=== PATIENT | male | born 1925 | race Caucasian/White ===

== ENCOUNTER 2016-10-08 10:32 | Inpatient (IN) | payer MEDICARE, BC ==
[~2016-10-08] VITALS: Ht 188 cm; Wt 92.6 kg
[2016-10-08] VITALS (24 sets, daily range): BP systolic 93–140; BP diastolic 56–96; PULSE 91–126; RESP 12–30; TEMP 97.8–102.9; O2SAT 81–100
[~2016-10-08 10:32] MED LIST: ALBU0.08 NEB; ALPR.25 PO; AMLO5TAB2 PO; ANALHC30T TOPICAL; ASPI1TAB69 PO; CALC648T PO; DIVA125C PO; DULC10SU3 RECTAL; FURO20TA PO; GLYC1SOL EACH EYE; LACTG PO; LEVO75TA3 PO; LEXA20TA PO; LORA-361 PO; METO25TA3 PO; MILKSUS PO; MULT-135 PO; Non-Formulary Drug RECTAL; PERC5TAB12 PO; POTA10CA PO; QUET1TAB7 PO; TRIAPOW TOPICAL; VITA20003 PO
[2016-10-08] MEDS ORDERED: VANCOMYCIN INJ 1 MG in SODIUM CHLOR 0.9% 250 ML INJ 250 ML IV STA (10:37)
[2016-10-08] MEDS ORDERED: metroNIDAZOLE 500 MG INJ 100 ML IV STA (10:37)
[2016-10-08] MEDS ORDERED: CEFEPIME INJ 2,000 MG in SODIUM CHLORIDE 0.9% INJ 100 ML IV STA (10:37)
[2016-10-08] MEDS ORDERED: AZITHROMYCIN INJ 500 MG in SODIUM CHLOR 0.9% 250 ML INJ 250 ML IV STA (10:37)
[2016-10-08] MEDS ORDERED: ETOMIDATE 40 MG/20 ML VIAL ONE (10:44)
[2016-10-08] MEDS ORDERED: SUCCINYLCHOLINE CHLORIDE 200 MG/10 ML VIAL ONE (10:44)
[2016-10-08] MEDS ORDERED: PROPOFOL 1000 MG/100 ML INJ 100 ML IV SCH (11:00)
[2016-10-08] MEDS ORDERED: SODIUM CHLOR 0.9% 1000 ML INJ 1,000 ML IV SCH ×3 (11:00)
[2016-10-08] MEDS ORDERED: PHENYLEPH/NS 1000 MCG/10 ML SYR IV ONE (11:00)
[2016-10-08] MEDS ORDERED: SODIUM CHLORIDE 0.9% FLUSH 5 ML FLUSH IVF PRN (11:00)
[2016-10-08] MEDS ORDERED: RESP: ALBUTEROL 2.5 MG/3 ML NEB (SCH) INH ONE (11:00)
[2016-10-08] MEDS ORDERED: HYDROmorphone HCL PF 1 MG/ML VIAL IV PUSH ONE (11:00)
[2016-10-08 11:16] LABS: AUTOMATED NEUTROPHIL # 20.9 TH/MM3 (1.8-7.7); BASOPHIL # 0.1 TH/MM3 (0-0.2); BASOPHIL % 0.2 % (0.0-2.0); HEMO FLAGS DIFF FINAL; LYMPH % 4.5 % (9.0-44.0); LYMPHOCYTE # 1.1 TH/MM3 (1.0-4.8); MEAN CELL VOLUME 95.2 FL (80.0-100.0); MEAN CORPUSCULAR HEMOGLOBIN 31.7 PG (27.0-34.0); MEAN CORPUSCULAR HGB CONC 33.3 % (32.0-36.0); MONO % 6.9 % (0.0-8.0); NEUT % 88.4 % (16.0-70.0); PLATELET COUNT 410 TH/MM3 (150-450); RED BLOOD COUNT 3.46 MIL/MM3 (4.50-5.90); RED CELL DISTRIBUTION WIDTH 14.4 % (11.6-17.2); WHITE BLOOD COUNT 23.7 TH/MM3 (4.0-11.0)
[2016-10-08 11:24] LABS: APTT (PATIENT) 28.9 SEC (24.3-30.1); INTERNATIONAL NORMALIZED RATIO 1.1 RATIO; PROTHROMBIN TIME - PATIENT 11.7 SEC (9.8-11.6)
[2016-10-08] MEDS ORDERED: ACETAMINOPHEN 650 MG SUPP RECTAL ONE (11:45)
[2016-10-08 11:47] LABS: ALKALINE PHOSPHATASE 88 U/L (45-117); ALT (GPT) 37 U/L (12-78); AST (GOT) 33 U/L (15-37); BLOOD UREA NITROGEN 41 MG/DL (7-18); GLOMERULAR FILTRATION RATE 43 ML/MIN (>89); POTASSIUM 4.6 MEQ/L (3.5-5.1); SODIUM (NA) 137 MEQ/L (136-145); TOTAL BILIRUBIN ADULT 0.6 MG/DL (0.2-1.0)
[2016-10-08 11:48] LABS: ANION GAP 10 MEQ/L (5-15); BICARBONATE 22.5 MEQ/L (21.0-32.0); CHLORIDE 105 MEQ/L (98-107)
[2016-10-08 11:50] LABS: BLOOD, URINE SMALL (NEG); GLUCOSE,URINE NEG (NEG); KETONE, URINE NEG (NEG); NITRITE,URINE POS (NEG)
[2016-10-08 11:54] LABS: PH, URINE GREATER/EQUAL 9.0 (5.0-8.5)
[2016-10-08 11:55] LABS: URINE COLOR YELLOW (YELLW/STRAW)
--- NOTE | 2016-10-08 11:59 | RADRPT ---
EXAM DATE/TIME: 10/08/2016 11:24 [place] COMPARISON: CHEST SINGLE AP, August 23, 2016, 8:40. INDICATIONS : Post intubation. MEDICAL HISTORY : Hypertension. Chronic obstructive pulmonary disease. SURGICAL HISTORY : None. ENCOUNTER: Initial ACUITY: 1 day PAIN SCORE: Non-responsive. LOCATION: Bilateral chest FINDINGS: A single view of the chest demonstrates endotracheal tube placement with tip 5 cm above the magnolia. N asogastric tube with tip in stomach. Minimal left retrocardiac density. Osseous structures are intac t. CONCLUSION: 1. Adequate placement of endotracheal tube. 2. Left basal atelectasis. Luc Calix MD on October 08, 2016 at 11:55 Board Certified Radiologist. This report was verified electronically.
[2016-10-08 12:03] LABS: BACTERIA, URINE MANY /hpf; MUCUS URINE FEW /lpf (OCC)
[2016-10-08 12:05] LABS: COMMENT (UR) CATH-CULTURE IND; CULTURE IF INDICATED CATH CULTURE IND
--- NOTE | 2016-10-08 12:20 | PD ---
HPI Chief Complaint: Respiratory Distress Time Seen by Provider: 10:35 Travel History International Travel<30 days: No Contact w/Intl Traveler<30days: No Traveled to known affect area: No History of Present Illness HPI This is an 89-year-old male who presents to the emergency department with increased difficulty breathing. He evidently had some episodes of vomiting earlier this morning and since then they found him struggling to breathe and gurgling. He is been less responsive than normal. Patient doesn't provide any history. I did speak to the patient's son who is his power of state attorney. He says that this is happened in the past and he sent MRSA pneumonia in the past. He said last year he had a very similar incident where he had difficulty breathing and ended up intubated in the intensive care unit for 20 days. He said after bronchoscopy his symptoms improved significantly and after recovering from that illness the patient was fairly functional, walking with a walker and able to toilet and eat independently with minimal confusion. Regarding goals of care the son would like to be aggressive because he feels his father recovered from an illness similar to this last year. PFSH Past Medical History Arthritis: Yes Asthma: No Blood Disorders: No Anxiety: Yes Depression: Yes Cancer: Yes (SKIN ) Cardiovascular Problems: Yes High Cholesterol: No Chemotherapy: No Chest Pain: No Congestive Heart Failure: No COPD: Yes Cerebrovascular Accident: No Diabetes: No Diminished Hearing: No Endocrine: No Gastrointestinal Disorders: Yes GERD: Yes Glaucoma: No Genitourinary: No Hepatitis: No Hiatal Hernia: No Hypertension: Yes Immune Disorder: No Kidney Stones: No Musculoskeletal: Yes (CHRONIC BACK PROBLEMS ) Neurologic: Yes (NEUROPATHY) Psychiatric: Yes Reproductive: No Respiratory: Yes Radiation Therapy: No Renal Failure: No Thyroid Disease: Yes Ulcer: No Tetanus Vaccination: < 5 Years ?: Not Past Surgical History Abdominal Surgery: Yes (COLONOSCOPY) AICD: No Appendectomy: Yes Arteriovenous Shunt: No Cardiac Surgery: No Cholecystectomy: Yes Ear Surgery: No Endocrine Surgery: No Eye Surgery: No Genitourinary Surgery: Yes (TURP) Gynecologic Surgery: No Insulin Pump: No Joint Replacement: No Oral Surgery: No Thoracic Surgery: No Other Surgery: Yes (BACK SURGERY) Social History Alcohol Use: No Tobacco Use: No Substance Use: No Allergies-Medications (Allergen,Severity, Reaction): Coded Allergies: Levofloxacin (Verified Allergy, Severe, 10/08/16) *MDRO Multi-Drug Resistant Organism (Verified Adverse Reaction, Unknown, 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) - 07/21/16 & 08/22/16 Reported Meds & Prescriptions Reported Meds & Active Scripts Active Quetiapine (Quetiapine Fumarate) 25 Mg Tab 25 Mg PO BID PRN [Non-Formulary Drug] 1 EA Ea 0 Ea RECTAL BID Analpram Hc Topical (Hydrocortisone/Pramoxine) 2.5-1% Cream 1 Applic TOPICAL Q8HR Reported Xanax (Alprazolam) 0.25 Mg Tab 0.25 Mg PO Q8H PRN Vitamin D (Cholecalciferol) 2,000 Unit Tab Triamcinolone Acetonide (Triamcinolone Acetonide (Topic) 1 Pow Pow 0.1 % TOPICAL HS Potassium Chloride ER (Potassium Chloride) 10 Meq Cap 10 Meq PO DAILY Percocet (Oxycodone-Acetaminophen) 5-325 mg Tab 1 Tab PO Q8HR PRN Multi Vitamin (Multiple Vitamin) 1 Tab Tab 1 Tab PO DAILY Milk of Magnesia Liq (Magnesium Hydroxide) 400 Mg/5 Ml Susp 30 Ml PO HS PRN Metoprolol Tartrate 25 Mg Tab 25 Mg PO BID Lexapro (Escitalopram Oxalate) 20 Mg Tab 20 Mg PO DAILY Levothyroxine (Levothyroxine Sodium) 75 Mcg Tab 75 Mcg PO DAILY Furosemide 20 Mg Tab 20 Mg PO DAILY Floranex (Lactobacillus Acidophilus) 1 Gm Pkt 1 Gm PO BID Dulcolax Supp (Bisacodyl) 10 Mg Supp 10 Mg RECTAL DAILY PRN Depakote Sprinkles (Divalproex Sodium) 125 mg Cap 125 Mg PO TID Claritin (Loratadine) 10 Mg Tab 10 Mg PO DAILY Calcium Carbonate (Calcium Carbonate (Antacid)) 648 Mg Tab 648 Mg PO PRN Aspirin 81 Mg Tabdr 81 Mg PO DAILY Sm Dry Eye Relief 0.2-0.2-1 % (Agmgzxgc-Taducvgenwbo-Xicwdnbj) 1 Sweta Sweta 1 Drop EACH EYE TID Amlodipine (Amlodipine Besylate) 5 Mg Tab 5 Mg PO DAILY Albuterol Neb (Albuterol Sulfate) 2.5 Mg/3 Ml Neb 2.5 Mg NEB TID NEB PRN Review of Systems ROS Limitations: Clinical Condition, Poor Historian Physical Exam Narrative GENERAL: Frail elderly male in severe respiratory distress. SKIN: Warm and dry. HEAD: Atraumatic. Normocephalic. EYES: Pupils equal and round. No injection or drainage. ENT: Moist mucous membranes NECK: Trachea midline. CARDIOVASCULAR: Regular rate and rhythm. No murmur appreciated. RESPIRATORY: Diffuse crackles, worse on the right, accessory muscle use, not protecting airway with yellow and green sputum production GASTROINTESTINAL: Abdomen soft, non-tender, nondistended. MUSCULOSKELETAL: No obvious deformities. NEUROLOGICAL: Poorly responsive.. No obvious cranial nerve deficits. Moving all extremities. Data Data Last Documented VS Vital Signs Date Time Temp Pulse Resp B/P Pulse Ox O2 Delivery O2 Flow Rate FiO2 10/08/16 12:00 99.3 108 12 112/57 100 Ventilator 100 10/08/16 10:40 15 Orders Complete Blood Count With Diff (10/08/16 10:37) Comprehensive Metabolic Panel (10/08/16 10:37) Prothrombin Time / Inr (Pt) (10/08/16 10:37) Act Partial Throm Time (Ptt) (10/08/16 10:37) Lactic Acid Sepsis Protocol (10/08/16 10:37) Urinalysis - C+S If Indicated (10/08/16 10:37) Influenzae A/B Antigen (10/08/16 10:37) Blood Culture (10/08/16 10:37) Sputum Culture And Gram Stain (10/08/16 10:37) Pneumococcal Urinary Antigen (10/08/16 10:37) Legionella Urinary Antigen (10/08/16 10:37) Chest, Single Ap (10/08/16 10:37) Blood Glucose (10/08/16 10:37) Ecg Monitoring (10/08/16 10:37) Iv Access Insert/Monitor (10/08/16 10:37) Oximetry (10/08/16 10:37) Oxygen Administration (10/08/16 10:37) Vancomycin Inj (Vancomycin Inj) (10/08/16 10:37) Metronidazole 500 Mg Inj (Flagyl 500 Mg (10/08/16 10:37) Cefepime Inj (Maxipime Inj) (10/08/16 10:37) Azithromycin Inj (Zithromax Inj) (10/08/16 10:37) Etomidate Inj (Amidate Inj) (10/08/16 10:44) Succinylcholine Inj (Quelicin Inj) (10/08/16 10:44) Sodium Chlor 0.9% 1000 Ml Inj (Ns 1000 M (10/08/16 11:00) Sodium Chlor 0.9% 1000 Ml Inj (Ns 1000 M (10/08/16 11:00) Sodium Chlor 0.9% 1000 Ml Inj (Ns 1000 M (10/08/16 11:00) Hydromorphone Pf Inj (Dilaudid Pf Inj) (10/08/16 11:00) Propofol 1000 Mg/100 Ml Inj (Diprivan 10 (10/08/16 11:00) ^ Infusion (10/08/16 10:51) RASS (10/08/16 10:51) Neurological Rass Scale TAMIKA.Q2H (10/08/16 10:51) Phenyleph/Ns 1000 Mcg/10ml Syr (Neosynep (10/08/16 11:00) Arterial Blood Gas (Abg) (10/08/16 10:52) Ng Gastric Tube Insert/Monitor (10/08/16 10:52) Urinary Catheter Insert/Apply (10/08/16 10:52) Albuterol Neb (Albuterol Neb) (10/08/16 11:00) Sodium Chloride 0.9% Flush (Ns Flush) (10/08/16 11:00) Restraints Non-Violent TAMIKA.Q3H (10/08/16 10:52) Acetaminophen Supp (Tylenol Supp) (10/08/16 11:45) Urine Culture (10/08/16 10:50) Admit Order (Ed Use Only) (10/08/16 12:07) Labs Laboratory Tests Test 10/08/16 10:50 White Blood Count 23.7 TH/MM3 Red Blood Count 3.46 MIL/MM3 Hemoglobin 11.0 GM/DL Hematocrit 33.0 % Mean Corpuscular Volume 95.2 FL Mean Corpuscular Hemoglobin 31.7 PG Mean Corpuscular Hemoglobin 33.3 % Concent Red Cell Distribution Width 14.4 % Platelet Count 410 TH/MM3 Mean Platelet Volume 8.8 FL Neutrophils (%) (Auto) 88.4 % Lymphocytes (%) (Auto) 4.5 % Monocytes (%) (Auto) 6.9 % Eosinophils (%) (Auto) 0.0 % Basophils (%) (Auto) 0.2 % Neutrophils # (Auto) 20.9 TH/MM3 Lymphocytes # (Auto) 1.1 TH/MM3 Monocytes # (Auto) 1.6 TH/MM3 Eosinophils # (Auto) 0.0 TH/MM3 Basophils # (Auto) 0.1 TH/MM3 CBC Comment DIFF FINAL Differential Comment Prothrombin Time 11.7 SEC Prothromb Time International 1.1 RATIO Ratio Activated Partial 28.9 SEC Thromboplast Time Urine Color YELLOW Urine Turbidity SLIGHTY CLOUDY Urine pH GREATER/EQUAL 9.0 Urine Specific [place] 1.014 Urine Protein 100 mg/dL Urine Glucose (UA) NEG mg/dL Urine Ketones NEG mg/dL Urine Occult Blood SMALL Urine Nitrite POS Urine Bilirubin NEG Urine Urobilinogen 0.2 MG/DL Urine Leukocyte Esterase LARGE Urine RBC 49 /hpf Urine WBC /hpf Urine Amorphous Sediment RARE Urine Bacteria MANY /hpf Urine Mucus FEW /lpf Microscopic Urinalysis Comment CATH-CULTURE IND Sodium Level 137 MEQ/L Potassium Level 4.6 MEQ/L Chloride Level 105 MEQ/L Carbon Dioxide Level 22.5 MEQ/L Anion Gap 10 MEQ/L Blood Urea Nitrogen 41 MG/DL Creatinine 1.52 MG/DL Estimat Glomerular Filtration 43 ML/MIN Rate Random Glucose 173 MG/DL Lactic Acid Level 2.5 mmol/L Calcium Level 9.1 MG/DL Total Bilirubin 0.6 MG/DL Aspartate Amino Transf 33 U/L (AST/SGOT) Alanine Aminotransferase 37 U/L (ALT/SGPT) Alkaline Phosphatase 88 U/L Total Protein 7.7 GM/DL Albumin 2.5 GM/DL [facility] Medical Decision Making Medical Screen Exam Complete: Yes Emergency Medical Condition: Yes Interpretation(s) Febrile, tachycardic, hypoxic Leukocytosis of 23 with left shift Renal insufficiency with a creatinine of 1.52 and elevated BUN Lactic acid is 2.5 Urinalysis: Urinary tract infection Differential Diagnosis Aspiration pneumonia, MRSA pneumonia, urinary tract infection, sepsis, septic shock Narrative Course This is an 89-year-old male who presents to the emergency department with increasing shortness of breath and difficulty breathing following a suspected aspiration episode. On arrival the patient was 86% on a nonrebreather. He was found to be febrile. Decision was made to intubate the patient as he was poorly protecting his airway, he had poor mentation and had increased work of breathing with difficulty oxygenating. He was preoxygenated with BiPAP. Intubation went without difficulty or desaturation. Patient was given 3 L of IV hydration, broad-spectrum antibiotics, and will be admitted to the intensive care unit. Following orogastric tube placement the patient's ET tube did become dislodged. He was reintubated by me without difficulty and was easily preoxygenated Critical Care Narrative Aggregate critical care time was 80 minutes. Time to perform other separately billable procedures was not included in the critical care time. My time did not include minutes spent treating any other patients simultaneously or on activities that did not directly contribute to the patient's treatment. The services I provided to this patient were to treat and/or prevent clinically significant deterioration that could result in: Disability, I provided critical care services requiring my management, as noted below: Chart data review, documentation time, medication orders and management, vital sign assessments/reviewing monitor data, ordering and reviewing lab tests, ordering and interpreting/reviewing x-rays and diagnostic studies, care of the patient and discussion of the patient with the admitting physicians. I had a long conversation with family members regarding clinical status and goals of care. Procedures Procedure Narrative After the risks and benefits were discussed the following procedure was performed: INTUBATION: The patient was put in optimal position for the procedure. Rapid sequence intubation was initiated by me using 20 milligrams of etomidate IV and 100 milligrams of succinylcholine IV. The patient was intubated with a 8.0 cuffed endotracheal tube. Tube placement was confirmed by visualization of the tube and balloon passing through the cords, capnometry and subsequent chest x- ray. Breath sounds were equal and well aerated bilaterally postintubation. No breath sounds over stomach. Patient tolerated procedure well. Patient self extubated and required reintubation After the risks and benefits were discussed the following procedure was performed: INTUBATION: The patient was put in optimal position for the procedure. Rapid sequence intubation was initiated by me using 20 milligrams of etomidate IV and 100 milligrams of succinylcholine IV. The patient was intubated with a [-] cuffed endotracheal tube. Tube placement was confirmed by visualization of the tube and balloon passing through the cords, capnometry and subsequent chest x- ray. Breath sounds were equal and well aerated bilaterally postintubation. No breath sounds over stomach. Patient tolerated procedure well. Diagnosis Primary Impression: Acute respiratory failure with hypoxia Additional Impression: Severe sepsis Admitting Information Admitting Physician Requests: Admit Romana Haynes MD Oct 08, 2016 12:20
[2016-10-08 12:25] LABS: BLOOD GAS BASE EXCESS -6.3 mmol/L (-2-2); BLOOD GAS CARBOXYHEMOGLOBIN 1.8 % (0-4); BLOOD GAS HCO3 19 mmol/L (22-26); BLOOD GAS METHEMOGLOBIN 2.2 % (0-2); BLOOD GAS O2 HGB SATURATION 95 % (90-100); BLOOD GAS OXYGEN CONTENT 14.1 Vol % (12.0-20.0); BLOOD GAS PCO2 42 mmHg (38-42); BLOOD GAS PO2 202 mmHG (61-120); BLOOD GAS TOTAL HGB 10.2 G/DL (12.0-16.0); CRITICAL VALUE YES; FIO2 100 %; OXYGEN DEVICE VENTILATOR; TEMP CORR TO 98.6; VENT SETTINGS A/C500/12/PEEP5
[2016-10-08 12:26] LABS: DRAW SITE RT RADIAL; NUMBER OF ARTERIAL PUNCTURES 1; STAT YES
[2016-10-08 13:04] LABS: LACTIC ACID GHOST NOT REPORTABLE
[2016-10-08] MEDS ORDERED: GABA100C4 PO (13:29)
[2016-10-08] MEDS: SODIUM CHLOR 0.9% 1000 ML INJ 1,000 ML IV ONE ×2 (14:14→14:43)
[2016-10-08] MEDS ORDERED: ONDANSETRON HCL 4 MG/2 ML VIAL IV PRN (14:15)
[2016-10-08] MEDS ORDERED: SENNOSIDES 8.6 MG TAB PO PRN (14:15)
[2016-10-08] MEDS ORDERED: Vancomycin Consult Pharmacy 1 EA OTHER SCH (14:15)
[2016-10-08] MEDS ORDERED: CHLORHEXIDINE GLUCONATE 2 % 1 PACK (2 CLOTHS) TOP PRN ×2 (14:15)
[2016-10-08] MEDS ORDERED: SODIUM CHLORIDE 0.9% FLUSH 5 ML FLUSH IV FLUSH PRN ×2 (14:15)
[2016-10-08] MEDS ORDERED: MISCELLANEOUS NURSING INFORMATION XX SCH ×2 (14:15)
--- NOTE | 2016-10-08 14:35 | HHI.HP ---
[facility] Service Critical Care Medicine Primary Care Physician Non-Staff Admission Diagnosis aspiration pneumonia, hypoxic respiratory failure Diagnosis: (1) Acute respiratory failure with hypoxia Diagnosis: Principal (2) BINH (acute kidney injury) Diagnosis: Principal (3) Encephalopathy Diagnosis: Principal (4) Leukocytosis Diagnosis: Principal (5) Urinary tract infection Diagnosis: Principal (6) Pneumonia Diagnosis: Principal (7) Altered mental status Diagnosis: Principal (8) Fever Diagnosis: Principal (9) History of COPD Diagnosis: Principal (10) Chronic low back pain Diagnosis: Principal (11) History of MRSA infection Diagnosis: Principal (12) Renal artery stenosis Diagnosis: Principal (13) Right cataract Diagnosis: Principal (14) History of CVA with residual deficit Diagnosis: Principal (15) Depression Diagnosis: Principal (16) Rectal ulcer Diagnosis: Principal (17) Hypertension Diagnosis: Principal (18) Hypothyroidism Diagnosis: Principal (19) Anemia Diagnosis: Principal (20) Severe sepsis Diagnosis: Principal (21) Neuropathy Diagnosis: Principal Travel History International Travel<30 Days: No Contact w/Intl Traveler <30 Da: No Traveled to Known Affected Are: No Sepsis Criteria SIRS Criteria (2 or more): Heart rate over 90, WBC > 79181, < 4000 or > 10% bands Sepsis Criteria (SIRS+source): Infect source susp/known Severe Sepsis (+one): Lactate >2 Criteria Outcome: Meets severe sepsis criteria History of Present Illness 89 -year-old male. Date of admission 10/08/2016. Past medical history includes right eye cataract, prior CVA with left-sided weakness, rectal ulcers, history of MRSA, history of ELMO, COPD, osteoarthritis, peripheral neuropathy, chronic low back pain, skin cancer, depression, hypertension, hypothyroidism, anemia and gastritis. Patient is a intermediate resident at the [facility] when today he was noted to have increasing shortness of breath. He evidently had some episodes of vomiting earlier this morning and since then they found him struggling to breathe and gurgling. He is been less responsive than normal. Patient doesn't provide any history. 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 He says that this is happened in the past and he sent MRSA pneumonia in the past. He said last year he had a very similar incident where he had difficulty breathing and ended up intubated in the intensive care unit for 20 days. He said after bronchoscopy his symptoms improved significantly and after recovering from that illness the patient was fairly functional, walking with a walker and able to toilet and eat independently with minimal confusion. Patient received etomidate and succinylcholine for intubation and 3 L normal saline per severe sepsis protocol. Vancomycin, cefepime, Flagyl and Zithromax were provided. Patient's been pancultured. Influenza negative. Chest x-ray revealed possible left lower lobe pneumonia. He also has a UTI. At the present time, the patient is sedated on propofol drip. Review of Systems ROS Limitations: Intubated Past Family Social History Allergies: Coded Allergies: Levofloxacin (Verified Allergy, Severe, 10/08/16) *MDRO Multi-Drug Resistant Organism (Verified Adverse Reaction, Unknown, 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) - 07/21/16 & 08/22/16 Past Medical History Peripheral neuropathy Chronic low back pain Osteoarthritis Recurrent pneumonia History CVA with left weakness Right eye cataract Rectal ulcer ELMO History of MRSA History of skin cancer Depression Hypertension Hypothyroidism Chronic kidney disease stage II to 3 History recurrent GI bleeding Gastritis Anemia Chronic benzodiazepine use Chronic narcotic use Past Surgical History Hernia repair Appendectomy Cholecystectomy TURP Laminectomy History of colonoscopy/EGD Reported Medications Xanax 0.25 mg every 8 hours as needed Vitamin D 2000 units daily Triamcinolone powder 0.1 percent at night Percocets 5/325 one tablet every 8 hours as needed Multivitamin 1 tablet daily Metoprolol 25 mg twice a day Lexapro 20 mEq daily Levoxyl 75 g daily Lasix 20 mg daily Florastor one packet twice a day Depakote 125 mg 3 times a day Claritin 10 mg daily Aspirin 81 mg daily Dry eye relief one drop each eye 3 times a day Norvasc 5 mg daily Gabapentin 100 mg twice a day Seroquel 25 mg twice a day as needed Hydrocortisone per rectum 3 times a day Active Ordered Medications Reviewed in EMR Family History Mother and father is not contributory/non-defined Social History Quit tobacco 30 years ago. No recent alcohol or IV drug use Physical Exam Vital Signs Vital Signs Date Time Temp Pulse Resp B/P Pulse Ox O2 Delivery O2 Flow Rate FiO2 10/08/16 13:00 98.2 98 12 118/56 100 Ventilator 60 10/08/16 12:50 60 10/08/16 12:45 98.6 109 12 95/64 100 Ventilator 100 10/08/16 12:15 99.0 100 12 108/63 100 Ventilator 100 10/08/16 12:00 99.3 108 12 112/57 100 Ventilator 100 10/08/16 11:45 100.8 112 12 132/72 100 Ventilator 100 10/08/16 11:33 100 10/08/16 11:31 101.1 126 12 135/59 Ventilator 100 10/08/16 10:45 92 BiPAP 10/08/16 10:45 81 Room Air 10/08/16 10:44 102.9 10/08/16 10:40 123 27 89 Non-Rebreather 15 10/08/16 10:35 125 27 129/96 89 Physical Exam GENERAL: 89-year-old male, critically ill currently in bed in no acute distress SKIN: Warm and dry. Tattoo on left shoulder HEAD: Atraumatic. Normocephalic. EYES: Pupils equal and round about 3 Hammer's bilaterally. Status post right cataract changes.. No scleral icterus. No injection or drainage. ENT: No nasal bleeding or discharge. Mucous membranes pink and moist. NECK: Trachea midline. No JVD. CARDIOVASCULAR: Regular rate and rhythm. S1, S2. No S4. RESPIRATORY: Coarse crackles appreciated throughout lung hanna. Positive end expiratory wheeze GASTROINTESTINAL: Abdomen soft, non-tender, nondistended. Active bowel sounds appreciated MUSCULOSKELETAL: Extremities without significant peripheral edema. Noted some scabbing noted over the bilateral lower extremities possibly from scratching NEUROLOGICAL: Sedate on the propofol ventilator. Withdraws to pain in all 4 extremities. Cranial nerves II through XII grossly intact. Nonfocal examination Laboratory Laboratory Tests Test 10/08/16 10/08/16 10/08/16 10:50 12:15 12:50 White Blood Count 23.7 Red Blood Count 3.46 Hemoglobin 11.0 Hematocrit 33.0 Mean Corpuscular Volume 95.2 Mean Corpuscular Hemoglobin 31.7 Mean Corpuscular Hemoglobin 33.3 Concent Red Cell Distribution Width 14.4 Platelet Count 410 Mean Platelet Volume 8.8 Neutrophils (%) (Auto) 88.4 Lymphocytes (%) (Auto) 4.5 Monocytes (%) (Auto) 6.9 Eosinophils (%) (Auto) 0.0 Basophils (%) (Auto) 0.2 Neutrophils # (Auto) 20.9 Lymphocytes # (Auto) 1.1 Monocytes # (Auto) 1.6 Eosinophils # (Auto) 0.0 Basophils # (Auto) 0.1 CBC Comment DIFF FINAL Differential Comment Prothrombin Time 11.7 Prothromb Time International 1.1 Ratio Activated Partial 28.9 Thromboplast Time Urine Color YELLOW Urine Turbidity SLIGHTY CLOUDY Urine pH GREATER/EQUAL 9.0 Urine Specific Crocker 1.014 Urine Protein 100 Urine Glucose (UA) NEG Urine Ketones NEG Urine Occult Blood SMALL Urine Nitrite POS Urine Bilirubin NEG Urine Urobilinogen 0.2 Urine Leukocyte Esterase LARGE Urine RBC 49 Urine WBC Urine Amorphous Sediment RARE Urine Bacteria MANY Urine Mucus FEW Microscopic Urinalysis Comment CATH-CULTURE IND Sodium Level 137 Potassium Level 4.6 Chloride Level 105 Carbon Dioxide Level 22.5 Anion Gap 10 Blood Urea Nitrogen 41 Creatinine 1.52 Estimat Glomerular Filtration 43 Rate Random Glucose 173 Lactic Acid Level 2.5 1.7 Calcium Level 9.1 Total Bilirubin 0.6 Aspartate Amino Transf 33 (AST/SGOT) Alanine Aminotransferase 37 (ALT/SGPT) Alkaline Phosphatase 88 Total Protein 7.7 Albumin 2.5 Blood Gas Puncture Site RT RADIAL Blood Gas Patient Temperature 98.6 Blood Gas HCO3 19 Blood Gas Base Excess -6.3 Blood Gas Oxygen Saturation 95 Arterial Blood pH 7.29 Arterial Blood Partial 42 Pressure CO2 Arterial Blood Partial 202 Pressure O2 Arterial Blood Oxygen Content 14.1 Arterial Blood 1.8 Carboxyhemoglobin Arterial Blood Methemoglobin 2.2 Blood Gas Hemoglobin 10.2 Oxygen Delivery Device VENTILATOR Blood Gas Ventilator Setting A/C500/12/PEEP5 Blood Gas Inspired Oxygen 100 Date/Time Procedure Status Source Growth 10/08/16 13:06 Gram Stain Received Sputum Expectorated Sputum Pending 10/08/16 13:06 Sputum Culture Received Sputum Expectorated Sputum Pending 10/08/16 11:35 Influenza Types A,B Antigen (NATALY) - Final Complete Nasal Washing NEGATIVE FOR FLU A AND B ANTIGEN.... 10/08/16 10:55 Aerobic Blood Culture Received Blood Peripheral Pending 10/08/16 10:55 Anaerobic Blood Culture Received Blood Peripheral Pending 10/08/16 10:50 Urine Culture Received Urine Catheterized Urine Pending 10/08/16 10:50 Legionella Antigen Received Urine Catheterized Urine Pending 10/08/16 10:50 Streptococcus pneumoniae Antigen (M Received Urine Catheterized Urine Pending Result Diagram: 10/08/16 1050 10/08/16 1050 Imaging Last Impressions Chest X-Ray 10/08/16 1037 Signed Impressions: Service Date/Time: Saturday, October 08, 2016 11:24 - CONCLUSION: 1. Adequate placement of endotracheal tube. 2. Left basal atelectasis. Luc Calix MD Assessment and Plan Assessment and Plan Neuro/Psych: History CVA with left-sided weakness Right eye cataract Peripheral neuropathy Chronic low back pain Depression Likely acute toxic metabolic encephalopathy secondary aspiration pneumonia Chronic narcotic use Chronic benzodiazepine use Patient is currently on propofol/fentanyl drips for sedation/analgesia while intubated Goal RASS -2 Daily sedation vacation Continue Lexapro 10 mg by mouth daily for depression. Continue Depakote sprinkles 500 mg by mouth twice a day. Check Depakote level. Holding gabapentin 100 mg by mouth twice a day. Resume when clinically indicated. Currently holding Seroquel 25 mg by mouth twice a day as needed for anxiety. Resume when clinically indicated. On Xanax 0.25 mg twice a day when necessary anxiety and Percocet 5/25 one tablet every 8 hours when necessary for pain management. These of been held CV: History of hypertension Severe sepsis Lactic acidosis Status post 3 L normal saline in ED. Lactate is cleared. Maintain normal saline at 84 cc an hour Holding Lasix 20 mg by mouth daily light of acute kidney injury. Clinically indicated Holding metoprolol 25 mg by mouth twice a day for hypertension with portal and blood pressures. Trend serial lactates. 2-D echocardiogram is ordered. Resp: Acute hypoxemic respiratory failure COPD History of MRSA pneumonia ACV 14/500/5/50 Ventilator bundle Duonebs every 6 hours and as needed Spontaneous breathing trials daily Chest x-ray revealed left lower lobe pneumonia/atelectasis. On albuterol neb 3 times a day when necessary at intermediate. GI: Rectal ulcers History gastritis History of inguinal hernia repair Started vital high protein goal 50 cc an hour. Protonix for GI prophylaxis Colace/as needed Senokot for bowel regimen Continue hydrocortisone per rectum twice a day. Pathology nonspecific last admission August : Stout has been placed for accurate I's and O's in a critically ill patient Endo: Hypothyroidism Allergic rhinitis Continue Levoxyl at 75 g by mouth daily. And Claritin 10 mg by mouth daily. Sliding-scale insulin with Accu-Cheks every 6 hours to maintain glycemia. Low regimen. Renal: Acute on chronic kidney disease disease stage II to 3 History of ELMO Aggressive hydration. Recheck BMP in AM. Avoid nephrotoxic drugs Heme: Leukocytosis Normocytic anemia History of skin cancer Follow CBC daily. Follow trends ID: [id number] UTI History of Escherichia coli UTI History of MRSA Day 1 vancomycin, cefepime, logical and Zithromax. Received vancomycin, cefepime, Flagyl and Zithromax in ED. Pertinent cultures 10/08 - blood cultures 2 - pending 10/08 - urine - pending 10/08 - sputum - pending Influenza negative FEN: Replace electrolyte as clinically indicated MSK: Dermatitischronic unknown type Continue triamcinolone cream apply to affected area tonight Access - Utilize peripheral IV. Central line if indicated Prophylaxis - GI - Protonix - DVT - SCD/heparin Critical Care: The total critical care time was 85 minutes. Time to perform other separately billable procedures was not included in the critical care time. Code Status Full code Discussed Condition With ED physician. RN. Care plan discussed and all questions answered. Problem Qualifiers (1) Leukocytosis: Qualified Code: D72.829 - Leukocytosis, unspecified type (2) Urinary tract infection: Qualified Code: N39.0 - Urinary tract infection without hematuria, site unspecified (3) Pneumonia: Qualified Code: J69.0 - Aspiration pneumonia of left lower lobe due to vomit (4) Altered mental status: Qualified Code: R41.82 - Altered mental status, unspecified altered mental status type (5) Fever: Qualified Code: R50.9 - Fever, unspecified fever cause (6) Chronic low back pain: Qualified Code: M54.5 - Chronic low back pain without sciatica, unspecified back pain laterality (7) Right cataract: Qualified Code: H25.9 - Senile cataract of right eye, unspecified age-related cataract type (8) Depression: Qualified Code: F33.9 - Episode of recurrent major depressive disorder, unspecified depression episode severity (9) Hypertension: Qualified Code: I10 - Essential hypertension (10) Hypothyroidism: Qualified Code: E03.9 - Hypothyroidism, unspecified type (11) Anemia: Qualified Code: D64.9 - Anemia, unspecified type Ruy Clemens MD Oct 08, 2016 14:35
[2016-10-08] MEDS: SODIUM CHLOR 0.9% 1000 ML INJ 1,000 ML IV SCH (14:57)
[2016-10-08] MEDS ORDERED: GLUCAGON 1 MG/ML VIAL OTHER PRN (15:00)
[2016-10-08] MEDS ORDERED: fentaNYL DRIP 250 ML IV SCH (15:00)
[2016-10-08] MEDS ORDERED: DEXTROSE 50% IN WATER 50 ML VIAL(D50) IV PUSH PRN (15:00)
[2016-10-08] MEDS: RESP: ALBUTEROL 2.5 MG/IPRATROPIUM 0.5 MG NEB (SCH) INH ×2 (16:00→20:21)
[2016-10-08] MEDS ORDERED: CEFEPIME INJ 2,000 MG in SODIUM CHLORIDE 0.9% INJ 100 ML IV SCH (16:00)
[2016-10-08] MEDS: methylPREDNISolone SOD SUCC 40 MG/1 ML VIAL IV PUSH SCH (16:45)
[2016-10-08] MEDS: HEPARIN SODIUM - SQ 10,000 UNITS/ML VIAL SQ SCH (16:46)
[2016-10-08] MEDS: INSULIN NovoLIN REGULAR SUPPLEMENTAL SCALE SQ SCH ×2 (17:19→23:47)
[2016-10-08] MEDS: ARTIFICIAL TEARS OPTH SOLN 15 ML BTL EACH EYE SCH (17:43)
[2016-10-08 18:55] LABS: BLOOD GAS BASE EXCESS -4.9 mmol/L (-2-2); BLOOD GAS CARBOXYHEMOGLOBIN 1.4 % (0-4); BLOOD GAS HCO3 19 mmol/L (22-26); BLOOD GAS METHEMOGLOBIN 1.3 % (0-2); BLOOD GAS O2 HGB SATURATION 94 % (90-100); BLOOD GAS OXYGEN CONTENT 13.5 Vol % (12.0-20.0); BLOOD GAS PCO2 28 mmHg (38-42); BLOOD GAS PO2 82 mmHg (61-120); BLOOD GAS TOTAL HGB 10.2 G/DL (12.0-16.0); TEMP CORR TO 98.6
[2016-10-08 18:56] LABS: CRITICAL VALUE NO; DRAW SITE LT FEMORAL; FIO2 50 %; NUMBER OF ARTERIAL PUNCTURES 1; OXYGEN DEVICE VENTILATOR; STAT NO; VENT SETTINGS AC14/500/5PEEP
[2016-10-08] MEDS: CHLORHEXIDINE 0.12% (ORAL KIT) 15 ML CUP MT SCH (20:46)
[2016-10-08] MEDS: SODIUM CHLORIDE 0.9% FLUSH 5 ML FLUSH IV FLUSH SCH (20:47)
[2016-10-08] MEDS: metroNIDAZOLE 500 MG INJ 100 ML IV SCH (20:47)
[2016-10-08] MEDS: DOCUSATE SODIUM 100 MG CAP PO SCH (20:48)
[2016-10-08] MEDS ORDERED: DIVALPROEX SODIUM SPRINKLES 125 MG CAP PO SCH (21:00)
[2016-10-08] MEDS ORDERED: SODIUM CHLORIDE 0.9% FLUSH 5 ML FLUSH IV FLUSH SCH (21:00)
[2016-10-08] MEDS: HYDROCORTISONE ACETATE 25 MG SUPP RECTAL SCH (21:18)
[2016-10-08 22:30] LABS: LACTIC ACID GHOST NOT REPORTABLE
[2016-10-08] MEDS: PROPOFOL 1000 MG/100 ML INJ 100 ML IV SCH (23:47)
[2016-10-09] VITALS (20 sets, daily range): BP systolic 94–119; BP diastolic 56–65; PULSE 65–87; RESP 18–25; TEMP 96.2–100.4; O2SAT 98–100
[2016-10-09] MEDS: CEFEPIME INJ 2,000 MG in SODIUM CHLORIDE 0.9% INJ 100 ML IV SCH ×2 (01:32→14:38)
[2016-10-09] MEDS: SODIUM CHLOR 0.9% 1000 ML INJ 1,000 ML IV SCH ×2 (01:34→14:39)
[2016-10-09] MEDS: methylPREDNISolone SOD SUCC 40 MG/1 ML VIAL IV PUSH SCH ×2 (03:05→14:38)
[2016-10-09] MEDS: HEPARIN SODIUM - SQ 10,000 UNITS/ML VIAL SQ SCH ×2 (03:06→14:38)
[2016-10-09] MEDS: RESP: ALBUTEROL 2.5 MG/IPRATROPIUM 0.5 MG NEB (SCH) INH ×4 (03:31→20:52)
[2016-10-09 03:46] LABS: AUTOMATED NEUTROPHIL # 20.7 TH/MM3 (1.8-7.7); BASOPHIL % 0.1 % (0.0-2.0); HEMATOCRIT 26.4 % (39.0-51.0); HEMO FLAGS DIFF FINAL; LYMPH % 2.7 % (9.0-44.0); LYMPHOCYTE # 0.6 TH/MM3 (1.0-4.8); MEAN CELL VOLUME 94.1 FL (80.0-100.0); MEAN CORPUSCULAR HGB CONC 32.9 % (32.0-36.0); MONO % 2.7 % (0.0-8.0); NEUT % 94.5 % (16.0-70.0); PLATELET COUNT 271 TH/MM3 (150-450); RED BLOOD COUNT 2.81 MIL/MM3 (4.50-5.90); RED CELL DISTRIBUTION WIDTH 14.4 % (11.6-17.2); WHITE BLOOD COUNT 21.9 TH/MM3 (4.0-11.0)
[2016-10-09] MEDS: CHLORHEXIDINE GLUCONATE 2 % 1 PACK (2 CLOTHS) TOP SCH (04:00)
[2016-10-09] MEDS ORDERED: CHLORHEXIDINE GLUCONATE 2 % 1 PACK (2 CLOTHS) TOP SCH (04:00)
[2016-10-09 04:02] LABS: APTT (PATIENT) 32.1 SEC (24.3-30.1); INTERNATIONAL NORMALIZED RATIO 1.1 RATIO; PROTHROMBIN TIME - PATIENT 12.7 SEC (9.8-11.6)
[2016-10-09 04:08] LABS: ALT (GPT) 24 U/L (12-78); ANION GAP 11 MEQ/L (5-15); AST (GOT) 24 U/L (15-37); BICARBONATE 20.3 MEQ/L (21.0-32.0); BLOOD UREA NITROGEN 38 MG/DL (7-18); CHLORIDE 112 MEQ/L (98-107); GLOMERULAR FILTRATION RATE 57 ML/MIN (>89); POTASSIUM 4.4 MEQ/L (3.5-5.1); SODIUM (NA) 143 MEQ/L (136-145)
[2016-10-09 04:10] LABS: ALKALINE PHOSPHATASE 64 U/L (45-117); TOTAL BILIRUBIN ADULT 0.4 MG/DL (0.2-1.0)
[2016-10-09] MEDS: metroNIDAZOLE 500 MG INJ 100 ML IV SCH ×3 (04:13→20:28)
[2016-10-09] MEDS: INSULIN NovoLIN REGULAR SUPPLEMENTAL SCALE SQ SCH ×4 (05:28→23:53)
[2016-10-09] MEDS: LEVOTHYROXINE SODIUM 75 MCG TAB PO SCH (05:28)
--- NOTE | 2016-10-09 05:31 | RADRPT ---
EXAM DATE/TIME: 10/09/2016 04:53 [place] COMPARISON: CHEST SINGLE AP, October 08, 2016, 11:24. INDICATIONS : Shortness of breath. MEDICAL HISTORY : Hypertension. Chronic obstructive pulmonary disease. SURGICAL HISTORY : None. ENCOUNTER: Subsequent ACUITY: 2 days PAIN SCORE: Non-responsive. LOCATION: Bilateral chest FINDINGS: 2 AP erect views of the chest were obtained and again demonstrate the endotracheal tube in place with the tip approximately 3 cm above the magnolia. A nasogastric tube is seen coursing through the esophag us and stomach. There is patchy opacity remaining at the left lung base. There is no definite effusio n. The heart size is at the upper limits of normal with no perihilar edema. There are atherosclerotic changes in the aorta. CONCLUSION: Mild patchy opacity the left lung base which may represent pneumonia. Juan Casas MD on October 09, 2016 at 5:29 Board Certified Radiologist. This report was verified electronically.
[2016-10-09] MEDS ORDERED: ALBUMIN HUMAN 25% 25 GM/100 ML BAGP IV SCH (08:00)
--- NOTE | 2016-10-09 08:17 | HHI.CCPN ---
Subjective Remarks/Hospital Course 89 -year-old male. Date of admission 10/08/2016. Past medical history includes right eye cataract, prior CVA with left-sided weakness, rectal ulcers, history of MRSA, history of ELMO, COPD, osteoarthritis, peripheral neuropathy, chronic low back pain, skin cancer, depression, hypertension, hypothyroidism, anemia and gastritis. Patient is a fdc resident at the [facility] when today he was noted to have increasing shortness of breath. He evidently had some episodes of vomiting earlier this morning and since then they found him struggling to breathe and gurgling. He is been less responsive than normal. Patient doesn't provide any history. The ED physician did speak to the patient's son who is his power of document review attorney. He says that this is happened in the past and he sent MRSA pneumonia in the past. He said last year he had a very similar incident where he had difficulty breathing and ended up intubated in the intensive care unit for 20 days. He said after bronchoscopy his symptoms improved significantly and after recovering from that illness the patient was fairly functional, walking with a walker and able to toilet and eat independently with minimal confusion. Patient received etomidate and succinylcholine for intubation and 3 L normal saline per severe sepsis protocol. Vancomycin, cefepime, Flagyl and Zithromax were provided. Patient's been pancultured. Influenza negative. Chest x-ray revealed possible left lower lobe pneumonia. He also has a UTI. At the present time, the patient is sedated on propofol drip. 10/09 Patient is sedated with Diprivan and intubated. Afebrile. Objective Vital Signs Date Time Temp Pulse Resp B/P Pulse Ox O2 Delivery O2 Flow Rate FiO2 10/09/16 07:33 99 40 10/09/16 06:00 72 10/09/16 04:00 98.4 22 94/56 10/08/16 18:25 Ventilator 10/08/16 10:40 15 Intake and Output 10/08/16 10/08/16 10/08/16 07:59 15:59 23:59 Intake Total 935 ml Output Total 1275 ml Balance -340 ml Result Diagram: 10/09/16 0326 10/09/16 0326 Other Results Laboratory Tests Test 10/08/16 10/08/16 10/08/16 10/08/16 10:50 12:15 12:50 15:20 White Blood Count 23.7 TH/MM3 Red Blood Count 3.46 MIL/MM3 Hemoglobin 11.0 GM/DL Hematocrit 33.0 % Mean Corpuscular Volume 95.2 FL Mean Corpuscular Hemoglobin 31.7 PG Mean Corpuscular Hemoglobin 33.3 % Concent Red Cell Distribution Width 14.4 % Platelet Count 410 TH/MM3 Mean Platelet Volume 8.8 FL Neutrophils (%) (Auto) 88.4 % Lymphocytes (%) (Auto) 4.5 % Monocytes (%) (Auto) 6.9 % Eosinophils (%) (Auto) 0.0 % Basophils (%) (Auto) 0.2 % Neutrophils # (Auto) 20.9 TH/MM3 Lymphocytes # (Auto) 1.1 TH/MM3 Monocytes # (Auto) 1.6 TH/MM3 Eosinophils # (Auto) 0.0 TH/MM3 Basophils # (Auto) 0.1 TH/MM3 CBC Comment DIFF FINAL Differential Comment Prothrombin Time 11.7 SEC Prothromb Time International 1.1 RATIO Ratio Activated Partial 28.9 SEC Thromboplast Time Urine Color YELLOW Urine Turbidity SLIGHTY CLOUDY Urine pH GREATER/EQUAL 9.0 Urine Specific [place] 1.014 Urine Protein 100 mg/dL Urine Glucose (UA) NEG mg/dL Urine Ketones NEG mg/dL Urine Occult Blood SMALL Urine Nitrite POS Urine Bilirubin NEG Urine Urobilinogen 0.2 MG/DL Urine Leukocyte Esterase LARGE Urine RBC 49 /hpf Urine WBC /hpf Urine Amorphous Sediment RARE Urine Bacteria MANY /hpf Urine Mucus FEW /lpf Microscopic Urinalysis Comment CATH-CULTURE IND Sodium Level 137 MEQ/L Potassium Level 4.6 MEQ/L Chloride Level 105 MEQ/L Carbon Dioxide Level 22.5 MEQ/L Anion Gap 10 MEQ/L Blood Urea Nitrogen 41 MG/DL Creatinine 1.52 MG/DL Estimat Glomerular Filtration 43 ML/MIN Rate Random Glucose 173 MG/DL Lactic Acid Level 2.5 mmol/L 1.7 mmol/L Calcium Level 9.1 MG/DL Total Bilirubin 0.6 MG/DL Aspartate Amino Transf 33 U/L (AST/SGOT) Alanine Aminotransferase 37 U/L (ALT/SGPT) Alkaline Phosphatase 88 U/L Total Protein 7.7 GM/DL Albumin 2.5 GM/DL Blood Gas Puncture Site RT RADIAL Blood Gas Patient Temperature 98.6 Blood Gas HCO3 19 mmol/L Blood Gas Base Excess -6.3 mmol/L Blood Gas Oxygen Saturation 95 % Arterial Blood pH 7.29 Arterial Blood Partial 42 mmHg Pressure CO2 Arterial Blood Partial 202 mmHG Pressure O2 Arterial Blood Oxygen Content 14.1 Vol % Arterial Blood 1.8 % Carboxyhemoglobin Arterial Blood Methemoglobin 2.2 % Blood Gas Hemoglobin 10.2 G/DL Oxygen Delivery Device VENTILATOR Blood Gas Ventilator Setting A/C500/12/[id number] Blood Gas Inspired Oxygen 100 % Troponin I 0.04 NG/ML Test 10/08/16 10/08/16 10/08/16 10/08/16 18:30 18:50 20:25 23:35 Nasal Screen MRSA (PCR) POSITIVE Blood Gas Puncture Site LT FEMORAL Blood Gas Patient Temperature 98.6 Blood Gas HCO3 19 mmol/L Blood Gas Base Excess -4.9 mmol/L Blood Gas Oxygen Saturation 94 % Arterial Blood pH 7.43 Arterial Blood Partial 28 mmHg Pressure CO2 Arterial Blood Partial 82 mmHg Pressure O2 Arterial Blood Oxygen Content 13.5 Vol % Arterial Blood 1.4 % Carboxyhemoglobin Arterial Blood Methemoglobin 1.3 % Blood Gas Hemoglobin 10.2 G/DL Oxygen Delivery Device VENTILATOR Blood Gas Ventilator Setting AC14/500/5PEEP Blood Gas Inspired Oxygen 50 % Lactic Acid Level 2.6 mmol/L 1.8 mmol/L Troponin I 0.08 NG/ML Valproic Acid (Depakene) Level 11 MCG/ML Test 10/09/16 03:26 White Blood Count 21.9 TH/MM3 Red Blood Count 2.81 MIL/MM3 Hemoglobin 8.7 GM/DL Hematocrit 26.4 % Mean Corpuscular Volume 94.1 FL Mean Corpuscular Hemoglobin 31.0 PG Mean Corpuscular Hemoglobin 32.9 % Concent Red Cell Distribution Width 14.4 % Platelet Count 271 TH/MM3 Mean Platelet Volume 8.5 FL Neutrophils (%) (Auto) 94.5 % Lymphocytes (%) (Auto) 2.7 % Monocytes (%) (Auto) 2.7 % Eosinophils (%) (Auto) 0.0 % Basophils (%) (Auto) 0.1 % Neutrophils # (Auto) 20.7 TH/MM3 Lymphocytes # (Auto) 0.6 TH/MM3 Monocytes # (Auto) 0.6 TH/MM3 Eosinophils # (Auto) 0.0 TH/MM3 Basophils # (Auto) 0.0 TH/MM3 CBC Comment DIFF FINAL Differential Comment Prothrombin Time 12.7 SEC Prothromb Time International 1.1 RATIO Ratio Activated Partial 32.1 SEC Thromboplast Time Sodium Level 143 MEQ/L Potassium Level 4.4 MEQ/L Chloride Level 112 MEQ/L Carbon Dioxide Level 20.3 MEQ/L Anion Gap 11 MEQ/L Blood Urea Nitrogen 38 MG/DL Creatinine 1.21 MG/DL Estimat Glomerular Filtration 57 ML/MIN Rate Random Glucose 154 MG/DL Lactic Acid Level 1.8 mmol/L Calcium Level 8.3 MG/DL Phosphorus Level 2.8 MG/DL Magnesium Level 2.0 MG/DL Total Bilirubin 0.4 MG/DL Aspartate Amino Transf 24 U/L (AST/SGOT) Alanine Aminotransferase 24 U/L (ALT/SGPT) Alkaline Phosphatase 64 U/L Total Protein 6.0 GM/DL Albumin 1.8 GM/DL Random Vancomycin Level 7.1 COMMENT Imaging Last Impressions Chest X-Ray 10/09/16 0000 Signed Impressions: Service Date/Time: Sunday, October 09, 2016 04:53 - CONCLUSION: Mild patchy opacity the left lung base which may represent pneumonia. Juan Casas MD Objective Remarks GENERAL: 89yo intubated and sedated. SKIN: Warm and dry. HEAD: Normocephalic. EYES: No scleral icterus. No injection or drainage. NECK: Supple, trachea midline. No JVD or lymphadenopathy. Orally intubated CARDIOVASCULAR: Regular rate and rhythm without murmurs, gallops, or rubs. RESPIRATORY: Breath sounds equal bilaterally. No accessory muscle use. GASTROINTESTINAL: Abdomen soft, non-tender, nondistended. MUSCULOSKELETAL: No cyanosis, or edema. Neuro: Sedated. A/P Assessment and Plan Neuro/Psych: History CVA with left-sided weakness Right eye cataract Peripheral neuropathy Chronic low back pain Depression Likely acute toxic metabolic encephalopathy secondary aspiration pneumonia Chronic narcotic use Chronic benzodiazepine use On propofol infusion/analgesia while intubated Goal RASS -2 Daily sedation vacation Continue Lexapro 10 mg by mouth daily for depression. Continue Depakote sprinkles 125mg Q8. Depakote level 11 on 10/08 Currently holding Seroquel 25 mg by mouth twice a day as needed for anxiety. Resume when clinically indicated. CV: History of hypertension Severe sepsis Lactic acidosis- resolved Status post 3 L normal saline in ED. Lactate is cleared 1.8 today Monitor HR and BP keep MAP>65mmHg 2D echo ordered. On ASA 81mg daily Resp: Acute hypoxemic respiratory failure COPD History of MRSA pneumonia Continue vent support keep sat >92%-ACV 14/550/5/40 Ventilator bundle Duonebs every 6 hours and as needed, Solumederol 40mg Q12 Spontaneous breathing trials daily GI: Rectal ulcers History gastritis History of inguinal hernia repair On vital high protein goal 50 cc an hour. Protonix for GI prophylaxis Colace/as needed Senokot for bowel regimen Continue hydrocortisone per rectum twice a day. 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 On NS@84ml/hr Endo: Hypothyroidism Continue Levoxyl at 75 g by mouth daily. Sliding-scale insulin with Accu-Cheks every 6 hours to maintain glycemia. Low regimen. Heme: Leukocytosis Normocytic anemia History of skin cancer Monitor CBC ID: HCAP UTI History of Escherichia coli UTI History of MRSA Received vancomycin, cefepime, Flagyl and Zithromax in ED. Continue abx (Cefepime, Zithromax, Flagyl) Pertinent cultures 10/08 - blood cultures 2 - pending 10/08 - urine - pending 10/08 - sputum - pending Influenza negative Strep pneumonia and Legionella urinary Ag negative FEN: Replace electrolyte as clinically indicated MSK: Dermatitischronic unknown type Continue triamcinolone cream apply to affected area tonight Access - Utilize peripheral IV. Central line if indicated Prophylaxis - GI - Protonix - DVT - SCD/heparin Critical Care: The total critical care time was 30 minutes. Time to perform other separately billable procedures was not included in the critical care time. Ger Coles MD Oct 09, 2016 08:17
[2016-10-09] MEDS: PROPOFOL 1000 MG/100 ML INJ 100 ML IV SCH ×2 (08:59→23:54)
[2016-10-09] MEDS: PANTOPRAZOLE SODIUM 40 MG VIAL IV SCH (09:00)
[2016-10-09] MEDS: DOCUSATE SODIUM 100 MG CAP PO SCH ×2 (09:00→20:26)
[2016-10-09] MEDS: SODIUM CHLORIDE 0.9% FLUSH 5 ML FLUSH IV FLUSH SCH ×2 (09:00→20:27)
[2016-10-09] MEDS: ASPIRIN 81 MG CHEW TAB TUBE SCH (09:00)
[2016-10-09] MEDS: ESCITALOPRAM OXALATE 20 MG TAB PO SCH (09:00)
[2016-10-09] MEDS: ARTIFICIAL TEARS OPTH SOLN 15 ML BTL EACH EYE SCH ×3 (09:00→17:14)
[2016-10-09] MEDS: HYDROCORTISONE ACETATE 25 MG SUPP RECTAL SCH ×2 (09:00→20:26)
[2016-10-09] MEDS: DIVALPROEX SODIUM SPRINKLES 125 MG CAP PO SCH ×3 (09:00→23:53)
[2016-10-09] MEDS: VANCOMYCIN 1,500 MG/NS 500 ML IV SCH ×2 (09:01)
[2016-10-09] MEDS: CHLORHEXIDINE 0.12% (ORAL KIT) 15 ML CUP MT SCH ×2 (09:01→20:28)
[2016-10-09 10:30] LABS: AUTOMATED NEUTROPHIL # 17.8 TH/MM3 (1.8-7.7); BASOPHIL % 0.1 % (0.0-2.0); HEMATOCRIT 29.7 % (39.0-51.0); HEMO FLAGS DIFF FINAL; LYMPH % 3.6 % (9.0-44.0); LYMPHOCYTE # 0.7 TH/MM3 (1.0-4.8); MEAN CELL VOLUME 95.7 FL (80.0-100.0); MEAN CORPUSCULAR HEMOGLOBIN 30.4 PG (27.0-34.0); MEAN CORPUSCULAR HGB CONC 31.8 % (32.0-36.0); MONO % 2.6 % (0.0-8.0); NEUT % 93.7 % (16.0-70.0); PLATELET COUNT 250 TH/MM3 (150-450); RED CELL DISTRIBUTION WIDTH 14.4 % (11.6-17.2)
[2016-10-09] MEDS: AZITHROMYCIN INJ 500 MG in SODIUM CHLOR 0.9% 250 ML INJ 250 ML IV SCH (11:33)
[2016-10-09] MEDS ORDERED: DIVALPROEX SODIUM SPRINKLES 125 MG CAP PO SCH (14:00)
--- NOTE | 2016-10-09 21:01 | EC ---
Study Study Date:10/09/2016 STUDY CONCLUSIONS SUMMARY - Left ventricle: The cavity size was normal. Wall thickness was increased in a pattern of mild LVH. Systolic function was at the lower limits of normal. The estimated ejection fraction was 50%. Wall motion was normal; there were no regional wall motion abnormalities. - Aortic valve: Mildly calcified annulus. Trileaflet; mildly thickened leaflets. - Left atrium: The atrium was mildly dilated. - Right ventricle: The cavity size was mildly dilated. Wall thickness was normal. - Tricuspid valve: Mild regurgitation. - Pulmonary arteries: PA peak pressure: 38mm Hg (S). If LV function is below 40, please consider prescribing an ACEI or ARB or document rationale for non-use. PROCEDURE DATA STUDY STATUS: Elective. Procedure: Transthoracic echocardiography. Image quality was good. Scanning was performed from the parasternal, apical, and subcostal acoustic windows. Study completion: The patient tolerated the procedure well. Transthoracic echocardiography. M-mode, complete 2D, complete spectral Doppler, and color Doppler. Patient status: Inpatient. CARDIAC ANATOMY LEFT VENTRICLE: The cavity size was normal. Wall thickness was increased in a pattern of mild LVH. Systolic function was at the lower limits of normal. The estimated ejection fraction was 50%. Wall motion was normal; there were no regional wall motion abnormalities. AORTIC VALVE: Mildly calcified annulus. Trileaflet; mildly thickened leaflets. Doppler: Transvalvular velocity was within the normal range. There was no stenosis. No regurgitation. AORTA: Aortic root: The aortic root was trivially dilated. MITRAL VALVE: Structurally normal valve. Doppler: Transvalvular velocity was within the normal range. There was no evidence for stenosis. Trace regurgitation. LEFT ATRIUM: The atrium was mildly dilated. RIGHT VENTRICLE: The cavity size was mildly dilated. Wall thickness was normal. PULMONIC VALVE: Doppler: Transvalvular velocity was within the normal range. There was no evidence for stenosis. No regurgitation. TRICUSPID VALVE: Structurally normal valve. Doppler: Transvalvular velocity was within the normal range. Mild regurgitation. PULMONARY ARTERY: The main pulmonary artery was normal-sized. Systolic pressure was within the normal range. RIGHT ATRIUM: The atrium was normal in size. PERICARDIUM: There was no pericardial effusion. SYSTEMIC VEINS: Inferior vena cava: The vessel was normal in size. BASIC MEASUREMENTS ADULT Normal Left ventricle LV internal dimension, ED, chordal level, 47.1 mm 43-52 PLAX LV internal dimension, ES, chordal level, 37.8 mm 23-38 PLAX Fractional shortening, chordal level, PLAX *20 % >29 LV posterior wall thickness, ED 10.4 mm IVS/LVPW ratio, ED *1.47 <1.3 Ventricular septum Septal thickness, ED 15.3 mm Aortic valve Leaflet separation 26 mm 15-26 Right ventricle RV internal dimension, ED, PLAX 29.6 mm 19-38 BASIC MEASUREMENTS ADULT Normal Aortic valve Leaflet separation 26 mm 15-26 Aorta Root diameter, ED *39 mm 20-37 Left atrium Anterior-posterior dimension, ES *48 mm 19-40 LA/aortic root ratio 1.23 DOPPLER MEASUREMENTS ADULT Normal Main pulmonary artery Pressure, S *38 mm Hg =30 Tricuspid valve Regurgitant peak velocity 265 cm/s Peak RV-RA gradient, S 28 mm Hg Systemic veins Estimated CVP 10 mm Hg Right ventricle RV pressure, S *38 mm Hg <30 LEGEND: Mean values are shown as u=mean value. Asterisk (*) mcnair values outside specified normal range. Prepared and signed by Sean Morgan [id number]
[2016-10-10] VITALS (19 sets, daily range): BP systolic 113–124; BP diastolic 61–77; PULSE 62–82; RESP 17–22; TEMP 97.4–99.1; O2SAT 95–100
[2016-10-10] MEDS: CEFEPIME INJ 2,000 MG in SODIUM CHLORIDE 0.9% INJ 100 ML IV SCH ×2 (01:25→14:32)
[2016-10-10] MEDS: RESP: ALBUTEROL 2.5 MG/IPRATROPIUM 0.5 MG NEB (SCH) INH ×4 (03:17→20:21)
[2016-10-10] MEDS: CHLORHEXIDINE GLUCONATE 2 % 1 PACK (2 CLOTHS) TOP SCH (04:00)
[2016-10-10] MEDS: HEPARIN SODIUM - SQ 10,000 UNITS/ML VIAL SQ SCH ×2 (04:20→18:44)
[2016-10-10] MEDS: metroNIDAZOLE 500 MG INJ 100 ML IV SCH ×3 (04:20→21:09)
[2016-10-10] MEDS: methylPREDNISolone SOD SUCC 40 MG/1 ML VIAL IV PUSH SCH ×2 (04:20→14:13)
[2016-10-10] MEDS: SODIUM CHLOR 0.9% 1000 ML INJ 1,000 ML IV SCH (04:21)
[2016-10-10 05:27] LABS: AUTOMATED NEUTROPHIL # 17.9 TH/MM3 (1.8-7.7); BASOPHIL % 0.1 % (0.0-2.0); HEMATOCRIT 26.4 % (39.0-51.0); HEMO FLAGS DIFF FINAL; LYMPH % 3.4 % (9.0-44.0); LYMPHOCYTE # 0.7 TH/MM3 (1.0-4.8); MEAN CELL VOLUME 94.2 FL (80.0-100.0); MEAN CORPUSCULAR HEMOGLOBIN 30.4 PG (27.0-34.0); MEAN CORPUSCULAR HGB CONC 32.3 % (32.0-36.0); MONO % 4.1 % (0.0-8.0); NEUT % 92.4 % (16.0-70.0); PLATELET COUNT 274 TH/MM3 (150-450); RED CELL DISTRIBUTION WIDTH 14.5 % (11.6-17.2); WHITE BLOOD COUNT 19.4 TH/MM3 (4.0-11.0)
[2016-10-10] MEDS: DIVALPROEX SODIUM SPRINKLES 125 MG CAP PO SCH ×3 (05:36→21:10)
[2016-10-10] MEDS: INSULIN NovoLIN REGULAR SUPPLEMENTAL SCALE SQ SCH ×3 (05:36→18:00)
[2016-10-10] MEDS: LEVOTHYROXINE SODIUM 75 MCG TAB PO SCH (05:36)
[2016-10-10 05:51] LABS: ALKALINE PHOSPHATASE 63 U/L (45-117); ALT (GPT) 21 U/L (12-78); ANION GAP 9 MEQ/L (5-15); AST (GOT) 21 U/L (15-37); BICARBONATE 21.7 MEQ/L (21.0-32.0); BLOOD UREA NITROGEN 41 MG/DL (7-18); CHLORIDE 114 MEQ/L (98-107); GLOMERULAR FILTRATION RATE 70 ML/MIN (>89); MAGNESIUM 2.3 MG/DL (1.5-2.5); SODIUM (NA) 145 MEQ/L (136-145); TOTAL BILIRUBIN ADULT 0.2 MG/DL (0.2-1.0)
--- NOTE | 2016-10-10 06:06 | RADRPT ---
EXAM DATE/TIME: 10/10/2016 04:59 [place] COMPARISON: CHEST SINGLE AP, October 09, 2016, 4:53. INDICATIONS : Short of breath. MEDICAL HISTORY : Hypertension. Chronic obstructive pulmonary disease. SURGICAL HISTORY : None. ENCOUNTER: Subsequent ACUITY: 3 days PAIN SCORE: Non-responsive. LOCATION: Bilateral chest FINDINGS: A single AP semierect view of the chest was obtained and again demonstrates an endotracheal tube in p lace with the tip approximately 3 cm above the magnolia. A nasogastric tube seen coursing through the e sophagus into the stomach. The right lung remains clear. There is patchy opacity remaining at the lef t lung base. There is no distinct effusion. CONCLUSION: 1. No significant change. 2. Patchy opacity remains at the left lung base. Juan Casas MD on October 10, 2016 at 6:03 Board Certified Radiologist. This report was verified electronically.
[2016-10-10] MEDS: PROPOFOL 1000 MG/100 ML INJ 100 ML IV SCH (06:24)
[2016-10-10] MEDS ORDERED: MAGNESIUM SULFATE INJ 2 GM in SODIUM CHLORIDE 0.9% INJ 96 ML IV PRN (07:30)
[2016-10-10] MEDS ORDERED: POTASSIUM CHLOR 40 MEQ PREMIX 100 ML IV PRN ×2 (07:30)
[2016-10-10] MEDS ORDERED: MAGNESIUM SULFATE INJ 4 GM in SODIUM CHLORIDE 0.9% INJ 92 ML IV PRN (07:30)
[2016-10-10] MEDS ORDERED: POTASSIUM CL 40 MEQ/30 ML LIQ UDC PO/TUBE PRN ×2 (07:30)
[2016-10-10] MEDS ORDERED: Vancomycin Consult Pharmacy 1 EA OTHER SCH (07:30)
[2016-10-10] MEDS ORDERED: POTASSIUM PHOSPHATE MONOBASIC 500 MG TAB PO/TUBE PRN (07:30)
[2016-10-10] MEDS ORDERED: POTASSIUM PHOSPHATE MONOBASIC 500 MG TAB PO PRN (07:30)
[2016-10-10] MEDS ORDERED: POTASSIUM PHOSPHATE INJ 30 MMOL in SODIUM CHLOR 0.9% 250 ML INJ 250 ML IV PRN (07:30)
[2016-10-10] MEDS ORDERED: POTASSIUM CHLOR 20 MEQ PREMIX 100 ML IV PRN ×2 (07:30)
[2016-10-10] MEDS ORDERED: MAGNESIUM OXIDE 400 MG TAB PO PRN (07:30)
--- NOTE | 2016-10-10 07:38 | HHI.CCPN ---
Subjective Remarks/Hospital Course 89 -year-old male. Date of admission 10/08/2016. Past medical history includes right eye cataract, prior CVA with left-sided weakness, rectal ulcers, history of MRSA, history of ELMO, COPD, osteoarthritis, peripheral neuropathy, chronic low back pain, skin cancer, depression, hypertension, hypothyroidism, anemia and gastritis. Patient is a halfway resident at the [facility] when today he was noted to have increasing shortness of breath. He evidently had some episodes of vomiting earlier this morning and since then they found him struggling to breathe and gurgling. He is been less responsive than normal. Patient doesn't provide any history. The ED physician did speak to the patient's son who is his power of state's attorney. He says that this is happened in the past and he sent MRSA pneumonia in the past. He said last year he had a very similar incident where he had difficulty breathing and ended up intubated in the intensive care unit for 20 days. He said after bronchoscopy his symptoms improved significantly and after recovering from that illness the patient was fairly functional, walking with a walker and able to toilet and eat independently with minimal confusion. Patient received etomidate and succinylcholine for intubation and 3 L normal saline per severe sepsis protocol. Vancomycin, cefepime, Flagyl and Zithromax were provided. Patient's been pancultured. Influenza negative. Chest x-ray revealed possible left lower lobe pneumonia. He also has a UTI. At the present time, the patient is sedated on propofol drip. 10/09 Patient is sedated with Diprivan and intubated. Afebrile. 10/10 No acute events overnight. Sedated with Diprivan and intubated. Afebrile. Tolerated CPAP trials x 2 hrs yesterday. Objective Vital Signs Date Time Temp Pulse Resp B/P Pulse Ox O2 Delivery O2 Flow Rate FiO2 10/10/16 06:00 75 10/10/16 04:34 98 35 10/10/16 04:00 98.6 18 113/61 10/08/16 18:25 Ventilator 10/08/16 10:40 15.00 Intake and Output 10/09/16 10/09/16 10/10/16 08:00 16:00 00:00 Intake Total 1027 ml 1428 ml 1275 ml Output Total 450 ml 250 ml 450 ml Balance 577 ml 1178 ml 825 ml Result Diagram: 10/10/16 0424 10/10/16 0424 Other Results Laboratory Tests Test 10/09/16 10/10/16 09:42 04:24 White Blood Count 19.0 TH/MM3 19.4 TH/MM3 Red Blood Count 3.10 MIL/MM3 2.80 MIL/MM3 Hemoglobin 9.4 GM/DL 8.5 GM/DL Hematocrit 29.7 % 26.4 % Mean Corpuscular Volume 95.7 FL 94.2 FL Mean Corpuscular Hemoglobin 30.4 PG 30.4 PG Mean Corpuscular Hemoglobin 31.8 % 32.3 % Concent Red Cell Distribution Width 14.4 % 14.5 % Platelet Count 250 TH/MM3 274 TH/MM3 Mean Platelet Volume 9.1 FL 9.3 FL Neutrophils (%) (Auto) 93.7 % 92.4 % Lymphocytes (%) (Auto) 3.6 % 3.4 % Monocytes (%) (Auto) 2.6 % 4.1 % Eosinophils (%) (Auto) 0.0 % 0.0 % Basophils (%) (Auto) 0.1 % 0.1 % Neutrophils # (Auto) 17.8 TH/MM3 17.9 TH/MM3 Lymphocytes # (Auto) 0.7 TH/MM3 0.7 TH/MM3 Monocytes # (Auto) 0.5 TH/MM3 0.8 TH/MM3 Eosinophils # (Auto) 0.0 TH/MM3 0.0 TH/MM3 Basophils # (Auto) 0.0 TH/MM3 0.0 TH/MM3 CBC Comment DIFF FINAL DIFF FINAL Differential Comment Sodium Level 145 MEQ/L Potassium Level 4.0 MEQ/L Chloride Level 114 MEQ/L Carbon Dioxide Level 21.7 MEQ/L Anion Gap 9 MEQ/L Blood Urea Nitrogen 41 MG/DL Creatinine 1.01 MG/DL Estimat Glomerular Filtration 70 ML/MIN Rate Random Glucose 145 MG/DL Calcium Level 8.3 MG/DL Phosphorus Level 2.2 MG/DL Magnesium Level 2.3 MG/DL Total Bilirubin 0.2 MG/DL Aspartate Amino Transf 21 U/L (AST/SGOT) Alanine Aminotransferase 21 U/L (ALT/SGPT) Alkaline Phosphatase 63 U/L Total Protein 5.9 GM/DL Albumin 1.8 GM/DL Imaging Last Impressions Chest X-Ray 10/10/16 0600 Signed Impressions: Service Date/Time: Monday, October 10, 2016 04:59 - CONCLUSION: 1. No significant change. 2. Patchy opacity remains at the left lung base. Juan Casas MD Objective Remarks GENERAL: 89yo intubated and sedated. SKIN: Warm and dry. HEAD: Normocephalic. EYES: No scleral icterus. No injection or drainage. NECK: Supple, trachea midline. No JVD or lymphadenopathy. Orally intubated CARDIOVASCULAR: Regular rate and rhythm without murmurs, gallops, or rubs. RESPIRATORY: Breath sounds equal bilaterally. No accessory muscle use. GASTROINTESTINAL: Abdomen soft, non-tender, nondistended. MUSCULOSKELETAL: No cyanosis, or edema. Neuro: Sedated. A/P Assessment and Plan Neuro/Psych: History CVA with left-sided weakness Right eye cataract Peripheral neuropathy Chronic low back pain Depression Likely acute toxic metabolic encephalopathy secondary aspiration pneumonia Chronic narcotic use Chronic benzodiazepine use On propofol infusion/analgesia while intubated Goal RASS -2 Daily sedation vacation Continue Lexapro 10 mg by mouth daily for depression. Continue Depakote sprinkles 125mg Q8. Depakote level 11 on 10/08 Currently holding Seroquel 25 mg by mouth twice a day as needed for anxiety. Resume when clinically indicated. CV: History of hypertension Severe sepsis Lactic acidosis- resolved Status post 3 L normal saline in ED. Lactate is cleared 1.8 today Monitor HR and BP keep MAP>65mmHg. On ASA 81mg daily Echo showed EF 50%, no RWMA Resp: Acute hypoxemic respiratory failure COPD History of MRSA pneumonia Continue vent support keep sat >92%-ACV 14/550/5/40 Ventilator bundle Duonebs every 6 hours and as needed, Solumederol 40mg Q12 Spontaneous breathing trials daily GI: Rectal ulcers History gastritis History of inguinal hernia repair On vital high protein goal rate 50 cc an hour. Protonix for GI prophylaxis Colace/as needed Senokot for bowel regimen Continue hydrocortisone per rectum twice a day. 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 Will need phos replacement today D/C IVF Endo: Hypothyroidism Continue Levoxyl at 75 g by mouth daily. SSI(low scale) with Accu-Cheks every 6 hours to maintain glycemia. Low regimen. Heme: Leukocytosis Normocytic anemia History of skin cancer Monitor CBC ID: HCAP UTI History of Escherichia coli UTI History of MRSA Received vancomycin, cefepime, Flagyl and Zithromax in ED. Continue abx (Cefepime, Zithromax, Flagyl, Vanco) Pertinent cultures 10/08 - blood cultures 2 - pending 10/08 - urine - GNR 10/08 - sputum - MRSA Influenza negative Strep pneumonia and Legionella urinary Ag negative MSK: Dermatitischronic unknown type Continue triamcinolone cream apply to affected area tonight Access - Utilize peripheral IV. Central line if indicated Prophylaxis - GI - Protonix - DVT - SCD/heparin Critical Care: The total critical care time was 30 minutes. Time to perform other separately billable procedures was not included in the critical care time. Ger Coles MD Oct 10, 2016 07:38
[2016-10-10] MEDS: DOCUSATE SODIUM 100 MG CAP PO SCH ×2 (08:10→21:09)
[2016-10-10] MEDS: ASPIRIN 81 MG CHEW TAB TUBE SCH (08:10)
[2016-10-10] MEDS: PANTOPRAZOLE SODIUM 40 MG VIAL IV SCH (08:10)
[2016-10-10] MEDS: HYDROCORTISONE ACETATE 25 MG SUPP RECTAL SCH ×2 (08:10→21:09)
[2016-10-10] MEDS: ESCITALOPRAM OXALATE 20 MG TAB PO SCH (08:10)
[2016-10-10] MEDS: ARTIFICIAL TEARS OPTH SOLN 15 ML BTL EACH EYE SCH ×3 (08:11→18:42)
[2016-10-10] MEDS: CHLORHEXIDINE 0.12% (ORAL KIT) 15 ML CUP MT SCH ×2 (08:11→20:00)
[2016-10-10] MEDS: SODIUM CHLORIDE 0.9% FLUSH 5 ML FLUSH IV FLUSH SCH ×2 (08:11→21:09)
[2016-10-10] MEDS: SODIUM PHOSPHATE INJ 30 MMOL in SODIUM CHLOR 0.9% 250 ML INJ 240 ML IV PRN (08:18)
[2016-10-10] MEDS: TRIAMCINOLONE ACET 0.1% LOTION 60 ML BTL TOPICAL SCH ×2 (09:00→14:11)
[2016-10-10] MEDS: VANCOMYCIN 1,500 MG/NS 500 ML IV SCH ×2 (09:57)
[2016-10-10 11:14] LABS: BLOOD GAS BASE EXCESS -4.7 mmol/L (-2-2); BLOOD GAS CARBOXYHEMOGLOBIN 1.5 % (0-4); BLOOD GAS HCO3 19 mmol/L (22-26); BLOOD GAS METHEMOGLOBIN 1.2 % (0-2); BLOOD GAS O2 HGB SATURATION 94 % (90-100); BLOOD GAS OXYGEN CONTENT 12.9 Vol % (12.0-20.0); BLOOD GAS PCO2 31 mmHg (38-42); BLOOD GAS PO2 83 mmHg (61-120); BLOOD GAS TOTAL HGB 9.7 G/DL (12.0-16.0); CRITICAL VALUE NO; DRAW SITE LT RADIAL; FIO2 35 %; NUMBER OF ARTERIAL PUNCTURES 1; OXYGEN DEVICE VENTILATOR; STAT NO; TEMP CORR TO 98.6; ULNAR PULSE PRESENT; VENT SETTINGS CPAP/PS5/PEEP5
[2016-10-10] MEDS: AZITHROMYCIN INJ 500 MG in SODIUM CHLOR 0.9% 250 ML INJ 250 ML IV SCH (11:15)
[2016-10-10] MEDS: ACETAMINOPHEN 325 MG TAB PO PRN (14:15)
[2016-10-11] VITALS (14 sets, daily range): BP systolic 116–136; BP diastolic 56–71; PULSE 64–91; RESP 17–28; TEMP 98.1–99.1; O2SAT 96–100
[2016-10-11] MEDS: CEFEPIME INJ 2,000 MG in SODIUM CHLORIDE 0.9% INJ 100 ML IV SCH (00:49)
[2016-10-11] MEDS: HEPARIN SODIUM - SQ 10,000 UNITS/ML VIAL SQ SCH ×2 (02:35→15:22)
[2016-10-11] MEDS: methylPREDNISolone SOD SUCC 40 MG/1 ML VIAL IV PUSH SCH ×2 (02:35→15:23)
[2016-10-11] MEDS: CHLORHEXIDINE GLUCONATE 2 % 1 PACK (2 CLOTHS) TOP SCH (02:35)
[2016-10-11] MEDS: RESP: ALBUTEROL 2.5 MG/IPRATROPIUM 0.5 MG NEB (SCH) INH ×4 (03:48→21:35)
[2016-10-11] MEDS: metroNIDAZOLE 500 MG INJ 100 ML IV SCH (04:04)
[2016-10-11] MEDS: LEVOTHYROXINE SODIUM 75 MCG TAB PO SCH (04:58)
[2016-10-11] MEDS: DIVALPROEX SODIUM SPRINKLES 125 MG CAP PO SCH ×3 (04:58→20:17)
[2016-10-11] MEDS: INSULIN NovoLIN REGULAR SUPPLEMENTAL SCALE SQ SCH ×4 (05:00→18:00)
[2016-10-11 06:17] LABS: BICARBONATE 17.2 MEQ/L (21.0-32.0); MAGNESIUM 2.4 MG/DL (1.5-2.5); POTASSIUM 4.8 MEQ/L (3.5-5.1)
[2016-10-11 06:19] LABS: AUTOMATED NEUTROPHIL # 17.4 TH/MM3 (1.8-7.7); BASOPHIL # 0.3 TH/MM3 (0-0.2); BASOPHIL % 1.5 % (0.0-2.0); EOSINOPHIL # 0.1 TH/MM3 (0-0.4); EOSINOPHIL % 0.7 % (0.0-4.0); HEMATOCRIT 26.5 % (39.0-51.0); LYMPH % 3.5 % (9.0-44.0); LYMPHOCYTE # 0.7 TH/MM3 (1.0-4.8); MEAN CELL VOLUME 92.2 FL (80.0-100.0); MEAN CORPUSCULAR HEMOGLOBIN 31.1 PG (27.0-34.0); MEAN CORPUSCULAR HGB CONC 33.7 % (32.0-36.0); MONO % 3.3 % (0.0-8.0); PLATELET COUNT 232 TH/MM3 (150-450); RED BLOOD COUNT 2.87 MIL/MM3 (4.50-5.90); RED CELL DISTRIBUTION WIDTH 14.3 % (11.6-17.2); WHITE BLOOD COUNT 19.2 TH/MM3 (4.0-11.0)
[2016-10-11 06:20] LABS: HEMO FLAGS AUTO DIFF
--- NOTE | 2016-10-11 07:40 | HHI.CCPN ---
Subjective Remarks/Hospital Course 89 -year-old male. Date of admission 10/08/2016. Past medical history includes right eye cataract, prior CVA with left-sided weakness, rectal ulcers, history of MRSA, history of ELMO, COPD, osteoarthritis, peripheral neuropathy, chronic low back pain, skin cancer, depression, hypertension, hypothyroidism, anemia and gastritis. Patient is a assisted resident at the [facility] when today he was noted to have increasing shortness of breath. He evidently had some episodes of vomiting earlier this morning and since then they found him struggling to breathe and gurgling. He is been less responsive than normal. Patient doesn't provide any history. The ED physician did speak to the patient's son who is his power of document review attorney. He says that this is happened in the past and he sent MRSA pneumonia in the past. He said last year he had a very similar incident where he had difficulty breathing and ended up intubated in the intensive care unit for 20 days. He said after bronchoscopy his symptoms improved significantly and after recovering from that illness the patient was fairly functional, walking with a walker and able to toilet and eat independently with minimal confusion. Patient received etomidate and succinylcholine for intubation and 3 L normal saline per severe sepsis protocol. Vancomycin, cefepime, Flagyl and Zithromax were provided. Patient's been pancultured. Influenza negative. Chest x-ray revealed possible left lower lobe pneumonia. He also has a UTI. At the present time, the patient is sedated on propofol drip. 10/09 Patient is sedated with Diprivan and intubated. Afebrile. 10/10 No acute events overnight. Sedated with Diprivan and intubated. Afebrile. Tolerated CPAP trials x 2 hrs yesterday. 10/11 Patient was extubated yesterday. On 2L oxygen with good sats. Afebrile. Objective Vital Signs Date Time Temp Pulse Resp B/P Pulse Ox O2 Delivery O2 Flow Rate FiO2 10/11/16 06:00 78 10/11/16 04:00 98.4 23 116/56 97 10/10/16 20:22 Nasal Cannula 2.00 10/10/16 09:43 35 Intake and Output 10/10/16 10/10/16 10/11/16 08:00 16:00 00:00 Intake Total 794 ml 980 ml 572 ml Output Total 250 ml 400 ml 450 ml Balance 544 ml 580 ml 122 ml Result Diagram: 10/11/16 0407 10/11/16406 Other Results Laboratory Tests Test 10/10/16 10/10/16 10/11/16 11:05 19:07 04:07 Blood Gas Puncture Site LT RADIAL Blood Gas Patient Temperature 98.6 Blood Gas HCO3 19 mmol/L Blood Gas Base Excess -4.7 mmol/L Blood Gas Oxygen Saturation 94 % Arterial Blood pH 7.41 Arterial Blood Partial 31 mmHg Pressure CO2 Arterial Blood Partial 83 mmHg Pressure O2 Arterial Blood Oxygen Content 12.9 Vol % Arterial Blood 1.5 % Carboxyhemoglobin Arterial Blood Methemoglobin 1.2 % Blood Gas Hemoglobin 9.7 G/DL Oxygen Delivery Device VENTILATOR Blood Gas Ventilator Setting CPAP/PS5/PEEP5 Blood Gas Inspired Oxygen 35 % Phosphorus Level 3.2 MG/DL 1.8 MG/DL White Blood Count 19.2 TH/MM3 Red Blood Count 2.87 MIL/MM3 Hemoglobin 8.9 GM/DL Hematocrit 26.5 % Mean Corpuscular Volume 92.2 FL Mean Corpuscular Hemoglobin 31.1 PG Mean Corpuscular Hemoglobin 33.7 % Concent Red Cell Distribution Width 14.3 % Platelet Count 232 TH/MM3 Mean Platelet Volume 10.2 FL Neutrophils (%) (Auto) 91.0 % Lymphocytes (%) (Auto) 3.5 % Monocytes (%) (Auto) 3.3 % Eosinophils (%) (Auto) 0.7 % Basophils (%) (Auto) 1.5 % Neutrophils # (Auto) 17.4 TH/MM3 Lymphocytes # (Auto) 0.7 TH/MM3 Monocytes # (Auto) 0.6 TH/MM3 Eosinophils # (Auto) 0.1 TH/MM3 Basophils # (Auto) 0.3 TH/MM3 CBC Comment AUTO DIFF Hematology Comments Sodium Level 145 MEQ/L Potassium Level 4.8 MEQ/L Chloride Level 118 MEQ/L Carbon Dioxide Level 17.2 MEQ/L Anion Gap 10 MEQ/L Blood Urea Nitrogen 35 MG/DL Creatinine 0.86 MG/DL Estimat Glomerular Filtration 84 ML/MIN Rate Random Glucose 103 MG/DL Calcium Level 8.0 MG/DL Magnesium Level 2.4 MG/DL Imaging Last Impressions Chest X-Ray 10/10/16 0600 Signed Impressions: Service Date/Time: Monday, October 10, 2016 04:59 - CONCLUSION: 1. No significant change. 2. Patchy opacity remains at the left lung base. Juan Casas MD Objective Remarks GENERAL: 89yo ilying in bed in no acute resp distress SKIN: Warm and dry. HEAD: Normocephalic. EYES: No scleral icterus. No injection or drainage. NECK: Supple, trachea midline. No JVD or lymphadenopathy. CARDIOVASCULAR: Regular rate and rhythm without murmurs, gallops, or rubs. RESPIRATORY: Breath sounds equal bilaterally. No accessory muscle use. GASTROINTESTINAL: Abdomen soft, non-tender, nondistended. MUSCULOSKELETAL: No cyanosis, or edema. Neuro: Awake, confused at times. A/P Assessment and Plan Neuro/Psych: History CVA with left-sided weakness Right eye cataract Peripheral neuropathy Chronic low back pain Depression Likely acute toxic metabolic encephalopathy secondary aspiration pneumonia Chronic narcotic use Chronic benzodiazepine use Awake, avoid sedatives. Continue Lexapro 10 mg by mouth daily for depression. Continue Depakote sprinkles 125mg Q8. Depakote level 11 on 10/08 CV: History of hypertension Severe sepsis Lactic acidosis- resolved Status post 3 L normal saline in ED. Lactate is cleared 1.8 today Monitor HR and BP keep MAP>65mmHg. On ASA 81mg daily Echo showed EF 50%, no RWMA Resp: Acute hypoxemic respiratory failure COPD History of MRSA pneumonia Continue with oxygen keep sat >92% Duonebs every 6 hours and as needed, Solumederol 40mg Q12 GI: Rectal ulcers History gastritis History of inguinal hernia repair On PO diet ( puree diet per speech) Protonix for GI prophylaxis Colace/as needed Senokot for bowel regimen Continue hydrocortisone per rectum twice a day. 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 Endo: Hypothyroidism Continue Levoxyl at 75 g by mouth daily. SSI(low scale) with Accu-Cheks every 6 hours to maintain glycemia. Low regimen. Heme: Leukocytosis Normocytic anemia History of skin cancer Monitor CBC ID: HCAP UTI History of Escherichia coli UTI History of MRSA Received vancomycin, cefepime, Flagyl and Zithromax in ED. Continue abx (Cefepime, Zithromax, Flagyl, Vanco) d/c Flagyl, check BC x 2 sets today, ID eval. Pertinent cultures 10/08 - blood cultures: MRSA, Staph Epi 10/08 - urine - Proteus Mirabilis 10/08 - sputum - MRSA Influenza negative Strep pneumonia and Legionella urinary Ag negative MSK: Dermatitischronic unknown type Continue triamcinolone cream apply to affected area tonight Access - Utilize peripheral IV. Prophylaxis - GI - Protonix - DVT - SCD/heparin Will sign off and transfer care to [facility] Level 3 Ger Coles MD Oct 11, 2016 07:40
[2016-10-11 08:23] LABS: SCAN/DIFF AUTO DIFF CONFIRMED
[2016-10-11 08:24] LABS: PLATELET ESTIMATE SMEAR NORMAL (NORMAL); PLATELET MORPHOLOGY NORMAL (NORMAL)
[2016-10-11] MEDS: SODIUM CHLORIDE 0.9% FLUSH 5 ML FLUSH IV FLUSH SCH ×2 (09:15→20:17)
[2016-10-11] MEDS: ASPIRIN 81 MG CHEW TAB TUBE SCH (09:15)
[2016-10-11] MEDS: ESCITALOPRAM OXALATE 20 MG TAB PO SCH (09:15)
[2016-10-11] MEDS: DOCUSATE SODIUM 100 MG CAP PO SCH ×2 (09:15→20:17)
[2016-10-11] MEDS: PANTOPRAZOLE SODIUM 40 MG VIAL IV SCH (09:15)
[2016-10-11] MEDS: HYDROCORTISONE ACETATE 25 MG SUPP RECTAL SCH ×2 (09:15→20:17)
[2016-10-11] MEDS: ARTIFICIAL TEARS OPTH SOLN 15 ML BTL EACH EYE SCH ×3 (09:16→18:00)
[2016-10-11] MEDS: TRIAMCINOLONE ACET 0.1% LOTION 60 ML BTL TOPICAL SCH (09:16)
[2016-10-11] MEDS: CHLORHEXIDINE 0.12% (ORAL KIT) 15 ML CUP MT SCH ×2 (09:18→20:00)
[2016-10-11] MEDS: VANCOMYCIN 1,500 MG/NS 500 ML IV SCH ×2 (10:06)
[2016-10-11] MEDS: AZITHROMYCIN INJ 500 MG in SODIUM CHLOR 0.9% 250 ML INJ 250 ML IV SCH (10:06)
[2016-10-11] MEDS: SODIUM PHOSPHATE INJ 30 MMOL in SODIUM CHLOR 0.9% 250 ML INJ 240 ML IV PRN (10:39)
--- NOTE | 2016-10-11 11:19 | PD.CONS ---
History of Present Illness Service Infectious disease Consult Requested By Dr Frantz Coles Reason for Consult Evaluate patient with MRSA bacteremia, and persistent leukocytosis Primary Care Physician Non-Staff Diagnoses: History of Present Illness Patient seen and examined. Records reviewed. Patient is an 89-year-old male, resides [facility], brought to the hospital for evaluation of worsening shortness of breath. He apparently had an episode of vomiting the morning of admission and since then he has been noted to be short of breath, and sounded very congested. He was gardening. Brought the day his mental status started deteriorating and he became very lethargic. He was taken to the emergency room, and he ended up getting intubated. Patient was febrile up to 102. He had leukocytosis, tachycardia, and was tachypneic, and was admitted for sepsis. His chest x-ray showed left base infiltrate. His blood cultures came back with MRSA. Sputum culture also had MRSA. He had a urinalysis which showed UTI and the culture had Proteus. Patient's temperature has improved. He has persistent leukocytosis. Patient was successfully extubated several days ago, and doing well on nasal O2. Patient currently denies any shortness of breath. He states he has some occasional mid sternal chest discomfort. Has not had any nausea or vomiting. His temperatures have improved. Of note is that he was in the hospital in August and at that time he was treated for MRSA bacteremia which was felt to be due to his pneumonia. Received 2 weeks of IV antibiotics. Infectious disease consultation has been requested to evaluate the patient. Review of Systems Constitutional: COMPLAINS OF: Fever, DENIES: Chills Eyes: DENIES: Eye pain Ears, nose, mouth, throat: DENIES: Oral lesions, Throat pain, Ear Pain, Sinus Pain, Toothache Respiratory: COMPLAINS OF: Shortness of breath, DENIES: Cough Cardiovascular: COMPLAINS OF: Chest pain, Palpitations, DENIES: Syncope Gastrointestinal: COMPLAINS OF: Abdominal pain, Nausea, Vomiting, DENIES: Diarrhea, Difficulty Swallowing Integumentary: DENIES: Rash Neurologic: DENIES: Headache Psychiatric: COMPLAINS OF: Confusion Past Family Social History Allergies: Coded Allergies: Levofloxacin (Verified Allergy, Severe, 10/08/16) *MDRO Multi-Drug Resistant Organism (Verified Adverse Reaction, Unknown, MRSA, 10/10/16) MRSA (sputum & blood) - 07/21/16 & 08/22/16; MRSA (sputum-10/08/16),MRSA screen POSITIVE - 10/08/16 Past Medical History CVA with some left-sided weakness Previous episode of sepsis and pneumonia Previous respiratory failure COPD Metabolic encephalopathy Arthritis Neuropathy Chronic back pain Skin cancer Hypertension Depression Hypothyroidism Renal insufficiency Previous GI bleed, gastritis Anemia Episode of MRSA bacteremia and pneumonia last August 2016 Past Surgical History Hernia repair Appendectomy Cholecystectomy Colonoscopy TURP Back surgery Active Ordered Medications Tylenol Albuterol Aspirin Zithromax Cefepime Depakote Colace Lexapro Heparin Insulin Synthroid Magnesium Solu-Medrol Zofran Protonix Potassium Senokot Vancomycin Social History Precise in the [facility] Remote history of smoking No alcohol abuse No illicit drug use Physical Exam Vital Signs Vital Signs Date Time Temp Pulse Resp B/P Pulse Ox O2 Delivery O2 Flow Rate FiO2 10/11/16 09:28 98 Nasal Cannula 2.00 10/11/16 06:00 78 10/11/16 04:00 98.4 70 23 116/56 97 10/11/16 04:00 70 10/11/16 02:00 64 10/11/16 00:00 98.3 74 23 119/58 98 10/11/16 00:00 74 10/10/16 22:00 79 10/10/16 20:22 99 Nasal Cannula 2.00 10/10/16 20:00 97.8 62 21 118/61 100 10/10/16 20:00 62 10/10/16 18:00 75 10/10/16 16:00 98.1 72 22 121/77 95 10/10/16 16:00 75 10/10/16 14:00 69 10/10/16 12:00 98.8 73 20 124/69 100 10/10/16 12:00 73 10/10/16 11:48 99 Nasal Cannula 2.00 10/10/16 11:45 99 Nasal Cannula 2 Physical Exam GENERAL: This is a well-nourished, well-developed male, awake and alert, looks comfortable and not in any respiratory distress. SKIN: Cool and dry. No generalized rash or ecchymosis. No embolic lesions noted. HEAD: Atraumatic. Normocephalic. No temporal or scalp tenderness. EYES: [place] conjunctivae, no petechia or hemorrhage. Pupils equal round and reactive. Extraocular movements full and intact. No scleral icterus. No injection or drainage. ENT: Nose without bleeding, or purulent drainage. He is edentulous, has moist oral mucosa. Throat without erythema, or exudate. Uvula midline. Airway patent. NECK: Trachea midline. No JVD or lymphadenopathy. Supple, nontender, no meningeal signs. CARDIOVASCULAR: Regular rate and rhythm without murmurs, gallops, or rubs. RESPIRATORY: Clear to auscultation. Breath sounds equal bilaterally. No wheezes , rales, or rhonchi. Decreased breath sounds at the bases. GASTROINTESTINAL: Abdomen soft, non-tender, nondistended. Bowel sounds are present and normoactive. No hepato-splenomegaly, or palpable masses. No guarding. MUSCULOSKELETAL: Extremities without clubbing, cyanosis, or edema. No joint tenderness, effusion, or edema noted. No calf tenderness. Negative Homans sign bilaterally. NEUROLOGICAL: Awake and alert. Cranial nerves II through XII intact. Has mild weakness in his LUE. PSYCH: Calm and cooperative LINE: PIV with no evidence of infection : [place] cath in place, urine looks clear Laboratory Laboratory Tests Test 10/10/16 10/10/16 10/11/16 11:05 19:07 04:07 Blood Gas Puncture Site LT RADIAL Blood Gas Patient Temperature 98.6 Blood Gas HCO3 19 Blood Gas Base Excess -4.7 Blood Gas Oxygen Saturation 94 Arterial Blood pH 7.41 Arterial Blood Partial 31 Pressure CO2 Arterial Blood Partial 83 Pressure O2 Arterial Blood Oxygen Content 12.9 Arterial Blood 1.5 Carboxyhemoglobin Arterial Blood Methemoglobin 1.2 Blood Gas Hemoglobin 9.7 Oxygen Delivery Device VENTILATOR Blood Gas Ventilator Setting CPAP/PS5/PEEP5 Blood Gas Inspired Oxygen 35 Phosphorus Level 3.2 1.8 White Blood Count 19.2 Red Blood Count 2.87 Hemoglobin 8.9 Hematocrit 26.5 Mean Corpuscular Volume 92.2 Mean Corpuscular Hemoglobin 31.1 Mean Corpuscular Hemoglobin 33.7 Concent Red Cell Distribution Width 14.3 Platelet Count 232 Mean Platelet Volume 10.2 Neutrophils (%) (Auto) 91.0 Lymphocytes (%) (Auto) 3.5 Monocytes (%) (Auto) 3.3 Eosinophils (%) (Auto) 0.7 Basophils (%) (Auto) 1.5 Neutrophils # (Auto) 17.4 Lymphocytes # (Auto) 0.7 Monocytes # (Auto) 0.6 Eosinophils # (Auto) 0.1 Basophils # (Auto) 0.3 CBC Comment AUTO DIFF Differential Comment AUTO DIFF CONFIRMED Platelet Estimate NORMAL Platelet Morphology Comment NORMAL Hematology Comments Sodium Level 145 Potassium Level 4.8 Chloride Level 118 Carbon Dioxide Level 17.2 Anion Gap 10 Blood Urea Nitrogen 35 Creatinine 0.86 Estimat Glomerular Filtration 84 Rate Random Glucose 103 Calcium Level 8.0 Magnesium Level 2.4 Date/Time Procedure Status Source Growth 10/11/16 09:15 Aerobic Blood Culture Received Blood Peripheral Pending 10/11/16 09:15 Anaerobic Blood Culture Received Blood Peripheral Pending 10/08/16 13:06 Gram Stain - Final Complete Sputum Expectorated Sputum 10/08/16 13:06 Sputum Culture - Final Complete S. Aureus Mrsa 10/08/16 11:35 Influenza Types A,B Antigen (NATALY) - Final Complete Nasal Washing NEGATIVE FOR FLU A AND B ANTIGEN.... 10/08/16 10:55 Aerobic Blood Culture - Preliminary Resulted Blood Peripheral NO GROWTH IN 2 DAYS 10/08/16 10:55 Anaerobic Blood Culture - Preliminary Resulted Staphylococcus Epidermidis S. Aureus Mrsa 10/08/16 10:50 Urine Culture - Final Complete Urine Catheterized Urine Proteus Mirabilis 10/08/16 10:50 Legionella Antigen - Final Complete Urine Catheterized Urine PRESUMPTIVE NEGATIVE FOR LEGIONELLA P... 10/08/16 10:50 Streptococcus pneumoniae Antigen (M - Final Complete Urine Catheterized Urine PRESUMPTIVE NEGATIVE FOR STREPTOCOCCU... Result Diagram: 10/11/16 0407 10/11/16 0407 Imaging RADIOLOGY STUDIES/FILMS REVIEWED Chest X-Ray 10/10/16 0600 Signed Impressions: Service Date/Time: Monday, October 10, 2016 04:59 - CONCLUSION: 1. No significant change. 2. Patchy opacity remains at the left lung base. Juan Casas MD Chest X-Ray 10/09/16 0000 Signed Impressions: Service Date/Time: Sunday, October 09, 2016 04:53 - CONCLUSION: Mild patchy opacity the left lung base which may represent pneumonia. Juan Casas MD Assessment and Plan Assessment and Plan IMPRESSION Sepsis, on admission, due to PNA and UTI MRSA pneumonia Proteus UTI, no costa, came form the [place] respiratory failure, tolerating extubation Leukocytosis, persistent, possibly due to steroids Staph epi in 1 BC, possibly a contaminant RECOMMENDATION IV Teflaro - patient with recurrent PNA, and NATALY to vanco now up to 2 I asked micro to do Etest on vanco and if less than 2, I will restart IV vanco and complete Rx with vancomycin Renal US Repeat UA Follow C/S Follow CBC Monitor progress I will determine course of Abx once work-up is completed I will follow along with you Thank you for this consultation Discussed Condition With D/W Barbra Smith MD Oct 11, 2016 11:19
[2016-10-11] MEDS: CEFTAROLINE INJ 600 MG in SODIUM CHLORIDE 0.9% INJ 100 ML IV SCH (13:08)
[2016-10-11 19:22] LABS: BLOOD, URINE NEG (NEG); GLUCOSE,URINE NEG (NEG); KETONE, URINE NEG (NEG); MUCUS URINE FEW /lpf (OCC); NITRITE,URINE NEG (NEG); PH, URINE 5.5 (5.0-8.5); URINE COLOR YELLOW (YELLW/STRAW)
[2016-10-11 19:23] LABS: COMMENT (UR) CATH-CULT NOT IND; CULTURE IF INDICATED CATH CULTURE NOT IND
--- NOTE | 2016-10-11 19:41 | PD.CONS ---
History of Present Illness Service family pactice/gerontology Consult Requested By Primary Care Physician nila king DO Diagnoses: (1) Acute respiratory failure (2) COPD (chronic obstructive pulmonary disease) (3) Gram-negative bacteremia (4) Severe sepsis (5) History of CVA with residual deficit (6) Altered mental status (7) BINH (acute kidney injury) History of Present Illness Patient seen and examined. Records reviewed. Patient is an 89-year-old male, [facility], brought to the hospital for evaluation of worsening shortness of breath. He apparently had an episode of vomiting the morning of admission and since then he has been noted to be short of breath, and sounded very congested. He was gardening. Brought the day his mental status started deteriorating and he became very lethargic. He was taken to the emergency room, and he ended up getting intubated. Patient was febrile up to 102. He had leukocytosis, tachycardia, and was tachypneic, and was admitted for sepsis. His chest x-ray showed left base infiltrate. His blood cultures came back with MRSA. Sputum culture also had MRSA. He had a urinalysis which showed UTI and the culture had Proteus. Patient's temperature has improved. He has persistent leukocytosis. Patient was successfully extubated several days ago, and doing well on nasal O2. Patient currently denies any shortness of breath. He states he has some occasional mid sternal chest discomfort. Has not had any nausea or vomiting. His temperatures have improved. Of note is that he was in the hospital in August and at that time he was treated for MRSA bacteremia which was felt to be due to his pneumonia. Received 2 weeks of IV antibiotics. Infectious disease consultation has been requested to evaluate the patient. Review of Systems ROS Limitations: Altered Mental Status, Poor Historian Respiratory: COMPLAINS OF: Cough, Shortness of breath Past Family Social History Allergies: Coded Allergies: Levofloxacin (Verified Allergy, Severe, 10/08/16) *MDRO Multi-Drug Resistant Organism (Verified Adverse Reaction, Unknown, MRSA, 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) - 07/21/16 & 08/22/16; MRSA (sputum & blood-10/08/16),MRSA screen POSITIVE - 10/08/16 Past Medical History cva, pneumoniae, dementia, aspiration pneumonia, copd, Past Surgical History unknown no obvious scars Reported Medications Current Medications Medications (Trade) Dose Ordered Sig/Mercedes Route PRN Reason Start Time Stop Time Status Last Admin Dose Admin IV Flush (NS Flush) 2 ml UNSCH PRN IV FLUSH FLUSH AFTER USING IV ACCESS 10/08/16 14:15 IV Flush (NS Flush) 2 ml BID IV FLUSH 10/08/16 21:00 10/11/16 09:15 Acetaminophen (Tylenol) 650 mg Q6H PRN PO PAIN 1-10 AND/OR FEVER >101F 10/08/16 14:15 10/10/16 14:15 Pantoprazole Sodium (Protonix Inj) 40 mg DAILY IV 10/09/16 09:00 10/11/16 09:15 Artificial Tears (Tears Naturale Opth Soln) 1 drop TID EACH EYE 10/08/16 18:00 10/11/16 13:09 Ondansetron HCl (Zofran Inj) 4 mg Q6H PRN IV NAUSEA OR VOMITING 10/08/16 14:15 10/11/16 15:22 Docusate Sodium (Colace) 100 mg BID PO 10/08/16 21:00 10/11/16 09:15 Sennosides (Senokot) 17.2 mg Q12H PRN PO CONSTIPATION 10/08/16 14:15 Heparin Sodium (Porcine) (Heparin Inj) 5,000 units Q12H SQ 10/08/16 16:00 10/11/16 15:22 Miscellaneous Information 1 Q361D XX 10/08/16 14:15 Chlorhexidine Gluconate (Chlorhexidine 2% Cloth) 3 pack Taper DAILY@04 TOP 10/09/16 04:00 10/05/17 03:59 10/11/16 02:35 Chlorhexidine Gluconate 3 pack 3 pack UNSCH PRN TOP HYGIENIC CARE 10/08/16 14:15 Azithromycin/ Sodium Chloride (Zithromax Inj/ NS 250 ml Inj) 250 ml @ 250 mls/hr Q24H IV 10/09/16 11:00 10/11/16 10:06 Chlorhexidine Gluconate (Peridex 0.12% Liq) 15 ml BID@08,20 MT 10/08/16 20:00 10/11/16 09:18 Escitalopram Oxalate (Lexapro) 20 mg DAILY PO 10/09/16 09:00 10/11/16 09:15 Levothyroxine Sodium (Synthroid) 75 mcg DAILY@0600 PO 10/09/16 06:00 10/11/16 04:58 Aspirin (Aspirin Chew) 81 mg DAILY TUBE 10/09/16 09:00 10/11/16 09:15 Triamcinolone Acetonide (Kenalog 0.1% Lotion) 1 applic DAILY TOPICAL 10/09/16 09:00 10/11/16 09:16 Hydrocortisone Acetate (Hemorrhoidal Hc Supp) 25 mg BID RECTAL 10/08/16 21:00 10/11/16 09:15 Dextrose (D50w (Vial) Inj) 25 ml UNSCH PRN IV PUSH HYPOGLYCEMIA-SEE COMMENTS 10/08/16 15:00 Glucagon (Glucagon Inj) 1 mg UNSCH PRN OTHER HYPOGLYCEMIA-SEE COMMENTS 10/08/16 15:00 Insulin Human Regular (NovoLIN R SUPPLEMENTAL SCALE) 1 Q6HR SQ 10/08/16 18:00 10/09/16 17:14 Methylprednisolone Sodium Succinate (SoluMEDROL INJ) 40 mg Q12H IV PUSH 10/08/16 15:00 10/11/16 15:23 Divalproex Sodium 125 mg 125 mg Q8HR PO 10/09/16 09:00 10/11/16 13:09 Potassium Chloride 100 ml @ 50 mls/hr Q2H PRN IV For Potassium 2.8 - 3.2 mEq/L 10/10/16 07:30 Potassium Chloride (KCl 20 Meq Premix Inj) 100 ml @ 50 mls/hr Q2H PRN IV For Potassium 2.8 - 3.2 mEq/L 10/10/16 07:30 Potassium Chloride 40 meq 40 meq UNSCH PRN PO/TUBE For Potassium 3.3 - 3.5 mEq/L 10/10/16 07:30 Potassium Chloride 100 ml @ 25 mls/hr UNSCH PRN IV For Potassium 3.3 - 3.5 mEq/L 10/10/16 07:30 Potassium Chloride 100 ml @ 50 mls/hr Q2H PRN IV For Potassium 3.3 - 3.5 mEq/L 10/10/16 07:30 Magnesium Sulfate/ Sodium Chloride (Magnesium Sulfate Inj/NS Inj) 100 ml @ 50 mls/hr UNSCH PRN IV For Magnesium 0.9 - 1.1 mg/dL 10/10/16 07:30 Magnesium Oxide 800 mg 800 mg UNSCH PRN PO For Magnesium 1.2 - 1.6 mg/dL 10/10/16 07:30 Magnesium Sulfate/ Sodium Chloride (Magnesium Sulfate Inj/NS Inj) 100 ml @ 50 mls/hr UNSCH PRN IV For Magnesium 1.2 - 1.6 mg/dL 10/10/16 07:30 Potassium Phosphate 2000 mg 2,000 mg Q4H PRN PO For Phosphorus < 2.5 mg/dL 10/10/16 07:30 Sodium Phosphate/ Sodium Chloride (Sodium Phosphate Inj/NS 250 ml Inj) 250 ml @ 42 mls/hr UNSCH PRN IV For Phosphorus < 2.5 mg/dL 10/10/16 07:30 10/11/16 10:39 Potassium Chloride (KCl 40 Meq/30 ml Liq) 40 meq UNSCH PRN PO/TUBE SEE LABEL COMMENTS 10/10/16 07:30 Potassium Phosphate 2000 mg 2,000 mg UNSCH PRN PO/TUBE SEE LABEL COMMENTS 10/10/16 07:30 Potassium Phosphate 30 mmol/ Sodium Chloride 260 ml @ 42 mls/hr UNSCH PRN IV SEE LABEL COMMENTS 10/10/16 07:30 Ceftaroline Fosamil/Sodium Chloride (Teflaro Inj/NS Inj) 100 ml @ 100 mls/hr Q12H IV 10/11/16 13:00 10/11/16 13:08 Active Ordered Medications Current Medications Medications (Trade) Dose Ordered Sig/Mercedes Route PRN Reason Start Time Stop Time Status Last Admin Dose Admin IV Flush (NS Flush) 2 ml UNSCH PRN IV FLUSH FLUSH AFTER USING IV ACCESS 10/08/16 14:15 IV Flush (NS Flush) 2 ml BID IV FLUSH 10/08/16 21:00 10/11/16 09:15 Acetaminophen (Tylenol) 650 mg Q6H PRN PO PAIN 1-10 AND/OR FEVER >101F 10/08/16 14:15 10/10/16 14:15 Pantoprazole Sodium (Protonix Inj) 40 mg DAILY IV 10/09/16 09:00 10/11/16 09:15 Artificial Tears (Tears Naturale Opth Soln) 1 drop TID EACH EYE 10/08/16 18:00 10/11/16 13:09 Ondansetron HCl (Zofran Inj) 4 mg Q6H PRN IV NAUSEA OR VOMITING 10/08/16 14:15 10/11/16 15:22 Docusate Sodium (Colace) 100 mg BID PO 10/08/16 21:00 10/11/16 09:15 Sennosides (Senokot) 17.2 mg Q12H PRN PO CONSTIPATION 10/08/16 14:15 Heparin Sodium (Porcine) (Heparin Inj) 5,000 units Q12H SQ 10/08/16 16:00 10/11/16 15:22 Miscellaneous Information 1 Q361D XX 10/08/16 14:15 Chlorhexidine Gluconate (Chlorhexidine 2% Cloth) 3 pack Taper DAILY@04 TOP 10/09/16 04:00 10/05/17 03:59 10/11/16 02:35 Chlorhexidine Gluconate 3 pack 3 pack UNSCH PRN TOP HYGIENIC CARE 10/08/16 14:15 Azithromycin/ Sodium Chloride (Zithromax Inj/ NS 250 ml Inj) 250 ml @ 250 mls/hr Q24H IV 10/09/16 11:00 10/11/16 10:06 Chlorhexidine Gluconate (Peridex 0.12% Liq) 15 ml BID@08,20 MT 10/08/16 20:00 10/11/16 09:18 Escitalopram Oxalate (Lexapro) 20 mg DAILY PO 10/09/16 09:00 10/11/16 09:15 Levothyroxine Sodium (Synthroid) 75 mcg DAILY@0600 PO 10/09/16 06:00 10/11/16 04:58 Aspirin (Aspirin Chew) 81 mg DAILY TUBE 10/09/16 09:00 10/11/16 09:15 Triamcinolone Acetonide (Kenalog 0.1% Lotion) 1 applic DAILY TOPICAL 10/09/16 09:00 10/11/16 09:16 Hydrocortisone Acetate (Hemorrhoidal Hc Supp) 25 mg BID RECTAL 10/08/16 21:00 10/11/16 09:15 Dextrose (D50w (Vial) Inj) 25 ml UNSCH PRN IV PUSH HYPOGLYCEMIA-SEE COMMENTS 10/08/16 15:00 Glucagon (Glucagon Inj) 1 mg UNSCH PRN OTHER HYPOGLYCEMIA-SEE COMMENTS 10/08/16 15:00 Insulin Human Regular (NovoLIN R SUPPLEMENTAL SCALE) 1 Q6HR SQ 10/08/16 18:00 10/09/16 17:14 Methylprednisolone Sodium Succinate (SoluMEDROL INJ) 40 mg Q12H IV PUSH 10/08/16 15:00 10/11/16 15:23 Divalproex Sodium 125 mg 125 mg Q8HR PO 10/09/16 09:00 10/11/16 13:09 Potassium Chloride 100 ml @ 50 mls/hr Q2H PRN IV For Potassium 2.8 - 3.2 mEq/L 10/10/16 07:30 Potassium Chloride (KCl 20 Meq Premix Inj) 100 ml @ 50 mls/hr Q2H PRN IV For Potassium 2.8 - 3.2 mEq/L 10/10/16 07:30 Potassium Chloride 40 meq 40 meq UNSCH PRN PO/TUBE For Potassium 3.3 - 3.5 mEq/L 10/10/16 07:30 Potassium Chloride 100 ml @ 25 mls/hr UNSCH PRN IV For Potassium 3.3 - 3.5 mEq/L 10/10/16 07:30 Potassium Chloride 100 ml @ 50 mls/hr Q2H PRN IV For Potassium 3.3 - 3.5 mEq/L 10/10/16 07:30 Magnesium Sulfate/ Sodium Chloride (Magnesium Sulfate Inj/NS Inj) 100 ml @ 50 mls/hr UNSCH PRN IV For Magnesium 0.9 - 1.1 mg/dL 10/10/16 07:30 Magnesium Oxide 800 mg 800 mg UNSCH PRN PO For Magnesium 1.2 - 1.6 mg/dL 10/10/16 07:30 Magnesium Sulfate/ Sodium Chloride (Magnesium Sulfate Inj/NS Inj) 100 ml @ 50 mls/hr UNSCH PRN IV For Magnesium 1.2 - 1.6 mg/dL 10/10/16 07:30 Potassium Phosphate 2000 mg 2,000 mg Q4H PRN PO For Phosphorus < 2.5 mg/dL 10/10/16 07:30 Sodium Phosphate/ Sodium Chloride (Sodium Phosphate Inj/NS 250 ml Inj) 250 ml @ 42 mls/hr UNSCH PRN IV For Phosphorus < 2.5 mg/dL 10/10/16 07:30 10/11/16 10:39 Potassium Chloride (KCl 40 Meq/30 ml Liq) 40 meq UNSCH PRN PO/TUBE SEE LABEL COMMENTS 10/10/16 07:30 Potassium Phosphate 2000 mg 2,000 mg UNSCH PRN PO/TUBE SEE LABEL COMMENTS 10/10/16 07:30 Potassium Phosphate 30 mmol/ Sodium Chloride 260 ml @ 42 mls/hr UNSCH PRN IV SEE LABEL COMMENTS 10/10/16 07:30 Ceftaroline Fosamil/Sodium Chloride (Teflaro Inj/NS Inj) 100 ml @ 100 mls/hr Q12H IV 10/11/16 13:00 10/11/16 13:08 Family History parents are in old age Social History resides at a SNF not drinking or smoking Physical Exam Vital Signs Vital Signs Date Time Temp Pulse Resp B/P Pulse Ox O2 Delivery O2 Flow Rate FiO2 10/11/16 18:00 80 10/11/16 16:00 72 10/11/16 16:00 98.6 72 21 130/68 98 10/11/16 14:00 75 10/11/16 12:00 70 10/11/16 12:00 98.1 70 20 117/71 97 10/11/16 10:00 81 10/11/16 09:28 98 Nasal Cannula 2.00 10/11/16 08:00 71 10/11/16 08:00 98.5 71 17 125/64 96 10/11/16 06:00 78 10/11/16 04:00 98.4 70 23 116/56 97 10/11/16 04:00 70 10/11/16 02:00 64 10/11/16 00:00 98.3 74 23 119/58 98 10/11/16 00:00 74 10/10/16 22:00 79 10/10/16 20:22 99 Nasal Cannula 2.00 10/10/16 20:00 97.8 62 21 118/61 100 10/10/16 20:00 62 Physical Exam GENERAL: This is a well-nourished, well-developed patient, in no apparent distress. SKIN: No rashes, ecchymoses or lesions. Cool and dry. HEAD: Atraumatic. Normocephalic. No temporal or scalp tenderness. EYES: Pupils equal round and reactive. Extraocular motions intact. No scleral icterus. No injection or drainage. ENT: Nose without bleeding, purulent drainage or septal hematoma. Throat without erythema, tonsillar hypertrophy or exudate. Uvula midline. Airway patent O2 in place per nasal canula. NECK: Trachea midline. No JVD or lymphadenopathy. Supple, nontender, no meningeal signs. CARDIOVASCULAR: Regular rate and rhythm without murmurs, gallops, or rubs. RESPIRATORY: diminished in left base with a few rhonchi pressent GASTROINTESTINAL: Abdomen soft, non-tender, nondistended. No hepato-splenomegaly , or palpable masses. No guarding. MUSCULOSKELETAL: Extremities without clubbing, cyanosis, or edema. No joint tenderness, effusion, or edema noted. No calf tenderness. Negative Homans sign bilaterally. NEUROLOGICAL: Awake with mld confusion Cranial nerves II through XII intact. Motor and sensory grossly within normal limits. Normal speech. Laboratory Laboratory Tests Test 10/11/16 04:07 White Blood Count 19.2 Red Blood Count 2.87 Hemoglobin 8.9 Hematocrit 26.5 Mean Corpuscular Volume 92.2 Mean Corpuscular Hemoglobin 31.1 Mean Corpuscular Hemoglobin 33.7 Concent Red Cell Distribution Width 14.3 Platelet Count 232 Mean Platelet Volume 10.2 Neutrophils (%) (Auto) 91.0 Lymphocytes (%) (Auto) 3.5 Monocytes (%) (Auto) 3.3 Eosinophils (%) (Auto) 0.7 Basophils (%) (Auto) 1.5 Neutrophils # (Auto) 17.4 Lymphocytes # (Auto) 0.7 Monocytes # (Auto) 0.6 Eosinophils # (Auto) 0.1 Basophils # (Auto) 0.3 CBC Comment AUTO DIFF Differential Comment AUTO DIFF CONFIRMED Platelet Estimate NORMAL Platelet Morphology Comment NORMAL Hematology Comments Sodium Level 145 Potassium Level 4.8 Chloride Level 118 Carbon Dioxide Level 17.2 Anion Gap 10 Blood Urea Nitrogen 35 Creatinine 0.86 Estimat Glomerular Filtration 84 Rate Random Glucose 103 Calcium Level 8.0 Phosphorus Level 1.8 Magnesium Level 2.4 Date/Time Procedure Status Source Growth 10/11/16 09:15 Aerobic Blood Culture Received Blood Peripheral Pending 10/11/16 09:15 Anaerobic Blood Culture Received Blood Peripheral Pending 10/08/16 13:06 Gram Stain - Final Complete Sputum Expectorated Sputum 10/08/16 13:06 Sputum Culture - Final Complete S. Aureus Mrsa 10/08/16 11:35 Influenza Types A,B Antigen (NATALY) - Final Complete Nasal Washing NEGATIVE FOR FLU A AND B ANTIGEN.... 10/08/16 10:55 Aerobic Blood Culture - Preliminary Resulted Blood Peripheral NO GROWTH IN 3 DAYS 10/08/16 10:55 Anaerobic Blood Culture - Preliminary Resulted Staphylococcus Epidermidis S. Aureus Mrsa 10/08/16 10:50 Urine Culture - Final Complete Urine Catheterized Urine Proteus Mirabilis 10/08/16 10:50 Legionella Antigen - Final Complete Urine Catheterized Urine PRESUMPTIVE NEGATIVE FOR LEGIONELLA P... 10/08/16 10:50 Streptococcus pneumoniae Antigen (M - Final Complete Urine Catheterized Urine PRESUMPTIVE NEGATIVE FOR STREPTOCOCCU... wbc slowly improving now [id number] Result Diagram: 10/11/16 0407 10/11/16 0407 Imaging Last Impressions Chest X-Ray 10/10/16 0600 Signed Impressions: Service Date/Time: Monday, October 10, 2016 04:59 - CONCLUSION: 1. No significant change. 2. Patchy opacity remains at the left lung base. Juan Casas MD Course generally improving wbc declining O2 now down to nasal canula Assessment and Plan Problem List: (1) Acute respiratory failure Status: Acute (2) COPD (chronic obstructive pulmonary disease) Status: Acute (3) Severe sepsis Status: Acute (4) Pneumonia Status: Acute Discharge Planning return to SNF once stable Problem Qualifiers (1) Altered mental status: Qualified Code: R41.82 - Altered mental status, unspecified altered mental status type (2) Pneumonia: Qualified Code: J69.0 - Aspiration pneumonia of left lower lobe due to vomit Lencho King DO Oct 11, 2016 19:41
[2016-10-11] MEDS ORDERED: HALOPERIDOL LACTATE 5 MG/ML AMP IV ONE (20:30)
[2016-10-11] MEDS ORDERED: diphenhydrAMINE HCL 50 MG/ML VIAL ONE (22:26)
--- NOTE | 2016-10-11 22:26 | RADRPT ---
EXAM DATE/TIME: 10/11/2016 21:11 [facility] COMPARISON: US KIDNEY/RENAL/BLADDER, December 20, 2009, 12:09. INDICATIONS : Urinary tract infection. MEDICAL HISTORY : Hypertension. Chronic obstructive pulmonary disease. Gastroesophageal reflux disease. Thyroid disease . Renal disease. Arthritis. Skin cancer. MRSA blood and sputum, 10/08/16. SURGICAL HISTORY : Appendectomy. Cholecystectomy. Colonoscopy. Back surgery. ENCOUNTER: Subsequent ACUITY: 1 day PAIN SCORE: 0/10 LOCATION: Bilateral flank MEASUREMENTS: FINDINGS: RIGHT KIDNEY: Poorly visualized. Approximately 11.1 cm in length. Renal cortex is normal in thickness and echotextu re. No hydronephrosis, stone, or mass. LEFT KIDNEY: Not well seen. BLADDER: Decompressed with a Stout, grossly unremarkable. CONCLUSION: Uncooperative patient and extremely limited study. Left kidney not evaluated. Right kidney without hy dronephrosis or other acute abnormality. Jose Grajeda MD on October 11, 2016 at 22:22 Board Certified Radiologist. This report was verified electronically.
[2016-10-11] MEDS ORDERED: diphenhydrAMINE HCL 50 MG/ML VIAL IV ONE (22:45)
[2016-10-12] VITALS (14 sets, daily range): BP systolic 127–186; BP diastolic 64–75; PULSE 54–87; RESP 18–35; TEMP 97.8–100; O2SAT 88–100
[2016-10-12] MEDS: CEFTAROLINE INJ 600 MG in SODIUM CHLORIDE 0.9% INJ 100 ML IV SCH ×2 (01:06→16:27)
[2016-10-12] MEDS: RESP: ALBUTEROL 2.5 MG/IPRATROPIUM 0.5 MG NEB (SCH) INH ×3 (03:23→16:00)
[2016-10-12] MEDS: CHLORHEXIDINE GLUCONATE 2 % 1 PACK (2 CLOTHS) TOP SCH (04:00)
[2016-10-12] MEDS: LEVOTHYROXINE SODIUM 75 MCG TAB PO SCH (06:00)
[2016-10-12] MEDS: DIVALPROEX SODIUM SPRINKLES 125 MG CAP PO SCH ×3 (06:00→21:34)
[2016-10-12] MEDS: INSULIN NovoLIN REGULAR SUPPLEMENTAL SCALE SQ SCH ×4 (06:00→18:00)
[2016-10-12] MEDS: HEPARIN SODIUM - SQ 10,000 UNITS/ML VIAL SQ SCH ×2 (06:11→16:21)
[2016-10-12] MEDS: methylPREDNISolone SOD SUCC 40 MG/1 ML VIAL IV PUSH SCH ×2 (06:11→16:21)
[2016-10-12 06:14] LABS: AUTOMATED NEUTROPHIL # 10.2 TH/MM3 (1.8-7.7); BASOPHIL % 0.1 % (0.0-2.0); HEMATOCRIT 28.4 % (39.0-51.0); HEMO FLAGS DIFF FINAL; LYMPH % 12.9 % (9.0-44.0); LYMPHOCYTE # 1.6 TH/MM3 (1.0-4.8); MEAN CELL VOLUME 93.4 FL (80.0-100.0); MEAN CORPUSCULAR HEMOGLOBIN 30.1 PG (27.0-34.0); MEAN CORPUSCULAR HGB CONC 32.3 % (32.0-36.0); PLATELET COUNT 285 TH/MM3 (150-450); RED BLOOD COUNT 3.04 MIL/MM3 (4.50-5.90); RED CELL DISTRIBUTION WIDTH 14.6 % (11.6-17.2); WHITE BLOOD COUNT 12.7 TH/MM3 (4.0-11.0)
[2016-10-12 06:59] LABS: BICARBONATE 23.4 MEQ/L (21.0-32.0); MAGNESIUM 2.3 MG/DL (1.5-2.5); POTASSIUM 4.1 MEQ/L (3.5-5.1)
[2016-10-12] MEDS: CHLORHEXIDINE 0.12% (ORAL KIT) 15 ML CUP MT SCH ×2 (08:00→20:00)
[2016-10-12] MEDS: DOCUSATE SODIUM 100 MG CAP PO SCH ×2 (09:00→21:34)
[2016-10-12] MEDS: ASPIRIN 81 MG CHEW TAB TUBE SCH (09:16)
[2016-10-12] MEDS: PANTOPRAZOLE SODIUM 40 MG VIAL IV SCH (09:16)
[2016-10-12] MEDS: AZITHROMYCIN INJ 500 MG in SODIUM CHLOR 0.9% 250 ML INJ 250 ML IV SCH (09:16)
[2016-10-12] MEDS: ESCITALOPRAM OXALATE 20 MG TAB PO SCH (09:16)
[2016-10-12] MEDS: TRIAMCINOLONE ACET 0.1% LOTION 60 ML BTL TOPICAL SCH (09:17)
[2016-10-12] MEDS: SODIUM CHLORIDE 0.9% FLUSH 5 ML FLUSH IV FLUSH SCH ×2 (09:17→21:35)
[2016-10-12] MEDS: ARTIFICIAL TEARS OPTH SOLN 15 ML BTL EACH EYE SCH ×3 (09:17→18:00)
[2016-10-12] MEDS ORDERED: PHARMACY ORDERED LAB XX ONE (09:45)
--- NOTE | 2016-10-12 11:06 | HHI.IDPN ---
Subjective Subjective Remarks Notes reviewed Temps ok Confused, not cooperative WBC better On nasal O2 US no hydro on R, L kidney not seen because patient not cooperative Antibiotics Teflaro Past Medical History CVA with some left-sided weakness Previous episode of sepsis and pneumonia Previous respiratory failure COPD Metabolic encephalopathy Arthritis Neuropathy Chronic back pain Skin cancer Hypertension Depression Hypothyroidism Renal insufficiency Previous GI bleed, gastritis Anemia Episode of MRSA bacteremia and pneumonia last August 2016 Past Surgical History Hernia repair Appendectomy Cholecystectomy Colonoscopy TURP Back surgery Allergies: Coded Allergies: Levofloxacin (Verified Allergy, Severe, 10/08/16) *MDRO Multi-Drug Resistant Organism (Verified Adverse Reaction, Unknown, MRSA, 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) - 07/21/16 & 08/22/16; MRSA (sputum & blood-10/08/16),MRSA screen POSITIVE - 10/08/16 Objective . Vital Signs Date Time Temp Pulse Resp B/P Pulse Ox O2 Delivery O2 Flow Rate FiO2 10/12/16 09:00 90 Nasal Cannula 2.00 10/12/16 08:00 80 10/12/16 06:00 86 10/12/16 04:00 64 10/12/16 04:00 99.5 64 21 138/65 100 10/12/16 02:00 54 10/12/16 00:00 82 10/12/16 00:00 100.0 82 23 127/64 98 10/11/16 22:00 91 10/11/16 21:34 100 Nasal Cannula 2.00 10/11/16 20:00 84 10/11/16 20:00 99.1 84 28 136/66 97 10/11/16 18:00 80 10/11/16 16:00 72 10/11/16 16:00 98.6 72 21 130/68 98 10/11/16 14:00 75 10/11/16 12:00 70 10/11/16 12:00 98.1 70 20 117/71 97 10/11/16 10/11/16 10/12/16 15:00 23:00 07:00 Intake Total 1048 ml 522 ml Output Total 450 ml 1150 ml 1000 ml Balance 598 ml -1150 ml -478 ml Intake Oral 480 ml 60 ml IV Total 568 ml 462 ml Output Urine Total 450 ml 1150 ml 1000 ml # Bowel Movements 0 1 1 . Laboratory Tests Test 10/11/16 10/12/16 04:07 05:47 White Blood Count 19.2 TH/MM3 12.7 TH/MM3 Red Blood Count 2.87 MIL/MM3 3.04 MIL/MM3 Hemoglobin 8.9 GM/DL 9.2 GM/DL Hematocrit 26.5 % 28.4 % Mean Corpuscular Volume 92.2 FL 93.4 FL Mean Corpuscular Hemoglobin 31.1 PG 30.1 PG Mean Corpuscular Hemoglobin 33.7 % 32.3 % Concent Red Cell Distribution Width 14.3 % 14.6 % Platelet Count 232 TH/MM3 285 TH/MM3 Mean Platelet Volume 10.2 FL 8.6 FL Neutrophils (%) (Auto) 91.0 % 80.0 % Lymphocytes (%) (Auto) 3.5 % 12.9 % Monocytes (%) (Auto) 3.3 % 7.0 % Eosinophils (%) (Auto) 0.7 % 0.0 % Basophils (%) (Auto) 1.5 % 0.1 % Neutrophils # (Auto) 17.4 TH/MM3 10.2 TH/MM3 Lymphocytes # (Auto) 0.7 TH/MM3 1.6 TH/MM3 Monocytes # (Auto) 0.6 TH/MM3 0.9 TH/MM3 Eosinophils # (Auto) 0.1 TH/MM3 0.0 TH/MM3 Basophils # (Auto) 0.3 TH/MM3 0.0 TH/MM3 CBC Comment AUTO DIFF DIFF FINAL Differential Comment AUTO DIFF CONFIRMED Platelet Estimate NORMAL Platelet Morphology Comment NORMAL Hematology Comments Laboratory Tests Test 10/10/16 10/11/16 10/12/16 19:07 04:07 05:47 Phosphorus Level 3.2 MG/DL 1.8 MG/DL 2.1 MG/DL Sodium Level 145 MEQ/L 143 MEQ/L Potassium Level 4.8 MEQ/L 4.1 MEQ/L Chloride Level 118 MEQ/L 109 MEQ/L Carbon Dioxide Level 17.2 MEQ/L 23.4 MEQ/L Anion Gap 10 MEQ/L 11 MEQ/L Blood Urea Nitrogen 35 MG/DL 27 MG/DL Creatinine 0.86 MG/DL 0.82 MG/DL Estimat Glomerular Filtration 84 ML/MIN 89 ML/MIN Rate Random Glucose 103 MG/DL 80 MG/DL Calcium Level 8.0 MG/DL 8.1 MG/DL Magnesium Level 2.4 MG/DL 2.3 MG/DL Microbiology Date/Time Procedure Status Source Growth 10/11/16 09:10 Aerobic Blood Culture Received Blood Peripheral Pending 10/11/16 09:10 Anaerobic Blood Culture Received Blood Peripheral Pending 10/11/16 09:15 Aerobic Blood Culture Received Blood Peripheral Pending 10/11/16 09:15 Anaerobic Blood Culture Received Blood Peripheral Pending Imaging Last Impressions Renal Ultrasound 10/11/16 0000 Signed Impressions: Service Date/Time: September 21:11 - CONCLUSION: Uncooperative patient and extremely limited study. Left kidney not evaluated. Right kidney without hydronephrosis or other acute abnormality. Jose Grajeda MD Chest X-Ray 10/10/16 0600 Signed Impressions: Service Date/Time: Monday, October 10, 2016 04:59 - CONCLUSION: 1. No significant change. 2. Patchy opacity remains at the left lung base. Juan Casas MD Physical Exam GENERAL: awake and alert, looks comfortable and not in any respiratory distress. SKIN: Cool and dry. No generalized rash or ecchymosis. No embolic lesions noted. HEENT: [place] conjunctivae, no petechia or hemorrhage. No scleral icterus. No injection or drainage. Has moist oral mucosa. NECK: Trachea midline. No JVD or lymphadenopathy. Supple, nontender, no meningeal signs. CARDIOVASCULAR: Regular rate and rhythm without murmurs, gallops, or rubs. RESPIRATORY: Clear to auscultation. Breath sounds equal bilaterally. No wheezes , rales, or rhonchi. Decreased breath sounds at the bases. GASTROINTESTINAL: Abdomen soft, non-tender, nondistended. Bowel sounds are present and normoactive. No hepato-splenomegaly, or palpable masses. No guarding. MUSCULOSKELETAL: Extremities without clubbing, cyanosis, or edema. No joint tenderness, effusion, or edema noted. No calf tenderness. Negative Homans sign bilaterally. NEUROLOGICAL: Awake and alert. Cranial nerves II through XII intact. Has mild weakness in his LUE. PSYCH: Calm and cooperative LINE: PIV with no evidence of infection : [place] cath in place, urine looks clear Assessment & Plan Remarks IMPRESSION Sepsis, on admission, due to PNA and UTI MRSA pneumonia Proteus UTI, no costa, came form the [place] Respiratory failure, tolerating extubation Leukocytosis, improving Staph epi in 1 BC, possibly a contaminant RECOMMENDATION IV Teflaro - patient with recurrent PNA, and NATALY to vanco now up to 2 I asked micro to do Etest on vanco and if less than 2, I will restart IV vanco and complete Rx with vancomycin Follow C/S Monitor progress Clinically improving Dr Bustamante available if needed this I will check patient again on Saturday Barbra Lopez MD Oct 12, 2016 11:06
--- NOTE | 2016-10-12 11:24 | HHI.PR ---
Subjective Remarks more alert but very confused soft restraints ordered Objective Vital Signs Date Time Temp Pulse Resp B/P Pulse Ox O2 Delivery O2 Flow Rate FiO2 10/12/16 09:00 90 Nasal Cannula 2.00 10/12/16 08:00 80 10/12/16 06:00 86 10/12/16 04:00 64 10/12/16 04:00 99.5 64 21 138/65 100 10/12/16 02:00 54 10/12/16 00:00 82 10/12/16 00:00 100.0 82 23 127/64 98 10/11/16 22:00 91 10/11/16 21:34 100 Nasal Cannula 2.00 10/11/16 20:00 84 10/11/16 20:00 99.1 84 28 136/66 97 10/11/16 18:00 80 10/11/16 16:00 72 10/11/16 16:00 98.6 72 21 130/68 98 10/11/16 14:00 75 10/11/16 12:00 70 10/11/16 12:00 98.1 70 20 117/71 97 I/O 10/11/16 10/11/16 10/11/16 10/12/16 10/12/16 10/12/16 07:00 15:00 23:00 07:00 15:00 23:00 Intake Total 452 ml 1048 ml 522 ml Output Total 525 ml 450 ml 1150 ml 1000 ml Balance -73 ml 598 ml -1150 ml -478 ml Intake Oral 480 ml 60 ml IV Total 452 ml 568 ml 462 ml Output Urine Total 525 ml 450 ml 1150 ml 1000 ml # Bowel Movements 1 0 1 1 Result Diagram: 10/12/16 0547 10/12/16 0547 Objective Remarks GENERAL: SKIN: Warm and dry. HEAD: Atraumatic. Normocephalic. EYES: Pupils equal and round. No scleral icterus. No injection or drainage. ENT: No nasal bleeding or discharge. Mucous membranes pink and moist O2 pnc. NECK: Trachea midline. No JVD. CARDIOVASCULAR: Regular rate and rhythm. RESPIRATORY: No accessory muscle use. Clear to auscultation. Breath sounds equal bilaterally. GASTROINTESTINAL: Abdomen soft, non-tender, nondistended. Hepatic and splenic margins not palpable. MUSCULOSKELETAL: Extremities without clubbing, cyanosis, or edema. No obvious deformities. NEUROLOGICAL: Awake and alert. No obvious cranial nerve deficits. Motor grossly within normal limits. Five out of 5 muscle strength in the arms and legs. Normal speech. PSYCHIATRIC: very confused and disruptive Medications and IVs Current Medications Medications (Trade) Dose Ordered Sig/Mercedes Route PRN Reason Start Time Stop Time Status Last Admin Dose Admin IV Flush (NS Flush) 2 ml UNSCH PRN IV FLUSH FLUSH AFTER USING IV ACCESS 10/08/16 14:15 IV Flush (NS Flush) 2 ml BID IV FLUSH 10/08/16 21:00 10/12/16 09:17 Acetaminophen (Tylenol) 650 mg Q6H PRN PO PAIN 1-10 AND/OR FEVER >101F 10/08/16 14:15 10/10/16 14:15 Pantoprazole Sodium (Protonix Inj) 40 mg DAILY IV 10/09/16 09:00 10/12/16 09:16 Artificial Tears (Tears Naturale Opth Soln) 1 drop TID EACH EYE 10/08/16 18:00 10/12/16 09:17 Ondansetron HCl (Zofran Inj) 4 mg Q6H PRN IV NAUSEA OR VOMITING 10/08/16 14:15 10/11/16 15:22 Docusate Sodium (Colace) 100 mg BID PO 10/08/16 21:00 10/11/16 20:17 Sennosides (Senokot) 17.2 mg Q12H PRN PO CONSTIPATION 10/08/16 14:15 Heparin Sodium (Porcine) (Heparin Inj) 5,000 units Q12H SQ 10/08/16 16:00 10/12/16 06:11 Miscellaneous Information 1 Q361D XX 10/08/16 14:15 Chlorhexidine Gluconate (Chlorhexidine 2% Cloth) 3 pack Taper DAILY@04 TOP 10/09/16 04:00 10/05/17 03:59 10/12/16 04:00 Chlorhexidine Gluconate 3 pack 3 pack UNSCH PRN TOP HYGIENIC CARE 10/08/16 14:15 Azithromycin/ Sodium Chloride (Zithromax Inj/ NS 250 ml Inj) 250 ml @ 250 mls/hr Q24H IV 10/09/16 11:00 10/12/16 09:16 Chlorhexidine Gluconate (Peridex 0.12% Liq) 15 ml BID@08,20 MT 10/08/16 20:00 10/11/16 09:18 Escitalopram Oxalate (Lexapro) 20 mg DAILY PO 10/09/16 09:00 10/12/16 09:16 Levothyroxine Sodium (Synthroid) 75 mcg DAILY@0600 PO 10/09/16 06:00 10/11/16 04:58 Aspirin (Aspirin Chew) 81 mg DAILY TUBE 10/09/16 09:00 10/12/16 09:16 Triamcinolone Acetonide (Kenalog 0.1% Lotion) 1 applic DAILY TOPICAL 10/09/16 09:00 10/12/16 09:17 Hydrocortisone Acetate (Hemorrhoidal Hc Supp) 25 mg BID RECTAL 10/08/16 21:00 10/11/16 20:17 Dextrose (D50w (Vial) Inj) 25 ml UNSCH PRN IV PUSH HYPOGLYCEMIA-SEE COMMENTS 10/08/16 15:00 Glucagon (Glucagon Inj) 1 mg UNSCH PRN OTHER HYPOGLYCEMIA-SEE COMMENTS 10/08/16 15:00 Insulin Human Regular (NovoLIN R SUPPLEMENTAL SCALE) 1 Q6HR SQ 10/08/16 18:00 10/09/16 17:14 Methylprednisolone Sodium Succinate (SoluMEDROL INJ) 40 mg Q12H IV PUSH 10/08/16 15:00 10/12/16 06:11 Divalproex Sodium 125 mg 125 mg Q8HR PO 10/09/16 09:00 10/11/16 20:17 Potassium Chloride 100 ml @ 50 mls/hr Q2H PRN IV For Potassium 2.8 - 3.2 mEq/L 10/10/16 07:30 Potassium Chloride (KCl 20 Meq Premix Inj) 100 ml @ 50 mls/hr Q2H PRN IV For Potassium 2.8 - 3.2 mEq/L 10/10/16 07:30 Potassium Chloride 40 meq 40 meq UNSCH PRN PO/TUBE For Potassium 3.3 - 3.5 mEq/L 10/10/16 07:30 Potassium Chloride 100 ml @ 25 mls/hr UNSCH PRN IV For Potassium 3.3 - 3.5 mEq/L 10/10/16 07:30 Potassium Chloride 100 ml @ 50 mls/hr Q2H PRN IV For Potassium 3.3 - 3.5 mEq/L 10/10/16 07:30 Magnesium Sulfate/ Sodium Chloride (Magnesium Sulfate Inj/NS Inj) 100 ml @ 50 mls/hr UNSCH PRN IV For Magnesium 0.9 - 1.1 mg/dL 10/10/16 07:30 Magnesium Oxide 800 mg 800 mg UNSCH PRN PO For Magnesium 1.2 - 1.6 mg/dL 10/10/16 07:30 Magnesium Sulfate/ Sodium Chloride (Magnesium Sulfate Inj/NS Inj) 100 ml @ 50 mls/hr UNSCH PRN IV For Magnesium 1.2 - 1.6 mg/dL 10/10/16 07:30 Potassium Phosphate 2000 mg 2,000 mg Q4H PRN PO For Phosphorus < 2.5 mg/dL 10/10/16 07:30 Sodium Phosphate/ Sodium Chloride (Sodium Phosphate Inj/NS 250 ml Inj) 250 ml @ 42 mls/hr UNSCH PRN IV For Phosphorus < 2.5 mg/dL 10/10/16 07:30 10/11/16 10:39 Potassium Chloride (KCl 40 Meq/30 ml Liq) 40 meq UNSCH PRN PO/TUBE SEE LABEL COMMENTS 10/10/16 07:30 Potassium Phosphate 2000 mg 2,000 mg UNSCH PRN PO/TUBE SEE LABEL COMMENTS 10/10/16 07:30 Potassium Phosphate 30 mmol/ Sodium Chloride 260 ml @ 42 mls/hr UNSCH PRN IV SEE LABEL COMMENTS 10/10/16 07:30 Ceftaroline Fosamil/Sodium Chloride (Teflaro Inj/NS Inj) 100 ml @ 100 mls/hr Q12H IV 10/11/16 13:00 10/12/16 01:06 Risperidone (risperDAL) 0.5 mg BID PO 10/12/16 21:00 Assessment and Plan Problem List: (1) Acute respiratory failure Status: Acute (2) COPD (chronic obstructive pulmonary disease) Status: Acute (3) Severe sepsis Status: Acute (4) Pneumonia Status: Acute Assessment and Plan pt very confused has exhibited this behavior in the past will order restraints ck blood ammonia level and begin risperdal 0.25 mg bid may need a larger dose will titrate to need Discussed Condition With ultrasound of kidneys difficult only able to examine one kidney due to uncoperative patient Discharge Planning return to SNF once medically stable Problem Qualifiers (1) Pneumonia: Qualified Code: J69.0 - Aspiration pneumonia of left lower lobe due to vomit Lencho Salgado DO Oct 12, 2016 11:24
[2016-10-12] MEDS: HYDROCORTISONE ACETATE 25 MG SUPP RECTAL SCH ×2 (16:21→21:34)
[2016-10-12] MEDS: RESP: ALBUTEROL 2.5 MG/IPRATROPIUM 0.5 MG NEB (PRN) INH (20:11)
[2016-10-12] MEDS: risperiDONE 0.5 MG TAB PO SCH (21:34)
[2016-10-13] VITALS (13 sets, daily range): BP systolic 138–161; BP diastolic 60–80; PULSE 53–105; RESP 17–20; TEMP 97.7–98.7; O2SAT 97–99
[2016-10-13] MEDS: CEFTAROLINE INJ 600 MG in SODIUM CHLORIDE 0.9% INJ 100 ML IV SCH ×2 (00:47→15:39)
[2016-10-13] MEDS: methylPREDNISolone SOD SUCC 40 MG/1 ML VIAL IV PUSH SCH ×2 (02:57→15:40)
[2016-10-13] MEDS: CHLORHEXIDINE GLUCONATE 2 % 1 PACK (2 CLOTHS) TOP SCH (04:00)
[2016-10-13] MEDS: DIVALPROEX SODIUM SPRINKLES 125 MG CAP PO SCH ×3 (05:29→21:49)
[2016-10-13] MEDS: LEVOTHYROXINE SODIUM 75 MCG TAB PO SCH (05:29)
[2016-10-13] MEDS: HEPARIN SODIUM - SQ 10,000 UNITS/ML VIAL SQ SCH ×2 (05:29→15:40)
[2016-10-13] MEDS: INSULIN NovoLIN REGULAR SUPPLEMENTAL SCALE SQ SCH ×4 (05:35→16:57)
[2016-10-13] MEDS: CHLORHEXIDINE 0.12% (ORAL KIT) 15 ML CUP MT SCH ×2 (08:00→20:00)
[2016-10-13] MEDS: TRIAMCINOLONE ACET 0.1% LOTION 60 ML BTL TOPICAL SCH (08:48)
[2016-10-13] MEDS: ESCITALOPRAM OXALATE 20 MG TAB PO SCH (08:48)
[2016-10-13] MEDS: ASPIRIN 81 MG CHEW TAB TUBE SCH (08:48)
[2016-10-13] MEDS: ARTIFICIAL TEARS OPTH SOLN 15 ML BTL EACH EYE SCH ×3 (08:48→16:57)
[2016-10-13] MEDS: DOCUSATE SODIUM 100 MG CAP PO SCH ×2 (08:48→21:48)
[2016-10-13] MEDS: PANTOPRAZOLE SODIUM 40 MG VIAL IV SCH (08:48)
[2016-10-13] MEDS: HYDROCORTISONE ACETATE 25 MG SUPP RECTAL SCH ×2 (08:48→22:20)
[2016-10-13] MEDS: SODIUM CHLORIDE 0.9% FLUSH 5 ML FLUSH IV FLUSH SCH ×2 (08:49→21:49)
[2016-10-13] MEDS: risperiDONE 0.5 MG TAB PO SCH (08:51)
--- NOTE | 2016-10-13 12:21 | HHI.PR ---
Subjective Remarks more alert but very confused soft restraints ordered refusing all meds Objective Vital Signs Date Time Temp Pulse Resp B/P Pulse Ox O2 Delivery O2 Flow Rate FiO2 10/13/16 10:00 105 10/13/16 08:00 97.7 53 20 138/60 97 10/13/16 08:00 53 10/13/16 06:00 69 10/13/16 04:00 98.4 63 19 150/67 97 10/13/16 04:00 63 10/13/16 02:00 78 10/13/16 00:00 98.7 78 17 146/63 97 10/13/16 00:00 78 10/12/16 22:00 80 10/12/16 20:13 97 Nasal Cannula 2.00 10/12/16 20:00 80 10/12/16 20:00 97.8 80 35 186/72 95 10/12/16 18:00 74 10/12/16 16:00 82 10/12/16 16:00 98.2 82 20 180/70 10/12/16 14:00 71 I/O 10/12/16 10/12/16 10/12/16 10/13/16 10/13/16 10/13/16 07:00 15:00 23:00 07:00 15:00 23:00 Intake Total 522 ml 520 ml 353 ml 183 ml Output Total 1000 ml 1000 ml 1000 ml 450 ml Balance -478 ml -480 ml -647 ml -267 ml Intake Oral 60 ml 240 ml 240 ml 50 ml IV Total 462 ml 280 ml 113 ml 133 ml Output Urine Total 1000 ml 1000 ml 1000 ml 450 ml # Bowel Movements 1 1 1 1 Result Diagram: 10/12/16 0547 10/12/16 0547 Imaging Last Impressions Renal Ultrasound 10/11/16 0000 Signed Impressions: Service Date/Time: September 21:11 - CONCLUSION: Uncooperative patient and extremely limited study. Left kidney not evaluated. Right kidney without hydronephrosis or other acute abnormality. Jose Grajeda MD Chest X-Ray 10/10/16 0600 Signed Impressions: Service Date/Time: Monday, October 10, 2016 04:59 - CONCLUSION: 1. No significant change. 2. Patchy opacity remains at the left lung base. Juan Casas MD Objective Remarks GENERAL: SKIN: Warm and dry. HEAD: Atraumatic. Normocephalic. EYES: Pupils equal and round. No scleral icterus. No injection or drainage. ENT: No nasal bleeding or discharge. Mucous membranes pink and moist O2 pnc. NECK: Trachea midline. No JVD. CARDIOVASCULAR: Regular rate and rhythm. RESPIRATORY: No accessory muscle use. Clear to auscultation. Breath sounds equal bilaterally. GASTROINTESTINAL: Abdomen soft, non-tender, nondistended. Hepatic and splenic margins not palpable. MUSCULOSKELETAL: Extremities without clubbing, cyanosis, or edema. No obvious deformities. NEUROLOGICAL: Awake and alert. No obvious cranial nerve deficits. Motor grossly within normal limits. Five out of 5 muscle strength in the arms and legs. Normal speech. PSYCHIATRIC: very confused and disruptive agreed to meds after I spoke with him Medications and IVs Current Medications Medications (Trade) Dose Ordered Sig/Mercedes Route PRN Reason Start Time Stop Time Status Last Admin Dose Admin IV Flush (NS Flush) 2 ml UNSCH PRN IV FLUSH FLUSH AFTER USING IV ACCESS 10/08/16 14:15 IV Flush (NS Flush) 2 ml BID IV FLUSH 10/08/16 21:00 10/13/16 08:49 Acetaminophen (Tylenol) 650 mg Q6H PRN PO PAIN 1-10 AND/OR FEVER >101F 10/08/16 14:15 10/10/16 14:15 Pantoprazole Sodium (Protonix Inj) 40 mg DAILY IV 10/09/16 09:00 10/13/16 08:48 Artificial Tears (Tears Naturale Opth Soln) 1 drop TID EACH EYE 10/08/16 18:00 10/13/16 08:48 Ondansetron HCl (Zofran Inj) 4 mg Q6H PRN IV NAUSEA OR VOMITING 10/08/16 14:15 10/11/16 15:22 Docusate Sodium (Colace) 100 mg BID PO 10/08/16 21:00 10/12/16 21:34 Sennosides (Senokot) 17.2 mg Q12H PRN PO CONSTIPATION 10/08/16 14:15 Heparin Sodium (Porcine) (Heparin Inj) 5,000 units Q12H SQ 10/08/16 16:00 10/13/16 05:29 Miscellaneous Information 1 Q361D XX 10/08/16 14:15 Chlorhexidine Gluconate (Chlorhexidine 2% Cloth) 3 pack Taper DAILY@04 TOP 10/09/16 04:00 10/05/17 03:59 10/13/16 04:00 Chlorhexidine Gluconate 3 pack 3 pack UNSCH PRN TOP HYGIENIC CARE 10/08/16 14:15 Azithromycin/ Sodium Chloride (Zithromax Inj/ NS 250 ml Inj) 250 ml @ 250 mls/hr Q24H IV 10/09/16 11:00 10/12/16 09:16 Chlorhexidine Gluconate (Peridex 0.12% Liq) 15 ml BID@08,20 MT 10/08/16 20:00 10/11/16 09:18 Escitalopram Oxalate (Lexapro) 20 mg DAILY PO 10/09/16 09:00 10/13/16 08:48 Levothyroxine Sodium (Synthroid) 75 mcg DAILY@0600 PO 10/09/16 06:00 10/13/16 05:29 Aspirin (Aspirin Chew) 81 mg DAILY TUBE 10/09/16 09:00 10/13/16 08:48 Triamcinolone Acetonide (Kenalog 0.1% Lotion) 1 applic DAILY TOPICAL 10/09/16 09:00 10/13/16 08:48 Hydrocortisone Acetate (Hemorrhoidal Hc Supp) 25 mg BID RECTAL 10/08/16 21:00 10/12/16 21:34 Dextrose (D50w (Vial) Inj) 25 ml UNSCH PRN IV PUSH HYPOGLYCEMIA-SEE COMMENTS 10/08/16 15:00 Glucagon (Glucagon Inj) 1 mg UNSCH PRN OTHER HYPOGLYCEMIA-SEE COMMENTS 10/08/16 15:00 Insulin Human Regular (NovoLIN R SUPPLEMENTAL SCALE) 1 Q6HR SQ 10/08/16 18:00 10/09/16 17:14 Methylprednisolone Sodium Succinate (SoluMEDROL INJ) 40 mg Q12H IV PUSH 10/08/16 15:00 10/13/16 02:57 Divalproex Sodium 125 mg 125 mg Q8HR PO 10/09/16 09:00 10/13/16 05:29 Potassium Chloride 100 ml @ 50 mls/hr Q2H PRN IV For Potassium 2.8 - 3.2 mEq/L 10/10/16 07:30 Potassium Chloride (KCl 20 Meq Premix Inj) 100 ml @ 50 mls/hr Q2H PRN IV For Potassium 2.8 - 3.2 mEq/L 10/10/16 07:30 Potassium Chloride 40 meq 40 meq UNSCH PRN PO/TUBE For Potassium 3.3 - 3.5 mEq/L 10/10/16 07:30 Potassium Chloride 100 ml @ 25 mls/hr UNSCH PRN IV For Potassium 3.3 - 3.5 mEq/L 10/10/16 07:30 Potassium Chloride 100 ml @ 50 mls/hr Q2H PRN IV For Potassium 3.3 - 3.5 mEq/L 10/10/16 07:30 Magnesium Sulfate/ Sodium Chloride (Magnesium Sulfate Inj/NS Inj) 100 ml @ 50 mls/hr UNSCH PRN IV For Magnesium 0.9 - 1.1 mg/dL 10/10/16 07:30 Magnesium Oxide 800 mg 800 mg UNSCH PRN PO For Magnesium 1.2 - 1.6 mg/dL 10/10/16 07:30 Magnesium Sulfate/ Sodium Chloride (Magnesium Sulfate Inj/NS Inj) 100 ml @ 50 mls/hr UNSCH PRN IV For Magnesium 1.2 - 1.6 mg/dL 10/10/16 07:30 Potassium Phosphate 2000 mg 2,000 mg Q4H PRN PO For Phosphorus < 2.5 mg/dL 10/10/16 07:30 Sodium Phosphate/ Sodium Chloride (Sodium Phosphate Inj/NS 250 ml Inj) 250 ml @ 42 mls/hr UNSCH PRN IV For Phosphorus < 2.5 mg/dL 10/10/16 07:30 10/11/16 10:39 Potassium Chloride (KCl 40 Meq/30 ml Liq) 40 meq UNSCH PRN PO/TUBE SEE LABEL COMMENTS 10/10/16 07:30 Potassium Phosphate 2000 mg 2,000 mg UNSCH PRN PO/TUBE SEE LABEL COMMENTS 10/10/16 07:30 Potassium Phosphate 30 mmol/ Sodium Chloride 260 ml @ 42 mls/hr UNSCH PRN IV SEE LABEL COMMENTS 10/10/16 07:30 Ceftaroline Fosamil/Sodium Chloride (Teflaro Inj/NS Inj) 100 ml @ 100 mls/hr Q12H IV 10/11/16 13:00 10/13/16 00:47 Risperidone (risperDAL) 0.5 mg BID@08,20 PO 10/12/16 20:00 10/13/16 08:51 Assessment and Plan Problem List: (1) Acute respiratory failure Status: Acute (2) COPD (chronic obstructive pulmonary disease) Status: Acute (3) Severe sepsis Status: Acute (4) Pneumonia Status: Acute Assessment and Plan pt very confused has exhibited this behavior in the past will order restraints blood ammonia level normal 23 and increase risperdal Discharge Planning return to snf Problem Qualifiers (1) Pneumonia: Qualified Code: J69.0 - Aspiration pneumonia of left lower lobe due to vomit Lencho Salgado DO Oct 13, 2016 12:21
[2016-10-13] MEDS: AZITHROMYCIN INJ 500 MG in SODIUM CHLOR 0.9% 250 ML INJ 250 ML IV SCH (16:57)
[2016-10-13] MEDS: risperiDONE 1 MG TAB PO SCH (21:48)
[2016-10-14] VITALS (13 sets, daily range): BP systolic 111–160; BP diastolic 57–74; PULSE 69–114; RESP 19–28; TEMP 97.6–98.7; O2SAT 93–100
[2016-10-14] MEDS: CHLORHEXIDINE GLUCONATE 2 % 1 PACK (2 CLOTHS) TOP SCH (00:50)
[2016-10-14] MEDS: methylPREDNISolone SOD SUCC 40 MG/1 ML VIAL IV PUSH SCH ×2 (01:47→14:09)
[2016-10-14] MEDS: CEFTAROLINE INJ 600 MG in SODIUM CHLORIDE 0.9% INJ 100 ML IV SCH ×2 (01:47→14:09)
[2016-10-14] MEDS: INSULIN NovoLIN REGULAR SUPPLEMENTAL SCALE SQ SCH ×5 (06:00→23:06)
[2016-10-14] MEDS: DIVALPROEX SODIUM SPRINKLES 125 MG CAP PO SCH ×3 (06:27→21:08)
[2016-10-14] MEDS: LEVOTHYROXINE SODIUM 75 MCG TAB PO SCH (06:27)
[2016-10-14] MEDS: HEPARIN SODIUM - SQ 10,000 UNITS/ML VIAL SQ SCH (06:27)
[2016-10-14] MEDS: CHLORHEXIDINE 0.12% (ORAL KIT) 15 ML CUP MT SCH ×2 (08:00→20:00)
[2016-10-14] MEDS: PANTOPRAZOLE SODIUM 40 MG VIAL IV SCH (08:49)
[2016-10-14] MEDS: ASPIRIN 81 MG CHEW TAB TUBE SCH (08:50)
[2016-10-14] MEDS: risperiDONE 1 MG TAB PO SCH ×2 (08:50→20:19)
[2016-10-14] MEDS: SODIUM CHLORIDE 0.9% FLUSH 5 ML FLUSH IV FLUSH SCH ×2 (08:50→20:20)
[2016-10-14] MEDS: ARTIFICIAL TEARS OPTH SOLN 15 ML BTL EACH EYE SCH ×3 (08:50→17:58)
[2016-10-14] MEDS: ESCITALOPRAM OXALATE 20 MG TAB PO SCH (08:51)
[2016-10-14] MEDS: HYDROCORTISONE ACETATE 25 MG SUPP RECTAL SCH ×2 (08:52→20:19)
[2016-10-14] MEDS: DOCUSATE SODIUM 100 MG CAP PO SCH ×2 (08:52→20:19)
[2016-10-14] MEDS: TRIAMCINOLONE ACET 0.1% LOTION 60 ML BTL TOPICAL SCH (08:52)
--- NOTE | 2016-10-14 10:02 | HHI.PR ---
Subjective Remarks more alert but very confused soft restraints ordered now taking meds not sedated with current risperdal dose more compliant Objective Vital Signs Date Time Temp Pulse Resp B/P Pulse Ox O2 Delivery O2 Flow Rate FiO2 10/14/16 08:34 97 Nasal Cannula 2.00 10/14/16 06:00 69 10/14/16 04:00 98.4 76 19 151/72 99 10/14/16 04:00 76 10/14/16 02:00 98 10/14/16 00:00 97.6 75 20 144/63 93 10/14/16 00:00 75 10/13/16 22:00 84 10/13/16 21:47 99 Nasal Cannula 2.00 10/13/16 20:00 74 10/13/16 20:00 97.9 74 20 141/65 97 10/13/16 18:00 105 10/13/16 16:00 104 10/13/16 16:00 98.2 94 18 161/80 10/13/16 14:00 102 10/13/16 12:00 95 10/13/16 12:00 98.0 98 20 155/79 10/13/16 10:00 105 I/O 10/13/16 10/13/16 10/13/16 10/14/16 10/14/16 10/14/16 07:00 15:00 23:00 07:00 15:00 23:00 Intake Total 183 ml 390 ml 658 ml 262 ml Output Total 450 ml 600 ml 600 ml 1000 ml Balance -267 ml -210 ml 58 ml -738 ml Intake Oral 50 ml 240 ml 240 ml 120 ml IV Total 133 ml 150 ml 418 ml 142 ml Output Urine Total 450 ml 600 ml 600 ml 1000 ml # Bowel Movements 1 0 Result Diagram: 10/12/16 0547 10/12/16 0547 Imaging Last Impressions Renal Ultrasound 10/11/16 0000 Signed Impressions: Service Date/Time: September 21:11 - CONCLUSION: Uncooperative patient and extremely limited study. Left kidney not evaluated. Right kidney without hydronephrosis or other acute abnormality. Jose Grajeda MD Chest X-Ray 10/10/16 0600 Signed Impressions: Service Date/Time: Monday, October 10, 2016 04:59 - CONCLUSION: 1. No significant change. 2. Patchy opacity remains at the left lung base. Juan Casas MD Objective Remarks GENERAL: SKIN: Warm and dry. HEAD: Atraumatic. Normocephalic. EYES: Pupils equal and round. No scleral icterus. No injection or drainage. ENT: No nasal bleeding or discharge. Mucous membranes pink and moist O2 pnc. NECK: Trachea midline. No JVD. CARDIOVASCULAR: Regular rate and rhythm. RESPIRATORY: diminished in bases few rhonchi GASTROINTESTINAL: Abdomen soft, non-tender, nondistended. Hepatic and splenic margins not palpable. MUSCULOSKELETAL: Extremities without clubbing, cyanosis, or edema. No obvious deformities. NEUROLOGICAL: Awake and alert. No obvious cranial nerve deficits. Motor grossly within normal limits. Five out of 5 muscle strength in the arms and legs. Normal speech. PSYCHIATRIC: less combative more cooperative Medications and IVs Current Medications Medications (Trade) Dose Ordered Sig/Mercedes Route PRN Reason Start Time Stop Time Status Last Admin Dose Admin IV Flush (NS Flush) 2 ml UNSCH PRN IV FLUSH FLUSH AFTER USING IV ACCESS 10/08/16 14:15 IV Flush (NS Flush) 2 ml BID IV FLUSH 10/08/16 21:00 10/14/16 08:50 Acetaminophen (Tylenol) 650 mg Q6H PRN PO PAIN 1-10 AND/OR FEVER >101F 10/08/16 14:15 10/10/16 14:15 Pantoprazole Sodium (Protonix Inj) 40 mg DAILY IV 10/09/16 09:00 10/14/16 08:49 Artificial Tears (Tears Naturale Opth Soln) 1 drop TID EACH EYE 10/08/16 18:00 10/14/16 08:50 Ondansetron HCl (Zofran Inj) 4 mg Q6H PRN IV NAUSEA OR VOMITING 10/08/16 14:15 10/11/16 15:22 Docusate Sodium (Colace) 100 mg BID PO 10/08/16 21:00 10/14/16 08:52 Sennosides (Senokot) 17.2 mg Q12H PRN PO CONSTIPATION 10/08/16 14:15 Heparin Sodium (Porcine) (Heparin Inj) 5,000 units Q12H SQ 10/08/16 16:00 10/14/16 06:27 Miscellaneous Information 1 Q361D XX 10/08/16 14:15 Chlorhexidine Gluconate (Chlorhexidine 2% Cloth) Taper DAILY@04 TOP 10/09/16 04:00 10/05/17 03:59 10/13/16 04:00 Chlorhexidine Gluconate 3 pack 3 pack UNSCH PRN TOP HYGIENIC CARE 10/08/16 14:15 Azithromycin/ Sodium Chloride (Zithromax Inj/ NS 250 ml Inj) 250 ml @ 250 mls/hr Q24H IV 10/09/16 11:00 10/13/16 16:57 Chlorhexidine Gluconate (Peridex 0.12% Liq) 15 ml BID@08,20 MT 10/08/16 20:00 10/11/16 09:18 Escitalopram Oxalate (Lexapro) 20 mg DAILY PO 10/09/16 09:00 10/14/16 08:51 Levothyroxine Sodium (Synthroid) 75 mcg DAILY@0600 PO 10/09/16 06:00 10/14/16 06:27 Aspirin (Aspirin Chew) 81 mg DAILY TUBE 10/09/16 09:00 10/14/16 08:50 Triamcinolone Acetonide (Kenalog 0.1% Lotion) 1 applic DAILY TOPICAL 10/09/16 09:00 10/14/16 08:52 Hydrocortisone Acetate (Hemorrhoidal Hc Supp) 25 mg BID RECTAL 10/08/16 21:00 10/14/16 08:52 Dextrose (D50w (Vial) Inj) 25 ml UNSCH PRN IV PUSH HYPOGLYCEMIA-SEE COMMENTS 10/08/16 15:00 Glucagon (Glucagon Inj) 1 mg UNSCH PRN OTHER HYPOGLYCEMIA-SEE COMMENTS 10/08/16 15:00 Insulin Human Regular (NovoLIN R SUPPLEMENTAL SCALE) 1 Q6HR SQ 10/08/16 18:00 10/09/16 17:14 Methylprednisolone Sodium Succinate (SoluMEDROL INJ) 40 mg Q12H IV PUSH 10/08/16 15:00 10/14/16 01:47 Divalproex Sodium 125 mg 125 mg Q8HR PO 10/09/16 09:00 10/14/16 06:27 Potassium Chloride 100 ml @ 50 mls/hr Q2H PRN IV For Potassium 2.8 - 3.2 mEq/L 10/10/16 07:30 Potassium Chloride (KCl 20 Meq Premix Inj) 100 ml @ 50 mls/hr Q2H PRN IV For Potassium 2.8 - 3.2 mEq/L 10/10/16 07:30 Potassium Chloride 40 meq 40 meq UNSCH PRN PO/TUBE For Potassium 3.3 - 3.5 mEq/L 10/10/16 07:30 Potassium Chloride 100 ml @ 25 mls/hr UNSCH PRN IV For Potassium 3.3 - 3.5 mEq/L 10/10/16 07:30 Potassium Chloride 100 ml @ 50 mls/hr Q2H PRN IV For Potassium 3.3 - 3.5 mEq/L 10/10/16 07:30 Magnesium Sulfate/ Sodium Chloride (Magnesium Sulfate Inj/NS Inj) 100 ml @ 50 mls/hr UNSCH PRN IV For Magnesium 0.9 - 1.1 mg/dL 10/10/16 07:30 Magnesium Oxide 800 mg 800 mg UNSCH PRN PO For Magnesium 1.2 - 1.6 mg/dL 10/10/16 07:30 Magnesium Sulfate/ Sodium Chloride (Magnesium Sulfate Inj/NS Inj) 100 ml @ 50 mls/hr UNSCH PRN IV For Magnesium 1.2 - 1.6 mg/dL 10/10/16 07:30 Potassium Phosphate 2000 mg 2,000 mg Q4H PRN PO For Phosphorus < 2.5 mg/dL 10/10/16 07:30 Sodium Phosphate/ Sodium Chloride (Sodium Phosphate Inj/NS 250 ml Inj) 250 ml @ 42 mls/hr UNSCH PRN IV For Phosphorus < 2.5 mg/dL 10/10/16 07:30 10/11/16 10:39 Potassium Chloride (KCl 40 Meq/30 ml Liq) 40 meq UNSCH PRN PO/TUBE SEE LABEL COMMENTS 10/10/16 07:30 Potassium Phosphate 2000 mg 2,000 mg UNSCH PRN PO/TUBE SEE LABEL COMMENTS 10/10/16 07:30 Potassium Phosphate 30 mmol/ Sodium Chloride 260 ml @ 42 mls/hr UNSCH PRN IV SEE LABEL COMMENTS 10/10/16 07:30 Ceftaroline Fosamil/Sodium Chloride (Teflaro Inj/NS Inj) 100 ml @ 100 mls/hr Q12H IV 10/11/16 13:00 10/14/16 01:47 Risperidone (risperDAL) 1 mg Q12HR PO 10/13/16 21:00 10/14/16 08:50 Assessment and Plan Problem List: (1) Acute respiratory failure Status: Acute (2) COPD (chronic obstructive pulmonary disease) Status: Acute (3) Severe sepsis Status: Acute (4) Pneumonia Status: Acute Assessment and Plan improved cooperation but not sedated with risperdal dosing will continue as ordered renew restraints as needed will asses lab and cxr in am Discharge Planning snf Problem Qualifiers (1) Pneumonia: Qualified Code: J69.0 - Aspiration pneumonia of left lower lobe due to vomit Lencho Salgado DO Oct 14, 2016 10:01
--- NOTE | 2016-10-14 11:24 | RADRPT ---
EXAM DATE/TIME: 10/14/2016 10:45 [facility] COMPARISON: CHEST SINGLE AP, October 10, 2016, 4:59. INDICATIONS : Shortness of breath. Evaluate for pneumonia. MEDICAL HISTORY : Hypertension. Chronic obstructive pulmonary disease. SURGICAL HISTORY : None. ENCOUNTER: Subsequent ACUITY: 1 week PAIN SCORE: 0/10 LOCATION: Bilateral chest FINDINGS: Right lung is clear. Borderline cardiomegaly. Left lower lobe consolidation and small left effusion. No significant change has occurred. CONCLUSION: No significant change has occurred. Richard Kingston MD on October 14, 2016 at 11:22 Board Certified Radiologist. This report was verified electronically.
[2016-10-14 11:51] LABS: ANION GAP 10 MEQ/L (5-15); CHLORIDE 108 MEQ/L (98-107); POTASSIUM 4.3 MEQ/L (3.5-5.1); SODIUM (NA) 141 MEQ/L (136-145)
[2016-10-14 11:52] LABS: AUTOMATED NEUTROPHIL # 8.7 TH/MM3 (1.8-7.7); BASOPHIL % 0.1 % (0.0-2.0); EOSINOPHIL % 0.1 % (0.0-4.0); HEMATOCRIT 34.7 % (39.0-51.0); HEMO FLAGS DIFF FINAL; LYMPH % 8.4 % (9.0-44.0); LYMPHOCYTE # 0.9 TH/MM3 (1.0-4.8); MEAN CELL VOLUME 92.2 FL (80.0-100.0); MEAN CORPUSCULAR HEMOGLOBIN 30.2 PG (27.0-34.0); MEAN CORPUSCULAR HGB CONC 32.8 % (32.0-36.0); MONO % 5.8 % (0.0-8.0); NEUT % 85.6 % (16.0-70.0); PLATELET COUNT 318 TH/MM3 (150-450); RED BLOOD COUNT 3.76 MIL/MM3 (4.50-5.90); RED CELL DISTRIBUTION WIDTH 14.4 % (11.6-17.2); WHITE BLOOD COUNT 10.2 TH/MM3 (4.0-11.0)
[2016-10-14 11:56] LABS: ALKALINE PHOSPHATASE 64 U/L (45-117); ALT (GPT) 25 U/L (12-78); AST (GOT) 23 U/L (15-37); GLOMERULAR FILTRATION RATE 86 ML/MIN (>89); TOTAL BILIRUBIN ADULT 0.5 MG/DL (0.2-1.0)
[2016-10-14 12:02] LABS: BLOOD UREA NITROGEN 21 MG/DL (7-18)
[2016-10-14] MEDS: AZITHROMYCIN INJ 500 MG in SODIUM CHLOR 0.9% 250 ML INJ 250 ML IV SCH (14:13)
[2016-10-15] VITALS (12 sets, daily range): BP systolic 108–184; BP diastolic 61–99; PULSE 68–110; RESP 16–29; TEMP 97.3–98.5; O2SAT 96–100
[2016-10-15] MEDS: CEFTAROLINE INJ 600 MG in SODIUM CHLORIDE 0.9% INJ 100 ML IV SCH ×2 (00:37→13:20)
[2016-10-15] MEDS: CHLORHEXIDINE GLUCONATE 2 % 1 PACK (2 CLOTHS) TOP SCH (02:46)
[2016-10-15] MEDS: methylPREDNISolone SOD SUCC 40 MG/1 ML VIAL IV PUSH SCH ×2 (02:46→13:21)
[2016-10-15] MEDS: HEPARIN SODIUM - SQ 10,000 UNITS/ML VIAL SQ SCH ×2 (02:46→17:15)
[2016-10-15] MEDS: DIVALPROEX SODIUM SPRINKLES 125 MG CAP PO SCH ×3 (05:49→21:28)
[2016-10-15] MEDS: LEVOTHYROXINE SODIUM 75 MCG TAB PO SCH (05:49)
[2016-10-15] MEDS: INSULIN NovoLIN REGULAR SUPPLEMENTAL SCALE SQ SCH ×3 (05:56→17:15)
[2016-10-15] MEDS: CHLORHEXIDINE 0.12% (ORAL KIT) 15 ML CUP MT SCH ×2 (07:15→20:00)
[2016-10-15] MEDS: risperiDONE 1 MG TAB PO SCH ×2 (08:52→21:28)
[2016-10-15] MEDS: DOCUSATE SODIUM 100 MG CAP PO SCH ×2 (08:52→21:28)
[2016-10-15] MEDS: ASPIRIN 81 MG CHEW TAB TUBE SCH (08:52)
[2016-10-15] MEDS: HYDROCORTISONE ACETATE 25 MG SUPP RECTAL SCH ×2 (08:52→21:28)
[2016-10-15] MEDS: ESCITALOPRAM OXALATE 20 MG TAB PO SCH (08:52)
[2016-10-15] MEDS: PANTOPRAZOLE SODIUM 40 MG VIAL IV SCH (08:53)
[2016-10-15] MEDS: AZITHROMYCIN INJ 500 MG in SODIUM CHLOR 0.9% 250 ML INJ 250 ML IV SCH (11:00)
[2016-10-15] MEDS: TRIAMCINOLONE ACET 0.1% LOTION 60 ML BTL TOPICAL SCH ×2 (13:20→13:23)
[2016-10-15] MEDS: ARTIFICIAL TEARS OPTH SOLN 15 ML BTL EACH EYE SCH ×3 (13:22→18:00)
[2016-10-15] MEDS: SODIUM CHLORIDE 0.9% FLUSH 5 ML FLUSH IV FLUSH SCH ×2 (13:23→21:28)
--- NOTE | 2016-10-15 15:49 | HHI.IDPN ---
Subjective Subjective Remarks Notes reviewed Temps ok Clinically stable CXR stable No other (+) BC WBC better On nasal O2 Antibiotics Teflaro Past Medical History CVA with some left-sided weakness Previous episode of sepsis and pneumonia Previous respiratory failure COPD Metabolic encephalopathy Arthritis Neuropathy Chronic back pain Skin cancer Hypertension Depression Hypothyroidism Renal insufficiency Previous GI bleed, gastritis Anemia Episode of MRSA bacteremia and pneumonia last August 2016 Past Surgical History Hernia repair Appendectomy Cholecystectomy Colonoscopy TURP Back surgery Allergies: Coded Allergies: Levofloxacin (Verified Allergy, Severe, 10/08/16) *MDRO Multi-Drug Resistant Organism (Verified Adverse Reaction, Unknown, MRSA, 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) - 07/21/16 & 08/22/16; MRSA (sputum & blood-10/08/16),MRSA screen POSITIVE - 10/08/16 Objective . Vital Signs Date Time Temp Pulse Resp B/P Pulse Ox O2 Delivery O2 Flow Rate FiO2 10/15/16 10:00 102 10/15/16 08:42 98 Nasal Cannula 3.00 10/15/16 08:00 98.5 77 16 176/74 100 10/15/16 08:00 102 10/15/16 06:00 75 10/15/16 04:00 68 10/15/16 04:00 98.4 68 16 124/63 100 10/15/16 02:00 103 10/15/16 00:00 110 10/15/16 00:00 98.0 110 29 184/99 96 10/14/16 22:00 96 10/14/16 20:00 70 10/14/16 20:00 97.7 70 19 111/57 100 10/14/16 18:00 114 10/14/16 16:00 98.3 93 28 160/69 100 10/14/16 16:00 93 10/14/16 10/14/16 10/15/16 15:00 23:00 07:00 Intake Total 385 ml 80 ml 253 ml Output Total 620 ml 200 ml 125 ml Balance -235 ml -120 ml 128 ml Intake Oral 240 ml 50 ml 120 ml IV Total 145 ml 30 ml 133 ml Output Urine Total 620 ml 200 ml 125 ml # Bowel Movements 1 1 . Laboratory Tests Test 10/14/16 11:00 White Blood Count 10.2 TH/MM3 Red Blood Count 3.76 MIL/MM3 Hemoglobin 11.4 GM/DL Hematocrit 34.7 % Mean Corpuscular Volume 92.2 FL Mean Corpuscular Hemoglobin 30.2 PG Mean Corpuscular Hemoglobin 32.8 % Concent Red Cell Distribution Width 14.4 % Platelet Count 318 TH/MM3 Mean Platelet Volume 9.0 FL Neutrophils (%) (Auto) 85.6 % Lymphocytes (%) (Auto) 8.4 % Monocytes (%) (Auto) 5.8 % Eosinophils (%) (Auto) 0.1 % Basophils (%) (Auto) 0.1 % Neutrophils # (Auto) 8.7 TH/MM3 Lymphocytes # (Auto) 0.9 TH/MM3 Monocytes # (Auto) 0.6 TH/MM3 Eosinophils # (Auto) 0.0 TH/MM3 Basophils # (Auto) 0.0 TH/MM3 CBC Comment DIFF FINAL Differential Comment Hematology Comments Laboratory Tests Test 10/14/16 11:00 Sodium Level 141 MEQ/L Potassium Level 4.3 MEQ/L Chloride Level 108 MEQ/L Carbon Dioxide Level 23.0 MEQ/L Anion Gap 10 MEQ/L Blood Urea Nitrogen 21 MG/DL Creatinine 0.84 MG/DL Estimat Glomerular Filtration 86 ML/MIN Rate Random Glucose 109 MG/DL Calcium Level 8.5 MG/DL Total Bilirubin 0.5 MG/DL Aspartate Amino Transf 23 U/L (AST/SGOT) Alanine Aminotransferase 25 U/L (ALT/SGPT) Alkaline Phosphatase 64 U/L Total Protein 6.2 GM/DL Albumin 2.3 GM/DL Imaging Last Impressions Renal Ultrasound 10/11/16 0000 Signed Impressions: Service Date/Time: September 21:11 - CONCLUSION: Uncooperative patient and extremely limited study. Left kidney not evaluated. Right kidney without hydronephrosis or other acute abnormality. Jose Grajeda MD Chest X-Ray 10/10/16 0600 Signed Impressions: Service Date/Time: Monday, October 10, 2016 04:59 - CONCLUSION: 1. No significant change. 2. Patchy opacity remains at the left lung base. Juan Casas MD Physical Exam GENERAL: awake and alert, looks comfortable and not in any respiratory distress. SKIN: Cool and dry. No generalized rash or ecchymosis. No embolic lesions noted. HEENT: [place] conjunctivae, no petechia or hemorrhage. No scleral icterus. No injection or drainage. Has moist oral mucosa. NECK: Trachea midline. No JVD or lymphadenopathy. Supple, nontender, no meningeal signs. CARDIOVASCULAR: Regular rate and rhythm without murmurs, gallops, or rubs. RESPIRATORY: Clear to auscultation. Breath sounds equal bilaterally. No wheezes , rales, or rhonchi. Decreased breath sounds at the bases. GASTROINTESTINAL: Abdomen soft, non-tender, nondistended. Bowel sounds are present and normoactive. No hepato-splenomegaly, or palpable masses. No guarding. MUSCULOSKELETAL: Extremities without clubbing, cyanosis, or edema. No joint tenderness, effusion, or edema noted. No calf tenderness. Negative Homans sign bilaterally. NEUROLOGICAL: Awake and alert. Cranial nerves II through XII intact. Has mild weakness in his LUE. PSYCH: Calm and cooperative LINE: PIV with no evidence of infection : Costa cath in place, urine looks clear Assessment & Plan Remarks IMPRESSION Sepsis, on admission, due to PNA and UTI MRSA pneumonia Proteus UTI, no costa, came form the NH Respiratory failure, tolerating extubation Leukocytosis, improving Staph epi in 1 BC, possibly a contaminant RECOMMENDATION Will use Zyvox and give 7 days Hold Lexapro while on Zyvox due to drug interaction Stop Teflaro Clinically improving and stable from ID standpoint Barbra Lopez MD Oct 15, 2016 15:49
--- NOTE | 2016-10-15 16:12 | HHI.PR ---
Subjective Remarks more comfortable has allowed nursing to clean him up shave and a haircut Objective Vital Signs Date Time Temp Pulse Resp B/P Pulse Ox O2 Delivery O2 Flow Rate FiO2 10/15/16 10:00 102 10/15/16 08:42 98 Nasal Cannula 3.00 10/15/16 08:00 98.5 77 16 176/74 100 10/15/16 08:00 102 10/15/16 06:00 75 10/15/16 04:00 68 10/15/16 04:00 98.4 68 16 124/63 100 10/15/16 02:00 103 10/15/16 00:00 110 10/15/16 00:00 98.0 110 29 184/99 96 10/14/16 22:00 96 10/14/16 20:00 70 10/14/16 20:00 97.7 70 19 111/57 100 10/14/16 18:00 114 I/O 10/14/16 10/14/16 10/14/16 10/15/16 10/15/16 10/15/16 06:59 14:59 22:59 06:59 14:59 22:59 Intake Total 262 ml 385 ml 80 ml 253 ml Output Total 1000 ml 620 ml 200 ml 125 ml Balance -738 ml -235 ml -120 ml 128 ml Intake Oral 120 ml 240 ml 50 ml 120 ml IV Total 142 ml 145 ml 30 ml 133 ml Output Urine Total 1000 ml 620 ml 200 ml 125 ml # Bowel Movements 1 1 Result Diagram: 10/14/16 1100 10/14/16 1100 Imaging cxr oredered Objective Remarks GENERAL: SKIN: Warm and dry. HEAD: Atraumatic. Normocephalic. EYES: Pupils equal and round. No scleral icterus. No injection or drainage. ENT: No nasal bleeding or discharge. Mucous membranes pink and moist O2 pnc. NECK: Trachea midline. No JVD. CARDIOVASCULAR: Regular rate and rhythm. RESPIRATORY: diminished in bases few rhonchi GASTROINTESTINAL: Abdomen soft, non-tender, nondistended. Hepatic and splenic margins not palpable. MUSCULOSKELETAL: Extremities without clubbing, cyanosis, or edema. No obvious deformities. NEUROLOGICAL: Awake and alert. No obvious cranial nerve deficits. Motor grossly within normal limits. Five out of 5 muscle strength in the arms and legs. Normal speech. PSYCHIATRIC: less combative more cooperative Medications and IVs Current Medications Medications (Trade) Dose Ordered Sig/Mercedes Route PRN Reason Start Time Stop Time Status Last Admin Dose Admin IV Flush (NS Flush) 2 ml UNSCH PRN IV FLUSH FLUSH AFTER USING IV ACCESS 10/08/16 14:15 IV Flush (NS Flush) 2 ml BID IV FLUSH 10/08/16 21:00 10/15/16 13:23 Acetaminophen (Tylenol) 650 mg Q6H PRN PO PAIN 1-10 AND/OR FEVER >101F 10/08/16 14:15 10/10/16 14:15 Pantoprazole Sodium (Protonix Inj) 40 mg DAILY IV 10/09/16 09:00 10/15/16 08:53 Artificial Tears (Tears Naturale Opth Soln) 1 drop TID EACH EYE 10/08/16 18:00 10/15/16 13:24 Ondansetron HCl (Zofran Inj) 4 mg Q6H PRN IV NAUSEA OR VOMITING 10/08/16 14:15 10/11/16 15:22 Docusate Sodium (Colace) 100 mg BID PO 10/08/16 21:00 10/15/16 08:52 Sennosides (Senokot) 17.2 mg Q12H PRN PO CONSTIPATION 10/08/16 14:15 Heparin Sodium (Porcine) (Heparin Inj) 5,000 units Q12H SQ 10/08/16 16:00 10/15/16 02:46 Miscellaneous Information 1 Q361D XX 10/08/16 14:15 Chlorhexidine Gluconate (Chlorhexidine 2% Cloth) Taper DAILY@04 TOP 10/09/16 04:00 10/05/17 03:59 10/13/16 04:00 Chlorhexidine Gluconate 3 pack 3 pack UNSCH PRN TOP HYGIENIC CARE 10/08/16 14:15 Azithromycin/ Sodium Chloride (Zithromax Inj/ NS 250 ml Inj) 250 ml @ 250 mls/hr Q24H IV 10/09/16 11:00 10/15/16 11:00 Chlorhexidine Gluconate (Peridex 0.12% Liq) 15 ml BID@08,20 MT 10/08/16 20:00 10/11/16 09:18 Levothyroxine Sodium (Synthroid) 75 mcg DAILY@0600 PO 10/09/16 06:00 10/15/16 05:49 Aspirin (Aspirin Chew) 81 mg DAILY TUBE 10/09/16 09:00 10/15/16 08:52 Triamcinolone Acetonide (Kenalog 0.1% Lotion) 1 applic DAILY TOPICAL 10/09/16 09:00 10/15/16 13:23 Hydrocortisone Acetate (Hemorrhoidal Hc Supp) 25 mg BID RECTAL 10/08/16 21:00 10/15/16 08:52 Dextrose (D50w (Vial) Inj) 25 ml UNSCH PRN IV PUSH HYPOGLYCEMIA-SEE COMMENTS 10/08/16 15:00 Glucagon (Glucagon Inj) 1 mg UNSCH PRN OTHER HYPOGLYCEMIA-SEE COMMENTS 10/08/16 15:00 Insulin Human Regular (NovoLIN R SUPPLEMENTAL SCALE) 1 Q6HR SQ 10/08/16 18:00 10/15/16 13:21 Methylprednisolone Sodium Succinate (SoluMEDROL INJ) 40 mg Q12H IV PUSH 10/08/16 15:00 10/15/16 13:21 Divalproex Sodium 125 mg 125 mg Q8HR PO 10/09/16 09:00 10/15/16 13:21 Potassium Chloride 100 ml @ 50 mls/hr Q2H PRN IV For Potassium 2.8 - 3.2 mEq/L 10/10/16 07:30 Potassium Chloride (KCl 20 Meq Premix Inj) 100 ml @ 50 mls/hr Q2H PRN IV For Potassium 2.8 - 3.2 mEq/L 10/10/16 07:30 Potassium Chloride 40 meq 40 meq UNSCH PRN PO/TUBE For Potassium 3.3 - 3.5 mEq/L 10/10/16 07:30 Potassium Chloride 100 ml @ 25 mls/hr UNSCH PRN IV For Potassium 3.3 - 3.5 mEq/L 10/10/16 07:30 Potassium Chloride 100 ml @ 50 mls/hr Q2H PRN IV For Potassium 3.3 - 3.5 mEq/L 10/10/16 07:30 Magnesium Sulfate/ Sodium Chloride (Magnesium Sulfate Inj/NS Inj) 100 ml @ 50 mls/hr UNSCH PRN IV For Magnesium 0.9 - 1.1 mg/dL 10/10/16 07:30 Magnesium Oxide 800 mg 800 mg UNSCH PRN PO For Magnesium 1.2 - 1.6 mg/dL 10/10/16 07:30 Magnesium Sulfate/ Sodium Chloride (Magnesium Sulfate Inj/NS Inj) 100 ml @ 50 mls/hr UNSCH PRN IV For Magnesium 1.2 - 1.6 mg/dL 10/10/16 07:30 Potassium Phosphate 2000 mg 2,000 mg Q4H PRN PO For Phosphorus < 2.5 mg/dL 10/10/16 07:30 Sodium Phosphate/ Sodium Chloride (Sodium Phosphate Inj/NS 250 ml Inj) 250 ml @ 42 mls/hr UNSCH PRN IV For Phosphorus < 2.5 mg/dL 10/10/16 07:30 10/11/16 10:39 Potassium Chloride (KCl 40 Meq/30 ml Liq) 40 meq UNSCH PRN PO/TUBE SEE LABEL COMMENTS 10/10/16 07:30 Potassium Phosphate 2000 mg 2,000 mg UNSCH PRN PO/TUBE SEE LABEL COMMENTS 10/10/16 07:30 Potassium Phosphate/Sodium Chloride (Potassium Phosphate Inj/NS 250 ml Inj) 260 ml @ 42 mls/hr UNSCH PRN IV SEE LABEL COMMENTS 10/10/16 07:30 Risperidone (risperDAL) 1 mg Q12HR PO 10/13/16 21:00 10/15/16 08:52 Linezolid (Zyvox) 600 mg Q12HR PO 10/15/16 16:00 10/22/16 15:59 Assessment and Plan Problem List: (1) Acute respiratory failure Status: Acute (2) COPD (chronic obstructive pulmonary disease) Status: Acute (3) Severe sepsis Status: Acute (4) Pneumonia Status: Acute Assessment and Plan improved cooperation but not sedated with risperdal dosing will continue as ordered renew restraints as needed will asses lab and cxr in am Discharge Planning will asses lab and cxr and transfer to [facility] will renew restraints Problem Qualifiers (1) Pneumonia: Qualified Code: J69.0 - Aspiration pneumonia of left lower lobe due to vomit Lencho Salgado DO Oct 15, 2016 16:12
[2016-10-15] MEDS: LINEZOLID 600 MG TAB PO SCH ×2 (17:17→21:28)
[2016-10-15 17:22] LABS: AUTOMATED NEUTROPHIL # 10.7 TH/MM3 (1.8-7.7); BASOPHIL % 0.1 % (0.0-2.0); EOSINOPHIL % 0.1 % (0.0-4.0); HEMATOCRIT 35.1 % (39.0-51.0); HEMO FLAGS DIFF FINAL; LYMPH % 3.7 % (9.0-44.0); LYMPHOCYTE # 0.4 TH/MM3 (1.0-4.8); MEAN CELL VOLUME 93.6 FL (80.0-100.0); MEAN CORPUSCULAR HEMOGLOBIN 30.2 PG (27.0-34.0); MEAN CORPUSCULAR HGB CONC 32.3 % (32.0-36.0); MONO % 5.2 % (0.0-8.0); NEUT % 90.9 % (16.0-70.0); PLATELET COUNT 286 TH/MM3 (150-450); RED BLOOD COUNT 3.75 MIL/MM3 (4.50-5.90); RED CELL DISTRIBUTION WIDTH 14.5 % (11.6-17.2); WHITE BLOOD COUNT 11.7 TH/MM3 (4.0-11.0)
[2016-10-15 17:39] LABS: BICARBONATE 19.7 MEQ/L (21.0-32.0); POTASSIUM 3.5 MEQ/L (3.5-5.1)
--- NOTE | 2016-10-15 20:32 | RADRPT ---
EXAM DATE/TIME: 10/15/2016 20:11 [place] COMPARISON: CHEST SINGLE AP, October 14, 2016, 10:45. INDICATIONS : Shortness of breath. Possible pneumonia. MEDICAL HISTORY : Hypertension. Chronic obstructive pulmonary disease. SURGICAL HISTORY : None. ENCOUNTER: Subsequent ACUITY: 1 week PAIN SCORE: Non-responsive. LOCATION: Bilateral chest FINDINGS: Tiny right and small left pleural effusions are seen. There is mild left base consolidation. No pneum othorax. Heart size stable, within normal limits. CONCLUSION: Left base consolidation with a small effusion. Tiny effusion on the right. Jose Grajeda MD on October 15, 2016 at 20:30 Board Certified Radiologist. This report was verified electronically.
[2016-10-16] VITALS (10 sets, daily range): BP systolic 120–151; BP diastolic 70–78; PULSE 60–96; RESP 18–20; TEMP 96.1–97.8; O2SAT 93–97
[2016-10-16] MEDS: CHLORHEXIDINE GLUCONATE 2 % 1 PACK (2 CLOTHS) TOP SCH (04:00)
[2016-10-16] MEDS: HEPARIN SODIUM - SQ 10,000 UNITS/ML VIAL SQ SCH ×2 (04:25→18:05)
[2016-10-16] MEDS: methylPREDNISolone SOD SUCC 40 MG/1 ML VIAL IV PUSH SCH (04:25)
[2016-10-16] MEDS: INSULIN NovoLIN REGULAR SUPPLEMENTAL SCALE SQ SCH ×4 (06:00→18:00)
[2016-10-16] MEDS: LEVOTHYROXINE SODIUM 75 MCG TAB PO SCH (06:09)
[2016-10-16] MEDS: DIVALPROEX SODIUM SPRINKLES 125 MG CAP PO SCH ×3 (06:12→22:47)
[2016-10-16] MEDS: CHLORHEXIDINE 0.12% (ORAL KIT) 15 ML CUP MT SCH ×2 (08:00→20:00)
[2016-10-16 08:12] LABS: HEMATOCRIT 34.3 % (39.0-51.0); MEAN CELL VOLUME 94.1 FL (80.0-100.0); MEAN CORPUSCULAR HEMOGLOBIN 30.8 PG (27.0-34.0); MEAN CORPUSCULAR HGB CONC 32.7 % (32.0-36.0); PLATELET COUNT 334 TH/MM3 (150-450); RED BLOOD COUNT 3.64 MIL/MM3 (4.50-5.90); RED CELL DISTRIBUTION WIDTH 14.9 % (11.6-17.2); REVIEW FLAG FINAL; WHITE BLOOD COUNT 8.2 TH/MM3 (4.0-11.0)
[2016-10-16 08:35] LABS: BICARBONATE 26.9 MEQ/L (21.0-32.0); POTASSIUM 3.9 MEQ/L (3.5-5.1)
[2016-10-16] MEDS: risperiDONE 1 MG TAB PO SCH ×2 (09:41→22:47)
[2016-10-16] MEDS: LINEZOLID 600 MG TAB PO SCH ×2 (09:41→22:47)
[2016-10-16] MEDS: SODIUM CHLORIDE 0.9% FLUSH 5 ML FLUSH IV FLUSH SCH ×2 (09:42→22:47)
[2016-10-16] MEDS: DOCUSATE SODIUM 100 MG CAP PO SCH ×2 (09:42→22:47)
[2016-10-16] MEDS: PANTOPRAZOLE SODIUM 40 MG VIAL IV SCH (09:42)
[2016-10-16] MEDS: ASPIRIN 81 MG CHEW TAB TUBE SCH (09:42)
[2016-10-16] MEDS: ARTIFICIAL TEARS OPTH SOLN 15 ML BTL EACH EYE SCH ×3 (09:43→18:05)
[2016-10-16] MEDS: HYDROCORTISONE ACETATE 25 MG SUPP RECTAL SCH ×2 (09:43→22:48)
[2016-10-16] MEDS: TRIAMCINOLONE ACET 0.1% LOTION 60 ML BTL TOPICAL SCH (09:43)
[2016-10-16] MEDS: AZITHROMYCIN INJ 500 MG in SODIUM CHLOR 0.9% 250 ML INJ 250 ML IV SCH (11:35)
--- NOTE | 2016-10-16 13:11 | HHI.PR ---
Subjective Remarks Patient seen at bedside. Denies and SOB and CP. Patient cooperative with visit. Objective Vital Signs Date Time Temp Pulse Resp B/P Pulse Ox O2 Delivery O2 Flow Rate FiO2 10/16/16 12:06 97.0 72 20 131/70 97 10/16/16 08:27 95 21 10/16/16 08:08 96.8 75 20 140/72 93 10/16/16 07:33 67 10/16/16 04:00 96.6 60 18 151/72 96 10/16/16 00:00 96.1 73 20 130/78 97 10/15/16 23:00 77 10/15/16 20:00 97.3 81 20 114/62 98 10/15/16 16:00 99 10/15/16 16:00 97.3 85 16 108/71 99 10/15/16 14:00 98 I/O 10/15/16 10/15/16 10/15/16 10/16/16 10/16/16 10/16/16 07:00 15:00 23:00 07:00 15:00 23:00 Intake Total 253 ml 663 ml 360 ml 0 ml Output Total 125 ml 300 ml 825 ml Balance 128 ml 363 ml 360 ml -825 ml Intake Oral 120 ml 320 ml 360 ml 0 ml IV Total 133 ml 343 ml Output Urine Total 125 ml 300 ml 825 ml Bladder Scan Volume Amount 600 ml # Voids 0 # Bowel Movements 1 1 0 0 Result Diagram: 10/16/16 0753 10/16/16 0753 Objective Remarks SKIN: Warm and dry. HEAD: Atraumatic. Normocephalic. EYES: Pupils equal and round. No scleral icterus. No injection or drainage. ENT: No nasal bleeding or discharge. Mucous membranes pink and moist O2 pnc. NECK: Trachea midline. No JVD. CARDIOVASCULAR: Regular rate and rhythm. RESPIRATORY: diminished in bases few rhonchi GASTROINTESTINAL: Abdomen soft, non-tender, nondistended. Hepatic and splenic margins not palpable. MUSCULOSKELETAL: Extremities without cyanosis, or edema. No obvious deformities. NEUROLOGICAL: Awake and alert. Normal speech. PSYCHIATRIC: less combative more cooperative Medications and IVs Current Medications Medications (Trade) Dose Ordered Sig/Mercedes Route Start Time Stop Time Status Last Admin (NS Flush) 2 ml UNSCH PRN IV FLUSH 10/08/16 14:15 (NS Flush) 2 ml BID IV FLUSH 10/08/16 21:00 10/16/16 09:42 (Tylenol) 650 mg Q6H PRN PO 10/08/16 14:15 10/10/16 14:15 (Protonix Inj) 40 mg DAILY IV 10/09/16 09:00 10/16/16 09:42 (Tears Naturale Opth Soln) 1 drop TID EACH EYE 10/08/16 18:00 10/16/16 09:43 (Zofran Inj) 4 mg Q6H PRN IV 10/08/16 14:15 10/11/16 15:22 (Colace) 100 mg BID PO 10/08/16 21:00 10/16/16 09:42 (Senokot) 17.2 mg Q12H PRN PO 10/08/16 14:15 (Heparin Inj) 5,000 units Q12H SQ 10/08/16 16:00 10/16/16 04:25 Miscellaneous Information 1 Q361D XX 10/08/16 14:15 (Chlorhexidine 2% Cloth) Taper DAILY@04 TOP 10/09/16 04:00 10/05/17 03:59 10/13/16 04:00 Chlorhexidine Gluconate 3 pack 3 pack UNSCH PRN TOP 10/08/16 14:15 (Zithromax Inj/ NS 250 ml Inj) 250 ml @ 250 mls/hr Q24H IV 10/09/16 11:00 10/16/16 11:35 (Peridex 0.12% Liq) 15 ml BID@08,20 MT 10/08/16 20:00 10/11/16 09:18 (Synthroid) 75 mcg DAILY@0600 PO 10/09/16 06:00 10/16/16 06:09 (Aspirin Chew) 81 mg DAILY TUBE 10/09/16 09:00 10/16/16 09:42 (Kenalog 0.1% Lotion) 1 applic DAILY TOPICAL 10/09/16 09:00 10/16/16 09:43 (Hemorrhoidal Hc Supp) 25 mg BID RECTAL 10/08/16 21:00 10/16/16 09:43 (D50w (Vial) Inj) 25 ml UNSCH PRN IV PUSH 10/08/16 15:00 (Glucagon Inj) 1 mg UNSCH PRN OTHER 10/08/16 15:00 (NovoLIN R SUPPLEMENTAL SCALE) 1 Q6HR SQ 10/08/16 18:00 10/15/16 17:15 (SoluMEDROL INJ) 40 mg Q12H IV PUSH 10/08/16 15:00 10/16/16 04:25 (Depakote Sprinkles) 125 mg Q8HR PO 10/09/16 09:00 10/16/16 06:12 (risperDAL) 1 mg Q12HR PO 10/13/16 21:00 10/16/16 09:41 (Zyvox) 600 mg Q12HR PO 10/15/16 16:00 10/22/16 15:59 10/16/16 09:41 Assessment and Plan Problem List: (1) Hypothyroidism Status: Acute Plan: Continue levothyroxine. TSH level ordered (2) Pneumonia Status: Acute Plan: On Zyvox with stop date on 10/22. Also on azithromycin. Stop date added. On room air. (3) Altered mental status Status: Acute Plan: Patient still needing to be restrained at times but behavior improving on Risperdal. (4) Sepsis Status: Acute Plan: On Zyvox and azithromycin. WBC stable (5) Urinary retention Status: Acute Plan: Stout cath removed yesterday. Nursing I+ O cath. Flomax added and urology consult (6) GERD with esophagitis Status: Acute Plan: No complaints. Tolerating diet well. Continue Protonix. (7) History of COPD Status: Acute Plan: On solumedrol will wean. On RA Discussed Condition With Assessment and plan discussed with Dr. Salgado. Discharge Planning Plan to discharge to SNF Problem Qualifiers (1) Hypothyroidism: Qualified Code: E03.9 - Hypothyroidism, unspecified type (2) Pneumonia: Qualified Code: J69.0 - Aspiration pneumonia of left lower lobe due to vomit (3) Altered mental status: Qualified Code: R41.82 - Altered mental status, unspecified altered mental status type Marimar Vazquez Oct 16, 2016 13:11
--- NOTE | 2016-10-16 14:03 | HHI.IDPN ---
Subjective Subjective Remarks Notes reviewed Temps ok Clinically stable CXR stable No other (+) BC WBC better On nasal O2 Antibiotics Zyvox Past Medical History CVA with some left-sided weakness Previous episode of sepsis and pneumonia Previous respiratory failure COPD Metabolic encephalopathy Arthritis Neuropathy Chronic back pain Skin cancer Hypertension Depression Hypothyroidism Renal insufficiency Previous GI bleed, gastritis Anemia Episode of MRSA bacteremia and pneumonia last August 2016 Past Surgical History Hernia repair Appendectomy Cholecystectomy Colonoscopy TURP Back surgery Allergies: Coded Allergies: Levofloxacin (Verified Allergy, Severe, 10/08/16) *MDRO Multi-Drug Resistant Organism (Verified Adverse Reaction, Unknown, MRSA, 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) - 07/21/16 & 08/22/16; MRSA (sputum & blood-10/08/16),MRSA screen POSITIVE - 10/08/16 Objective . Vital Signs Date Time Temp Pulse Resp B/P Pulse Ox O2 Delivery O2 Flow Rate FiO2 10/16/16 12:06 97.0 72 20 131/70 97 10/16/16 08:27 95 21 10/16/16 08:08 96.8 75 20 140/72 93 10/16/16 07:33 67 10/16/16 04:00 96.6 60 18 151/72 96 10/16/16 00:00 96.1 73 20 130/78 97 10/15/16 23:00 77 10/15/16 20:00 97.3 81 20 114/62 98 10/15/16 16:00 99 10/15/16 16:00 97.3 85 16 108/71 99 10/15/16 14:00 98 10/15/16 10/15/16 10/16/16 14:59 22:59 06:59 Intake Total 663 ml 360 ml 0 ml Output Total 300 ml 825 ml Balance 363 ml 360 ml -825 ml Intake Oral 320 ml 360 ml 0 ml IV Total 343 ml Output Urine Total 300 ml 825 ml Bladder Scan Volume Amount 600 ml # Voids 0 # Bowel Movements 1 0 0 . Laboratory Tests Test 10/15/16 10/16/16 16:50 07:53 White Blood Count 11.7 TH/MM3 8.2 TH/MM3 Red Blood Count 3.75 MIL/MM3 3.64 MIL/MM3 Hemoglobin 11.3 GM/DL 11.2 GM/DL Hematocrit 35.1 % 34.3 % Mean Corpuscular Volume 93.6 FL 94.1 FL Mean Corpuscular Hemoglobin 30.2 PG 30.8 PG Mean Corpuscular Hemoglobin 32.3 % 32.7 % Concent Red Cell Distribution Width 14.5 % 14.9 % Platelet Count 286 TH/MM3 334 TH/MM3 Mean Platelet Volume 9.0 FL 8.7 FL Neutrophils (%) (Auto) 90.9 % Lymphocytes (%) (Auto) 3.7 % Monocytes (%) (Auto) 5.2 % Eosinophils (%) (Auto) 0.1 % Basophils (%) (Auto) 0.1 % Neutrophils # (Auto) 10.7 TH/MM3 Lymphocytes # (Auto) 0.4 TH/MM3 Monocytes # (Auto) 0.6 TH/MM3 Eosinophils # (Auto) 0.0 TH/MM3 Basophils # (Auto) 0.0 TH/MM3 CBC Comment DIFF FINAL Differential Comment Hematology Comments Laboratory Tests Test 10/15/16 10/16/16 16:50 07:53 Sodium Level 135 MEQ/L 141 MEQ/L Potassium Level 3.5 MEQ/L 3.9 MEQ/L Chloride Level 104 MEQ/L 107 MEQ/L Carbon Dioxide Level 19.7 MEQ/L 26.9 MEQ/L Anion Gap 11 MEQ/L 7 MEQ/L Blood Urea Nitrogen 26 MG/DL 22 MG/DL Creatinine 1.12 MG/DL 0.94 MG/DL Estimat Glomerular Filtration 62 ML/MIN 76 ML/MIN Rate Random Glucose 156 MG/DL 88 MG/DL Calcium Level 7.7 MG/DL 8.0 MG/DL Imaging Last Impressions Renal Ultrasound 10/11/16 0000 Signed Impressions: Service Date/Time: September 21:11 - CONCLUSION: Uncooperative patient and extremely limited study. Left kidney not evaluated. Right kidney without hydronephrosis or other acute abnormality. Jose Grajeda MD Chest X-Ray 10/10/16 0600 Signed Impressions: Service Date/Time: Monday, October 10, 2016 04:59 - CONCLUSION: 1. No significant change. 2. Patchy opacity remains at the left lung base. Juan Casas MD Physical Exam GENERAL: awake and alert, looks comfortable and not in any respiratory distress. SKIN: Cool and dry. No generalized rash HEENT: [place] conjunctivae, no petechia or hemorrhage. No scleral icterus. Has moist oral mucosa. NECK: Trachea midline. No JVD or lymphadenopathy. Supple, nontender, no meningeal signs. CARDIOVASCULAR: Regular rate and rhythm without murmurs, gallops, or rubs. RESPIRATORY: Clear to auscultation. Breath sounds equal bilaterally. Decreased breath sounds at the bases. GASTROINTESTINAL: Abdomen soft, non-tender, nondistended. Bowel sounds are present and normoactive. No guarding. MUSCULOSKELETAL: Extremities without clubbing, cyanosis, or edema. No calf tenderness. Negative Homans sign bilaterally. NEUROLOGICAL: Awake and alert. Cranial nerves II through XII intact. Has mild weakness in his LUE. PSYCH: Calm and cooperative LINE: PIV with no evidence of infection : [place] cath in place, urine looks clear Assessment & Plan Remarks IMPRESSION Sepsis, on admission, due to PNA and UTI - better MRSA pneumonia Proteus UTI, no costa, came form the [place] Respiratory failure, tolerating extubation Leukocytosis, improving Staph epi in 1 BC, possibly a contaminant RECOMMENDATION Will use Zyvox and give 7 days Hold Lexapro while on Zyvox due to drug interaction Clinically improving and stable from ID standpoint Barbra Lopez MD Oct 16, 2016 14:03
[2016-10-16] MEDS: TAMSULOSIN HCL 0.4 MG CAP PO SCH (14:07)
[2016-10-16] MEDS: ACETAMINOPHEN 325 MG TAB PO PRN (14:08)
[2016-10-16 18:46] LABS: BACTERIA, URINE RARE /hpf; BLOOD, URINE NEG (NEG); COMMENT (UR) CULT NOT INDICATED; CULTURE IF INDICATED CULT NOT INDICATED; GLUCOSE,URINE NEG (NEG); KETONE, URINE NEG (NEG); MUCUS URINE FEW /lpf (OCC); NITRITE,URINE NEG (NEG); SQUAMOUS EPITHELIAL CELL URINE <1 /hpf (0-5); TRANSITIONAL EPI CELLS, URINE <1 /hpf; URINE COLOR YELLOW (YELLW/STRAW)
[2016-10-17] VITALS (8 sets, daily range): BP systolic 99–175; BP diastolic 61–72; PULSE 60–94; RESP 18–20; TEMP 95.9–99.6; O2SAT 92–97
[2016-10-17] MEDS: CHLORHEXIDINE GLUCONATE 2 % 1 PACK (2 CLOTHS) TOP SCH (04:00)
[2016-10-17] MEDS: HEPARIN SODIUM - SQ 10,000 UNITS/ML VIAL SQ SCH ×2 (04:06→18:57)
[2016-10-17] MEDS: LEVOTHYROXINE SODIUM 75 MCG TAB PO SCH (05:24)
[2016-10-17] MEDS: DIVALPROEX SODIUM SPRINKLES 125 MG CAP PO SCH ×3 (05:27→23:26)
[2016-10-17] MEDS: INSULIN NovoLIN REGULAR SUPPLEMENTAL SCALE SQ SCH ×4 (05:29→18:00)
[2016-10-17] MEDS: CHLORHEXIDINE 0.12% (ORAL KIT) 15 ML CUP MT SCH ×2 (08:00→20:00)
[2016-10-17] MEDS: PANTOPRAZOLE SODIUM 40 MG VIAL IV SCH (08:08)
[2016-10-17] MEDS: methylPREDNISolone SOD SUCC 40 MG/1 ML VIAL IV PUSH SCH (08:08)
[2016-10-17] MEDS: SODIUM CHLORIDE 0.9% FLUSH 5 ML FLUSH IV FLUSH SCH ×2 (08:10→21:00)
[2016-10-17] MEDS: DOCUSATE SODIUM 100 MG CAP PO SCH ×2 (08:14→23:25)
[2016-10-17] MEDS: ARTIFICIAL TEARS OPTH SOLN 15 ML BTL EACH EYE SCH ×3 (08:14→18:00)
[2016-10-17] MEDS: ASPIRIN 81 MG CHEW TAB TUBE SCH (08:14)
[2016-10-17] MEDS: risperiDONE 1 MG TAB PO SCH ×2 (08:14→23:25)
[2016-10-17] MEDS: LINEZOLID 600 MG TAB PO SCH ×2 (08:14→23:25)
[2016-10-17] MEDS: HYDROCORTISONE ACETATE 25 MG SUPP RECTAL SCH ×2 (08:14→23:26)
[2016-10-17] MEDS: TAMSULOSIN HCL 0.4 MG CAP PO SCH (08:14)
[2016-10-17 09:55] LABS: HEMATOCRIT 31.1 % (39.0-51.0); MEAN CELL VOLUME 94.4 FL (80.0-100.0); MEAN CORPUSCULAR HEMOGLOBIN 31.1 PG (27.0-34.0); MEAN CORPUSCULAR HGB CONC 32.9 % (32.0-36.0); PLATELET COUNT 311 TH/MM3 (150-450); RED CELL DISTRIBUTION WIDTH 15.1 % (11.6-17.2); REVIEW FLAG FINAL; WHITE BLOOD COUNT 7.8 TH/MM3 (4.0-11.0)
--- NOTE | 2016-10-17 10:05 | HHI.PR ---
Subjective Remarks Patient seen at bedside. Denies and SOB and CP. Patient in restraints. Not oriented. Objective Vital Signs Date Time Temp Pulse Resp B/P Pulse Ox O2 Delivery O2 Flow Rate FiO2 10/17/16 08:00 98.7 79 18 121/63 92 10/17/16 07:23 60 10/17/16 04:00 97.8 79 18 118/61 95 10/17/16 00:48 95.9 75 18 124/71 96 10/16/16 23:00 96 10/16/16 20:05 97.8 75 18 122/73 96 10/16/16 20:03 96 21 10/16/16 16:37 96.3 87 20 120/73 95 10/16/16 12:06 97.0 72 20 131/70 97 I/O 10/16/16 10/16/16 10/16/16 10/17/16 10/17/16 10/17/16 06:59 14:59 22:59 06:59 14:59 22:59 Intake Total 0 ml 240 ml Output Total 825 ml 300 ml 225 ml 525 ml Balance -825 ml -60 ml -225 ml -525 ml Intake Oral 0 ml 240 ml Output Urine Total 825 ml 300 ml 225 ml 525 ml Bladder Scan Volume Amount 600 ml # Bowel Movements 0 1 Result Diagram: 10/16/16 0753 10/16/16 0753 Objective Remarks SKIN: Warm and dry. HEAD: Atraumatic. Normocephalic. EYES: Pupils equal and round. No scleral icterus. No injection or drainage. ENT: No nasal bleeding or discharge. Mucous membranes pink and moist NECK: Trachea midline. No JVD. CARDIOVASCULAR: Regular rate and rhythm. RESPIRATORY: diminished in bases few rhonchi GASTROINTESTINAL: Abdomen soft, non-tender, nondistended. MUSCULOSKELETAL: Extremities without cyanosis, or edema. No obvious deformities. NEUROLOGICAL: Awake and alert. Normal speech. PSYCHIATRIC: combative at times. Medications and IVs Current Medications Medications (Trade) Dose Ordered Sig/Mercedes Route Start Time Stop Time Status Last Admin (NS Flush) 2 ml UNSCH PRN IV FLUSH 10/08/16 14:15 (NS Flush) 2 ml BID IV FLUSH 10/08/16 21:00 10/17/16 08:10 (Tylenol) 650 mg Q6H PRN PO 10/08/16 14:15 10/16/16 14:08 (Protonix Inj) 40 mg DAILY IV 10/09/16 09:00 10/17/16 08:08 (Tears Naturale Opth Soln) 1 drop TID EACH EYE 10/08/16 18:00 10/17/16 08:14 (Zofran Inj) 4 mg Q6H PRN IV 10/08/16 14:15 10/11/16 15:22 (Colace) 100 mg BID PO 10/08/16 21:00 10/17/16 08:14 (Senokot) 17.2 mg Q12H PRN PO 10/08/16 14:15 (Heparin Inj) 5,000 units Q12H SQ 10/08/16 16:00 10/17/16 04:06 Miscellaneous Information 1 Q361D XX 10/08/16 14:15 (Chlorhexidine 2% Cloth) Taper DAILY@04 TOP 10/09/16 04:00 10/05/17 03:59 10/13/16 04:00 Chlorhexidine Gluconate 3 pack 3 pack UNSCH PRN TOP 10/08/16 14:15 (Zithromax Inj/ NS 250 ml Inj) 250 ml @ 250 mls/hr Q24H IV 10/09/16 11:00 10/16/16 11:35 (Peridex 0.12% Liq) 15 ml BID@08,20 MT 10/08/16 20:00 10/11/16 09:18 (Synthroid) 75 mcg DAILY@0600 PO 10/09/16 06:00 10/17/16 05:24 (Aspirin Chew) 81 mg DAILY TUBE 10/09/16 09:00 10/17/16 08:14 (Kenalog 0.1% Lotion) 1 applic DAILY TOPICAL 10/09/16 09:00 10/16/16 09:43 (Hemorrhoidal Hc Supp) 25 mg BID RECTAL 10/08/16 21:00 10/17/16 08:14 (D50w (Vial) Inj) 25 ml UNSCH PRN IV PUSH 10/08/16 15:00 (Glucagon Inj) 1 mg UNSCH PRN OTHER 10/08/16 15:00 (NovoLIN R SUPPLEMENTAL SCALE) 1 Q6HR SQ 10/08/16 18:00 10/15/16 17:15 (Depakote Sprinkles) 125 mg Q8HR PO 10/09/16 09:00 10/17/16 05:27 (risperDAL) 1 mg Q12HR PO 10/13/16 21:00 10/17/16 08:14 (Zyvox) 600 mg Q12HR PO 10/15/16 16:00 10/22/16 15:59 10/17/16 08:14 (SoluMEDROL INJ) 40 mg DAILY IV PUSH 10/17/16 09:00 10/17/16 08:08 (Flomax) 0.4 mg DAILY PO 10/16/16 14:00 10/17/16 08:14 (Haldol Inj) 2 mg Q6H PRN IM 10/17/16 09:45 UNV Assessment and Plan Problem List: (1) Hypothyroidism Status: Acute Plan: Continue levothyroxine. TSH level 2.46 (2) Pneumonia Status: Acute Plan: On Zyvox with stop date on 10/22. Also on azithromycin. Stop date added. On room air. (3) Altered mental status Status: Acute Plan: Patient still needing to be restrained at times. Nursing reporting that patient is having increased agitation at times. Haldol ordered IM. On Risperdal every 12 hours. Will monitor carefully (4) Sepsis Status: Acute Plan: On Zyvox and azithromycin. WBC stable (5) Urinary retention Status: Acute Plan: Stout cath removed. Nursing I+ O cath. Flomax added and urology consult. Urine output over 1000ml (6) GERD with esophagitis Status: Acute Plan: No complaints. Tolerating diet well. Continue Protonix. (7) History of COPD Status: Acute Plan: On solumedrol will wean. On RA (8) Edema Status: Acute Plan: right upper arm edema and redness. Ultrasound ordered to r/o DVT Discussed Condition With Assessment and plan discussed with Dr. Salgado Discharge Planning Plan to discharge to SNF Problem Qualifiers (1) Hypothyroidism: Qualified Code: E03.9 - Hypothyroidism, unspecified type (2) Pneumonia: Qualified Code: J69.0 - Aspiration pneumonia of left lower lobe due to vomit (3) Altered mental status: Qualified Code: R41.82 - Altered mental status, unspecified altered mental status type Marimar Vazquez Oct 17, 2016 10:05
[2016-10-17] MEDS: HALOPERIDOL LACTATE 5 MG/ML AMP IM PRN (10:14)
[2016-10-17 10:25] LABS: BICARBONATE 26.1 MEQ/L (21.0-32.0); POTASSIUM 3.9 MEQ/L (3.5-5.1)
[2016-10-17] MEDS: AZITHROMYCIN INJ 500 MG in SODIUM CHLOR 0.9% 250 ML INJ 250 ML IV SCH (11:53)
--- NOTE | 2016-10-17 13:01 | RADRPT ---
EXAM DATE/TIME: 10/17/2016 10:44 [facility] COMPARISON: No previous studies available for comparison. INDICATIONS : Right arm edema. MEDICAL HISTORY : Hypertension. Chronic obstructive pulmonary disease. Gastroesophageal reflux di sease. Neuropathy. Renal disease. Skin cancer. SURGICAL HISTORY : Appendectomy. Cholecystectomy. Colonoscopy. Back surgery. TURP. ENCOUNTER: Initial ACUITY: 1 day PAIN SCORE: Non-responsive LOCATION: Right arm. FINDINGS: There is spontaneous flow documented in the brachial, basilic, cephalic, axillary, and subclavian vei ns. The vessels are compressible and augmentation response is documented. No filling defects are se en. The flow is phasic with respiration. Direction of flow in the jugular vein is caudal. CONCLUSION: Negative for deep venous thrombosis. Ernesto Wild MD FACR on October 17, 2016 at 12:59 Board Certified Radiologist. This report was verified electronically.
[2016-10-17] MEDS: ACETAMINOPHEN 325 MG TAB PO PRN (13:12)
[2016-10-17] MEDS ORDERED: risperiDONE 3 MG TAB PO SCH (21:00)
[2016-10-18] VITALS (9 sets, daily range): BP systolic 101–170; BP diastolic 50–86; PULSE 80–101; RESP 20–22; TEMP 95.8–97.1; O2SAT 95–100
[2016-10-18] MEDS: CHLORHEXIDINE GLUCONATE 2 % 1 PACK (2 CLOTHS) TOP SCH (02:35)
[2016-10-18] MEDS: HEPARIN SODIUM - SQ 10,000 UNITS/ML VIAL SQ SCH ×2 (04:00→18:12)
[2016-10-18] MEDS: INSULIN NovoLIN REGULAR SUPPLEMENTAL SCALE SQ SCH ×4 (06:00→18:00)
[2016-10-18] MEDS: DIVALPROEX SODIUM SPRINKLES 125 MG CAP PO SCH ×3 (06:39→22:12)
[2016-10-18] MEDS: LEVOTHYROXINE SODIUM 75 MCG TAB PO SCH (06:39)
[2016-10-18] MEDS: CHLORHEXIDINE 0.12% (ORAL KIT) 15 ML CUP MT SCH ×2 (08:00→20:00)
[2016-10-18 08:26] LABS: MEAN CELL VOLUME 96.8 FL (80.0-100.0); MEAN CORPUSCULAR HEMOGLOBIN 31.9 PG (27.0-34.0); PLATELET COUNT 206 TH/MM3 (150-450); RED BLOOD COUNT 3.41 MIL/MM3 (4.50-5.90); RED CELL DISTRIBUTION WIDTH 15.5 % (11.6-17.2); REVIEW FLAG FINAL; WHITE BLOOD COUNT 6.6 TH/MM3 (4.0-11.0)
[2016-10-18] MEDS: PANTOPRAZOLE SODIUM 40 MG VIAL IV SCH (09:00)
[2016-10-18] MEDS: methylPREDNISolone SOD SUCC 40 MG/1 ML VIAL IV PUSH SCH (09:00)
[2016-10-18] MEDS: TAMSULOSIN HCL 0.4 MG CAP PO SCH (09:10)
[2016-10-18] MEDS: LINEZOLID 600 MG TAB PO SCH ×2 (09:10→22:12)
[2016-10-18] MEDS: risperiDONE 1 MG TAB PO SCH ×2 (09:10→22:12)
[2016-10-18] MEDS: DOCUSATE SODIUM 100 MG CAP PO SCH ×2 (09:10→22:12)
[2016-10-18] MEDS: HYDROCORTISONE ACETATE 25 MG SUPP RECTAL SCH ×2 (09:10→22:12)
[2016-10-18] MEDS: ASPIRIN 81 MG CHEW TAB TUBE SCH (09:10)
[2016-10-18] MEDS: ARTIFICIAL TEARS OPTH SOLN 15 ML BTL EACH EYE SCH ×3 (09:11→18:12)
[2016-10-18] MEDS: TRIAMCINOLONE ACET 0.1% LOTION 60 ML BTL TOPICAL SCH (09:11)
[2016-10-18] MEDS: SODIUM CHLORIDE 0.9% FLUSH 5 ML FLUSH IV FLUSH SCH ×2 (09:11→21:00)
--- NOTE | 2016-10-18 11:09 | HHI.PR ---
Subjective Remarks Patient seen at bedside. Denies and SOB and CP. Patients restraints off this am. Not oriented. Objective Vital Signs Date Time Temp Pulse Resp B/P Pulse Ox O2 Delivery O2 Flow Rate FiO2 10/18/16 11:00 96 10/18/16 08:00 96.4 92 22 102/67 96 10/18/16 04:00 97.1 80 20 154/74 96 10/18/16 00:36 96.8 80 20 170/68 95 10/17/16 22:27 99.1 77 20 175/72 94 10/17/16 16:00 99.6 94 18 99/68 95 10/17/16 12:00 98.0 74 18 116/70 97 I/O 10/17/16 10/17/16 10/17/16 10/18/16 10/18/16 10/18/16 07:00 15:00 23:00 07:00 15:00 23:00 Intake Total 240 ml Output Total 525 ml 250 ml 200 ml Balance -525 ml -10 ml -200 ml Intake Oral 240 ml Output Urine Total 525 ml 250 ml 200 ml Bladder Scan Volume Amount 486 ml # Voids 0 1 # Bowel Movements 0 1 Result Diagram: 10/18/16 0711 10/17/16 0901 Imaging Last 48 hours Impressions Upper Extremity Ultrasound 10/17/16 0000 Signed Impressions: Service Date/Time: Monday, October 17, 2016 10:44 - CONCLUSION: Negative for deep venous thrombosis. Ernesto Wild MD FACR Objective Remarks SKIN: Warm and dry. HEAD: Atraumatic. Normocephalic. EYES: Pupils equal and round. No scleral icterus. No injection or drainage. ENT: No nasal bleeding or discharge. Mucous membranes pink and moist NECK: Trachea midline. No JVD. CARDIOVASCULAR: Regular rate and rhythm. RESPIRATORY: diminished in bases few rhonchi GASTROINTESTINAL: Abdomen soft, non-tender, nondistended. MUSCULOSKELETAL: Extremities without cyanosis, or edema. No obvious deformities. NEUROLOGICAL: Awake and alert. Normal speech. PSYCHIATRIC: combative at times. Medications and IVs Current Medications Medications (Trade) Dose Ordered Sig/Mercedes Route Start Time Stop Time Status Last Admin (NS Flush) 2 ml UNSCH PRN IV FLUSH 10/08/16 14:15 (NS Flush) 2 ml BID IV FLUSH 10/08/16 21:00 10/18/16 09:11 (Tylenol) 650 mg Q6H PRN PO 10/08/16 14:15 10/17/16 13:12 (Protonix Inj) 40 mg DAILY IV 10/09/16 09:00 10/17/16 08:08 (Tears Naturale Opth Soln) 1 drop TID EACH EYE 10/08/16 18:00 10/18/16 09:11 (Zofran Inj) 4 mg Q6H PRN IV 10/08/16 14:15 10/11/16 15:22 (Colace) 100 mg BID PO 10/08/16 21:00 10/18/16 09:10 (Senokot) 17.2 mg Q12H PRN PO 10/08/16 14:15 (Heparin Inj) 5,000 units Q12H SQ 10/08/16 16:00 10/18/16 04:00 Miscellaneous Information 1 Q361D XX 10/08/16 14:15 (Chlorhexidine 2% Cloth) Taper DAILY@04 TOP 10/09/16 04:00 10/05/17 03:59 10/13/16 04:00 (Chlorhexidine 2% Cloth) 3 pack UNSCH PRN TOP 10/08/16 14:15 (Peridex 0.12% Liq) 15 ml BID@08,20 MT 10/08/16 20:00 10/11/16 09:18 (Synthroid) 75 mcg DAILY@0600 PO 10/09/16 06:00 10/18/16 06:39 (Aspirin Chew) 81 mg DAILY TUBE 10/09/16 09:00 10/18/16 09:10 (Kenalog 0.1% Lotion) 1 applic DAILY TOPICAL 10/09/16 09:00 10/18/16 09:11 (Hemorrhoidal Hc Supp) 25 mg BID RECTAL 10/08/16 21:00 10/18/16 09:10 (D50w (Vial) Inj) 25 ml UNSCH PRN IV PUSH 10/08/16 15:00 (Glucagon Inj) 1 mg UNSCH PRN OTHER 10/08/16 15:00 (NovoLIN R SUPPLEMENTAL SCALE) 1 Q6HR SQ 10/08/16 18:00 10/15/16 17:15 (Depakote Sprinkles) 125 mg Q8HR PO 10/09/16 09:00 10/18/16 06:39 (Zyvox) 600 mg Q12HR PO 10/15/16 16:00 10/22/16 15:59 10/18/16 09:10 (SoluMEDROL INJ) 40 mg DAILY IV PUSH 10/17/16 09:00 10/17/16 08:08 (Flomax) 0.4 mg DAILY PO 10/16/16 14:00 10/18/16 09:10 (Haldol Inj) 2 mg Q6H PRN IM 10/17/16 09:45 10/17/16 10:14 (risperDAL) 2 mg Q12HR PO 10/17/16 21:00 10/18/16 09:10 Assessment and Plan Problem List: (1) Hypothyroidism Status: Acute Plan: Continue levothyroxine. TSH level 2.46 (2) Pneumonia Status: Acute Plan: On Zyvox with stop date on 10/22. Also on azithromycin. Stop date added. On room air. Continues to have a cough Mucinex added. (3) Altered mental status Status: Acute Plan: Patient still needing to be restrained at times. Nursing report that this am patient has been doing better. Risperdal increased yesterday. Will monitor carefully (4) Sepsis Status: Acute Plan: On Zyvox and azithromycin. WBC stable (5) Urinary retention Status: Acute Plan: Stout cath removed. Nursing I+ O cath. Flomax added and urology consulted but has not seen patient will reconsult (6) GERD with esophagitis Status: Acute Plan: No complaints. Tolerating diet well. Continue Protonix. (7) History of COPD Status: Acute Plan: On solumedrol will wean. On RA (8) Edema Status: Acute Plan: right upper arm edema and redness. Ultrasound ordered to r/o DVT which is negative Discussed Condition With Assessment and plan discussed with Dr. Salgado Discharge Planning Plan to discharge to SNF Problem Qualifiers (1) Hypothyroidism: Qualified Code: E03.9 - Hypothyroidism, unspecified type (2) Pneumonia: Qualified Code: J69.0 - Aspiration pneumonia of left lower lobe due to vomit (3) Altered mental status: Qualified Code: R41.82 - Altered mental status, unspecified altered mental status type Marimar Vazquez 5, 2017 11:09
[2016-10-18 12:35] LABS: BICARBONATE 24.6 MEQ/L (21.0-32.0)
[2016-10-18] MEDS: guaiFENesin E.R. 600 MG TAB PO SCH ×2 (13:17→22:12)
--- NOTE | 2016-10-18 17:21 | MB ---
cc: PRAKASH BENTON MD DATE OF CONSULTATION 10/17/16 REASON FOR CONSULTATION Urinary retention. HISTORY OF PRESENT ILLNESS The patient is an 89-year-old male with significant past medical history who was admitted on 10/08/2016 with increasing shortness of breath from her shelter. He also has episodes of vomiting earlier that morning as well. He was subsequently admitted and intubated and treated for aspiration pneumonia. He had a Stout catheter placed at that time for accurate Is and Os. It was subsequently removed. However, he has been having trouble urinating since removal of the Stout catheter. He has voided in very small amounts, but bladder scans have been greater than 600. He subsequently has been undergoing clean intermittent catheterization every 6-8 hours. Since then, getting volumes anywhere from 250 to over 800 mL. He is a poor historian as he is very confused and the history is from his nurse. There appears to be no evidence of any history of prostate issues or kidney stones in the past. However, it appears he did have a TURP on his prostate in the past per other records. REVIEW OF SYSTEMS Unobtainable due to the patient's confusion. PAST MEDICAL HISTORY 1. Benign prostatic hypertrophy 2. Renal artery stenosis 3. Neuropathy 4. Cataracts PAST SURGICAL HISTORY 1. Status post TURP 2. status post back surgery SOCIAL HISTORY He lives in a shelter. No evidence of any smoking, alcohol or drugs. Does drink coffee. MEDICATIONS Home medications include 1. Claritin 10 mg p.o. daily. 2. Depakote 125 mg p.o. t.i.d. 3. Gabapentin 100 mg p.o. b.i.d. 4. Xanax 0.25 mg p.o. q.8 h p.r.n. for anxiety. 5. Albuterol nebulizer. 6. Metoprolol 25 mg p.o. b.i.d. 7. Dulcolax suppository 10 mg daily. 8. Lasix 20 mg p.o. daily. 9. Aspirin 81 mg p.o. daily. 10. Levothyroxine 75 mcg p.o. daily. ALLERGIES LEVOFLOXACIN PHYSICAL EXAMINATION VITAL SIGNS: Temperature 99.6, pulse 94, respiratory rate 18, BP 99/68, satting 75% on room air. GEMERAL: He is awake, alert but very confused, appears to be agitated but no real distress. HEENT: Normocephalic, atraumatic. Eyes: No scleral icterus. Extraocular muscles intact. NECK: Supple. Trachea is midline. LUNGS: Clear to auscultation bilaterally Heart: Regular rate rhythm. ABDOMEN: Soft, nontender, nondistended. Positive bowel sounds. GENITOURINARY:: No CVA tenderness bilaterally. Penis is uncircumcised. Testes descended bilaterally, normal size and consitency. EXTREMITIES: Nontender, no clubbing, cyanosis, edema. SKIN: No ulcers or rashes. LABORATORY DATA White count 7.8, hemoglobin 10.3, hematocrit 31.1, platelet count 311. Sodium 144, potassium 3.9, chloride 110, bicarb 26.1, BUN 17, creatinine 0.94. IMAGING STUDIES Renal ultrasound October 11, 2016 - left kidney was not evaluated due to the patient's uncooperativeness, however, his right kidney did not appear to have any hydronephrosis. ASSESSMENT The patient is an 89-year-old male admitted with aspiration pneumonia who has had a previous TURP in the past with acute urinary retention. PLAN Recommend continuous intermittent catheterization every 6 hours. However, I would recommend bladder scanning prior to catheterizing the patient. If his bladder scan shows less than 300, I would give Mr. Mendosa a chance to urinate on his own as occasionally these older guys have larger capacity bladders. If, however, a bladder scan is done and he has greater than 300 in his bladder then recommend passing a straight cath to empty his bladder. I would recommend against a Stout catheter at this time due to his acute confusion and propensity to possibly pulling out the catheter and causing a traumatic urethral injury. Also recommend continuing Flomax 0.4 mg daily. He could then follow up as an outpatient. Than you for this consult. Please call with any questions. Prakash Benton MD EMF/ /2:57 PM /4:56 PM
[2016-10-18 17:43] LABS: HEMATOCRIT 32.7 % (39.0-51.0); MEAN CELL VOLUME 98.5 FL (80.0-100.0); MEAN CORPUSCULAR HEMOGLOBIN 32.1 PG (27.0-34.0); MEAN CORPUSCULAR HGB CONC 32.6 % (32.0-36.0); PLATELET COUNT 256 TH/MM3 (150-450); RED BLOOD COUNT 3.32 MIL/MM3 (4.50-5.90); REVIEW FLAG FINAL; WHITE BLOOD COUNT 7.5 TH/MM3 (4.0-11.0)
[2016-10-19] VITALS (9 sets, daily range): BP systolic 87–130; BP diastolic 48–78; PULSE 74–101; RESP 17–18; TEMP 96–97.7; O2SAT 92–100
[2016-10-19] MEDS: CHLORHEXIDINE GLUCONATE 2 % 1 PACK (2 CLOTHS) TOP SCH (02:13)
[2016-10-19] MEDS: HEPARIN SODIUM - SQ 10,000 UNITS/ML VIAL SQ SCH ×2 (04:12→15:53)
[2016-10-19] MEDS: INSULIN NovoLIN REGULAR SUPPLEMENTAL SCALE SQ SCH ×4 (06:00→18:30)
[2016-10-19] MEDS: LEVOTHYROXINE SODIUM 75 MCG TAB PO SCH (06:16)
[2016-10-19] MEDS: DIVALPROEX SODIUM SPRINKLES 125 MG CAP PO SCH ×3 (06:16→22:23)
[2016-10-19] MEDS: CHLORHEXIDINE 0.12% (ORAL KIT) 15 ML CUP MT SCH ×2 (08:00→20:00)
[2016-10-19] MEDS: methylPREDNISolone SOD SUCC 40 MG/1 ML VIAL IV PUSH SCH (09:00)
[2016-10-19] MEDS: SODIUM CHLORIDE 0.9% FLUSH 5 ML FLUSH IV FLUSH SCH ×2 (09:00→22:24)
[2016-10-19] MEDS: PANTOPRAZOLE SODIUM 40 MG VIAL IV SCH (09:00)
[2016-10-19] MEDS: TRIAMCINOLONE ACET 0.1% LOTION 60 ML BTL TOPICAL SCH (09:00)
--- NOTE | 2016-10-19 09:46 | PD.CONS ---
Provisional Diagnosis Admission Date Oct 08, 2016 at 12:09 [place] I. Delirium due to underlying medical condition, dementia, reported history of schizophrenia History of Present Illness Service Psychiatry Consult Requested By Primary Care Physician Non-Staff HPI The patient is a 89 years old man, with multiple medical conditions, including hypothyroidism, hypertension, urinary retention, GERD, hospitalized due to severe pneumonia, sepsis. Consulted to psychiatry due to aggressive and disorganized behavior and agitation. Patient isn't Depakote 125 mg 3 times a day, Risperdal 2 mg twice a day, Haldol 2 mg every 8 hours IM when necessary aggressive behavior and agitation. On psychiatric evaluation today patient was found sleeping, easily arousable, he was calm, cooperative and pleasant. Patient is stays that he is here in the hospital because "I need medication, sometimes injection", but he does not known and is unable to list his medical conditions. He denies any pain, or acute distress, and says that he feels happy "because people here are wonderful". He denies depressive symptoms, denies anxiety, denies perceptual disturbances, such as visual and auditory hallucination. Patient is pleasantly confused and demented, he knows that he is in the hospital, but he doesn't know where the hospital is located. He is lost in time, he says that he is in November 30 1994 and the die assembler is Jose Agosto. 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 Review of Systems Constitutional: DENIES: Diaphoretic episodes, Fatigue, Fever, Weight gain, Weight loss, Chills, Dizziness, Change in appetite, Night Sweats Endocrine: DENIES: Heat/cold intolerance, Polydipsia, Polyuria, Polyphagia Eyes: DENIES: Blurred vision, Diplopia, Eye inflammation, Eye pain, Vision loss , Photosensitivity, Double Vision Ears, nose, mouth, throat: DENIES: Tinnitus, Hearing loss, Vertigo, Nasal discharge, Oral lesions, Throat pain, Hoarseness, Ear Pain, Running Nose, Epistaxis, Sinus Pain, Toothache, Odynophagia Respiratory: DENIES: Apneas, Cough, Snoring, Wheezing, Hemoptysis, Sputum production, Shortness of breath Cardiovascular: DENIES: Chest pain, Palpitations, Syncope, Dyspnea on Exertion , PND, Lower Extremity Edema, Orthopnea, Claudication Gastrointestinal: DENIES: Abdominal pain, Black stools, Bloody stools, Constipation, Diarrhea, Nausea, Vomiting, Difficulty Swallowing, Anorexia Musculoskeletal: DENIES: Joint pain, Muscle aches, Stiffness, Joint Swelling, Back pain, Neck pain Integumentary: DENIES: Abnormal pigmentation, Nail changes, Pruritus, Rash Hematologic/lymphatic: DENIES: Bruising, Lymphadenopathy Immunologic/allergic: DENIES: Eczema, Urticaria Neurologic: DENIES: Abnormal gait, Headache, Localized weakness, Paresthesias, Seizures, Speech Problems, Tremor, Poor Balance Psychiatric: DENIES: Anxiety, Confusion, Mood changes, Depression, Hallucinations, Agitation, Suicidal Ideation, Homicidal Ideation, Delusions Past Family Social History Coded Allergies: Levofloxacin (Verified Allergy, Severe, 10/08/16) *MDRO Multi-Drug Resistant Organism (Verified Adverse Reaction, Unknown, MRSA, 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) - 07/21/16 & 08/22/16; MRSA (sputum & blood-10/08/16),MRSA screen POSITIVE - 10/08/16 Active Scripts Quetiapine 25 Mg Tab25 Mg PO BID PRN (ANXIETY AND/OR AGITATION) #30 TAB Prov:Melissa Crandall 09/03/16 Hydrocortisone-Pramoxine Topical (Analpram Hc Topical)2.5-1% Cream1 Applic TOPICAL Q8HR #1 TUBE Prov:Melissa Crandall 09/03/16 Reported Medications Gabapentin 100 Mg [id number] Mg PO BID #60 CAP Ref 0 10/08/16 Alprazolam (Xanax)0.25 Mg Tab0.25 Mg PO Q8H PRN (ANXIETY) Ref 0 08/21/16 Cholecalciferol (Vitamin D)2,000 Unit Tab Po Daily 08/21/16 Triamcinolone Acetonide (Topic (Triamcinolone Acetonide)1 Pow Pow0.1 % Topical Hs 08/21/16 Oxycodone-Acetaminophen (Percocet)5-325 mg Tab1 Tab PO Q8HR PRN (PAIN) Ref 0 08/21/16 Multiple Vitamin (Multi Vitamin)1 Tab Tab1 Tab PO DAILY 08/21/16 Magnesium Hydroxide Liq (Milk of Magnesia Liq)400 Mg/5 Ml Susp30 Ml PO HS PRN ( INDIGESTION OR UPSET STOMACH) #1 BOTTLE Ref 0 08/21/16 Metoprolol Tartrate 25 Mg Tab25 Mg PO BID #60 TAB Ref 0 08/21/16 Escitalopram (Lexapro)20 Mg Tab20 Mg PO DAILY #30 TAB Ref 0 08/21/16 Levothyroxine 75 Mcg Tab75 Mcg PO DAILY #30 TAB Ref 0 08/21/16 Furosemide 20 Mg Tab20 Mg PO DAILY #30 TAB Ref 0 08/21/16 Lactobacillus Acidophilus (Floranex)1 Gm Pkt1 Gm PO BID #120 PKT Ref 0 08/21/16 Bisacodyl Supp (Dulcolax Supp)10 Mg Supp10 Mg RECTAL DAILY PRN (CONSTIPATION) # 12 SUPP Ref 0 08/21/16 Divalproex Sprinkles (Depakote Sprinkles)125 mg Pxd228 Mg PO TID #60 CAP Ref 0 08/21/16 Loratadine (Claritin)10 Mg Tab10 Mg PO DAILY Ref 0 08/21/16 Calcium Carbonate (Antacid) (Calcium Carbonate)648 Mg [id number] Mg PO DAILY 08/21/16 Aspirin 81 Mg Tabdr81 Mg PO DAILY 08/21/16 Zitzrepk-Bsjwebmriubq-Pltorkdh (Sm Dry Eye Relief 0.2-0.2-1 %)1 Sweta Sol1 Drop EACH EYE TID 08/21/16 Amlodipine 5 Mg Tab5 Mg PO DAILY #30 TAB Ref 0 08/21/16 Albuterol Neb 2.5 Mg/3 Ml Neb2.5 Mg NEB TID NEB PRN (SHORTNESS OF BREATH) #60 NEBULE Ref 0 08/21/16 Current Medications Medications (Trade) Dose Ordered Sig/Mercedes Route Start Time Stop Time Status Last Admin (NS Flush) 2 ml UNSCH PRN IV FLUSH 10/08/16 14:15 (NS Flush) 2 ml BID IV FLUSH 10/08/16 21:00 10/18/16 09:11 (Tylenol) 650 mg Q6H PRN PO 10/08/16 14:15 10/17/16 13:12 (Protonix Inj) 40 mg DAILY IV 10/09/16 09:00 10/17/16 08:08 (Tears Naturale Opth Soln) 1 drop TID EACH EYE 10/08/16 18:00 10/18/16 18:12 (Zofran Inj) 4 mg Q6H PRN IV 10/08/16 14:15 10/11/16 15:22 (Colace) 100 mg BID PO 10/08/16 21:00 10/18/16 22:12 (Senokot) 17.2 mg Q12H PRN PO 10/08/16 14:15 (Heparin Inj) 5,000 units Q12H SQ 10/08/16 16:00 10/19/16 04:12 Miscellaneous Information 1 Q361D XX 10/08/16 14:15 (Chlorhexidine 2% Cloth) Taper DAILY@04 TOP 10/09/16 04:00 10/05/17 03:59 10/13/16 04:00 (Chlorhexidine 2% Cloth) 3 pack UNSCH PRN TOP 10/08/16 14:15 (Peridex 0.12% Liq) 15 ml BID@08,20 MT 10/08/16 20:00 10/11/16 09:18 (Synthroid) 75 mcg DAILY@0600 PO 10/09/16 06:00 10/19/16 06:16 (Aspirin Chew) 81 mg DAILY TUBE 10/09/16 09:00 10/18/16 09:10 (Kenalog 0.1% Lotion) 1 applic DAILY TOPICAL 10/09/16 09:00 10/18/16 09:11 (Hemorrhoidal Hc Supp) 25 mg BID RECTAL 10/08/16 21:00 10/18/16 22:12 (D50w (Vial) Inj) 25 ml UNSCH PRN IV PUSH 10/08/16 15:00 (Glucagon Inj) 1 mg UNSCH PRN OTHER 10/08/16 15:00 (NovoLIN R SUPPLEMENTAL SCALE) 1 Q6HR SQ 10/08/16 18:00 10/15/16 17:15 (Depakote Sprinkles) 125 mg Q8HR PO 10/09/16 09:00 10/19/16 06:16 (Zyvox) 600 mg Q12HR PO 10/15/16 16:00 10/22/16 15:59 10/18/16 22:12 (SoluMEDROL INJ) 40 mg DAILY IV PUSH 10/17/16 09:00 10/17/16 08:08 (Flomax) 0.4 mg DAILY PO 10/16/16 14:00 10/18/16 09:10 (Haldol Inj) 2 mg Q6H PRN IM 10/17/16 09:45 10/17/16 10:14 (risperDAL) 2 mg Q12HR PO 10/17/16 21:00 10/18/16 22:12 (Mucinex Er) 600 mg BID PO 10/18/16 12:00 10/18/16 22:12 Family History He denies Social History Patient says that he was born in [facility], and he lives in [place], but he doesn't remember other circumstances of his life Physical Exam Vital Signs Vital Signs Date Time Temp Pulse Resp B/P Pulse Ox O2 Delivery O2 Flow Rate FiO2 10/19/16 08:14 94 10/19/16 08:00 96.0 18 87/58 99 10/18/16 11:37 21 10/15/16 08:42 Nasal Cannula 3.00 I/O 10/18/16 10/18/16 10/19/16 08:00 16:00 00:00 Intake Total 360 ml Output Total 1250 ml Balance -890 ml Mental Status Examination Speech: Unremarkable Orientation: Person Memory: Impaired (describe) Thought Process: Circumstantial, Loose Association Thought Content: Bizarre thinking Hallucination Type: None Suicidal Ideation: No Previous Suicide Attempts: No Homicidal Ideation: No Insight: Poor Judgement: Poor Affect: Euthymic Mood: Euthymic Motor Activity: Normal gait Assessment & Plan Problem List: (1) Delirium due to another medical condition Assessment & Plan: The patient is a 89 years old man, with multiple medical conditions, including hypothyroidism, hypertension, urinary retention, GERD, hospitalized due to severe pneumonia, sepsis. Consulted to psychiatry due to aggressive and disorganized behavior and agitation. Patient isn't Depakote 125 mg 3 times a day, Risperdal 2 mg twice a day, Haldol 2 mg every 8 hours IM when necessary aggressive behavior and agitation. At the moment of the psychiatric evaluation patient does not present any evidence depression, anxiety, or psychosis. No agitation, or aggressive behavior, combativeness or hostility are present. Actually patient is calm and cooperative and pleasant. He does have visible memory problems and cognition deficits the seems to be consistent with history of dementia. I could not get the psychotic flavor of his disorganized thought, however he has a reported history of schizophrenia. His reason reported aggressive behavior and agitation could be secondary to delirium related with multiple underlying medical conditions. Patient has several highly recognizable risks for this condition. Haldol 2 mg IM every 8 hours when necessary aggressive behavior, Risperdal 2 mg twice a day and Depakote 125 mg 3 times seems to be a good psychotropic regimen for behavioral dysregulation and psychosis for a patient at this age with all his medical condition. However, his Depakote levels are suboptimal, and Depakote could be increased a little bit if patient continues having outbursts of aggressive behavior. We will follow-up. ICD Code: F05 Assessment & Plan Estimated LOS: Nelson Aly MD Oct 19, 2016 09:46
[2016-10-19] MEDS: HYDROCORTISONE ACETATE 25 MG SUPP RECTAL SCH ×2 (10:54→21:00)
[2016-10-19] MEDS: TAMSULOSIN HCL 0.4 MG CAP PO SCH (10:54)
[2016-10-19] MEDS: guaiFENesin E.R. 600 MG TAB PO SCH ×2 (10:54→22:23)
[2016-10-19] MEDS: DOCUSATE SODIUM 100 MG CAP PO SCH ×2 (10:54→22:23)
[2016-10-19] MEDS: LINEZOLID 600 MG TAB PO SCH ×2 (10:55→22:23)
[2016-10-19] MEDS: ASPIRIN 81 MG CHEW TAB TUBE SCH (10:55)
[2016-10-19] MEDS: risperiDONE 1 MG TAB PO SCH ×2 (10:55→22:23)
[2016-10-19] MEDS: ARTIFICIAL TEARS OPTH SOLN 15 ML BTL EACH EYE SCH ×3 (10:56→18:28)
--- NOTE | 2016-10-19 13:39 | HHI.PR ---
Subjective Remarks Patient seen at bedside. Denies and SOB and CP. Patients restraints off. Nurse reported that patient had good night. Patient in good spirits. Objective Vital Signs Date Time Temp Pulse Resp B/P Pulse Ox O2 Delivery O2 Flow Rate FiO2 10/19/16 12:00 97.3 88 17 98/62 100 10/19/16 08:14 94 10/19/16 08:00 96.0 88 18 87/58 99 10/19/16 04:00 97.1 74 18 123/78 95 10/19/16 01:41 96.5 101 18 130/73 98 10/18/16 21:06 96.6 86 20 124/73 100 10/18/16 20:00 96 10/18/16 16:00 97.1 85 20 101/50 98 I/O 10/18/16 10/18/16 10/18/16 10/19/16 10/19/16 10/19/16 07:00 15:00 23:00 07:00 15:00 23:00 Intake Total 360 ml Output Total 200 ml 1250 ml 680 ml Balance -200 ml -890 ml -680 ml Intake Oral 360 ml Output Urine Total 200 ml 1250 ml 680 ml Bladder Scan Volume Amount 486 ml 999 ml # Voids 1 1 0 0 # Bowel Movements 1 0 0 Result Diagram: 10/18/16 1725 10/18/16 1050 Objective Remarks SKIN: Warm and dry. HEAD: Atraumatic. Normocephalic. EYES: Pupils equal and round. No scleral icterus. No injection or drainage. ENT: No nasal bleeding or discharge. Mucous membranes pink and moist NECK: Trachea midline. No JVD. CARDIOVASCULAR: Regular rate and rhythm. RESPIRATORY: diminished in bases few rhonchi GASTROINTESTINAL: Abdomen soft, non-tender, nondistended. MUSCULOSKELETAL: Extremities without cyanosis, or edema. No obvious deformities. NEUROLOGICAL: Awake and alert. Normal speech. PSYCHIATRIC: combative at times. Medications and IVs Current Medications Medications (Trade) Dose Ordered Sig/Mercedes Route Start Time Stop Time Status Last Admin (NS Flush) 2 ml UNSCH PRN IV FLUSH 10/08/16 14:15 (NS Flush) 2 ml BID IV FLUSH 10/08/16 21:00 10/18/16 09:11 (Tylenol) 650 mg Q6H PRN PO 10/08/16 14:15 10/17/16 13:12 (Protonix Inj) 40 mg DAILY IV 10/09/16 09:00 10/17/16 08:08 (Tears Naturale Opth Soln) 1 drop TID EACH EYE 10/08/16 18:00 10/19/16 10:56 (Zofran Inj) 4 mg Q6H PRN IV 10/08/16 14:15 10/11/16 15:22 (Colace) 100 mg BID PO 10/08/16 21:00 10/19/16 10:54 (Senokot) 17.2 mg Q12H PRN PO 10/08/16 14:15 (Heparin Inj) 5,000 units Q12H SQ 10/08/16 16:00 10/19/16 04:12 Miscellaneous Information 1 Q361D XX 10/08/16 14:15 (Chlorhexidine 2% Cloth) Taper DAILY@04 TOP 10/09/16 04:00 10/05/17 03:59 10/13/16 04:00 (Chlorhexidine 2% Cloth) 3 pack UNSCH PRN TOP 10/08/16 14:15 (Peridex 0.12% Liq) 15 ml BID@08,20 MT 10/08/16 20:00 10/19/16 08:00 (Synthroid) 75 mcg DAILY@0600 PO 10/09/16 06:00 10/19/16 06:16 (Aspirin Chew) 81 mg DAILY TUBE 10/09/16 09:00 10/19/16 10:55 (Kenalog 0.1% Lotion) 1 applic DAILY TOPICAL 10/09/16 09:00 10/19/16 09:00 (Hemorrhoidal Hc Supp) 25 mg BID RECTAL 10/08/16 21:00 10/19/16 10:54 (D50w (Vial) Inj) 25 ml UNSCH PRN IV PUSH 10/08/16 15:00 (Glucagon Inj) 1 mg UNSCH PRN OTHER 10/08/16 15:00 (NovoLIN R SUPPLEMENTAL SCALE) 1 Q6HR SQ 10/08/16 18:00 10/15/16 17:15 (Depakote Sprinkles) 125 mg Q8HR PO 10/09/16 09:00 10/19/16 06:16 (Zyvox) 600 mg Q12HR PO 10/15/16 16:00 10/22/16 15:59 10/19/16 10:55 (SoluMEDROL INJ) 40 mg DAILY IV PUSH 10/17/16 09:00 10/17/16 08:08 (Flomax) 0.4 mg DAILY PO 10/16/16 14:00 10/19/16 10:54 (Haldol Inj) 2 mg Q6H PRN IM 10/17/16 09:45 10/17/16 10:14 (risperDAL) 2 mg Q12HR PO 10/17/16 21:00 10/19/16 10:55 (Mucinex Er) 600 mg BID PO 10/18/16 12:00 10/19/16 10:54 Assessment and Plan Problem List: (1) Hypothyroidism Status: Acute Plan: Continue levothyroxine. TSH level 2.46 (2) Pneumonia Status: Acute Plan: On Zyvox with stop date on 10/22. Also on azithromycin. Cough improved on Mucinex (3) Altered mental status Status: Acute Plan: Patient not oriented but in good spirits since Risperdal increase. Will monitor carefully (4) Sepsis Status: Acute Plan: On Zyvox and azithromycin. WBC stable (5) Urinary retention Status: Acute Plan: Stout cath removed. Nursing I+ O cath. Flomax added and urology consulted. Recommended to I + O cath secondary to patients mental status increased risk of pulling catheter out. Only to cath if urinary retention is greater than 300 ml (6) GERD with esophagitis Status: Acute Plan: No complaints. Tolerating diet well. Continue Protonix. (7) History of COPD Status: Acute Plan: On solumedrol daily. On RA (8) Edema Status: Acute Plan: right upper arm edema and redness. Ultrasound ordered to r/o DVT which is negative Discussed Condition With Assessment and plan discussed with Dr. Salgado Discharge Planning Discharge to SNF Problem Qualifiers (1) Hypothyroidism: Qualified Code: E03.9 - Hypothyroidism, unspecified type (2) Pneumonia: Qualified Code: J69.0 - Aspiration pneumonia of left lower lobe due to vomit (3) Altered mental status: Qualified Code: R41.82 - Altered mental status, unspecified altered mental status type Marimar Vazquez Oct 19, 2016 13:39
[2016-10-19] MEDS: RESP: ALBUTEROL 2.5 MG/IPRATROPIUM 0.5 MG NEB (PRN) INH ×2 (16:10→20:10)
[2016-10-19] MEDS ORDERED: HALOPERIDOL LACTATE 5 MG/ML AMP IM ONE (18:00)
[2016-10-19] MEDS ORDERED: IOHEXOL 350 MG/ML 10 ML VIAL (for RAD DIAG) IV ONE (21:06)
--- NOTE | 2016-10-19 21:16 | RADRPT ---
EXAM DATE/TIME: 10/19/2016 21:00 [facility] COMPARISON: CT PULMONARY ANGIOGRAM, November 10, 2014, 18:03. INDICATIONS : Shortness of breath. IV CONTRAST: 60 cc Omnipaque 350 (iohexol) IV RADIATION DOSE: 19.53 CTDIvol (mGy) MEDICAL HISTORY : Hypertension. Chronic obstructive pulmonary disease. SURGICAL HISTORY : None. ENCOUNTER: Initial ACUITY: 1 day PAIN SCALE: 0/10 LOCATION: chest TECHNIQUE: Volumetric scanning of the chest was performed using a pulmonary embolism protocol MIP images were re constructed. Using automated exposure control and adjustment of the mA and/or kV according to patien t size, radiation dose was kept as low as reasonably achievable to obtain optimal diagnostic quality images. FINDINGS: There are small bilateral pleural effusions, left greater than right with dependent atelectasis and c onsolidation at the lung bases. No filling defects to suggest pulmonary embolic disease. Moderate cor onary calcifications. No acute findings in the upper abdomen. CONCLUSION: 1. Negative for pulmonary embolic disease. Small bilateral pleural effusions with basilar dependent a telectasis and consolidation. Zen Longoria MD on October 19, 2016 at 21:12 Board Certified Radiologist. This report was verified electronically.
[2016-10-20] VITALS (8 sets, daily range): BP systolic 87–123; BP diastolic 54–70; PULSE 65–110; RESP 18–20; TEMP 97–98.5; O2SAT 94–100
[2016-10-20] MEDS: INSULIN NovoLIN REGULAR SUPPLEMENTAL SCALE SQ SCH ×4 (01:07→17:37)
[2016-10-20] MEDS: CHLORHEXIDINE GLUCONATE 2 % 1 PACK (2 CLOTHS) TOP SCH (04:00)
[2016-10-20] MEDS: LEVOTHYROXINE SODIUM 75 MCG TAB PO SCH (05:02)
[2016-10-20] MEDS: DIVALPROEX SODIUM SPRINKLES 125 MG CAP PO SCH ×3 (05:02→21:21)
[2016-10-20] MEDS: HEPARIN SODIUM - SQ 10,000 UNITS/ML VIAL SQ SCH ×2 (05:02→16:06)
[2016-10-20 07:53] LABS: HEMATOCRIT 29.1 % (39.0-51.0); MEAN CELL VOLUME 94.8 FL (80.0-100.0); MEAN CORPUSCULAR HEMOGLOBIN 31.9 PG (27.0-34.0); MEAN CORPUSCULAR HGB CONC 33.7 % (32.0-36.0); PLATELET COUNT 249 TH/MM3 (150-450); RED BLOOD COUNT 3.07 MIL/MM3 (4.50-5.90); RED CELL DISTRIBUTION WIDTH 15.9 % (11.6-17.2); REVIEW FLAG FINAL; WHITE BLOOD COUNT 8.4 TH/MM3 (4.0-11.0)
[2016-10-20] MEDS: CHLORHEXIDINE 0.12% (ORAL KIT) 15 ML CUP MT SCH ×2 (08:00→20:00)
[2016-10-20 08:30] LABS: BICARBONATE 24.7 MEQ/L (21.0-32.0); POTASSIUM 4.4 MEQ/L (3.5-5.1)
[2016-10-20] MEDS: PANTOPRAZOLE SODIUM 40 MG VIAL IV SCH (08:43)
[2016-10-20] MEDS: ARTIFICIAL TEARS OPTH SOLN 15 ML BTL EACH EYE SCH ×3 (08:43→17:38)
[2016-10-20] MEDS: SODIUM CHLORIDE 0.9% FLUSH 5 ML FLUSH IV FLUSH SCH ×2 (08:43→21:00)
[2016-10-20] MEDS: methylPREDNISolone SOD SUCC 40 MG/1 ML VIAL IV PUSH SCH (08:44)
[2016-10-20] MEDS: DOCUSATE SODIUM 100 MG CAP PO SCH ×2 (08:44→21:21)
[2016-10-20] MEDS: risperiDONE 1 MG TAB PO SCH ×2 (08:44→17:37)
[2016-10-20] MEDS: HYDROCORTISONE ACETATE 25 MG SUPP RECTAL SCH ×2 (08:44→21:21)
[2016-10-20] MEDS: TAMSULOSIN HCL 0.4 MG CAP PO SCH (08:44)
[2016-10-20] MEDS: ASPIRIN 81 MG CHEW TAB TUBE SCH (08:44)
[2016-10-20] MEDS: LINEZOLID 600 MG TAB PO SCH ×2 (08:44→21:21)
[2016-10-20] MEDS: guaiFENesin E.R. 600 MG TAB PO SCH ×2 (08:44→21:21)
[2016-10-20] MEDS: HALOPERIDOL LACTATE 5 MG/ML AMP IM PRN ×2 (08:45→16:05)
[2016-10-20] MEDS: TRIAMCINOLONE ACET 0.1% LOTION 60 ML BTL TOPICAL SCH (08:45)
--- NOTE | 2016-10-20 10:49 | HHI.PR ---
Subjective Remarks feeling irvin today had syncope yesterday no obvious medical cause may be psychiatric Objective Vital Signs Date Time Temp Pulse Resp B/P Pulse Ox O2 Delivery O2 Flow Rate FiO2 10/20/16 07:53 103 10/20/16 07:26 97.8 96 18 99/62 98 10/20/16 04:00 98.5 86 18 123/69 94 10/20/16 00:00 97.4 86 18 106/55 94 10/19/16 21:00 97 10/19/16 20:00 97.7 92 17 93/48 99 10/19/16 16:10 100 Nasal Cannula 4.00 10/19/16 16:00 97.2 95 18 103/68 92 10/19/16 12:00 97.3 88 17 98/62 100 I/O 10/19/16 10/19/16 10/19/16 10/20/16 10/20/16 10/20/16 07:00 15:00 23:00 07:00 15:00 23:00 Intake Total 270 ml 120 ml Output Total 680 ml 0 ml 500 ml Balance -680 ml 0 ml -230 ml 120 ml Intake Oral 270 ml 120 ml Output Urine Total 680 ml 0 ml 500 ml Bladder Scan Volume Amount 450 ml # Voids 0 # Bowel Movements 0 Result Diagram: 10/20/16 0644 10/20/16 [address] Angiography 10/19/16 0000 Signed Impressions: Service Date/Time: Wednesday, October 19, 2016 21:00 - CONCLUSION: 1. Negative for pulmonary embolic disease. Small bilateral pleural effusions with basilar dependent atelectasis and consolidation. Zen Longoria MD Upper Extremity Ultrasound 10/17/16 0000 Signed Impressions: Service Date/Time: Monday, October 17, 2016 10:44 - CONCLUSION: Negative for deep venous thrombosis. Ernesto Wild MD FACR Chest X-Ray 10/15/16 0000 Signed Impressions: Service Date/Time: Saturday, October 15, 2016 20:11 - CONCLUSION: Left base consolidation with a small effusion. Tiny effusion on the right. Jose Grajeda MD Renal Ultrasound 10/11/16 0000 Signed Impressions: Service Date/Time: September 21:11 - CONCLUSION: Uncooperative patient and extremely limited study. Left kidney not evaluated. Right kidney without hydronephrosis or other acute abnormality. Jose Grajeda MD Objective Remarks GENERAL: SKIN: Warm and dry. HEAD: Atraumatic. Normocephalic. EYES: Pupils equal and round. No scleral icterus. No injection or drainage. ENT: No nasal bleeding or discharge. Mucous membranes pink and moist O2 pnc. NECK: Trachea midline. No JVD. CARDIOVASCULAR: Regular rate and rhythm. RESPIRATORY: diminished in bases few rhonchi GASTROINTESTINAL: Abdomen soft, non-tender, nondistended. Hepatic and splenic margins not palpable. MUSCULOSKELETAL: Extremities without clubbing, cyanosis, or edema. No obvious deformities. NEUROLOGICAL: Awake and alert. No obvious cranial nerve deficits. Motor grossly within normal limits. Five out of 5 muscle strength in the arms and legs. Normal speech. PSYCHIATRIC: less combative more cooperative Medications and IVs Current Medications Medications (Trade) Dose Ordered Sig/Mercedes Route PRN Reason Start Time Stop Time Status Last Admin Dose Admin IV Flush (NS Flush) 2 ml UNSCH PRN IV FLUSH FLUSH AFTER USING IV ACCESS 10/08/16 14:15 IV Flush (NS Flush) 2 ml BID IV FLUSH 10/08/16 21:00 10/20/16 08:43 Acetaminophen (Tylenol) 650 mg Q6H PRN PO PAIN 1-10 AND/OR FEVER >101F 10/08/16 14:15 10/17/16 13:12 Pantoprazole Sodium (Protonix Inj) 40 mg DAILY IV 10/09/16 09:00 10/20/16 08:43 Artificial Tears (Tears Naturale Opth Soln) 1 drop TID EACH EYE 10/08/16 18:00 10/20/16 08:43 Ondansetron HCl (Zofran Inj) 4 mg Q6H PRN IV NAUSEA OR VOMITING 10/08/16 14:15 10/11/16 15:22 Docusate Sodium (Colace) 100 mg BID PO 10/08/16 21:00 10/20/16 08:44 Sennosides (Senokot) 17.2 mg Q12H PRN PO CONSTIPATION 10/08/16 14:15 Heparin Sodium (Porcine) (Heparin Inj) 5,000 units Q12H SQ 10/08/16 16:00 10/20/16 05:02 Miscellaneous Information 1 Q361D XX 10/08/16 14:15 Chlorhexidine Gluconate (Chlorhexidine 2% Cloth) Taper DAILY@04 TOP 10/09/16 04:00 10/05/17 03:59 10/13/16 04:00 Chlorhexidine Gluconate (Chlorhexidine 2% Cloth) 3 pack UNSCH PRN TOP HYGIENIC CARE 10/08/16 14:15 Chlorhexidine Gluconate (Peridex 0.12% Liq) 15 ml BID@08,20 MT 10/08/16 20:00 10/20/16 08:00 Levothyroxine Sodium (Synthroid) 75 mcg DAILY@0600 PO 10/09/16 06:00 10/20/16 05:02 Aspirin (Aspirin Chew) 81 mg DAILY TUBE 10/09/16 09:00 10/20/16 08:44 Triamcinolone Acetonide (Kenalog 0.1% Lotion) 1 applic DAILY TOPICAL 10/09/16 09:00 10/20/16 08:45 Hydrocortisone Acetate (Hemorrhoidal Hc Supp) 25 mg BID RECTAL 10/08/16 21:00 10/20/16 08:44 Dextrose (D50w (Vial) Inj) 25 ml UNSCH PRN IV PUSH HYPOGLYCEMIA-SEE COMMENTS 10/08/16 15:00 Glucagon (Glucagon Inj) 1 mg UNSCH PRN OTHER HYPOGLYCEMIA-SEE COMMENTS 10/08/16 15:00 Insulin Human Regular (NovoLIN R SUPPLEMENTAL SCALE) 1 Q6HR SQ 10/08/16 18:00 10/20/16 01:07 Divalproex Sodium (Depakote Sprinkles) 125 mg Q8HR PO 10/09/16 09:00 10/20/16 05:02 Linezolid (Zyvox) 600 mg Q12HR PO 10/15/16 16:00 10/22/16 15:59 10/20/16 08:44 Methylprednisolone Sodium Succinate (SoluMEDROL INJ) 40 mg DAILY IV PUSH 10/17/16 09:00 10/20/16 08:44 Tamsulosin HCl (Flomax) 0.4 mg DAILY PO 10/16/16 14:00 10/20/16 08:44 Haloperidol Lactate (Haldol Inj) 2 mg Q6H PRN IM AGITATION 10/17/16 09:45 10/20/16 08:45 Risperidone (risperDAL) 2 mg Q12HR PO 10/17/16 21:00 10/20/16 08:44 Guaifenesin (Mucinex Er) 600 mg BID PO 10/18/16 12:00 10/20/16 08:44 Assessment and Plan Problem List: (1) Acute respiratory failure Status: Acute (2) COPD (chronic obstructive pulmonary disease) Status: Acute (3) Severe sepsis Status: Acute (4) Pneumonia Status: Acute Assessment and Plan improved no further syncope will have pt eval and rx Problem Qualifiers (1) Pneumonia: Qualified Code: J69.0 - Aspiration pneumonia of left lower lobe due to vomit Lencho Salgado DO Oct 20, 2016 10:49
[2016-10-20] MEDS: SODIUM CHLOR 0.9% 1000 ML INJ 1,000 ML IV SCH ×2 (12:00→21:28)
--- NOTE | 2016-10-20 19:00 | MB ---
cc: YAMINI GONZALEZ M.D. DATE OF CONSULTATION: 10/20/2016. REASON FOR CONSULTATION: Possible syncope. REQUESTING PHYSICIAN: Dr. Lencho Salgado. HISTORY OF PRESENT ILLNESS: The patient is an 89-year-old male who has been in the hospital since September. He is confused thinking it is either November or December, though he does state it is 2016. He has been treated for possible aspiration pneumonia and COPD as well as confusion. The nurse states that he has been somewhat combative. There is a questionable history of syncope yesterday. The patient is not aware of this and the nurse reports that it was not witnessed. Review of multiple rhythm recordings shows sinus rhythm with an occasional PVC. The patient states that he does not have a history of any heart problems. The patient had an echocardiogram on 10/09 showing mild left ventricular hypertrophy, ejection fraction was estimated at 50%. Pulmonary artery pressure is 38. He had mild tricuspid insufficiency. PAST MEDICAL HISTORY: Past medical history is not able to be significantly obtained from the patient. Review of the chart states that he does have a history of COPD as well as dementia and prior CVA. SOCIAL HISTORY: He states he lives with his son, though the record states he lives in a halfway facility. He stopped smoking about six months ago. MEDICATIONS: He is on no cardiac medications. PHYSICAL EXAMINATION: VITAL SIGNS: Blood pressure has been recorded as low as 87/54, heart rate 90. GENERAL: He is restrained and somewhat combative. The tongue was moist and midline. LUNGS: Clear. CARDIAC: Exam showed a regular rhythm. No murmurs heard. ABDOMEN: Abdomen soft. EXTREMITIES: He has no peripheral edema. LABORATORY DATA: Hemoglobin of 9.8, hematocrit 29.1, white count 8400. Sodium 143, potassium 4.4, BUN 16, creatinine 0.93. TSH is 2.46. IMAGING STUDIES: A CT chest on October was negative for pulmonary emboli. He did have small bilateral pleural effusions. IMPRESSION: 1. COPD with possible aspiration pneumonia. 2. Dementia. 3. No documented syncope. DISCUSSION AND RECOMMENDATIONS I see no evidence of significant heart disease in the patient. Blood pressure is relatively low, but he is on no medications to diminish or to decrease the blood pressure. Cardiac-argueta, there is nothing to add unless cardiac rhythm disturbance can be documented. Thank you for asking us to see him. MD MIRANDA Pete/ALEJANDRO /2:02 PM /6:51 PM
[2016-10-21] VITALS (8 sets, daily range): BP systolic 97–150; BP diastolic 61–88; PULSE 75–140; RESP 18–20; TEMP 95.8–98.6; O2SAT 95–100
[2016-10-21] MEDS: INSULIN NovoLIN REGULAR SUPPLEMENTAL SCALE SQ SCH ×5 (00:30→23:34)
[2016-10-21] MEDS: CHLORHEXIDINE GLUCONATE 2 % 1 PACK (2 CLOTHS) TOP SCH (04:00)
[2016-10-21] MEDS: HEPARIN SODIUM - SQ 10,000 UNITS/ML VIAL SQ SCH ×2 (04:06→15:23)
[2016-10-21] MEDS: DIVALPROEX SODIUM SPRINKLES 125 MG CAP PO SCH ×3 (05:56→22:50)
[2016-10-21] MEDS: LEVOTHYROXINE SODIUM 75 MCG TAB PO SCH (05:56)
[2016-10-21] MEDS: SODIUM CHLOR 0.9% 1000 ML INJ 1,000 ML IV SCH ×2 (08:00→22:50)
[2016-10-21] MEDS: CHLORHEXIDINE 0.12% (ORAL KIT) 15 ML CUP MT SCH ×2 (08:00→20:00)
[2016-10-21] MEDS: PANTOPRAZOLE SODIUM 40 MG VIAL IV SCH (09:00)
[2016-10-21] MEDS: risperiDONE 1 MG TAB PO SCH ×3 (09:00→17:46)
[2016-10-21] MEDS: DOCUSATE SODIUM 100 MG CAP PO SCH ×2 (09:00→22:50)
[2016-10-21] MEDS: HYDROCORTISONE ACETATE 25 MG SUPP RECTAL SCH ×2 (09:00→22:50)
[2016-10-21] MEDS: LINEZOLID 600 MG TAB PO SCH ×2 (09:00→22:50)
[2016-10-21] MEDS: ASPIRIN 81 MG CHEW TAB TUBE SCH (09:00)
[2016-10-21] MEDS: SODIUM CHLORIDE 0.9% FLUSH 5 ML FLUSH IV FLUSH SCH ×2 (09:00→21:00)
[2016-10-21] MEDS: ARTIFICIAL TEARS OPTH SOLN 15 ML BTL EACH EYE SCH ×3 (09:00→17:47)
[2016-10-21] MEDS: TRIAMCINOLONE ACET 0.1% LOTION 60 ML BTL TOPICAL SCH (09:00)
[2016-10-21] MEDS: guaiFENesin E.R. 600 MG TAB PO SCH ×2 (09:00→22:50)
[2016-10-21] MEDS: methylPREDNISolone SOD SUCC 40 MG/1 ML VIAL IV PUSH SCH (09:00)
--- NOTE | 2016-10-21 09:38 | HHI.PR ---
Subjective Remarks had low bp yesterday nopw improved with iv ns also was combative which appears better with increased risperdal await psych consult Objective Vital Signs Date Time Temp Pulse Resp B/P Pulse Ox O2 Delivery O2 Flow Rate FiO2 10/21/16 07:41 98.6 140 18 148/73 98 10/21/16 04:00 96.0 84 20 150/88 100 10/21/16 00:00 97.6 86 20 125/75 99 10/20/16 23:00 110 10/20/16 20:00 97.5 88 20 105/69 100 10/20/16 16:35 97.0 65 18 108/70 94 10/20/16 12:07 98.2 90 18 87/54 98 I/O 10/20/16 10/20/16 10/20/16 10/21/16 10/21/16 10/21/16 07:00 15:00 23:00 07:00 15:00 23:00 Intake Total 120 ml 909 ml 1069 ml Output Total 750 ml 200 ml 750 ml Balance 120 ml -750 ml 709 ml 319 ml Intake Oral 120 ml 240 ml 0 ml IV Total 669 ml 1069 ml Output Urine Total 750 ml 200 ml 750 ml Bladder Scan Volume Amount 450 ml # Voids 1 0 0 # Bowel Movements 0 0 Result Diagram: 10/20/1664310/20/16643 Objective Remarks GENERAL: somewhat sedated bp stable SKIN: Warm and dry. HEAD: Atraumatic. Normocephalic. EYES: Pupils equal and round. No scleral icterus. No injection or drainage. ENT: No nasal bleeding or discharge. Mucous membranes pink and moist O2 pnc. NECK: Trachea midline. No JVD. CARDIOVASCULAR: Regular rate and rhythm. RESPIRATORY: diminished in bases few rhonchi GASTROINTESTINAL: Abdomen soft, non-tender, nondistended. Hepatic and splenic margins not palpable. MUSCULOSKELETAL: Extremities without clubbing, cyanosis, or edema. No obvious deformities. NEUROLOGICAL: Awake and alert. No obvious cranial nerve deficits. Motor grossly within normal limits. Five out of 5 muscle strength in the arms and legs. Normal speech. PSYCHIATRIC: less combative more cooperative Medications and IVs Current Medications Medications (Trade) Dose Ordered Sig/Mercedes Route PRN Reason Start Time Stop Time Status Last Admin Dose Admin IV Flush (NS Flush) 2 ml UNSCH PRN IV FLUSH FLUSH AFTER USING IV ACCESS 10/08/16 14:15 IV Flush (NS Flush) 2 ml BID IV FLUSH 10/08/16 21:00 10/20/16 08:43 Acetaminophen (Tylenol) 650 mg Q6H PRN PO PAIN 1-10 AND/OR FEVER >101F 10/08/16 14:15 10/17/16 13:12 Pantoprazole Sodium (Protonix Inj) 40 mg DAILY IV 10/09/16 09:00 10/20/16 08:43 Artificial Tears (Tears Naturale Opth Soln) 1 drop TID EACH EYE 10/08/16 18:00 10/20/16 17:38 Ondansetron HCl (Zofran Inj) 4 mg Q6H PRN IV NAUSEA OR VOMITING 10/08/16 14:15 10/11/16 15:22 Docusate Sodium (Colace) 100 mg BID PO 10/08/16 21:00 10/20/16 21:21 Sennosides (Senokot) 17.2 mg Q12H PRN PO CONSTIPATION 10/08/16 14:15 Heparin Sodium (Porcine) (Heparin Inj) 5,000 units Q12H SQ 10/08/16 16:00 10/21/16 04:06 Miscellaneous Information 1 Q361D XX 10/08/16 14:15 Chlorhexidine Gluconate (Chlorhexidine 2% Cloth) Taper DAILY@04 TOP 10/09/16 04:00 10/05/17 03:59 10/13/16 04:00 Chlorhexidine Gluconate (Chlorhexidine 2% Cloth) 3 pack UNSCH PRN TOP HYGIENIC CARE 10/08/16 14:15 Chlorhexidine Gluconate (Peridex 0.12% Liq) 15 ml BID@08,20 MT 10/08/16 20:00 10/20/16 08:00 Levothyroxine Sodium (Synthroid) 75 mcg DAILY@0600 PO 10/09/16 06:00 10/21/16 05:56 Aspirin (Aspirin Chew) 81 mg DAILY TUBE 10/09/16 09:00 10/20/16 08:44 Triamcinolone Acetonide (Kenalog 0.1% Lotion) 1 applic DAILY TOPICAL 10/09/16 09:00 10/20/16 08:45 Hydrocortisone Acetate (Hemorrhoidal Hc Supp) 25 mg BID RECTAL 10/08/16 21:00 10/20/16 21:21 Dextrose (D50w (Vial) Inj) 25 ml UNSCH PRN IV PUSH HYPOGLYCEMIA-SEE COMMENTS 10/08/16 15:00 Glucagon (Glucagon Inj) 1 mg UNSCH PRN OTHER HYPOGLYCEMIA-SEE COMMENTS 10/08/16 15:00 Insulin Human Regular (NovoLIN R SUPPLEMENTAL SCALE) 1 Q6HR SQ 10/08/16 18:00 10/20/16 01:07 Divalproex Sodium (Depakote Sprinkles) 125 mg Q8HR PO 10/09/16 09:00 10/21/16 05:56 Linezolid (Zyvox) 600 mg Q12HR PO 10/15/16 16:00 10/22/16 15:59 10/20/16 21:21 Methylprednisolone Sodium Succinate (SoluMEDROL INJ) 40 mg DAILY IV PUSH 10/17/16 09:00 10/20/16 08:44 Haloperidol Lactate (Haldol Inj) 2 mg Q6H PRN IM AGITATION 10/17/16 09:45 10/20/16 16:05 Guaifenesin 600 mg 600 mg BID PO 10/18/16 12:00 10/20/16 21:21 Sodium Chloride (NS 1000 ml Inj) 1,000 ml @ 100 mls/hr Q10H IV 10/20/16 12:00 10/20/16 21:28 Risperidone (risperDAL) 2 mg TID PO 10/20/16 18:00 10/20/16 17:37 Assessment and Plan Problem List: (1) Acute respiratory failure Status: Acute (2) COPD (chronic obstructive pulmonary disease) Status: Acute (3) Severe sepsis Status: Acute (4) Pneumonia Status: Acute Assessment and Plan await psych and ck lab in am Problem Qualifiers (1) Pneumonia: Qualified Code: J69.0 - Aspiration pneumonia of left lower lobe due to vomit Lencho Salgado DO Oct 21, 2016 09:38
[2016-10-21 11:36] LABS: AUTOMATED NEUTROPHIL # 4.4 TH/MM3 (1.8-7.7); BASOPHIL # 0.1 TH/MM3 (0-0.2); BASOPHIL % 1.3 % (0.0-2.0); EOSINOPHIL # 0.4 TH/MM3 (0-0.4); EOSINOPHIL % 5.4 % (0.0-4.0); HEMATOCRIT 30.4 % (39.0-51.0); HEMO FLAGS DIFF FINAL; LYMPH % 18.5 % (9.0-44.0); LYMPHOCYTE # 1.2 TH/MM3 (1.0-4.8); MEAN CELL VOLUME 97.3 FL (80.0-100.0); MEAN CORPUSCULAR HEMOGLOBIN 31.9 PG (27.0-34.0); MEAN CORPUSCULAR HGB CONC 32.8 % (32.0-36.0); MONO % 9.8 % (0.0-8.0); PLATELET COUNT 222 TH/MM3 (150-450); RED BLOOD COUNT 3.12 MIL/MM3 (4.50-5.90); RED CELL DISTRIBUTION WIDTH 16.3 % (11.6-17.2); WHITE BLOOD COUNT 6.7 TH/MM3 (4.0-11.0)
[2016-10-21 12:06] LABS: ALKALINE PHOSPHATASE 68 U/L (45-117); ALT (GPT) 19 U/L (12-78); ANION GAP 7 MEQ/L (5-15); AST (GOT) 19 U/L (15-37); BICARBONATE 27.5 MEQ/L (21.0-32.0); BLOOD UREA NITROGEN 11 MG/DL (7-18); CHLORIDE 110 MEQ/L (98-107); GLOMERULAR FILTRATION RATE 94 ML/MIN (>89); POTASSIUM 4.3 MEQ/L (3.5-5.1); SODIUM (NA) 144 MEQ/L (136-145); TOTAL BILIRUBIN ADULT 0.5 MG/DL (0.2-1.0)
--- NOTE | 2016-10-21 16:27 | HHI.PYPN ---
Subjective Remarks Should seen today with nurse, patient somewhat diffusely confused though staff states he is better than yesterday behaviors under control or directable. Patient compliant medications. For now continue psychiatric medications no change Review of Systems Except as stated in HPI: all other systems reviewed are Neg Objective Alert: Yes Alexander: Person, Place, Date (diffusely mildly confused) Mood: Calm Affect: Restricted Memory Intact: Comment (very poor) Hallucinations: Other (deny) Delusions: No Delusion Type: Other (somewhat vigilant) Suicidal: Ideation (denies) Homicidal: Ideation (denies) Insight/Judgement Poor Labs Test 10/21/16 11:20 White Blood Count 6.7 TH/MM3 Red Blood Count 3.12 MIL/MM3 Hemoglobin 10.0 GM/DL Hematocrit 30.4 % Mean Corpuscular Volume 97.3 FL Mean Corpuscular Hemoglobin 31.9 PG Mean Corpuscular Hemoglobin 32.8 % Concent Red Cell Distribution Width 16.3 % Platelet Count 222 TH/MM3 Mean Platelet Volume 8.4 FL Neutrophils (%) (Auto) 65.0 % Lymphocytes (%) (Auto) 18.5 % Monocytes (%) (Auto) 9.8 % Eosinophils (%) (Auto) 5.4 % Basophils (%) (Auto) 1.3 % Neutrophils # (Auto) 4.4 TH/MM3 Lymphocytes # (Auto) 1.2 TH/MM3 Monocytes # (Auto) 0.7 TH/MM3 Eosinophils # (Auto) 0.4 TH/MM3 Basophils # (Auto) 0.1 TH/MM3 CBC Comment DIFF FINAL Differential Comment Sodium Level 144 MEQ/L Potassium Level 4.3 MEQ/L Chloride Level 110 MEQ/L Carbon Dioxide Level 27.5 MEQ/L Anion Gap 7 MEQ/L Blood Urea Nitrogen 11 MG/DL Creatinine 0.78 MG/DL Estimat Glomerular Filtration 94 ML/MIN Rate Random Glucose 80 MG/DL Calcium Level 8.0 MG/DL Total Bilirubin 0.5 MG/DL Aspartate Amino Transf 19 U/L (AST/SGOT) Alanine Aminotransferase 19 U/L (ALT/SGPT) Alkaline Phosphatase 68 U/L Total Protein 5.5 GM/DL Albumin 2.3 GM/DL Vitals/IOs Vital Signs Date Time Temp Pulse Resp B/P Pulse Ox O2 Delivery O2 Flow Rate FiO2 10/21/16 16:02 97.6 93 18 108/76 95 10/19/16 16:10 Nasal Cannula 4.00 10/18/16 11:37 21 Intake and Output 10/20/16 10/20/16 10/21/16 08:00 16:00 00:00 Intake Total 120 ml 909 ml Output Total 750 ml 200 ml Balance 120 ml -750 ml 709 ml Assessment & Plan Problem List: (1) Delirium due to another medical condition ICD Code: F05 Assessment & Plan Estimated LOS: days patient doesn't M appears to be slowly resolving. For now continue psychiatric meds no change Justification for Cont. Inpt. At this time patient was significantly decompensated placed in the lower level of care Discharge Planning To be determined Jose Hewitt MD Oct 21, 2016 16:26
[2016-10-21] MEDS: HALOPERIDOL LACTATE 5 MG/ML AMP IM PRN (22:52)
[2016-10-22] VITALS (7 sets, daily range): BP systolic 98–130; BP diastolic 68–85; PULSE 77–103; RESP 18–20; TEMP 95.8–98.4; O2SAT 96–100
[2016-10-22] MEDS: SODIUM CHLOR 0.9% 1000 ML INJ 1,000 ML IV SCH (04:00)
[2016-10-22] MEDS: CHLORHEXIDINE GLUCONATE 2 % 1 PACK (2 CLOTHS) TOP SCH (04:00)
[2016-10-22] MEDS: LEVOTHYROXINE SODIUM 75 MCG TAB PO SCH (05:14)
[2016-10-22] MEDS: DIVALPROEX SODIUM SPRINKLES 125 MG CAP PO SCH ×3 (05:14→21:53)
[2016-10-22] MEDS: HEPARIN SODIUM - SQ 10,000 UNITS/ML VIAL SQ SCH ×2 (05:15→17:38)
[2016-10-22] MEDS: INSULIN NovoLIN REGULAR SUPPLEMENTAL SCALE SQ SCH ×3 (05:15→17:40)
[2016-10-22] MEDS: CHLORHEXIDINE 0.12% (ORAL KIT) 15 ML CUP MT SCH ×2 (08:00→20:00)
[2016-10-22] MEDS: TRIAMCINOLONE ACET 0.1% LOTION 60 ML BTL TOPICAL SCH (09:00)
[2016-10-22] MEDS: SODIUM CHLORIDE 0.9% FLUSH 5 ML FLUSH IV FLUSH SCH ×2 (09:00→21:00)
[2016-10-22] MEDS: HYDROCORTISONE ACETATE 25 MG SUPP RECTAL SCH ×2 (09:00→21:00)
[2016-10-22] MEDS: DOCUSATE SODIUM 100 MG CAP PO SCH ×2 (09:00→21:52)
[2016-10-22] MEDS: LINEZOLID 600 MG TAB PO SCH (09:04)
[2016-10-22] MEDS: ASPIRIN 81 MG CHEW TAB TUBE SCH (09:04)
[2016-10-22] MEDS: risperiDONE 1 MG TAB PO SCH ×3 (09:04→17:37)
[2016-10-22] MEDS: guaiFENesin E.R. 600 MG TAB PO SCH ×2 (09:04→21:52)
[2016-10-22] MEDS: ARTIFICIAL TEARS OPTH SOLN 15 ML BTL EACH EYE SCH ×3 (09:07→17:41)
--- NOTE | 2016-10-22 09:38 | HHI.PR ---
Subjective Remarks Patient seen at bedside. No SOB or CP reported. Patients restraints off. Nurse reported that patient had good night. Objective Vital Signs Date Time Temp Pulse Resp B/P Pulse Ox O2 Delivery O2 Flow Rate FiO2 10/22/16 08:00 98.4 91 18 130/85 100 10/22/16 04:00 95.8 77 18 121/76 100 10/22/16 00:00 97.8 91 19 98/69 99 10/21/16 23:00 95 10/21/16 20:00 97.4 93 19 97/61 100 10/21/16 16:02 97.6 93 18 108/76 95 10/21/16 12:53 75 10/21/16 11:33 95.8 80 20 137/77 100 I/O 10/21/16 10/21/16 10/21/16 10/22/16 10/22/16 10/22/16 07:00 15:00 23:00 07:00 15:00 23:00 Intake Total 1069 ml 745 ml Output Total 750 ml 425 ml 600 ml 700 ml Balance 319 ml -425 ml -600 ml 45 ml Intake Oral 0 ml 120 ml IV Total 1069 ml 625 ml Output Urine Total 750 ml 425 ml 600 ml 700 ml # Voids 0 0 # Bowel Movements 0 0 0 Result Diagram: 10/21/16 1120 10/21/16 1120 Objective Remarks SKIN: Warm and dry. HEAD: Atraumatic. Normocephalic. EYES: Pupils equal and round. No scleral icterus. No injection or drainage. ENT: No nasal bleeding or discharge. Mucous membranes pink and moist NECK: Trachea midline. No JVD. CARDIOVASCULAR: Regular rate and rhythm. RESPIRATORY: diminished in bases few rhonchi GASTROINTESTINAL: Abdomen soft, non-tender, nondistended. MUSCULOSKELETAL: Extremities without cyanosis. Left arm swollen from IV infiltrate. No obvious deformities. NEUROLOGICAL: Awake and alert. Normal speech. PSYCHIATRIC: combative at times. Medications and IVs Current Medications Medications (Trade) Dose Ordered Sig/Mercedes Route Start Time Stop Time Status Last Admin (NS Flush) 2 ml UNSCH PRN IV FLUSH 10/08/16 14:15 (NS Flush) 2 ml BID IV FLUSH 10/08/16 21:00 10/20/16 08:43 (Tylenol) 650 mg Q6H PRN PO 10/08/16 14:15 10/17/16 13:12 (Protonix Inj) 40 mg DAILY IV 10/09/16 09:00 10/21/16 09:00 (Tears Naturale Opth Soln) 1 drop TID EACH EYE 10/08/16 18:00 10/22/16 09:07 (Zofran Inj) 4 mg Q6H PRN IV 10/08/16 14:15 10/11/16 15:22 (Colace) 100 mg BID PO 10/08/16 21:00 10/22/16 09:00 (Senokot) 17.2 mg Q12H PRN PO 10/08/16 14:15 (Heparin Inj) 5,000 units Q12H SQ 10/08/16 16:00 10/22/16 05:15 Miscellaneous Information 1 Q361D XX 10/08/16 14:15 (Chlorhexidine 2% Cloth) Taper DAILY@04 TOP 10/09/16 04:00 10/05/17 03:59 10/13/16 04:00 (Chlorhexidine 2% Cloth) 3 pack UNSCH PRN TOP 10/08/16 14:15 (Peridex 0.12% Liq) 15 ml BID@08,20 MT 10/08/16 20:00 10/22/16 08:00 (Synthroid) 75 mcg DAILY@0600 PO 10/09/16 06:00 10/22/16 05:14 (Aspirin Chew) 81 mg DAILY TUBE 10/09/16 09:00 10/22/16 09:04 (Kenalog 0.1% Lotion) 1 applic DAILY TOPICAL 10/09/16 09:00 10/21/16 09:00 (Hemorrhoidal Hc Supp) 25 mg BID RECTAL 10/08/16 21:00 10/21/16 22:50 (D50w (Vial) Inj) 25 ml UNSCH PRN IV PUSH 10/08/16 15:00 (Glucagon Inj) 1 mg UNSCH PRN OTHER 10/08/16 15:00 (NovoLIN R SUPPLEMENTAL SCALE) 1 Q6HR SQ 10/08/16 18:00 10/20/16 01:07 (Depakote Sprinkles) 125 mg Q8HR PO 10/09/16 09:00 10/22/16 05:14 (Zyvox) 600 mg Q12HR PO 10/15/16 16:00 10/22/16 15:59 10/22/16 09:04 (SoluMEDROL INJ) 40 mg DAILY IV PUSH 10/17/16 09:00 10/21/16 09:00 (Haldol Inj) 2 mg Q6H PRN IM 10/17/16 09:45 10/21/16 22:52 Guaifenesin 600 mg 600 mg BID PO 10/18/16 12:00 10/22/16 09:04 (NS 1000 ml Inj) 1,000 ml @ 100 mls/hr Q10H IV 10/20/16 12:00 10/21/16 22:50 (risperDAL) 2 mg TID PO 10/20/16 18:00 10/22/16 09:04 Assessment and Plan Problem List: (1) Hypothyroidism Status: Acute Plan: Continue levothyroxine. TSH level 2.46 (2) Pneumonia Status: Acute Plan: On Zyvox with stop date on 10/22. Cough improved on Mucinex (3) Altered mental status Status: Acute Plan: Patient not oriented but in good spirits since Risperdal increase. Has Haldol IM as needed for increased agitation. Also being followed by Psych. Will monitor carefully (4) Sepsis Status: Acute Plan: Resolved. On Zyvox last dose today. WBC stable (5) Urinary retention Status: Acute Plan: Stout cath removed. Nursing I+ O cath. Flomax added and urology consulted. Recommended to I + O cath secondary to patients mental status increased risk of pulling catheter out. Only to cath if urinary retention is greater than 300 ml (6) GERD with esophagitis Status: Acute Plan: No complaints. Tolerating diet well. Continue Protonix. (7) History of COPD Status: Acute Plan: On solumedrol daily. On RA (8) Edema Status: Acute Plan: right upper arm edema and redness improved. Ultrasound ordered to r/o DVT which is negative. Left arm swollen from IV infiltrate. Discussed Condition With Assessment and plan discussed with Dr. Salgado Discharge Planning Plan to discharge to rehab. Problem Qualifiers (1) Hypothyroidism: Qualified Code: E03.9 - Hypothyroidism, unspecified type (2) Pneumonia: Qualified Code: J69.0 - Aspiration pneumonia of left lower lobe due to vomit (3) Altered mental status: Qualified Code: R41.82 - Altered mental status, unspecified altered mental status type Marimar Vazquez Oct 22, 2016 09:38
[2016-10-22] MEDS: methylPREDNISolone SOD SUCC 40 MG/1 ML VIAL IV PUSH SCH (11:54)
[2016-10-22] MEDS: PANTOPRAZOLE SODIUM 40 MG VIAL IV SCH ×2 (11:55→11:56)
[2016-10-22] MEDS: HALOPERIDOL LACTATE 5 MG/ML AMP IM PRN (21:53)
[2016-10-23] VITALS (7 sets, daily range): BP systolic 105–159; BP diastolic 67–93; PULSE 69–113; RESP 18–24; TEMP 97.1–98.7; O2SAT 95–100
[2016-10-23] MEDS: CHLORHEXIDINE GLUCONATE 2 % 1 PACK (2 CLOTHS) TOP SCH (03:59)
[2016-10-23] MEDS: HEPARIN SODIUM - SQ 10,000 UNITS/ML VIAL SQ SCH ×2 (03:59→18:56)
[2016-10-23] MEDS: LEVOTHYROXINE SODIUM 75 MCG TAB PO SCH (05:20)
[2016-10-23] MEDS: DIVALPROEX SODIUM SPRINKLES 125 MG CAP PO SCH ×3 (05:20→21:26)
[2016-10-23] MEDS: INSULIN NovoLIN REGULAR SUPPLEMENTAL SCALE SQ SCH ×4 (05:29→18:00)
[2016-10-23] MEDS: CHLORHEXIDINE 0.12% (ORAL KIT) 15 ML CUP MT SCH ×2 (09:00→20:00)
[2016-10-23] MEDS: HYDROCORTISONE ACETATE 25 MG SUPP RECTAL SCH ×2 (09:00→21:26)
[2016-10-23] MEDS: TRIAMCINOLONE ACET 0.1% LOTION 60 ML BTL TOPICAL SCH (09:00)
[2016-10-23] MEDS: SODIUM CHLORIDE 0.9% FLUSH 5 ML FLUSH IV FLUSH SCH ×2 (09:00→21:00)
[2016-10-23] MEDS: ARTIFICIAL TEARS OPTH SOLN 15 ML BTL EACH EYE SCH ×3 (09:00→18:00)
[2016-10-23 09:36] LABS: HEMATOCRIT 30.5 % (39.0-51.0); MEAN CELL VOLUME 98.7 FL (80.0-100.0); MEAN CORPUSCULAR HGB CONC 32.4 % (32.0-36.0); PLATELET COUNT 211 TH/MM3 (150-450); RED BLOOD COUNT 3.09 MIL/MM3 (4.50-5.90); RED CELL DISTRIBUTION WIDTH 16.9 % (11.6-17.2); REVIEW FLAG FINAL; WHITE BLOOD COUNT 8.1 TH/MM3 (4.0-11.0)
[2016-10-23 10:08] LABS: BICARBONATE 27.7 MEQ/L (21.0-32.0); POTASSIUM 4.1 MEQ/L (3.5-5.1)
[2016-10-23] MEDS: ASPIRIN 81 MG CHEW TAB TUBE SCH (10:24)
[2016-10-23] MEDS: DOCUSATE SODIUM 100 MG CAP PO SCH ×2 (10:25→21:26)
[2016-10-23] MEDS: guaiFENesin E.R. 600 MG TAB PO SCH ×2 (10:25→21:26)
[2016-10-23] MEDS: risperiDONE 1 MG TAB PO SCH ×3 (10:25→18:55)
[2016-10-23] MEDS: methylPREDNISolone SOD SUCC 40 MG/1 ML VIAL IV PUSH SCH (10:27)
--- NOTE | 2016-10-23 10:29 | HHI.PR ---
Subjective Remarks Patient seen at bedside. Patient with increased agitation. Restraints on. Patient is not oriented and looking for his car keys. No SOB or CP noted. Objective Vital Signs Date Time Temp Pulse Resp B/P Pulse Ox O2 Delivery O2 Flow Rate FiO2 10/23/16 08:00 98.1 101 20 118/67 100 10/23/16 04:00 98.6 102 24 159/93 99 10/23/16 00:00 98.1 109 22 105/72 99 10/22/16 20:00 98.2 103 20 113/68 100 10/22/16 18:00 95 10/22/16 16:00 97.8 90 18 126/70 96 10/22/16 12:00 98.1 90 20 124/82 100 I/O 10/22/16 10/22/16 10/22/16 10/23/16 10/23/16 10/23/16 07:00 15:00 23:00 07:00 15:00 23:00 Intake Total 745 ml 480 ml 240 ml Output Total 700 ml 300 ml 0 ml Balance 45 ml 180 ml 240 ml Intake Oral 120 ml 480 ml 240 ml IV Total 625 ml Output Urine Total 700 ml 300 ml 0 ml Bladder Scan Volume Amount 389 ml 10 ml 304 ml 304 ml 304 ml # Voids 0 # Bowel Movements 0 1 1 Result Diagram: 10/23/1682810/23/16828 Objective Remarks SKIN: Warm and dry. HEAD: Atraumatic. Normocephalic. EYES: Pupils equal and round. No scleral icterus. No injection or drainage. ENT: No nasal bleeding or discharge. Mucous membranes pink and moist NECK: Trachea midline. No JVD. CARDIOVASCULAR: Regular rate and rhythm. RESPIRATORY: diminished in bases few rhonchi GASTROINTESTINAL: Abdomen soft, non-tender, nondistended. MUSCULOSKELETAL: Extremities without cyanosis. Left arm swollen from IV infiltrate. No obvious deformities. NEUROLOGICAL: Awake and alert. Normal speech. PSYCHIATRIC: Disoriented and restrained. Medications and IVs Current Medications Medications (Trade) Dose Ordered Sig/Mercedes Route Start Time Stop Time Status Last Admin (NS Flush) 2 ml UNSCH PRN IV FLUSH 10/08/16 14:15 (NS Flush) 2 ml BID IV FLUSH 10/08/16 21:00 10/22/16 21:00 (Tylenol) 650 mg Q6H PRN PO 12/26/16 14:15 10/17/16 13:12 (Protonix Inj) 40 mg DAILY IV 10/09/16 09:00 10/22/16 11:56 (Tears Naturale Opth Soln) 1 drop TID EACH EYE 10/08/16 18:00 10/22/16 17:41 (Zofran Inj) 4 mg Q6H PRN IV 10/08/16 14:15 10/11/16 15:22 (Colace) 100 mg BID PO 10/08/16 21:00 10/22/16 21:52 (Senokot) 17.2 mg Q12H PRN PO 10/08/16 14:15 (Heparin Inj) 5,000 units Q12H SQ 10/08/16 16:00 10/23/16 03:59 Miscellaneous Information 1 Q361D XX 10/08/16 14:15 (Chlorhexidine 2% Cloth) Taper DAILY@04 TOP 10/09/16 04:00 10/05/17 03:59 10/13/16 04:00 (Chlorhexidine 2% Cloth) 3 pack UNSCH PRN TOP 10/08/16 14:15 (Peridex 0.12% Liq) 15 ml BID@08,20 MT 10/08/16 20:00 10/22/16 08:00 (Synthroid) 75 mcg DAILY@0600 PO 10/09/16 06:00 10/23/16 05:20 (Aspirin Chew) 81 mg DAILY TUBE 10/09/16 09:00 10/22/16 09:04 (Kenalog 0.1% Lotion) 1 applic DAILY TOPICAL 10/09/16 09:00 10/22/16 09:00 (Hemorrhoidal Hc Supp) 25 mg BID RECTAL 10/08/16 21:00 10/22/16 09:00 (D50w (Vial) Inj) 25 ml UNSCH PRN IV PUSH 10/08/16 15:00 (Glucagon Inj) 1 mg UNSCH PRN OTHER 10/08/16 15:00 (NovoLIN R SUPPLEMENTAL SCALE) 1 Q6HR SQ 10/08/16 18:00 10/22/16 17:40 (Depakote Sprinkles) 125 mg Q8HR PO 10/09/16 09:00 10/23/16 05:20 (SoluMEDROL INJ) 40 mg DAILY IV PUSH 10/17/16 09:00 10/22/16 11:54 (Haldol Inj) 2 mg Q6H PRN IM 10/17/16 09:45 10/22/16 21:53 (Mucinex Er) 600 mg BID PO 10/18/16 12:00 10/22/16 21:52 (risperDAL) 2 mg TID PO 10/20/16 18:00 10/22/16 17:37 Assessment and Plan Problem List: (1) Hypothyroidism Status: Acute Plan: Continue levothyroxine. TSH level 2.46 (2) Pneumonia Status: Acute Plan: Antibiotics complete. Cough improved on Mucinex. Chest Xray ordered. (3) Altered mental status Status: Acute Plan: Patient not oriented and needed to be restrained this am for increased agitation. Psych reconsulted for recommendations. Has Haldol IM as needed for increased agitation. Will monitor carefully (4) Sepsis Status: Acute Plan: Antibiotics completed. WBC stable (5) Urinary retention Status: Acute Plan: Stout cath removed. Nursing I+ O cath. Flomax added and urology consulted. Recommended to I + O cath secondary to patients mental status increased risk of pulling catheter out. Only cath if urinary retention is greater than 300 ml. Will recheck UA with increased agitation and confusion. (6) GERD with esophagitis Status: Acute Plan: No complaints. Tolerating diet well. Continue Protonix. (7) History of COPD Status: Acute Plan: On solumedrol will discontinue and start prednisone wean. On RA (8) Edema Status: Acute Plan: right upper arm edema and redness improved. Ultrasound ordered to r/o DVT which is negative. Left arm swollen from IV infiltrate. Discussed Condition With Assessment and plan discussed with Dr. Salgado Discharge Planning Plan for discharge to SNF Problem Qualifiers (1) Hypothyroidism: Qualified Code: E03.9 - Hypothyroidism, unspecified type (2) Pneumonia: Qualified Code: J69.0 - Aspiration pneumonia of left lower lobe due to vomit (3) Altered mental status: Qualified Code: R41.82 - Altered mental status, unspecified altered mental status type Marimar Vazquez Oct 23, 2016 10:29
--- NOTE | 2016-10-23 11:45 | RADRPT ---
EXAM DATE/TIME: 10/23/2016 11:06 [facility] COMPARISON: CHEST PA & LAT, October 15, 2016, 20:11. INDICATIONS : Short of breath. MEDICAL HISTORY : Hypertension. Chronic obstructive pulmonary disease. SURGICAL HISTORY : None. ENCOUNTER: Initial ACUITY: 1 week PAIN SCORE: Non-responsive. LOCATION: Bilateral chest FINDINGS: AP upright portable view of the chest demonstrates a retrocardiac opacity consistent with atelectasis and/or consolidation fluid. The remainder of the lungs are hypoinflated but grossly clear. Heart siz e appears normal. Pulmonary vasculature is normal. Osseous structures are unremarkable. CONCLUSION: Retrocardiac opacity consistent with either atelectasis, consolidation or pleural effusion.. Dania Fall MD on October 23, 2016 at 11:43 Board Certified Radiologist. This report was verified electronically.
--- NOTE | 2016-10-23 16:57 | HHI.PYPN ---
Subjective Remarks On psychiatric evaluation today patient was found calm, cooperative and pleasant , he reports good mood, he says that he is enjoying his hospitalization "people and food here are really good", patient denies depressive symptoms, he denies anxiety, he denies distress or pain, he denies suicidal or homicidal ideation, he denies visual and auditory hallucinations. Patient is partially oriented, he knows he is in a hospital in [place], disoriented in time, he things that he is in July 1997, however she is very able to sustain a conversation using compilation to fill up memory gaps. No aggressive behavior, combativeness , agitation observed at this moment. However, episodes of aggressive behavior at night reported. Review of Systems Other Patient doesn't have any somatic complaints Objective Alert: Yes [place]: Person, Place (partially) Mood: Calm Affect: Euthymic Memory Intact: Comment (very poor) Hallucinations: Other (deny) Delusions: No Delusion Type: Other (somewhat vigilant) Suicidal: Ideation (denies) Homicidal: Ideation (denies) Insight/Judgement Poor Labs Test 10/23/16 08:29 White Blood Count 8.1 TH/MM3 Red Blood Count 3.09 MIL/MM3 Hemoglobin 9.9 GM/DL Hematocrit 30.5 % Mean Corpuscular Volume 98.7 FL Mean Corpuscular Hemoglobin 32.0 PG Mean Corpuscular Hemoglobin 32.4 % Concent Red Cell Distribution Width 16.9 % Platelet Count 211 TH/MM3 Mean Platelet Volume 8.8 FL Sodium Level 143 MEQ/L Potassium Level 4.1 MEQ/L Chloride Level 109 MEQ/L Carbon Dioxide Level 27.7 MEQ/L Anion Gap 6 MEQ/L Blood Urea Nitrogen 11 MG/DL Creatinine 0.81 MG/DL Estimat Glomerular Filtration 90 ML/MIN Rate Random Glucose 88 MG/DL Calcium Level 8.1 MG/DL Vitals/IOs Vital Signs Date Time Temp Pulse Resp B/P Pulse Ox O2 Delivery O2 Flow Rate FiO2 10/23/16 12:00 97.1 88 20 125/73 95 10/19/16 16:10 Nasal Cannula 4.00 Intake and Output 10/22/16 10/22/16 10/23/16 08:00 16:00 00:00 Intake Total 745 ml 480 ml 240 ml Output Total 700 ml 300 ml 0 ml Balance 45 ml 180 ml 240 ml Assessment & Plan Problem List: (1) Delirium due to another medical condition Assessment & Plan: On psychiatric evaluation at this moment the patient does not present any mood or behavioral dysregulation, depression, anxiety, perceptual disturbances, suicidal or homicidal ideation that requires psychiatric admission, however episodes of aggressive behavior and combativeness at night are reported. We will increase his Depakote to 250 mg 3 times a day for behavior control, continue Risperdal 2 mg twice a day, will order Depakote levels, we'll continue follow-up. ICD Code: F05 Assessment & Plan Estimated LOS: days Justification for Cont. Inpt. Patient does not require inpatient psychiatric hospitalization Nelson Belle MD Oct 23, 2016 16:57
[2016-10-23] MEDS: HALOPERIDOL LACTATE 5 MG/ML AMP IM PRN (21:26)
[2016-10-24] VITALS (7 sets, daily range): BP systolic 93–179; BP diastolic 56–104; PULSE 87–125; RESP 18–20; TEMP 95.5–98; O2SAT 97–99
[2016-10-24] MEDS: HEPARIN SODIUM - SQ 10,000 UNITS/ML VIAL SQ SCH ×2 (03:57→17:40)
[2016-10-24] MEDS: CHLORHEXIDINE GLUCONATE 2 % 1 PACK (2 CLOTHS) TOP SCH (03:58)
[2016-10-24] MEDS: INSULIN NovoLIN REGULAR SUPPLEMENTAL SCALE SQ SCH ×5 (06:00→23:03)
[2016-10-24] MEDS: LEVOTHYROXINE SODIUM 75 MCG TAB PO SCH (06:00)
[2016-10-24] MEDS: DIVALPROEX SODIUM SPRINKLES 125 MG CAP PO SCH ×3 (06:00→22:47)
[2016-10-24 07:05] LABS: BICARBONATE 22.4 MEQ/L (21.0-32.0); POTASSIUM 4.7 MEQ/L (3.5-5.1)
[2016-10-24] MEDS: CHLORHEXIDINE 0.12% (ORAL KIT) 15 ML CUP MT SCH ×2 (08:00→20:00)
[2016-10-24] MEDS: ARTIFICIAL TEARS OPTH SOLN 15 ML BTL EACH EYE SCH ×3 (09:00→17:40)
[2016-10-24] MEDS: TRIAMCINOLONE ACET 0.1% LOTION 60 ML BTL TOPICAL SCH (09:00)
[2016-10-24 09:38] LABS: AUTOMATED NEUTROPHIL # 7.6 TH/MM3 (1.8-7.7); BASOPHIL # 0.1 TH/MM3 (0-0.2); BASOPHIL % 0.5 % (0.0-2.0); EOSINOPHIL # 0.2 TH/MM3 (0-0.4); EOSINOPHIL % 1.7 % (0.0-4.0); HEMO FLAGS DIFF FINAL; LYMPH % 14.5 % (9.0-44.0); LYMPHOCYTE # 1.5 TH/MM3 (1.0-4.8); MEAN CELL VOLUME 97.2 FL (80.0-100.0); MEAN CORPUSCULAR HEMOGLOBIN 31.8 PG (27.0-34.0); MEAN CORPUSCULAR HGB CONC 32.7 % (32.0-36.0); MONO % 11.5 % (0.0-8.0); NEUT % 71.8 % (16.0-70.0); PLATELET COUNT 211 TH/MM3 (150-450); RED BLOOD COUNT 3.19 MIL/MM3 (4.50-5.90); RED CELL DISTRIBUTION WIDTH 17.7 % (11.6-17.2); WHITE BLOOD COUNT 10.6 TH/MM3 (4.0-11.0)
[2016-10-24] MEDS: risperiDONE 1 MG TAB PO SCH ×3 (09:44→17:35)
[2016-10-24] MEDS: guaiFENesin E.R. 600 MG TAB PO SCH ×2 (09:44→22:46)
[2016-10-24] MEDS: ASPIRIN 81 MG CHEW TAB TUBE SCH (09:45)
[2016-10-24] MEDS: HYDROCORTISONE ACETATE 25 MG SUPP RECTAL SCH ×2 (09:45→22:46)
[2016-10-24] MEDS: predniSONE 5 MG TAB PO SCH (09:45)
[2016-10-24] MEDS: DOCUSATE SODIUM 100 MG CAP PO SCH ×2 (09:45→22:46)
[2016-10-24] MEDS: SODIUM CHLORIDE 0.9% FLUSH 5 ML FLUSH IV FLUSH SCH ×2 (09:46→22:48)
[2016-10-24] MEDS: PANTOPRAZOLE SODIUM 40 MG VIAL IV SCH (09:46)
--- NOTE | 2016-10-24 12:45 | HHI.PR ---
Subjective Remarks Patient seen at bedside. Patient with increased agitation last night reported per nursing haldol given. Restraints on. Patient is not oriented. No SOB or CP noted. Objective Vital Signs Date Time Temp Pulse Resp B/P Pulse Ox O2 Delivery O2 Flow Rate FiO2 10/24/16 11:32 98 Nasal Cannula 2.00 10/24/16 08:27 97.5 101 18 179/104 98 10/24/16 04:06 98.0 95 20 112/76 97 10/24/16 00:06 97.6 97 20 112/74 98 10/23/16 20:06 97.3 113 20 122/70 98 10/23/16 16:00 98.7 87 18 115/80 100 I/O 10/23/16 10/23/16 10/23/16 10/24/16 10/24/16 10/24/16 07:00 15:00 23:00 07:00 15:00 23:00 Intake Total 360 ml 240 ml Output Total 700 ml Balance 360 ml -460 ml Intake Oral 360 ml 240 ml Output Urine Total 700 ml Bladder Scan Volume Amount 304 ml 389 ml 538 ml 850 ml 304 ml 415 ml 850 ml 304 ml 415 ml # Voids 3 2 2 # Bowel Movements 1 1 1 Result Diagram: 10/24/16 0903 10/24/16 0620 Imaging Last 72 hours Impressions Chest X-Ray 10/23/16 0000 Signed Impressions: Service Date/Time: Sunday, October 23, 2016 11:06 - CONCLUSION: Retrocardiac opacity consistent with either atelectasis, consolidation or pleural effusion.. Dania Fall MD Objective Remarks SKIN: Warm and dry. HEAD: Atraumatic. Normocephalic. EYES: Pupils equal and round. No scleral icterus. No injection or drainage. ENT: No nasal bleeding or discharge. Mucous membranes pink and moist NECK: Trachea midline. No JVD. CARDIOVASCULAR: Regular rate and rhythm. RESPIRATORY: diminished in bases few rhonchi GASTROINTESTINAL: Abdomen soft, non-tender, nondistended. MUSCULOSKELETAL: Extremities without cyanosis. Left arm swollen from IV infiltrate. No obvious deformities. NEUROLOGICAL: Awake and alert. Normal speech. PSYCHIATRIC: Disoriented and restrained. Medications and IVs Current Medications Medications (Trade) Dose Ordered Sig/Mercedes Route Start Time Stop Time Status Last Admin (NS Flush) 2 ml UNSCH PRN IV FLUSH 10/08/16 14:15 (NS Flush) 2 ml BID IV FLUSH 10/08/16 21:00 10/24/16 09:46 (Tylenol) 650 mg Q6H PRN PO 10/08/16 14:15 10/17/16 13:12 (Protonix Inj) 40 mg DAILY IV 10/09/16 09:00 10/24/16 09:46 (Tears Naturale Opth Soln) 1 drop TID EACH EYE 10/08/16 18:00 10/24/16 09:00 (Zofran Inj) 4 mg Q6H PRN IV 10/08/16 14:15 10/11/16 15:22 (Colace) 100 mg BID PO 10/08/16 21:00 10/24/16 09:45 (Senokot) 17.2 mg Q12H PRN PO 10/08/16 14:15 (Heparin Inj) 5,000 units Q12H SQ 10/08/16 16:00 10/24/16 03:57 Miscellaneous Information 1 Q361D XX 10/08/16 14:15 (Chlorhexidine 2% Cloth) Taper DAILY@04 TOP 10/09/16 04:00 10/05/17 03:59 10/13/16 04:00 (Chlorhexidine 2% Cloth) 3 pack UNSCH PRN TOP 10/08/16 14:15 (Peridex 0.12% Liq) 15 ml BID@08,20 MT 10/08/16 20:00 10/23/16 09:00 (Synthroid) 75 mcg DAILY@0600 PO 10/09/16 06:00 10/24/16 06:00 (Aspirin Chew) 81 mg DAILY TUBE 10/09/16 09:00 10/24/16 09:45 (Kenalog 0.1% Lotion) 1 applic DAILY TOPICAL 10/09/16 09:00 10/24/16 09:00 (Hemorrhoidal Hc Supp) 25 mg BID RECTAL 10/08/16 21:00 10/24/16 09:45 (D50w (Vial) Inj) 25 ml UNSCH PRN IV PUSH 10/08/16 15:00 (Glucagon Inj) 1 mg UNSCH PRN OTHER 10/08/16 15:00 (NovoLIN R SUPPLEMENTAL SCALE) 1 Q6HR SQ 10/08/16 18:00 10/22/16 17:40 (Haldol Inj) 2 mg Q6H PRN IM 10/17/16 09:45 10/23/16 21:26 (Mucinex Er) 600 mg BID PO 10/18/16 12:00 10/24/16 09:44 (risperDAL) 2 mg TID PO 10/20/16 18:00 10/24/16 09:44 (Deltasone) 20 mg Taper DAILY PO 10/24/16 09:00 10/30/16 08:59 10/24/16 09:45 (Depakote Sprinkles) 250 mg Q8HR PO 10/23/16 22:00 10/24/16 06:00 Assessment and Plan Problem List: (1) Hypothyroidism Status: Chronic Plan: Continue levothyroxine. TSH level 2.46 (2) Pneumonia Status: Acute Plan: Antibiotics complete. Cough improved on Mucinex. Chest Xray ordered atelectasis and opacities noted. Pulmonary consulted. Patient remains on room air. No tachypnea noted. (3) Altered mental status Status: Acute Plan: Patient not oriented and restrained this am for increased agitation. Haldol given last night. Psych reconsulted for recommendations. Depakote increased. Has Haldol IM as needed for increased agitation. Will monitor carefully (4) Sepsis Status: Acute Plan: Antibiotics completed. WBC stable (5) Urinary retention Status: Acute Plan: Stout cath removed. Nursing I+ O cath. Flomax added and urology consulted. Recommended to I + O cath secondary to patients mental status increased risk of pulling catheter out. Only cath if urinary retention is greater than 300 ml. Will recheck UA with increased agitation and confusion. (6) GERD with esophagitis Status: Chronic Plan: No complaints. Tolerating diet well. Continue Protonix. (7) History of COPD Status: Chronic Plan: On solumedrol will discontinue and start prednisone wean. On RA (8) Edema Status: Acute Plan: right upper arm edema and redness improved. Ultrasound ordered to r/o DVT which is negative. Left arm swollen from IV infiltrate. Discussed Condition With Assessment and plan discussed with Dr. Salgado Discharge Planning Plan to discharge to SNF Problem Qualifiers (1) Hypothyroidism: Qualified Code: E03.9 - Hypothyroidism, unspecified type (2) Pneumonia: Qualified Code: J69.0 - Aspiration pneumonia of left lower lobe due to vomit (3) Altered mental status: Qualified Code: R41.82 - Altered mental status, unspecified altered mental status type Mraimar Vazquez Oct 24, 2016 12:44
--- NOTE | 2016-10-24 20:08 | MB ---
cc: MARIE SALGADO D.O., ARJUN D. MD DATE OF CONSULTATION: 10/24/[address] Salgado REASON FOR CONSULTATION Lung infiltrate and atelectasis. HISTORY OF PRESENT ILLNESS Mr. Mendosa is a pleasant 89-year-old male who lives in a nursing facility. He has a history of CVA, MRSA infection in the past and COPD. The patient was brought to the hospital from the [facility] with an episode of vomiting, shortness of breath and gurgling. The patient was admitted to the Intensive Care Unit. He was intubated and seen by the quality systems technician and ID specialist. He has been extubated. Currently he is weaned down to nasal cannula. He was treated with Vancomycin and then Zyvox. His lab evaluation revealed WBC count 10.6, hemoglobin 10.1, hematocrit 31, MCV 97, platelet count 211. Sodium 142, potassium 4.7, chloride 111, CO2 22, BUN 14, creatinine 0.80. His INR is 1.1. His chest x-ray shows retrocardiac opacity consistent with atelectasis or infiltrate. His sputum grew MRSA. PAST MEDICAL HISTORY Significant for a history of - 1. CVA. 2. Hypertension. 3. Rectal ulcer. 4. MRSA infection. 5. Osteoarthritis. 6. Peripheral neuropathy. 7. Depression. 8. Chronic kidney disease. 9. Cholecystectomy. 10. Appendectomy. 11. Laminectomy. MEDICATIONS He is currently taking - 1. Prednisone 20 mg a day. 2. Depakote 250 mg q.8 hours. 3. Risperdal 2 mg three times a day. 4. Mucinex 6 mg twice a day. 5. Haldol 2 mg q.6 hours p.r.n. 6. Protonix 40 mg a day. 7. Kenalog locally. 8. Levothyroxine 75 mcg a day. 9. Hydrocortisone cream for hemorrhoids. 10. Insulin on sliding scale. 11. Heparin 5000 q.12 hours. 12. Albuterol/Atrovent nebulizer treatment. ALLERGIES LEVAQUIN. 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 Has a history of smoking cigarettes and cigars. FAMILY HISTORY He has three children. REVIEW OF SYSTEMS The patient states that he was able to ambulate before but he is bedridden now. He is a somewhat poor historian and somewhat confused. No headache or dizziness. Denies any malignancy. PHYSICAL EXAMINATION GENERAL: Well-built, well-nourished male not in acute distress. VITAL SIGNS: Blood pressure 101/79, heart rate 87, respirations 18, temperature 96.7. HEENT: Pupils are equal and reactive. Oral mucosa, nasal mucosa normal. NECK: Supple. JVP not raised. CHEST: Slightly decreased breath sound at the bases. A few rhonchi. CARDIOVASCULAR: S1, S2 normal. ABDOMEN: Benign. EXTREMITIES: No edema. IMPRESSION 1. COPD. 2. Basal density likely atelectasis. He did have pneumonia with MRSA infection, he was just recently treated with antibiotic. 3. History of CVA. 4. Hypertension. 5. Hypothyroidism. 6. Neuropathy. PLAN He is off antibiotic and clinically he is stable. We will wean off his oxygen. Give him aerosol treatment with albuterol and Atrovent. Encourage him to use incentive spirometry. No need for anymore antibiotic at this time. We will monitor him clinically and repeat a chest x-ray in a few days. Further treatment will depend on the course in the hospital. Thank you Dr. Salgado for this consult. MD ESTEFANY Guevara/DEBBY /7:03 PM /7:31 PM SUSANNA
[2016-10-25] VITALS (7 sets, daily range): BP systolic 106–126; BP diastolic 62–105; PULSE 92–109; RESP 16–20; TEMP 95.4–98.4; O2SAT 95–100
[2016-10-25] MEDS: CHLORHEXIDINE GLUCONATE 2 % 1 PACK (2 CLOTHS) TOP SCH (04:00)
[2016-10-25] MEDS: HEPARIN SODIUM - SQ 10,000 UNITS/ML VIAL SQ SCH ×2 (04:55→17:44)
[2016-10-25] MEDS: LEVOTHYROXINE SODIUM 75 MCG TAB PO SCH (04:55)
[2016-10-25] MEDS: DIVALPROEX SODIUM SPRINKLES 125 MG CAP PO SCH ×3 (04:56→20:29)
[2016-10-25] MEDS: INSULIN NovoLIN REGULAR SUPPLEMENTAL SCALE SQ SCH ×3 (04:56→18:00)
[2016-10-25 06:53] LABS: BASOPHIL # 0.1 TH/MM3 (0-0.2); BASOPHIL % 0.6 % (0.0-2.0); EOSINOPHIL # 0.2 TH/MM3 (0-0.4); EOSINOPHIL % 1.6 % (0.0-4.0); HEMATOCRIT 29.5 % (39.0-51.0); HEMO FLAGS DIFF FINAL; LYMPH % 14.2 % (9.0-44.0); LYMPHOCYTE # 1.4 TH/MM3 (1.0-4.8); MEAN CELL VOLUME 97.4 FL (80.0-100.0); MEAN CORPUSCULAR HEMOGLOBIN 31.7 PG (27.0-34.0); MEAN CORPUSCULAR HGB CONC 32.6 % (32.0-36.0); MONO % 11.2 % (0.0-8.0); NEUT % 72.4 % (16.0-70.0); PLATELET COUNT 174 TH/MM3 (150-450); RED BLOOD COUNT 3.02 MIL/MM3 (4.50-5.90); RED CELL DISTRIBUTION WIDTH 17.3 % (11.6-17.2); WHITE BLOOD COUNT 9.6 TH/MM3 (4.0-11.0)
[2016-10-25 07:34] LABS: BICARBONATE 25.7 MEQ/L (21.0-32.0); POTASSIUM 3.9 MEQ/L (3.5-5.1)
[2016-10-25] MEDS: CHLORHEXIDINE 0.12% (ORAL KIT) 15 ML CUP MT SCH ×2 (08:00→20:00)
[2016-10-25] MEDS: PANTOPRAZOLE SODIUM 40 MG VIAL IV SCH (08:32)
[2016-10-25] MEDS: risperiDONE 1 MG TAB PO SCH ×3 (08:33→17:43)
[2016-10-25] MEDS: ARTIFICIAL TEARS OPTH SOLN 15 ML BTL EACH EYE SCH ×3 (08:33→17:45)
[2016-10-25] MEDS: guaiFENesin E.R. 600 MG TAB PO SCH ×2 (08:33→20:30)
[2016-10-25] MEDS: DOCUSATE SODIUM 100 MG CAP PO SCH ×2 (08:33→20:31)
[2016-10-25] MEDS: predniSONE 5 MG TAB PO SCH (08:33)
[2016-10-25] MEDS: ASPIRIN 81 MG CHEW TAB TUBE SCH (08:33)
[2016-10-25] MEDS: TRIAMCINOLONE ACET 0.1% LOTION 60 ML BTL TOPICAL SCH (08:41)
[2016-10-25] MEDS: SODIUM CHLORIDE 0.9% FLUSH 5 ML FLUSH IV FLUSH SCH ×2 (08:43→20:31)
--- NOTE | 2016-10-25 08:54 | HHI.PR ---
Subjective Remarks Patient seen at bedside. Patient in good spirits this morning restraints off. Patient is not oriented. No SOB or CP noted. Objective Vital Signs Date Time Temp Pulse Resp B/P Pulse Ox O2 Delivery O2 Flow Rate FiO2 10/25/16 08:00 95.4 102 20 109/105 100 10/25/16 04:00 97.0 109 20 112/66 97 10/25/16 00:00 96.9 101 20 122/70 96 10/24/16 20:00 103 10/24/16 20:00 97.1 125 18 93/63 99 10/24/16 16:25 96.7 87 18 101/79 98 10/24/16 12:00 95.5 95 18 100/56 98 10/24/16 11:32 98 Nasal Cannula 2.00 I/O 10/24/16 10/24/16 10/24/16 10/25/16 10/25/16 10/25/16 07:00 15:00 23:00 07:00 15:00 23:00 Intake Total 240 ml 240 ml 60 ml Output Total 500 ml 950 ml Balance -260 ml -710 ml 60 ml Intake Oral 240 ml 240 ml 60 ml Output Urine Total 500 ml 950 ml Bladder Scan Volume Amount 850 ml 425 ml 700 ml 999 ml 850 ml 556 ml # Voids 2 1 0 # Bowel Movements 1 0 1 0 Result Diagram: 10/25/1662110/25/16621 Objective Remarks SKIN: Warm and dry. HEAD: Atraumatic. Normocephalic. EYES: Pupils equal and round. No scleral icterus. No injection or drainage. ENT: No nasal bleeding or discharge. Mucous membranes pink and moist NECK: Trachea midline. No JVD. CARDIOVASCULAR: Regular rate and rhythm. RESPIRATORY: diminished in bases few rhonchi GASTROINTESTINAL: Abdomen soft, non-tender, nondistended. MUSCULOSKELETAL: Extremities without cyanosis. Left arm swollen from IV infiltrate. No obvious deformities. NEUROLOGICAL: Awake and alert. Normal speech. PSYCHIATRIC: Disoriented and restraints off. Medications and IVs Current Medications Medications (Trade) Dose Ordered Sig/Mercedes Route Start Time Stop Time Status Last Admin (NS Flush) 2 ml UNSCH PRN IV FLUSH 10/08/16 14:15 (NS Flush) 2 ml BID IV FLUSH 10/08/16 21:00 10/25/16 08:43 (Tylenol) 650 mg Q6H PRN PO 10/08/16 14:15 10/17/16 13:12 (Protonix Inj) 40 mg DAILY IV 10/09/16 09:00 10/25/16 08:32 (Tears Naturale Opth Soln) 1 drop TID EACH EYE 10/08/16 18:00 10/25/16 08:33 (Zofran Inj) 4 mg Q6H PRN IV 10/08/16 14:15 10/11/16 15:22 (Colace) 100 mg BID PO 10/08/16 21:00 10/25/16 08:33 (Senokot) 17.2 mg Q12H PRN PO 10/08/16 14:15 (Heparin Inj) 5,000 units Q12H SQ 10/08/16 16:00 10/25/16 04:55 Miscellaneous Information 1 Q361D XX 10/08/16 14:15 (Chlorhexidine 2% Cloth) Taper DAILY@04 TOP 10/09/16 04:00 10/05/17 03:59 10/13/16 04:00 (Chlorhexidine 2% Cloth) 3 pack UNSCH PRN TOP 10/08/16 14:15 (Peridex 0.12% Liq) 15 ml BID@08,20 MT 10/08/16 20:00 10/23/16 09:00 (Synthroid) 75 mcg DAILY@0600 PO 10/09/16 06:00 10/25/16 04:55 (Aspirin Chew) 81 mg DAILY TUBE 10/09/16 09:00 10/25/16 08:33 (Kenalog 0.1% Lotion) 1 applic DAILY TOPICAL 10/09/16 09:00 10/25/16 08:41 (Hemorrhoidal Hc Supp) 25 mg BID RECTAL 10/08/16 21:00 10/24/16 22:46 (D50w (Vial) Inj) 25 ml UNSCH PRN IV PUSH 10/08/16 15:00 (Glucagon Inj) 1 mg UNSCH PRN OTHER 10/08/16 15:00 (NovoLIN R SUPPLEMENTAL SCALE) 1 Q6HR SQ 10/08/16 18:00 10/22/16 17:40 (Haldol Inj) 2 mg Q6H PRN IM 10/17/16 09:45 10/23/16 21:26 (Mucinex Er) 600 mg BID PO 10/18/16 12:00 10/25/16 08:33 (risperDAL) 2 mg TID PO 10/20/16 18:00 10/25/16 08:33 (Deltasone) 20 mg Taper DAILY PO 10/24/16 09:00 10/30/16 08:59 10/25/16 08:33 (Depakote Sprinkles) 250 mg Q8HR PO 10/23/16 22:00 10/25/16 04:56 Assessment and Plan Problem List: (1) Hypothyroidism Status: Chronic Plan: Continue levothyroxine. TSH level 2.46 (2) Pneumonia Status: Acute Plan: Antibiotics complete. Cough improved on Mucinex. Chest Xray ordered atelectasis and opacities noted. Pulmonary consulted recommended weaning O2, albuterol and Atrovent, and repeat chest xray in a few days. Patient remains on room air. No tachypnea noted. (3) Altered mental status Status: Acute Plan: Patient not oriented, restraints off, in pleasant cooperative mood this am. Haldol given last night. Psych reconsulted for recommendations. Depakote increased. Has Haldol IM as needed for increased agitation. Will monitor carefully (4) Sepsis Status: Acute Plan: Antibiotics completed. WBC stable (5) Urinary retention Status: Acute Plan: Stout cath removed. Nursing I+ O cath. Urology consulted. Recommended to I + O cath secondary to patients mental status increased risk of pulling catheter out. Only cath if urinary retention is greater than 300 ml. UA ordered. Flomax resumed. (6) GERD with esophagitis Status: Chronic Plan: No complaints. Tolerating diet well. Continue Protonix changed to PO. (7) History of COPD Status: Chronic Plan: On solumedrol will discontinue and start prednisone wean. On RA (8) Edema Status: Acute Plan: Improving. Discussed Condition With Assessment and plan discussed with Dr. Salgado Discharge Planning Plan to discharge to SNF Problem Qualifiers (1) Hypothyroidism: Qualified Code: E03.9 - Hypothyroidism, unspecified type (2) Pneumonia: Qualified Code: J69.0 - Aspiration pneumonia of left lower lobe due to vomit (3) Altered mental status: Qualified Code: R41.82 - Altered mental status, unspecified altered mental status type Marimar Vazquez [facility] Oct 25, 2016 08:54
[2016-10-25] MEDS: HYDROCORTISONE ACETATE 25 MG SUPP RECTAL SCH ×2 (10:12→20:31)
[2016-10-25] MEDS: TAMSULOSIN HCL 0.4 MG CAP PO SCH (12:07)
--- NOTE | 2016-10-25 18:27 | HHI.PR ---
Subjective Remarks 89 YOWM with h/o CVA,COPD,recent pn Intermittentally confused Drnies SOB Good appetite No fever Objective Vital Signs Vital Signs Date Time Temp Pulse Resp B/P Pulse Ox O2 Delivery O2 Flow Rate FiO2 10/25/16 15:30 98.4 97 20 126/72 98 10/25/16 11:35 96.4 98 20 118/65 99 10/25/16 08:00 95.4 102 20 109/105 100 10/25/16 04:00 97.0 109 20 112/66 97 10/25/16 00:00 96.9 101 20 122/70 96 10/24/16 20:00 103 10/24/16 20:00 97.1 125 18 93/63 99 I/O 10/24/16 10/24/16 10/24/16 10/25/16 10/25/16 10/25/16 07:00 15:00 23:00 07:00 15:00 23:00 Intake Total 240 ml 240 ml 60 ml 480 ml Output Total 500 ml 950 ml Balance -260 ml -710 ml 60 ml 480 ml Intake Oral 240 ml 240 ml 60 ml 480 ml Output Urine Total 500 ml 950 ml Bladder Scan Volume Amount 850 ml 425 ml 700 ml 999 ml 354 ml 850 ml 556 ml 200 ml # Voids 2 1 0 3 2 # Bowel Movements 1 0 1 0 1 Result Diagram: 10/25/1662110/25/16621 Objective Remarks GENERAL: WBWN ,WM, NAD SKIN: Warm and dry. HEAD: Normocephalic. EYES: No scleral icterus. No injection or drainage. NECK: Supple, trachea midline. No JVD or lymphadenopathy. CARDIOVASCULAR: Regular rate and rhythm without murmurs, gallops, or rubs. RESPIRATORY: Breath sounds equal bilaterally. No accessory muscle use. GASTROINTESTINAL: Abdomen soft, non-tender, nondistended. MUSCULOSKELETAL: No cyanosis, or edema. BACK: Nontender without obvious deformity. No CVA tenderness. A/P Assessment and Plan Basal infilt/ atelactesis, s/p completing abx course COPD HTN neuropathy. PLAN: Aerosol nebs Supplement 02 Encourage to use Incentive spirometry PO Prednisone Mucinex bid. Randy Mcintosh MD Oct 25, 2016 18:27
[2016-10-25] MEDS: HALOPERIDOL LACTATE 5 MG/ML AMP IM PRN (20:30)
[2016-10-26] VITALS: BP 125/63; PULSE 80; RESP 16; TEMP 97.9; O2SAT 97
[2016-10-26] MEDS: CHLORHEXIDINE GLUCONATE 2 % 1 PACK (2 CLOTHS) TOP SCH (04:00)
[2016-10-26 04:56] VITALS: BP 128/70; PULSE 86; RESP 16; TEMP 97.7; O2SAT 96
[2016-10-26] MEDS: HEPARIN SODIUM - SQ 10,000 UNITS/ML VIAL SQ SCH (05:15)
[2016-10-26] MEDS: DIVALPROEX SODIUM SPRINKLES 125 MG CAP PO SCH ×2 (05:16→13:32)
[2016-10-26] MEDS: LEVOTHYROXINE SODIUM 75 MCG TAB PO SCH (05:16)
[2016-10-26] MEDS: INSULIN NovoLIN REGULAR SUPPLEMENTAL SCALE SQ SCH ×3 (05:22→12:00)
--- NOTE | 2016-10-26 06:57 | HHI.PR ---
Subjective Remarks Patient seen at bedside. Patient in good spirits this morning restraints off. Patient is not oriented. No SOB or CP noted. Objective Vital Signs Date Time Temp Pulse Resp B/P Pulse Ox O2 Delivery O2 Flow Rate FiO2 10/26/16 04:56 97.7 86 16 128/70 96 10/26/16 00:00 97.9 80 16 125/63 97 10/25/16 20:00 97.3 105 16 106/62 95 10/25/16 18:47 92 10/25/16 15:30 98.4 97 20 126/72 98 10/25/16 11:35 96.4 98 20 118/65 99 10/25/16 08:00 95.4 102 20 109/105 100 I/O 10/25/16 10/25/16 10/25/16 10/26/16 10/26/16 10/26/16 07:00 15:00 23:00 07:00 15:00 23:00 Intake Total 60 ml 480 ml 150 ml 150 ml Output Total 0 ml Balance 60 ml 480 ml 150 ml 150 ml Intake Oral 60 ml 480 ml 150 ml 150 ml Output Urine Total 0 ml Bladder Scan Volume Amount 999 ml 354 ml 200 ml # Voids 0 3 2 2 # Bowel Movements 0 1 0 1 Result Diagram: 10/25/1662110/25/16621 Objective Remarks SKIN: Warm and dry. HEAD: Atraumatic. Normocephalic. EYES: Pupils equal and round. No scleral icterus. No injection or drainage. ENT: No nasal bleeding or discharge. Mucous membranes pink and moist NECK: Trachea midline. No JVD. CARDIOVASCULAR: Regular rate and rhythm. RESPIRATORY: diminished in bases few rhonchi GASTROINTESTINAL: Abdomen soft, non-tender, nondistended. MUSCULOSKELETAL: Extremities without cyanosis. Left arm swollen from IV infiltrate. No obvious deformities. NEUROLOGICAL: Awake and alert. Normal speech. PSYCHIATRIC: Disoriented and restraints off. Assessment and Plan Problem List: (1) Hypothyroidism Status: Chronic Plan: Continue levothyroxine. TSH level 2.46 (2) Pneumonia Status: Acute Plan: Antibiotics complete. Cough improved on Mucinex. Chest Xray ordered atelectasis and opacities noted. Pulmonary consulted recommended weaning O2, albuterol and Atrovent, and repeat chest xray in a few days. Patient remains on room air. No tachypnea noted. (3) Altered mental status Status: Acute Plan: Patient not oriented, restraints off, in pleasant cooperative mood this am. Haldol given last night. Psych reconsulted for recommendations. Depakote increased. Has Haldol IM as needed for increased agitation. Will monitor carefully (4) Sepsis Status: Acute Plan: Antibiotics completed. WBC stable (5) Urinary retention Status: Acute Plan: Stout cath removed. Nursing I+ O cath. Urology consulted. Recommended to I + O cath secondary to patients mental status increased risk of pulling catheter out. Only cath if urinary retention is greater than 300 ml. UA ordered. Flomax resumed. (6) GERD with esophagitis Status: Chronic Plan: No complaints. Tolerating diet well. Continue Protonix changed to PO. (7) History of COPD Status: Chronic Plan: On solumedrol will discontinue and start prednisone wean. On RA (8) Edema Status: Acute Plan: Improving. Problem Qualifiers (1) Hypothyroidism: Qualified Code: E03.9 - Hypothyroidism, unspecified type (2) Pneumonia: Qualified Code: J69.0 - Aspiration pneumonia of left lower lobe due to vomit (3) Altered mental status: Qualified Code: R41.82 - Altered mental status, unspecified altered mental status type Marimar Vazquez Oct 26, 2016 06:57
[2016-10-26 07:33] LABS: BICARBONATE 29.4 MEQ/L (21.0-32.0)
[2016-10-26 08:00] VITALS: BP 158/76; PULSE 80; RESP 16; TEMP 97.6; O2SAT 96
[2016-10-26 08:18] VITALS: BP 158/76; PULSE 86; RESP 16; TEMP 97.6; O2SAT 96
[2016-10-26] MEDS: risperiDONE 1 MG TAB PO SCH ×2 (09:00→13:16)
[2016-10-26] MEDS: HYDROCORTISONE ACETATE 25 MG SUPP RECTAL SCH (09:00)
[2016-10-26] MEDS: CHLORHEXIDINE 0.12% (ORAL KIT) 15 ML CUP MT SCH (09:00)
[2016-10-26 09:17] LABS: HEMATOCRIT 28.4 % (39.0-51.0); MEAN CELL VOLUME 96.9 FL (80.0-100.0); MEAN CORPUSCULAR HEMOGLOBIN 33.3 PG (27.0-34.0); MEAN CORPUSCULAR HGB CONC 34.4 % (32.0-36.0); PLATELET COUNT 159 TH/MM3 (150-450); RED BLOOD COUNT 2.93 MIL/MM3 (4.50-5.90); RED CELL DISTRIBUTION WIDTH 18.1 % (11.6-17.2); REVIEW FLAG FINAL; WHITE BLOOD COUNT 10.1 TH/MM3 (4.0-11.0)
[2016-10-26] MEDS: ARTIFICIAL TEARS OPTH SOLN 15 ML BTL EACH EYE SCH ×2 (10:09→13:15)
[2016-10-26] MEDS: DOCUSATE SODIUM 100 MG CAP PO SCH (10:10)
[2016-10-26] MEDS: ASPIRIN 81 MG CHEW TAB TUBE SCH (10:10)
[2016-10-26] MEDS: TAMSULOSIN HCL 0.4 MG CAP PO SCH (10:10)
[2016-10-26] MEDS: SODIUM CHLORIDE 0.9% FLUSH 5 ML FLUSH IV FLUSH SCH (10:11)
[2016-10-26] MEDS: predniSONE 5 MG TAB PO SCH (10:11)
[2016-10-26] MEDS: guaiFENesin E.R. 600 MG TAB PO SCH (10:12)
[2016-10-26] MEDS: PANTOPRAZOLE SODIUM 40 MG VIAL IV SCH (10:13)
[2016-10-26] MEDS: TRIAMCINOLONE ACET 0.1% LOTION 60 ML BTL TOPICAL SCH (10:15)
[2016-10-26] MEDS ORDERED: TAMS5CAP PO (11:32)
[2016-10-26] MEDS ORDERED: RISP1 PO (11:32)
[2016-10-26] MEDS ORDERED: DIVA125C PO (11:32)
[2016-10-26] MEDS ORDERED: MUCI600T PO (11:32)
[2016-10-26] MEDS ORDERED: PRED5TAB PO (11:32)
--- NOTE | 2016-10-26 11:39 | HHI.DS ---
Discharge Summary Admission Date Oct 08, 2016 at 12:09 Discharge Date: Oct 26, 2016 Admitting Diagnosis aspiration pneumonia, hypoxic respiratory failure (1) Acute respiratory failure with hypoxia Diagnosis: Principal (2) BINH (acute kidney injury) Diagnosis: Principal (3) Encephalopathy Diagnosis: Principal (4) Leukocytosis Diagnosis: Principal (5) Urinary tract infection Diagnosis: Principal (6) Pneumonia Diagnosis: Principal (7) Altered mental status Diagnosis: Principal (8) Fever Diagnosis: Principal (9) History of COPD Diagnosis: Principal (10) Chronic low back pain Diagnosis: Principal (11) History of MRSA infection Diagnosis: Principal (12) Renal artery stenosis Diagnosis: Principal (13) Right cataract Diagnosis: Principal (14) History of CVA with residual deficit Diagnosis: Principal (15) Depression Diagnosis: Principal (16) Rectal ulcer Diagnosis: Principal (17) Hypertension Diagnosis: Principal (18) Hypothyroidism Diagnosis: Principal (19) Anemia Diagnosis: Principal (20) Severe sepsis Diagnosis: Principal (21) Neuropathy Diagnosis: Principal CBC/BMP: 10/26/16 0845 10/26/16 0625 Significant Findings Laboratory Tests Test 10/24/16 10/24/16 10/25/16 10/26/16 06:20 09:03 06:22 06:25 Chloride Level 111 MEQ/L 108 MEQ/L (98-107) (98-107) Random Glucose 72 MG/DL 116 MG/DL 72 MG/DL (74-106) (74-106) (74-106) Calcium Level 8.2 MG/DL 8.4 MG/DL (8.5-10.1) (8.5-10.1) Red Blood Count 3.19 MIL/MM3 3.02 MIL/MM3 (4.50-5.90) (4.50-5.90) Hemoglobin 10.1 GM/DL 9.6 GM/DL (13.0-17.0) (13.0-17.0) Hematocrit 31.0 % 29.5 % (39.0-51.0) (39.0-51.0) Red Cell Distribution Width 17.7 % 17.3 % (11.6-17.2) (11.6-17.2) Neutrophils (%) (Auto) 71.8 % 72.4 % (16.0-70.0) (16.0-70.0) Monocytes (%) (Auto) 11.5 % 11.2 % (0.0-8.0) (0.0-8.0) Monocytes # (Auto) 1.2 TH/MM3 1.1 TH/MM3 (0-0.9) (0-0.9) Estimat Glomerular Filtration 73 ML/MIN (>89) 76 ML/MIN (>89) Rate Test 10/26/16 08:45 Red Blood Count 2.93 MIL/MM3 (4.50-5.90) Hemoglobin 9.8 GM/DL (13.0-17.0) Hematocrit 28.4 % (39.0-51.0) Red Cell Distribution Width 18.1 % (11.6-17.2) PE at Discharge SKIN: Warm and dry. HEAD: Atraumatic. Normocephalic. EYES: Pupils equal and round. No scleral icterus. No injection or drainage. ENT: No nasal bleeding or discharge. Mucous membranes pink and moist NECK: Trachea midline. No JVD. CARDIOVASCULAR: Regular rate and rhythm. RESPIRATORY: diminished in bases few rhonchi GASTROINTESTINAL: Abdomen soft, non-tender, nondistended. MUSCULOSKELETAL: Extremities without cyanosis. Left arm swollen from IV infiltrate. No obvious deformities. NEUROLOGICAL: Awake and alert. Normal speech. PSYCHIATRIC: Disoriented and restraints off. Hospital Course 89 -year-old male. Date of admission 10/08/2016. Past medical history includes right eye cataract, prior CVA with left-sided weakness, rectal ulcers, history of MRSA, history of ELMO, COPD, osteoarthritis, peripheral neuropathy, chronic low back pain, skin cancer, depression, hypertension, hypothyroidism, anemia and gastritis. Patient is a retirement resident at the [facility]. He evidently had some episodes of vomiting earlier this morning and since then they found him struggling to breathe and gurgling. He is been less responsive than normal. Patient was intubated this admission for respiratory failure and was also treated for a UTI. His hospital course was also further complicated by behavior issues. Psychiatry was also following. He has been more cooperative over the last couple of days and antibiotic treatment is done. Plan for patient to be discharged to [facility] facility. Pt Condition on Discharge: Fair Discharge Disposition: Discharge to SNF Discharge Instructions DIET: Follow Instructions for: As Tolerated, No Restrictions Speech Therapy-Diet Recommenda: Honey Thickened Liquids, Pureed Activities you can perform: See Additionl Instruction Additional Activity Instructio: With assisstance New Medications: Divalproex Sprinkles (Depakote Sprinkles) 125 mg Cap 250 MG PO Q8HR Anxiety and/or Insomnia #90 CAP Guaifenesin ER 12 HR (Mucinex ER 12 HR) 600 Mg Vanessa 600 MG PO BID Chest Congestion/Cough #60 TAB Prednisone (Prednisone) 5 Mg Tab 10 MG PO DAILY Chest Congestion/Cough #7 TAB Risperidone (Risperdal) 1 Mg Tab 2 MG PO TID Anxiety #60 TAB Tamsulosin (Flomax) 0.4 Mg Cap 0.4 MG PO DAILY Urinary Symptom Managemen #30 CAP Continued Medications: Albuterol Neb (Albuterol Neb) 2.5 Mg/3 Ml Neb 2.5 MG NEB TID NEB PRN SHORTNESS OF BREATH #60 Ref 0 NEBULE Alprazolam (Xanax) 0.25 Mg Tab 0.25 MG PO Q8H PRN ANXIETY Ref 0 TAB Amlodipine (Amlodipine) 5 Mg Tab 5 MG PO DAILY Blood Pressure Management #30 Ref 0 TAB Aspirin (Aspirin) 81 Mg Tabdr 81 MG PO DAILY TAB Bisacodyl Supp (Dulcolax Supp) 10 Mg Supp 10 MG RECTAL DAILY PRN CONSTIPATION #12 Ref 0 SUPP Calcium Carbonate (Antacid) (Calcium Carbonate) 648 Mg Tab 648 MG PO DAILY TAB Cholecalciferol (Vitamin D) 2,000 Unit Tab PO DAILY Mgfkmgge-Bjvippbodprg-Rvgxinsp (Sm Dry Eye Relief 0.2-0.2-1 %) 1 Sweta Sweta 1 DROP EACH EYE TID Levothyroxine (Levothyroxine) 75 Mcg Tab 75 MCG PO DAILY Thyroid #30 Ref 0 TAB Magnesium Hydroxide Liq (Milk of Magnesia Liq) 400 Mg/5 Ml Susp 30 ML PO HS PRN INDIGESTION OR UPSET STOMACH #1 Ref 0 BOTTLE Metoprolol Tartrate (Metoprolol Tartrate) 25 Mg Tab 25 MG PO BID #60 Ref 0 TAB Multiple Vitamin (Multi Vitamin) 1 Tab Tab 1 TAB PO DAILY TAB Triamcinolone Acetonide (Topic (Triamcinolone Acetonide) 1 Pow Pow 0.1 % TOPICAL HS Discontinued Medications: Divalproex Sprinkles (Depakote Sprinkles) 125 mg Cap 125 MG PO TID Control Seizures #60 Ref 0 CAP Escitalopram (Lexapro) 20 Mg Tab 20 MG PO DAILY major depressive disorder #30 Ref 0 TAB Furosemide (Furosemide) 20 Mg Tab 20 MG PO DAILY #30 Ref 0 TAB Gabapentin (Gabapentin) 100 Mg Cap 100 MG PO BID #60 Ref 0 CAP Hydrocortisone-Pramoxine Topical (Analpram Hc Topical) 2.5-1% Cream 1 APPLIC TOPICAL Q8HR Pain Management #1 TUBE Lactobacillus Acidophilus (Floranex) 1 Gm Pkt 1 GM PO BID Nutritional Supplement #120 Ref 0 PKT Loratadine (Claritin) 10 Mg Tab 10 MG PO DAILY Allergy Management Ref 0 TAB Oxycodone-Acetaminophen (Percocet) 5-325 mg Tab 1 TAB PO Q8HR PRN PAIN Ref 0 TAB Quetiapine (Quetiapine) 25 Mg Tab 25 MG PO BID PRN ANXIETY AND/OR AGITATION #30 TAB Additional Information Patient is discharge to [facility] facility. He will be followed by Dr. Salgado. Medication reconciliation done. Marimar Vazquez Oct 26, 2016 11:38
[2016-10-26 12:00] VITALS: BP 105/76; PULSE 76; RESP 16; TEMP 97.5; O2SAT 96
[2016-10-26 16:00] VITALS: BP 151/82; PULSE 62; RESP 16; TEMP 97.2; O2SAT 96
--- NOTE | 2016-10-26 17:08 | HHI.PR ---
Subjective Remarks 89 YOWM with h/o CVA,COPD,recent pn Intermittentally confused Drnies SOB Good appetite No fever No new complaint Objective Vital Signs Vital Signs Date Time Temp Pulse Resp B/P Pulse Ox O2 Delivery O2 Flow Rate FiO2 10/26/16 12:00 97.5 76 16 105/76 96 10/26/16 12:00 97.5 76 16 105/76 96 10/26/16 08:18 97.6 86 16 158/76 96 10/26/16 08:00 97.6 80 16 158/76 96 10/26/16 04:56 97.7 86 16 128/70 96 10/26/16 00:00 97.9 80 16 125/63 97 10/25/16 20:00 97.3 105 16 106/62 95 10/25/16 18:47 92 I/O 10/25/16 10/25/16 10/25/16 10/26/16 10/26/16 10/26/16 07:00 15:00 23:00 07:00 15:00 23:00 Intake Total 60 ml 480 ml 150 ml 150 ml Output Total 0 ml Balance 60 ml 480 ml 150 ml 150 ml Intake Oral 60 ml 480 ml 150 ml 150 ml Output Urine Total 0 ml Bladder Scan Volume Amount 999 ml 354 ml 200 ml # Voids 0 3 2 2 # Bowel Movements 0 1 0 1 Result Diagram: 10/26/16 0845 10/26/16 0625 Objective Remarks GENERAL: WBWN ,WM, NAD SKIN: Warm and dry. HEAD: Normocephalic. EYES: No scleral icterus. No injection or drainage. NECK: Supple, trachea midline. No JVD or lymphadenopathy. CARDIOVASCULAR: Regular rate and rhythm without murmurs, gallops, or rubs. RESPIRATORY: Breath sounds equal bilaterally. No accessory muscle use. GASTROINTESTINAL: Abdomen soft, non-tender, nondistended. MUSCULOSKELETAL: No cyanosis, or edema. BACK: Nontender without obvious deformity. No CVA tenderness. A/P Assessment and Plan Basal infilt/ atelactesis, s/p completing abx course COPD HTN neuropathy. PLAN: Aerosol nebs Supplement 02 Encourage to use Incentive spirometry PO Prednisone Mucinex bid. DC plans underway for Randy Alegria MD Oct 26, 2016 17:08
== END 2016-10-26 17:58 | DRG 871 ==
LOC: NEPA 10:32 → NEDA 12:09 → HIMW 18:10 → N05A 10-15 18:42 → N05B 10-17 15:44
PROVIDERS: ADMIT Family Medicine; ATTEND Family Medicine
PROC: 5A1945Z Respiratory Ventilation, 24-96 Consecutive Hours (ICD-10-PCS; principal; 2016-10-08)
PROC: 0BH17EZ Insertion of Endotracheal Airway into Trachea, Via Natural or Artificial Opening (ICD-10-PCS; 2016-10-08)
DX: A41.9 Sepsis, unspecified organism (principal); J96.01 Acute respiratory failure with hypoxia; J69.0 Pneumonitis due to inhalation of food and vomit; N17.9 Acute kidney failure, unspecified; G92 Toxic encephalopathy; J15.212 Pneumonia due to Methicillin resistant Staphylococcus aureus; E87.2 Acidosis; K62.6 Ulcer of anus and rectum; J44.0 Chronic obstructive pulmonary disease with (acute) lower respiratory infection; F05 Delirium due to known physiological condition; N39.0 Urinary tract infection, site not specified; I69.354 Hemiplegia and hemiparesis following cerebral infarction affecting left non-dominant side; J98.11 Atelectasis; R65.20 Severe sepsis without septic shock; G62.9 Polyneuropathy, unspecified; G89.29 Other chronic pain; M54.5 Low back pain; F41.9 Anxiety disorder, unspecified; E03.9 Hypothyroidism, unspecified; J30.9 Allergic rhinitis, unspecified; N18.2 Chronic kidney disease, stage 2 (mild); I12.9 Hypertensive chronic kidney disease with stage 1 through stage 4 chronic kidney disease, or unspecified chronic kidney disease; D64.9 Anemia, unspecified; F03.90 Unspecified dementia, unspecified severity, without behavioral disturbance, psychotic disturbance, mood disturbance, and anxiety; L30.9 Dermatitis, unspecified; H25.9 Unspecified age-related cataract; I70.1 Atherosclerosis of renal artery; M19.90 Unspecified osteoarthritis, unspecified site; F20.9 Schizophrenia, unspecified; I07.1 Rheumatic tricuspid insufficiency; Y95 Nosocomial condition; K29.70 Gastritis, unspecified, without bleeding; K21.0 Gastro-esophageal reflux disease with esophagitis; B96.4 Proteus (mirabilis) (morganii) as the cause of diseases classified elsewhere; R33.9 Retention of urine, unspecified; Z79.891 Long term (current) use of opiate analgesic; Z87.440 Personal history of urinary (tract) infections; Z85.828 Personal history of other malignant neoplasm of skin; Z86.14 Personal history of Methicillin resistant Staphylococcus aureus infection; Z87.01 Personal history of pneumonia (recurrent); Z87.891 Personal history of nicotine dependence
CPT/HCPCS: 31500; 36600; 51702; 71010; 71020; 71275; 76775; 76937; 80048; 80053; 80164; 80202; 81001; 82140; 82805; 82948; 83605; 83735; 84100; 84443; 84484; 85025; 85027; 85379; 85610; 85730; 86403; 87040; 87070; 87077; 87086; 87147; 87186; 87205; 87449; 87641; 87804; 93306; 93971; 94002; 94003; 94150; 94640; 94664; 96360; 96365; 96375; 99292; C9113; J0330; J0456; J0692; J0712; J1200; J1630; J1644; J2405; J2920; J3370; J7030; J7040; J7050; J7512; J7613; Q9967

== ENCOUNTER 2016-11-06 05:46 | Inpatient (IN) | payer MEDICARE, BC ==
[~2016-11-06] VITALS: Ht 190.5 cm; Wt 114.9 kg
[2016-11-06] VITALS (19 sets, daily range): BP systolic 86–169; BP diastolic 51–103; PULSE 67–135; RESP 16–36; TEMP 97.1–102.9; O2SAT 93–100
[~2016-11-06 05:46] MED LIST changes: -ANALHC30T TOPICAL; -FURO20TA PO; -LACTG PO; -LEXA20TA PO; -LORA-361 PO; +MUCI600T PO; -Non-Formulary Drug RECTAL; -PERC5TAB12 PO; -POTA10CA PO; +PRED5TAB PO; -QUET1TAB7 PO; +RISP1 PO; +TAMS5CAP PO
[2016-11-06] MEDS ORDERED: CEFEPIME INJ 2,000 MG in SODIUM CHLORIDE 0.9% INJ 100 ML IV STA (06:06)
[2016-11-06] MEDS ORDERED: AZITHROMYCIN INJ 500 MG in SODIUM CHLOR 0.9% 250 ML INJ 250 ML IV STA (06:06)
[2016-11-06] MEDS ORDERED: methylPREDNISolone SOD SUCC 125 MG/2 ML VIAL IVP ONE (06:15)
[2016-11-06] MEDS ORDERED: ACETAMINOPHEN 325 MG TAB PO ONE (06:15)
[2016-11-06] MEDS ORDERED: SODIUM CHLORIDE 0.9% FLUSH 5 ML FLUSH IVF PRN (06:15)
[2016-11-06] MEDS: RESP: ALBUTEROL 2.5 MG/IPRATROPIUM 0.5 MG NEB (SCH) INH ×4 (06:26→20:30)
--- NOTE | 2016-11-06 06:27 | PD ---
HPI Chief Complaint: Respiratory Symptoms Time Seen by Provider: 05:49 Travel History International Travel<30 days: No Contact w/Intl Traveler<30days: No Traveled to known affect area: No History of Present Illness HPI The patient is an 89 year old male who presents to the [facility] emergency department with a history of shortness of breath that began sometime this evening. The patient is a resident at a local halfway. Ambulance services report that they were called out for this shortness of breath. Upon their arrival the patient was noted to be tachypneic. The patient was noted to be febrile. The patient on arrival to this facility has a temperature of 102.9. The patient was noted to have wheezing prior to arrival was given a nebulizer treatment. The patient himself is unable to provide any significant history due to his prior history of dementia. The patient is awake and alert on arrival. He is able to state his name. He reports that he is short of breath. The patient has a productive sounding cough noted on examination. The risks of rest of the patient's history is obtained from reviewing the patient's electronic medical record and halfway record. [facility] Past Medical History Narrative Medical The patient's past medical history is significant for a recent admission for sepsis at the end of September 2016 with a diagnosis of a left base infiltrate, blood cultures that grew out MRSA and a sputum culture that also grew out MRSA. The patient additionally has a history of dementia, cerebrovascular accident, and COPD. Arthritis: Yes Asthma: No Blood Disorders: No Anxiety: Yes Depression: Yes Cancer: Yes (SKIN ) Cardiovascular Problems: Yes High Cholesterol: No Chemotherapy: No Chest Pain: No Congestive Heart Failure: No COPD: Yes Cerebrovascular Accident: No Diabetes: No Diminished Hearing: No Endocrine: No Gastrointestinal Disorders: Yes GERD: Yes Glaucoma: No Genitourinary: No Hepatitis: No Hiatal Hernia: No Hypertension: Yes Immune Disorder: No Kidney Stones: No Musculoskeletal: Yes (CHRONIC BACK PROBLEMS ) Neurologic: Yes (NEUROPATHY) Psychiatric: Yes Reproductive: No Respiratory: Yes Radiation Therapy: No Renal Failure: No Thyroid Disease: Yes Ulcer: No Past Surgical History Narrative Surgical The patient's past surgical history is not able to be obtained from the patient. Abdominal Surgery: Yes (COLONOSCOPY) AICD: No Appendectomy: Yes Arteriovenous Shunt: No Cardiac Surgery: No Cholecystectomy: Yes Ear Surgery: No Endocrine Surgery: No Eye Surgery: No Genitourinary Surgery: Yes (TURP) Gynecologic Surgery: No Insulin Pump: No Joint Replacement: No Oral Surgery: No Thoracic Surgery: No Other Surgery: Yes (BACK SURGERY) Social History Alcohol Use: No Tobacco Use: No Substance Use: No Allergies-Medications (Allergen,Severity, Reaction): Coded Allergies: Levofloxacin (Verified Allergy, Severe, 11/06/16) *MDRO Multi-Drug Resistant Organism (Verified Adverse Reaction, Unknown, MRSA, 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/16) MRSA (sputum & blood) - 07/21/16 & 08/22/16; MRSA (sputum & blood-10/08/16),MRSA screen POSITIVE - 10/08/16 Reported Meds & Prescriptions Reported Meds & Active Scripts Active Flomax (Tamsulosin HCl) 0.4 Mg Cap 0.4 Mg PO DAILY Risperdal (Risperidone) 1 Mg Tab 2 Mg PO TID Prednisone 5 Mg Tab 10 Mg PO DAILY Mucinex ER 12 HR (Guaifenesin) 600 Mg Vanessa 600 Mg PO BID Depakote Sprinkles (Divalproex Sodium) 125 mg Cap 250 Mg PO Q8HR Reported Xanax (Alprazolam) 0.25 Mg Tab 0.25 Mg PO Q8H PRN Vitamin D (Cholecalciferol) 2,000 Unit Tab PO DAILY Triamcinolone Acetonide (Triamcinolone Acetonide (Topic) 1 Pow Pow 0.1 % TOPICAL HS Multi Vitamin (Multiple Vitamin) 1 Tab Tab 1 Tab PO DAILY Milk of Magnesia Liq (Magnesium Hydroxide) 400 Mg/5 Ml Susp 30 Ml PO HS PRN Metoprolol Tartrate 25 Mg Tab 25 Mg PO BID Levothyroxine (Levothyroxine Sodium) 75 Mcg Tab 75 Mcg PO DAILY Dulcolax Supp (Bisacodyl) 10 Mg Supp 10 Mg RECTAL DAILY PRN Calcium Carbonate (Calcium Carbonate (Antacid)) 648 Mg Tab 648 Mg PO DAILY Aspirin 81 Mg Tabdr 81 Mg PO DAILY Sm Dry Eye Relief 0.2-0.2-1 % (Gzrutztd-Jlvchoqjwmfz-Estrllej) 1 Sweta Sweta 1 Drop EACH EYE TID Amlodipine (Amlodipine Besylate) 5 Mg Tab 5 Mg PO DAILY Albuterol Neb (Albuterol Sulfate) 2.5 Mg/3 Ml Neb 2.5 Mg NEB TID NEB PRN Review of Systems Except as stated in HPI: all other systems reviewed are Neg General / Constitutional: Positive: Fever Eyes: No: Visual changes HENT: Positive: Congestion, No: Headaches Cardiovascular: Positive: Dyspnea on exertion, No: Chest Pain or Discomfort Respiratory: Positive: Cough, Shortness of Breath Gastrointestinal: No: Abdominal Pain Genitourinary: No: Dysuria Musculoskeletal: No: Pain Skin: No Rash Neurologic: No: Weakness Psychiatric: No: Depression Endocrine: No: Polydipsia Hematologic/Lymphatic: No: Easy Bruising Physical Exam Narrative General: The patient is a well-developed well-nourished male, slightly short of breath appearing on arrival to this facility with a productive sounding cough. Head and Neck exam: Head is normocephalic atraumatic. Eyes: Pupils are equal round and reactive to light. Nose: Midline septum with pink mucous membranes Mouth: Dentition unremarkable. Moist mucus membranes. Posterior oropharynx is not erythematous. No tonsillar hypertrophy. Uvula midline. Airway patent. Neck: No palpable lymphadenopathy. No nuchal rigidity. No thyromegaly. Cardiovascular: Tachycardia in the 130s without murmurs, gallops, or rubs. No pulse deficit to the extremities on simultaneous auscultation and palpation. Lungs: The patient has expiratory wheezes audible bilaterally. The patient has crackles audible on the left lung base. The patient has some accessory muscle use noted. Abdomen: Soft, without tenderness to palpation in all 4 quadrants of the abdomen. No guarding, rebound, or rigidity. Normal bowel sounds are audible. The patient has a chronic indwelling Stout catheter noted on examination. His urine is cloudy. Extremities: No clubbing, cyanosis, or edema. No calf tenderness on palpation. Back: No spinous process tenderness to palpation. No costovertebral angle tenderness to palpation. Neurologic Exam: Grossly nonfocal. Skin Exam: No rash noted. Intact skin that is warm and dry. Data Data Last Documented VS Vital Signs Date Time Temp Pulse Resp B/P Pulse Ox O2 Delivery O2 Flow Rate FiO2 11/06/16 06:33 133 24 103/51 98 Non-Rebreather 15 11/06/16 06:00 102.9 Orders Arterial Blood Gas (Abg) (11/06/16 06:06) Iv Access Insert/Monitor (11/06/16 06:06) Ecg Monitoring (11/06/16 06:06) Oximetry (11/06/16 06:06) Oxygen Administration (11/06/16 06:06) Chest, Single Ap (11/06/16 06:06) Sodium Chloride 0.9% Flush (Ns Flush) (11/06/16 06:15) Methylprednisolone So Succ Inj (Solumedr (11/06/16 06:15) Albuterol-Ipratropium Neb (Duoneb Neb) (11/06/16 06:15) Electrocardiogram (11/06/16 06:06) Complete Blood Count With Diff (11/06/16 06:06) Comprehensive Metabolic Panel (11/06/16 06:06) Prothrombin Time / Inr (Pt) (11/06/16 06:06) Act Partial Throm Time (Ptt) (11/06/16 06:06) Lactic Acid Sepsis Protocol (11/06/16 06:06) Magnesium (Mg) (11/06/16 06:06) Lipase (11/06/16 06:06) Ckmb (Isoenzyme) Profile (11/06/16 06:06) Troponin I (11/06/16 06:06) Urinalysis - C+S If Indicated (11/06/16 06:06) Influenzae A/B Antigen (11/06/16 06:06) Blood Culture (11/06/16 06:06) Sputum Culture And Gram Stain (11/06/16 06:06) Blood Glucose (11/06/16 06:06) Cefepime Inj (Maxipime Inj) (11/06/16 06:06) Azithromycin Inj (Zithromax Inj) (11/06/16 06:06) Acetaminophen (Tylenol) (11/06/16 06:15) Vancomycin Inj (Vancomycin Inj) (11/06/16 06:45) Sodium Chlor 0.9% 1000 Ml Inj (Ns 1000 M (11/06/16 07:04) Sodium Chlor 0.9% 1000 Ml Inj (Ns 1000 M (11/06/16 07:04) Sodium Chlor 0.9% 1000 Ml Inj (Ns 1000 M (11/06/16 07:04) Sodium Chlor 0.9% 1000 Ml Inj (Ns 1000 M (11/06/16 07:04) Resp Bipap / Cpap Non Invas Vt (11/06/16 ) Urine Culture (11/06/16 06:15) Labs Laboratory Tests Test 11/06/16 11/06/16 06:15 06:46 White Blood Count 9.9 TH/MM3 Red Blood Count 3.36 MIL/MM3 Hemoglobin 10.8 GM/DL Hematocrit 33.4 % Mean Corpuscular Volume 99.3 FL Mean Corpuscular Hemoglobin 32.2 PG Mean Corpuscular Hemoglobin 32.4 % Concent Red Cell Distribution Width 18.0 % Platelet Count 295 TH/MM3 Mean Platelet Volume 8.3 FL Neutrophils (%) (Auto) 86.5 % Lymphocytes (%) (Auto) 7.4 % Monocytes (%) (Auto) 4.4 % Eosinophils (%) (Auto) 1.2 % Basophils (%) (Auto) 0.5 % Neutrophils # (Auto) 8.6 TH/MM3 Lymphocytes # (Auto) 0.7 TH/MM3 Monocytes # (Auto) 0.4 TH/MM3 Eosinophils # (Auto) 0.1 TH/MM3 Basophils # (Auto) 0.1 TH/MM3 CBC Comment DIFF FINAL Differential Comment Prothrombin Time 10.9 SEC Prothromb Time International 1.0 RATIO Ratio Activated Partial 25.4 SEC Thromboplast Time Urine Color YELLOW Urine Turbidity HAZY Urine pH 6.0 Urine Specific [place] 1.019 Urine Protein TRACE mg/dL Urine Glucose (UA) NEG mg/dL Urine Ketones NEG mg/dL Urine Occult Blood SMALL Urine Nitrite POS Urine Bilirubin NEG Urine Urobilinogen LESS THAN 2.0 MG/DL Urine Leukocyte Esterase LARGE Urine RBC 11 /hpf Urine WBC 51 /hpf Urine Squamous Epithelial <1 /hpf Cells Urine Bacteria OCC /hpf Urine Mucus FEW /lpf Microscopic Urinalysis Comment CATH-CULTURE IND Sodium Level 141 MEQ/L Potassium Level 4.7 MEQ/L Chloride Level 105 MEQ/L Carbon Dioxide Level 24.4 MEQ/L Anion Gap 12 MEQ/L Blood Urea Nitrogen 26 MG/DL Creatinine 1.37 MG/DL Estimat Glomerular Filtration 49 ML/MIN Rate Random Glucose 152 MG/DL Lactic Acid Level 4.9 mmol/L Calcium Level 7.9 MG/DL Magnesium Level 1.9 MG/DL Total Bilirubin 0.3 MG/DL Aspartate Amino Transf 9 U/L (AST/SGOT) Alanine Aminotransferase 14 U/L (ALT/SGPT) Alkaline Phosphatase 71 U/L Total Creatine Kinase 31 U/L Troponin I 0.02 NG/ML Total Protein 6.2 GM/DL Albumin 2.4 GM/DL Lipase 179 U/L Blood Gas Puncture Site LT RADIAL Blood Gas Patient Temperature 98.6 Blood Gas HCO3 21 mmol/L Blood Gas Base Excess -2.8 mmol/L Blood Gas Oxygen Saturation 74 % Arterial Blood pH 7.41 Arterial Blood Partial 34 mmHg Pressure CO2 Arterial Blood Partial 45 mmHG Pressure O2 Arterial Blood Oxygen Content 12.1 Vol % Arterial Blood 1.9 % Carboxyhemoglobin Arterial Blood Methemoglobin 2.2 % Blood Gas Hemoglobin 11.7 G/DL Oxygen Delivery Device Non-Rebreathing Mask Blood Gas Liter Flow 15 L/M MDM Medical Decision Making Medical Screen Exam Complete: Yes Emergency Medical Condition: Yes Medical Record Reviewed: Yes Interpretation(s) Last Impressions Chest X-Ray 11/06/16 0606 Signed Impressions: Service Date/Time: Sunday, November 06, 2016 06:18 - CONCLUSION: The previously noted left lower lung infiltrate has improved. The rest of lungs are clear. No new infiltrates are demonstrated. Thompson Fabian MD Differential Diagnosis Sepsis due to pneumonia, versus sepsis due to urinary tract infection, versus influenza, versus COPD exacerbation with bronchitis Narrative Course During the course of the patients emergency department visit, the patients history, examination, and differential diagnosis were reviewed with the patient. The patient had IV access obtained and blood work sent for analysis. The patient was placed on a school services officer with oximetry and blood pressure monitoring. An EKG was done. The patient has a sinus tachycardia with left axis deviation, heart rate of 136. A chest x-ray was ordered. An ABG was ordered. The patient was provided DuoNeb 3, Solu-Medrol 125 mg IV, cefepime and Zithromax were started IV. Given the patient's history of MRSA the patient was also given vancomycin 1 g IV. The patient was started on normal saline 1 L IV fluid bolus. The patient was given Tylenol 650 by mouth 1. The patient's chest x-ray shows improvement of the left lower lobe infiltrate that was previously seen. No other acute abnormality The patient's case is checked out to the oncoming emergency physician. The patient will be admitted to the hospital for continued evaluation and treatment. Sepsis Criteria SIRS Criteria (2 or more): Temp > 100.9 or < 96.8, Heart rate over 90, RR > 20 or PaCO2 < 32 Sepsis Criteria (SIRS+source): Infect source susp/known Diagnosis Primary Impression: Sepsis Qualified Code: A41.9 - Sepsis, due to unspecified organism Admitting Information Admitting Physician Requests: it Violet Buckley MD Nov 06, 2016 06:27
--- NOTE | 2016-11-06 06:37 | RADRPT ---
EXAM DATE/TIME: 11/06/2016 06:18 [facility] COMPARISON: CHEST SINGLE AP, October 23, 2016, 11:06. INDICATIONS : Shortness of breath. MEDICAL HISTORY : Hypertension. Chronic obstructive pulmonary disease. SURGICAL HISTORY : None. ENCOUNTER: Initial ACUITY: 1 day PAIN SCORE: Non-responsive. LOCATION: Bilateral chest FINDINGS: A single view of the chest demonstrates a mild infiltrate in the left lung base. The right lung remai ns clear. There are no pleural effusions. The previously noted consolidation in the left lung base little s improved. The cardiomediastinal contours are unremarkable. Osseous structures are intact. CONCLUSION: The previously noted left lower lung infiltrate has improved. The rest of lungs are clear. No new inf iltrates are demonstrated. Thompson Fabian MD on November 06, 2016 at 6:34 Board Certified Radiologist. This report was verified electronically.
[2016-11-06] MEDS ORDERED: VANCOMYCIN INJ 1,000 MG in SODIUM CHLOR 0.9% 250 ML INJ 250 ML IV ONE (06:45)
[2016-11-06 06:49] LABS: AUTOMATED NEUTROPHIL # 8.6 TH/MM3 (1.8-7.7); BASOPHIL # 0.1 TH/MM3 (0-0.2); BASOPHIL % 0.5 % (0.0-2.0); EOSINOPHIL # 0.1 TH/MM3 (0-0.4); EOSINOPHIL % 1.2 % (0.0-4.0); HEMATOCRIT 33.4 % (39.0-51.0); HEMO FLAGS DIFF FINAL; LYMPH % 7.4 % (9.0-44.0); LYMPHOCYTE # 0.7 TH/MM3 (1.0-4.8); MEAN CELL VOLUME 99.3 FL (80.0-100.0); MEAN CORPUSCULAR HEMOGLOBIN 32.2 PG (27.0-34.0); MEAN CORPUSCULAR HGB CONC 32.4 % (32.0-36.0); MONO % 4.4 % (0.0-8.0); NEUT % 86.5 % (16.0-70.0); PLATELET COUNT 295 TH/MM3 (150-450); RED BLOOD COUNT 3.36 MIL/MM3 (4.50-5.90); WHITE BLOOD COUNT 9.9 TH/MM3 (4.0-11.0)
[2016-11-06 06:55] LABS: BLOOD GAS BASE EXCESS -2.8 mmol/L (-2-2); BLOOD GAS CARBOXYHEMOGLOBIN 1.9 % (0-4); BLOOD GAS HCO3 21 mmol/L (22-26); BLOOD GAS METHEMOGLOBIN 2.2 % (0-2); BLOOD GAS O2 HGB SATURATION 74 % (90-100); BLOOD GAS OXYGEN CONTENT 12.1 Vol % (12.0-20.0); BLOOD GAS PCO2 34 mmHg (38-42); BLOOD GAS PO2 45 mmHG (61-120); BLOOD GAS TOTAL HGB 11.7 G/DL (12.0-16.0); TEMP CORR TO 98.6
[2016-11-06 06:56] LABS: APTT (PATIENT) 25.4 SEC (24.3-30.1); PROTHROMBIN TIME - PATIENT 10.9 SEC (9.8-11.6)
[2016-11-06 06:58] LABS: CRITICAL VALUE YES; DRAW SITE LT RADIAL; LITER FLOW 15 L/M; NUMBER OF ARTERIAL PUNCTURES 2; STAT YES; ULNAR PULSE PRESENT
[2016-11-06 07:02] LABS: ANION GAP 12 MEQ/L (5-15); AST (GOT) 9 U/L (15-37); BICARBONATE 24.4 MEQ/L (21.0-32.0); BLOOD UREA NITROGEN 26 MG/DL (7-18); CHLORIDE 105 MEQ/L (98-107); GLOMERULAR FILTRATION RATE 49 ML/MIN (>89); MAGNESIUM 1.9 MG/DL (1.5-2.5); POTASSIUM 4.7 MEQ/L (3.5-5.1); SODIUM (NA) 141 MEQ/L (136-145)
[2016-11-06] MEDS ORDERED: SODIUM CHLOR 0.9% 1000 ML INJ 600 ML IV ONE (07:04)
[2016-11-06] MEDS ORDERED: SODIUM CHLOR 0.9% 1000 ML INJ 1,000 ML IV ONE ×3 (07:04)
[2016-11-06 07:06] LABS: ALKALINE PHOSPHATASE 71 U/L (45-117); ALT (GPT) 14 U/L (12-78); TOTAL BILIRUBIN ADULT 0.3 MG/DL (0.2-1.0)
[2016-11-06 07:07] LABS: BACTERIA, URINE OCC /hpf; BLOOD, URINE SMALL (NEG); GLUCOSE,URINE NEG (NEG); KETONE, URINE NEG (NEG); MUCUS URINE FEW /lpf (OCC); SQUAMOUS EPITHELIAL CELL URINE <1 /hpf (0-5); URINE COLOR YELLOW (YELLW/STRAW)
[2016-11-06 07:08] LABS: COMMENT (UR) CATH-CULTURE IND; CULTURE IF INDICATED CATH CULTURE IND; NITRITE,URINE POS (NEG)
[2016-11-06 07:13] LABS: CREATINE KINASE 31 U/L (39-308)
[2016-11-06] MEDS ORDERED: SUCCINYLCHOLINE CHLORIDE 200 MG/10 ML VIAL ONE (07:31)
[2016-11-06] MEDS ORDERED: ETOMIDATE 20 MG/10 ML VIAL ONE (07:31)
[2016-11-06] MEDS ORDERED: PROPOFOL 1000 MG/100 ML INJ 100 ML ONE (07:31)
[2016-11-06] MEDS ORDERED: PROPOFOL 1000 MG/100 ML INJ 100 ML IV SCH (07:45)
[2016-11-06] MEDS ORDERED: ETOMIDATE 20 MG/10 ML VIAL IV PUSH ONE (07:45)
[2016-11-06] MEDS ORDERED: SUCCINYLCHOLINE CHLORIDE 200 MG/10 ML VIAL IV PUSH ONE (07:45)
--- NOTE | 2016-11-06 07:52 | PD ---
Physical Exam Narrative Received sign out from previous team. Please see Dr. Buckley's note for full history and physical. This is a 89yo M with PMH of COPD, CVA, dementia that was sent here from intermediate for fever, and respiratory distress last night. Pt has a chronic costa catheter and noted to have cloudy urine as well. Pt was tachycardic, tachypneic and initially had wheezing bilaterally. Pt given duonebs, methylprednisolone 125mg and empirically treated with vancomycin, cefepime and azithromycin. NS IVF x4 also ordered. Work up was started by previous team and when I arrived, pt was placed on BIPAP because ABG showed O2 sat of 74% on non rebreather mask and pO2 of 45. Pt is AAOx2 and not tolerating BIPAP mask so he was emergently intubated for hypoxic respiratory failure by Dr. Buckley using RSI. Pt's blood pressure and tachycardia is improving with IVF NS and has 3 peripheral IV lines. Labs reviewed, no leukocytosis but neutrophil is 86.5%. H/H 10.8/33.4 which is at baseline. Lactic acid is elevated at 4.9. Creatinine is elevated at 1.37 from 0.94 previously. Troponin is negative at 0.02. UA is positive for nitrite and large leukocyte. CXR showed previously noted left lower lung infiltrate has improved. No new infiltrate. Discussed with director credit risk Dr. Garcia who recommended CT pulmonary angiogram to r/ o PE and CTa/p. CT angio showed no PE and CTa/p unremarkable. Pt's blood pressure is improved to 120s/80s. HR is also improving to 110s. Accepted to ICU and awaiting bed. Data Data Last Documented VS Vital Signs Date Time Temp Pulse Resp B/P Pulse Ox O2 Delivery O2 Flow Rate FiO2 11/06/16 08:07 101.7 109 16 102/56 100 Ventilator 60 11/06/16 07:40 15 Orders Arterial Blood Gas (Abg) (11/06/16 06:06) Iv Access Insert/Monitor (11/06/16 06:06) Ecg Monitoring (11/06/16 06:06) Oximetry (11/06/16 06:06) Oxygen Administration (11/06/16 06:06) Chest, Single Ap (11/06/16 06:06) Sodium Chloride 0.9% Flush (Ns Flush) (11/06/16 06:15) Methylprednisolone So Succ Inj (Solumedr (11/06/16 06:15) Albuterol-Ipratropium Neb (Duoneb Neb) (11/06/16 06:15) Electrocardiogram (11/06/16 06:06) Complete Blood Count With Diff (11/06/16 06:06) Comprehensive Metabolic Panel (11/06/16 06:06) Prothrombin Time / Inr (Pt) (11/06/16 06:06) Act Partial Throm Time (Ptt) (11/06/16 06:06) Lactic Acid Sepsis Protocol (11/06/16 06:06) Magnesium (Mg) (11/06/16 06:06) Lipase (11/06/16 06:06) Ckmb (Isoenzyme) Profile (11/06/16 06:06) Troponin I (11/06/16 06:06) Urinalysis - C+S If Indicated (11/06/16 06:06) Influenzae A/B Antigen (11/06/16 06:06) Blood Culture (11/06/16 06:06) Sputum Culture And Gram Stain (11/06/16 06:06) Blood Glucose (11/06/16 06:06) Cefepime Inj (Maxipime Inj) (11/06/16 06:06) Azithromycin Inj (Zithromax Inj) (11/06/16 06:06) Acetaminophen (Tylenol) (11/06/16 06:15) Vancomycin Inj (Vancomycin Inj) (11/06/16 06:45) Sodium Chlor 0.9% 1000 Ml Inj (Ns 1000 M (11/06/16 07:04) Sodium Chlor 0.9% 1000 Ml Inj (Ns 1000 M (11/06/16 07:04) Sodium Chlor 0.9% 1000 Ml Inj (Ns 1000 M (11/06/16 07:04) Sodium Chlor 0.9% 1000 Ml Inj (Ns 1000 M (11/06/16 07:04) Resp Bipap / Cpap Non Invas Vt (11/06/16 ) Urine Culture (11/06/16 06:15) Propofol 1000 Mg/100 Ml Inj (Diprivan 10 (11/06/16 07:31) Etomidate Inj (Amidate Inj) (11/06/16 07:31) Succinylcholine Inj (Quelicin Inj) (11/06/16 07:31) Etomidate Inj (Amidate Inj) (11/06/16 07:45) Succinylcholine Inj (Quelicin Inj) (11/06/16 07:45) Propofol 1000 Mg/100 Ml Inj (Diprivan 10 (11/06/16 07:45) ^ Infusion (11/06/16 07:31) RASS (11/06/16 07:31) Neurological Rass Scale TAMIKA.Q2H (11/06/16 07:31) Chest, Single Ap (11/06/16 ) Restraints Non-Violent TAMIKA.Q3H (11/06/16 07:41) Ibuprofen (Motrin) (11/06/16 08:00) Consult Loading And Unloading Supervisor (11/06/16 ) Ct Pulmonary Angiogram (11/06/16 ) Admit Order (Ed Use Only) (11/06/16 08:02) Admit To Inpatient (11/06/16 ) Supply Technician / Telemetry TAMIKA.Q8H (11/06/16 08:04) Insert Ng Tube (11/06/16 ) Diet Npo Except Meds (11/06/16 Breakfast) Sodium Chlor 0.9% 1000 Ml Inj (Ns 1000 M (11/06/16 08:04) Sodium Chloride 0.9% Flush (Ns Flush) (11/06/16 08:15) Sodium Chloride 0.9% Flush (Ns Flush) (11/06/16 09:00) Pantoprazole Inj (Protonix Inj) (11/06/16 09:00) Albuterol-Ipratropium Neb (Duoneb Neb) (11/06/16 10:00) Comprehensive Metabolic Panel (11/07/16 06:00) Complete Blood Count With Diff (11/07/16 06:00) Sputum Culture And Gram Stain (11/06/16 08:04) Chest, Single Ap (11/07/16 ) Resp Ventilation- Volume (11/06/16 ) Consult Pt Eval & Treat (11/06/16 08:04) Ot Request For Service (11/06/16 08:04) Enoxaparin Inj (Lovenox Inj) (11/06/16 10:00) Scd Bilateral/Knee High TAMIKA.BID (11/06/16 08:04) Sachin Bilateral/Knee High TAMIKA.QSHIFT (11/06/16 08:04) Piperacil-Tazo 4.5 Gm Premix (Zosyn 4.5 (11/06/16 10:00) ^ Initiate Protocol (11/06/16 08:04) ^ Instruction (11/06/16 08:04) [facility] Nursing Information (11/06/16 08:15) Chlorhexidine 2% Cloth (Chlorhexidine 2% (11/07/16 04:00) Chlorhexidine 2% Cloth (Chlorhexidine 2% (11/06/16 08:15) [facility]sa Pcr Surveillance (11/06/16 08:04) Propofol 1000 Mg/100 Ml Inj (Diprivan 10 (11/06/16 08:15) Inpatient Certification (11/06/16 ) ^ Medication Admin Instruction (11/06/16 08:09) ^ Notify Dr: Other (11/06/16 08:09) Phosphorus (Po4) (11/06/16 08:09) Potassium Chlor 40 Meq Premix (Kcl 40 Me (11/06/16 08:15) Potassium Chlor 20 Meq Premix (Kcl 20 Me (11/06/16 08:15) Potassium Cl 40 Meq/30 Ml Liq (Kcl 40 Me (11/06/16 08:15) Potassium Chlor 40 Meq Premix (Kcl 40 Me (11/06/16 08:15) Potassium Chlor 20 Meq Premix (Kcl 20 Me (11/06/16 08:15) Magnesium Sulfate Inj (Magnesium Sulfate (11/06/16 08:15) Magnesium Oxide (Mag-Ox) (11/06/16 08:15) Magnesium Sulfate Inj (Magnesium Sulfate (11/06/16 08:15) Potassium Phosphate (K-Phos) (11/06/16 08:15) Sodium Phosphate Inj (Sodium Phosphate I (11/06/16 08:15) Potassium Cl 40 Meq/30 Ml Liq (Kcl 40 Me (11/06/16 08:15) Potassium Phosphate (K-Phos) (11/06/16 08:15) Potassium Phosphate Inj (Potassium Phosp (11/06/16 08:15) Albuterol-Ipratropium Neb (Duoneb Neb) (11/06/16 08:15) Labs Laboratory Tests Test 11/06/16 11/06/16 06:15 06:46 White Blood Count 9.9 TH/MM3 Red Blood Count 3.36 MIL/MM3 Hemoglobin 10.8 GM/DL Hematocrit 33.4 % Mean Corpuscular Volume 99.3 FL Mean Corpuscular Hemoglobin 32.2 PG Mean Corpuscular Hemoglobin 32.4 % Concent Red Cell Distribution Width 18.0 % Platelet Count 295 TH/MM3 Mean Platelet Volume 8.3 FL Neutrophils (%) (Auto) 86.5 % Lymphocytes (%) (Auto) 7.4 % Monocytes (%) (Auto) 4.4 % Eosinophils (%) (Auto) 1.2 % Basophils (%) (Auto) 0.5 % Neutrophils # (Auto) 8.6 TH/MM3 Lymphocytes # (Auto) 0.7 TH/MM3 Monocytes # (Auto) 0.4 TH/MM3 Eosinophils # (Auto) 0.1 TH/MM3 Basophils # (Auto) 0.1 TH/MM3 CBC Comment DIFF FINAL Differential Comment Prothrombin Time 10.9 SEC Prothromb Time International 1.0 RATIO Ratio Activated Partial 25.4 SEC Thromboplast Time Urine Color YELLOW Urine Turbidity HAZY Urine pH 6.0 Urine Specific [place] 1.019 Urine Protein TRACE mg/dL Urine Glucose (UA) NEG mg/dL Urine Ketones NEG mg/dL Urine Occult Blood SMALL Urine Nitrite POS Urine Bilirubin NEG Urine Urobilinogen LESS THAN 2.0 MG/DL Urine Leukocyte Esterase LARGE Urine RBC 11 /hpf Urine WBC 51 /hpf Urine Squamous Epithelial <1 /hpf Cells Urine Bacteria OCC /hpf Urine Mucus FEW /lpf Microscopic Urinalysis Comment CATH-CULTURE IND Sodium Level 141 MEQ/L Potassium Level 4.7 MEQ/L Chloride Level 105 MEQ/L Carbon Dioxide Level 24.4 MEQ/L Anion Gap 12 MEQ/L Blood Urea Nitrogen 26 MG/DL Creatinine 1.37 MG/DL Estimat Glomerular Filtration 49 ML/MIN Rate Random Glucose 152 MG/DL Lactic Acid Level 4.9 mmol/L Calcium Level 7.9 MG/DL Magnesium Level 1.9 MG/DL Total Bilirubin 0.3 MG/DL Aspartate Amino Transf 9 U/L (AST/SGOT) Alanine Aminotransferase 14 U/L (ALT/SGPT) Alkaline Phosphatase 71 U/L Total Creatine Kinase 31 U/L Troponin I 0.02 NG/ML Total Protein 6.2 GM/DL Albumin 2.4 GM/DL Lipase 179 U/L Blood Gas Puncture Site LT RADIAL Blood Gas Patient Temperature 98.6 Blood Gas HCO3 21 mmol/L Blood Gas Base Excess -2.8 mmol/L Blood Gas Oxygen Saturation 74 % Arterial Blood pH 7.41 Arterial Blood Partial 34 mmHg Pressure CO2 Arterial Blood Partial 45 mmHG Pressure O2 Arterial Blood Oxygen Content 12.1 Vol % Arterial Blood 1.9 % Carboxyhemoglobin Arterial Blood Methemoglobin 2.2 % Blood Gas Hemoglobin 11.7 G/DL Oxygen Delivery Device Non-Rebreathing Mask Blood Gas Liter Flow 15 L/M MDM Supervised Visit with MITALI: No Critical Care Narrative Aggregate critical care time was 35 minutes. Time to perform other separately billable procedures was not included in the critical care time. My time did not include minutes spent treating any other patients simultaneously or on activities that did not directly contribute to the patient's treatment. The services I provided to this patient were to treat and/or prevent clinically significant deterioration that could result in: cardiovascular collapse or . I provided critical care services requiring my management, as noted below: Chart data review, documentation time, medication orders and management, vital sign assessments/reviewing monitor data, ordering and reviewing lab tests, ordering and interpreting/reviewing x-rays and diagnostic studies, care of the patient and discussion of the patient with the admitting physicians. Diagnosis Primary Impression: Acute respiratory failure with hypoxia Admitting Information Admitting Physician Requests: Argenis Shell DO Nov 06, 2016 07:52
[2016-11-06] MEDS ORDERED: IBUPROFEN 600 MG TAB OG ONE (08:00)
[2016-11-06] MEDS ORDERED: SODIUM CHLORIDE 0.9% FLUSH 5 ML FLUSH IV FLUSH PRN (08:15)
[2016-11-06] MEDS ORDERED: MAGNESIUM SULFATE INJ 2 GM in SODIUM CHLORIDE 0.9% INJ 96 ML IV PRN (08:15)
[2016-11-06] MEDS ORDERED: POTASSIUM CHLOR 20 MEQ PREMIX 100 ML IV PRN ×2 (08:15)
[2016-11-06] MEDS ORDERED: MAGNESIUM SULFATE INJ 4 GM in SODIUM CHLORIDE 0.9% INJ 92 ML IV PRN (08:15)
[2016-11-06] MEDS ORDERED: POTASSIUM CL 40 MEQ/30 ML LIQ UDC PO/TUBE PRN ×2 (08:15)
[2016-11-06] MEDS ORDERED: CHLORHEXIDINE GLUCONATE 2 % 1 PACK (2 CLOTHS) TOP PRN (08:15)
[2016-11-06] MEDS ORDERED: MISCELLANEOUS NURSING INFORMATION XX SCH (08:15)
[2016-11-06] MEDS ORDERED: SODIUM PHOSPHATE INJ 30 MMOL in SODIUM CHLOR 0.9% 250 ML INJ 240 ML IV PRN (08:15)
[2016-11-06] MEDS ORDERED: POTASSIUM CHLOR 40 MEQ PREMIX 100 ML IV PRN ×2 (08:15)
[2016-11-06] MEDS ORDERED: MAGNESIUM OXIDE 400 MG TAB PO PRN (08:15)
[2016-11-06] MEDS ORDERED: POTASSIUM PHOSPHATE INJ 30 MMOL in SODIUM CHLOR 0.9% 250 ML INJ 250 ML IV PRN (08:15)
[2016-11-06] MEDS ORDERED: POTASSIUM PHOSPHATE MONOBASIC 500 MG TAB PO/TUBE PRN (08:15)
[2016-11-06] MEDS ORDERED: RESP: ALBUTEROL 2.5 MG/IPRATROPIUM 0.5 MG NEB (PRN) INH (08:15)
[2016-11-06] MEDS ORDERED: POTASSIUM PHOSPHATE MONOBASIC 500 MG TAB PO PRN (08:15)
--- NOTE | 2016-11-06 08:25 | RADRPT ---
EXAM DATE/TIME: 11/06/2016 08:05 [facility] COMPARISON: CHEST SINGLE AP, November 06, 2016, 6:18. INDICATIONS : Post intubation. MEDICAL HISTORY : Hypertension. Chronic obstructive pulmonary disease. SURGICAL HISTORY : None. ENCOUNTER: Subsequent ACUITY: 1 day PAIN SCORE: Non-responsive. LOCATION: Bilateral chest FINDINGS: Portable AP view of the chest demonstrates a normal-sized cardiac silhouette. Endotracheal tube measu res approximately 5.8 cm from the magnolia. NG tube courses beyond the GE junction. Lungs are underinfl ated there is airspace consolidation in the left lower lobe. No effusion or pneumothorax is visualize d. CONCLUSION: 1. Endotracheal tube tip measures approximately 5.8 cm from the magnolia. 2. Persistent left lower lobe airspace consolidation. Jose Jiménez MD on November 06, 2016 at 8:21 Board Certified Radiologist. This report was verified electronically.
[2016-11-06 08:27] LABS: LACTIC ACID GHOST NOT REPORTABLE
[2016-11-06] MEDS: SODIUM CHLORIDE 0.9% FLUSH 5 ML FLUSH IV FLUSH SCH ×2 (09:00→20:51)
[2016-11-06] MEDS: PANTOPRAZOLE SODIUM 40 MG VIAL IV SCH (09:52)
[2016-11-06] MEDS: SODIUM CHLOR 0.9% 1000 ML INJ 1,000 ML IV SCH ×2 (09:53→20:52)
[2016-11-06] MEDS ORDERED: Vancomycin Consult Pharmacy 1 EA OTHER SCH (10:30)
--- NOTE | 2016-11-06 10:43 | HHI.HP ---
[facility] Service Critical Care Medicine Primary Care Physician Lencho Salgado, DO Admission Diagnosis Urosepsis, hypoxic respiratory failure Diagnosis: (1) Acute respiratory failure with hypoxia Diagnosis: Principal (2) Severe sepsis Diagnosis: Principal (3) UTI (urinary tract infection) Diagnosis: Principal (4) HCAP (healthcare-associated pneumonia) Diagnosis: Principal (5) Lactic acidosis Diagnosis: Principal (6) COPD (chronic obstructive pulmonary disease) Diagnosis: Principal (7) Fever Diagnosis: Principal (8) Hypothyroidism Diagnosis: Secondary (9) Hypertension Diagnosis: Secondary (10) History of CVA with residual deficit Diagnosis: Secondary (11) History of MRSA infection Diagnosis: Secondary Chief Complaint: Severe sepsis Acute respiratory failure Travel History International Travel<30 Days: No Contact w/Intl Traveler <30 Da: No Traveled to Known Affected Are: No Sepsis Criteria SIRS Criteria (2 or more): Temp > 100.9 or < 96.8, Heart rate over 90, RR > 20 or PaCO2 < 32 Sepsis Criteria (SIRS+source): Infect source susp/known Severe Sepsis (+one): Hypotension, Lactate >2 Septic Shock Criteria: Lactic acid >=4 Criteria Outcome: Meets severe sepsis criteria History of Present Illness The patient is an 89 year old male who is a local [place] resident with past medical history significant for recent MRSA sepsis from pneumonia in Sep 2016, dementia , COPD, CVA, hypertension who presented to the emergency department with increasing shortness of breath overnight. Upon EMS arrival patient was tachypneic and febrile. The patient on arrival to [place] had a temperature of 102.9 and diffuse wheezing. Apparently he was alert and awake on arrival and had productive cough. The patient had IV access obtained and blood work sent for analysis. He was initially normotensive with sinus tachycardia heart rate of 136. A chest x-ray showed persistent left lower lobe infiltrate, ABG showed severe hypoxia. The patient was given DuoNeb 3, Solu-Medrol 125 mg IV, cefepime and Zithromax were started IV and also vancomycin 1 g IV. She was temporarily placed on BiPAP without improvement, and so was emergently intubated and placed on mechanical ventilation. Patient received a total of 4 L normal saline IV fluid. Critical care medicine was consulted for ICU admission. Pertinent labs include a lactate of 4.9 BUN was 26 with a creatinine of 1.4. UA showed evidence of UTI. His source of severe sepsis appears to be pneumonia and UTI. No further history is obtainable from the patient. I evaluated the patient in the ED. He is intubated sedated on 100% oxygen with oxygen saturation now 100%. Repeat ABG is pending. Due to profound hypoxia I' ll get a CT angiogram of the chest and also CT abdomen pelvis. He'll be placed on IV Zosyn, azithromycin and IV vancomycin Review of Systems ROS Limitations: Intubated, Altered Mental Status Past Family Social History Allergies: Coded Allergies: Levofloxacin (Verified Allergy, Severe, 11/06/16) *MDRO Multi-Drug Resistant Organism (Verified Adverse Reaction, Unknown, MRSA, 11/06/16) MRSA (sputum & blood) - 07/21/16 & 08/22/16; MRSA (sputum & blood-10/08/16),MRSA screen POSITIVE - 10/08/16 Past Medical History Recent admission for sepsis at the end of September 2016 HCAP, MRSA pneumonia and bacteremia Dementia COPD Peripheral neuropathy Recurrent pneumonia History CVA with left weakness History of MRSA History of skin cancer Depression Hypertension Hypothyroidism Chronic kidney disease stage II to 3 History recurrent GI bleeding Gastritis Anemia Chronic benzodiazepine use Chronic narcotic use Past Surgical History Hernia repair Appendectomy Cholecystectomy TURP Laminectomy Reported Medications Flomax (Tamsulosin HCl) 0.4 Mg Cap 0.4 Mg PO DAILY Risperdal (Risperidone) 1 Mg Tab 2 Mg PO TID Prednisone 5 Mg Tab 10 Mg PO DAILY Mucinex ER 12 HR (Guaifenesin) 600 Mg Vanessa 600 Mg PO BID Depakote Sprinkles (Divalproex Sodium) 125 mg Cap 250 Mg PO Q8HR Xanax (Alprazolam) 0.25 Mg Tab 0.25 Mg PO Q8H PRN Vitamin D (Cholecalciferol) 2,000 Unit Tab PO DAILY Triamcinolone Acetonide (Triamcinolone Acetonide (Topic) 1 Pow Pow 0.1 % TOPICAL HS Multi Vitamin (Multiple Vitamin) 1 Tab Tab 1 Tab PO DAILY Milk of Magnesia Liq (Magnesium Hydroxide) 400 Mg/5 Ml Susp 30 Ml PO HS PRN Metoprolol Tartrate 25 Mg Tab 25 Mg PO BID Levothyroxine (Levothyroxine Sodium) 75 Mcg Tab 75 Mcg PO DAILY Dulcolax Supp (Bisacodyl) 10 Mg Supp 10 Mg RECTAL DAILY PRN Calcium Carbonate (Calcium Carbonate (Antacid)) 648 Mg Tab 648 Mg PO DAILY Aspirin 81 Mg Tabdr 81 Mg PO DAILY Sm Dry Eye Relief 0.2-0.2-1 % (Ivwoobth-Oezmoeynowdx-Dwoxlfbs) 1 Sweta Sweta 1 Drop EACH EYE TID Amlodipine (Amlodipine Besylate) 5 Mg Tab 5 Mg PO DAILY Albuterol Neb (Albuterol Sulfate) 2.5 Mg/3 Ml Neb 2.5 Mg NEB TID NEB PRN Active Ordered Medications Reviewed Family History Non-contributed to this admission Social History Quit smoking approximately 30 years ago. longterm resident Physical Exam Vital Signs Vital Signs Date Time Temp Pulse Resp B/P Pulse Ox O2 Delivery O2 Flow Rate FiO2 11/06/16 09:00 100.4 108 16 100/59 100 Ventilator 11/06/16 08:07 101.7 109 16 102/56 100 Ventilator 60 11/06/16 08:00 101.8 114 16 114/53 100 Ventilator 60 11/06/16 08:00 100 100 11/06/16 07:40 102.4 119 16 137/63 100 15 11/06/16 07:39 60 11/06/16 07:00 102.9 124 36 86/51 100 BiPAP 100 11/06/16 06:33 133 24 103/51 98 Non-Rebreather 15 11/06/16 06:30 95 Non-Rebreather 15.00 11/06/16 06:13 20 99 Non-Rebreather 15 11/06/16 06:13 99 Non-Rebreather 15 11/06/16 06:04 134 24 94 Venturi Mask 15 11/06/16 06:00 102.9 135 24 169/103 93 Physical Exam General: The patient is a well-developed well-nourished male, who is intubated critically ill, unresponsive Head and Neck exam: Head is normocephalic atraumatic. Eyes: Pupils are equal round and reactive to light. ENT: Mucous membranes are dry. Orotracheally intubated Neck: No palpable lymphadenopathy. No nuchal rigidity. Cardiovascular: Tachycardic without murmurs, gallops, or rubs. . Lungs: The patient has expiratory wheezes audible bilaterally and bibasilar crackles. Air entry is diminished bilaterally Abdomen: Soft, without tenderness to palpation. No guarding, rebound, or rigidity. Well healed RLQ scar. Chronic indwelling Stout catheter, urine is cloudy. Extremities: No clubbing, cyanosis, or edema. No calf tenderness on palpation. Right heel has stage II decubitus ulcer Neurologic Exam: Patient is intubated sedated, with residual neuromuscular blockade limits neuro exam Laboratory Laboratory Tests Test 11/06/16 11/06/16 11/06/16 06:15 06:46 09:30 White Blood Count 9.9 Red Blood Count 3.36 Hemoglobin 10.8 Hematocrit 33.4 Mean Corpuscular Volume 99.3 Mean Corpuscular Hemoglobin 32.2 Mean Corpuscular Hemoglobin 32.4 Concent Red Cell Distribution Width 18.0 Platelet Count 295 Mean Platelet Volume 8.3 Neutrophils (%) (Auto) 86.5 Lymphocytes (%) (Auto) 7.4 Monocytes (%) (Auto) 4.4 Eosinophils (%) (Auto) 1.2 Basophils (%) (Auto) 0.5 Neutrophils # (Auto) 8.6 Lymphocytes # (Auto) 0.7 Monocytes # (Auto) 0.4 Eosinophils # (Auto) 0.1 Basophils # (Auto) 0.1 CBC Comment DIFF FINAL Differential Comment Prothrombin Time 10.9 Prothromb Time International 1.0 Ratio Activated Partial 25.4 Thromboplast Time Urine Color YELLOW Urine Turbidity HAZY Urine pH 6.0 Urine Specific [place] 1.019 Urine Protein TRACE Urine Glucose (UA) NEG Urine Ketones NEG Urine Occult Blood SMALL Urine Nitrite POS Urine Bilirubin NEG Urine Urobilinogen LESS THAN 2.0 Urine Leukocyte Esterase LARGE Urine RBC 11 Urine WBC 51 Urine Squamous Epithelial <1 Cells Urine Bacteria OCC Urine Mucus FEW Microscopic Urinalysis Comment CATH-CULTURE IND Sodium Level 141 Potassium Level 4.7 Chloride Level 105 Carbon Dioxide Level 24.4 Anion Gap 12 Blood Urea Nitrogen 26 Creatinine 1.37 Estimat Glomerular Filtration 49 Rate Random Glucose 152 Lactic Acid Level 4.9 4.6 Calcium Level 7.9 Magnesium Level 1.9 Total Bilirubin 0.3 Aspartate Amino Transf 9 (AST/SGOT) Alanine Aminotransferase 14 (ALT/SGPT) Alkaline Phosphatase 71 Total Creatine Kinase 31 Troponin I 0.02 Total Protein 6.2 Albumin 2.4 Lipase 179 Blood Gas Puncture Site LT RADIAL Blood Gas Patient Temperature 98.6 Blood Gas HCO3 21 Blood Gas Base Excess -2.8 Blood Gas Oxygen Saturation 74 Arterial Blood pH 7.41 Arterial Blood Partial 34 Pressure CO2 Arterial Blood Partial 45 Pressure O2 Arterial Blood Oxygen Content 12.1 Arterial Blood 1.9 Carboxyhemoglobin Arterial Blood Methemoglobin 2.2 Blood Gas Hemoglobin 11.7 Oxygen Delivery Device Non-Rebreathing Mask Blood Gas Liter Flow 15 Phosphorus Level 1.3 Date/Time Procedure Status Source Growth 11/06/16 06:30 Influenza Types A,B Antigen (NATALY) - Final Complete Nasal Aspirate NEGATIVE FOR FLU A AND B ANTIGEN.... 11/06/16 06:15 Urine Culture Received Urine Catheterized Urine Pending 11/06/16 06:10 Aerobic Blood Culture Received Blood Peripheral Pending 11/06/16 06:10 Anaerobic Blood Culture Received Blood Peripheral Pending Result Diagram: 11/06/1661411/06/16614 Imaging Chest x-ray shows left lower lobe infiltrate Septic Shock Reassessment Heart: Other (tachycardic) Lungs: Course, Diminished Skin: Warm, Dry Peripheral Pulses: Weak Right Radial Weak Left Radial Assessment and Plan Assessment and Plan Assessment and Plan Neuro/Psych: Acute metabolic encephalopathy History CVA with left-sided weakness Peripheral neuropathy Chronic low back pain -On propofol/fentanyl gtt while intubated. Goal RASS -2 -Daily sedation vacation starting in 24 hours -Continue Depakote and Risperdal CV: Hypotension Lactic acidosis History of hypertension -Status post 4 L normal saline in ED. Trend lactate per sepsis protocol -Monitor HR and BP keep MAP>65mmHg -On ASA 81mg daily -Levophed as needed to keep map above 65 -Normal saline 100 mL per hour Resp: Acute hypoxemic respiratory failure COPD exacerbation Left lower lobe pneumonia History of MRSA pneumonia -Continue vent support keep sat >90%-ACV 14/550/12/titrate FiO2 -Ventilator bundle -Duonebs every 6 hours and as needed -Hydrocortisone 100mg IV q8hr -CT pulmonary angiogram to rule out PE -Broad spectrum antibiotics with Zosyn and azithromycin and vancomycin GI: History of Rectal ulcers History gastritis -Nothing by mouth, Protonix for GI prophylaxis -Colace/as needed Senokot for bowel regimen : Chronic kidney disease disease History of ELMO -Monitor renal function, I/o's, electrolytes replacement as needed. -On NS@100ml/hr Endo: Hypothyroidism -Continue Levoxyl at 75 g by mouth daily. -Sliding-scale insulin with Accu-Cheks every 6 hours to maintain glycemia if needed -Electrolyte replacement per protocol Heme: Normocytic anemia History of skin cancer -Monitor CBC ID: Severe sepsis HCAP UTI History of MRSA -Received vancomycin, cefepime, and Zithromax in ED. Continue Zosyn, azithromycin and vancomycin -Follow up on sputum blood and urine culture, check influenza MSK: -Right heel stage II decubitus ulcer. Wound care consult Access - Utilize peripheral IV. Central line if indicated Prophylaxis - GI - Protonix - DVT - SCD/Lovenox Critical Care: The total critical care time was 90 minutes. Time to perform other separately billable procedures was not included in the critical care time. Code Status Full Discussed Condition With Dr. Hernandez Problem Qualifiers (1) COPD (chronic obstructive pulmonary disease): Qualified Code: J44.1 - Chronic obstructive pulmonary disease with acute exacerbation (2) Fever: Qualified Code: R50.9 - Fever, unspecified fever cause Glenn Garcia MD Nov 06, 2016 10:43 (2) Fever: Qualified Code: R50.9 - Fever, unspecified fever cause Glenn Garcia MD Nov 06, 2016 10:43
[2016-11-06] MEDS: ENOXAPARIN SODIUM 40 MG/0.4 ML SYRINGE SQ SCH (10:47)
[2016-11-06] MEDS: PIPERACIL-TAZO 4.5 GM PREMIX 100 ML IV SCH ×3 (10:47→20:51)
[2016-11-06] MEDS ORDERED: IOHEXOL 350 MG/ML 10 ML VIAL (for RAD DIAG) IV ONE (11:23)
--- NOTE | 2016-11-06 11:52 | RADRPT ---
EXAM DATE/TIME: 11/06/2016 11:15 [facility] COMPARISON: CT PULMONARY ANGIOGRAM, October 19, 2016, 21:00. CHEST SINGLE AP, November 06, 2016, 8:05. INDICATIONS : Respiratory distress. IV CONTRAST: 75 cc Omnipaque 350 (iohexol) IV ; Cumulative dose for multiple exams. RADIATION DOSE: 18.05 CTDIvol (mGy) MEDICAL HISTORY : Hypertension. Chronic obstructive pulmonary disease. SURGICAL HISTORY : Cholecystectomy. Appendectomy. ENCOUNTER: Initial ACUITY: 1 day PAIN SCALE: Non-responsive LOCATION: chest TECHNIQUE: Volumetric scanning of the chest was performed using a pulmonary embolism protocol MIP images were re constructed. Using automated exposure control and adjustment of the mA and/or kV according to patien t size, radiation dose was kept as low as reasonably achievable to obtain optimal diagnostic quality images. FINDINGS: PULMONARY ARTERIES: No filling defects are seen in the pulmonary arteries in central pulmonary arteries without optimal v isualization of the distal vascular structures. LUNGS: Persistent bilateral basilar subpleural atelectasis minimal consolidation. Minimal pleural thickening . PLEURAE: There is no pleural thickening or pleural effusion. MEDIASTINUM: There is good visualization of the great vessels of the middle mediastinum. No evidence of mediastin al or hilar adenopathy/mass. ET tube above the magnolia and nasogastric tube to the midline at the stom ach MUSCULOSKELETAL: Within normal limits for patient age. MISCELLANEOUS: The visualized upper abdominal organs demonstrate no acute abnormality. CONCLUSION: Minimally suboptimal examination with poor visualization of distal arterial structures. Centrally the re is no evidence of pulmonary embolism. Stable bilateral posterior basilar minimal pleural effusions and dependent basilar atelectasis. Abdirashid Cotton MD on November 06, 2016 at 11:39 Board Certified Radiologist. This report was verified electronically.
--- NOTE | 2016-11-06 12:04 | RADRPT ---
EXAM DATE/TIME: 11/06/2016 11:15 [facility] COMPARISON: CT ABDOMEN & PELVIS W/O CONTRAST, December 12, 2009, 21:26. CT PULMONARY ANGIOGRAM, November 06, 2016, 1 1:15. INDICATIONS : Urosepsis. IV CONTRAST: 75 cc Omnipaque 350 (iohexol) IV ; Cumulative dose for multiple exams. ORAL CONTRAST: No oral contrast ingested. RADIATION DOSE: 20 CTDIvol (mGy) MEDICAL HISTORY : Chronic obstructive pulmonary disease. Hypertension. SURGICAL HISTORY : Cholecystectomy. Appendectomy. ENCOUNTER: Initial ACUITY: 1 day PAIN SCALE: Non-responsive LOCATION: abdomen TECHNIQUE: Volumetric scanning of the abdomen and pelvis was performed. Using automated exposure control and ad justment of the mA and/or kV according to patient size, radiation dose was kept as low as reasonably achievable to obtain optimal diagnostic quality images. FINDINGS: The bony structures reveal osteopenia or osteoporosis rotoscoliosis to the left and multilevel degene rative disc disease and facet arthritic change. Nasogastric tube passes to the midline of the chest t erminating the fundus of the stomach. Posterior bibasilar areas of atelectasis and consolidation is n oted in the CT scan of the chest the same day are appreciated. Punctate subcentimeter left kidney sto ne is appreciated midpole posteriorly and multiple right renal cysts are noted. There is no evidence of hydroureter or obstructive uropathy. The latter reveals a Stout catheter in place in the pelvis. U ncomplicated diverticuli are appreciated of the colon dominating in the sigmoid region. Spleen liver and gallbladder appear normal as is the pancreas and adrenal glands. There is no free air or free flu id. CONCLUSION: Stout catheter in place in a decompressed urinary bladder. No obstructive uropathy. T here is a nonobstructive left kidney midpole posterior stones sub-centimeters size. Multiple right re nal cysts. Uncomplicated diverticuli of the colon and extensive degenerat christian changes of the lumbar spine. Abdirashid Cotton MD on November 06, 2016 at 11:57 Board Certified Radiologist. This report was verified electronically.
[2016-11-06] MEDS ORDERED: SODIUM BICARBONATE 8.4% INJ 50 MEQ/50 ML SYR ONE (12:41)
[2016-11-06 13:30] LABS: BLOOD GAS BASE EXCESS -9.2 mmol/L (-2-2); BLOOD GAS CARBOXYHEMOGLOBIN 1.2 % (0-4); BLOOD GAS HCO3 16 mmol/L (22-26); BLOOD GAS METHEMOGLOBIN 1.1 % (0-2); BLOOD GAS O2 HGB SATURATION 98 % (90-100); BLOOD GAS OXYGEN CONTENT 13.4 Vol % (12.0-20.0); BLOOD GAS PCO2 35 mmHg (38-42); BLOOD GAS PO2 257 mmHg (61-120); BLOOD GAS TOTAL HGB 9.3 G/DL (12.0-16.0); CRITICAL VALUE YES; DRAW SITE RT RADIAL; FIO2 60 %; NUMBER OF ARTERIAL PUNCTURES 1; OXYGEN DEVICE VENTILATOR; STAT NO; TEMP CORR TO 98.6; ULNAR PULSE PRESENT; VENT SETTINGS AC16/550/PEEP8
[2016-11-06] MEDS: HYDROCORTISONE SOD SUCCINATE 100 MG VIAL IV PUSH SCH ×2 (14:14→20:51)
[2016-11-06] MEDS: DIVALPROEX SODIUM SPRINKLES 125 MG CAP PO SCH ×2 (14:15→20:51)
[2016-11-06] MEDS: risperiDONE 1 MG TAB PO SCH ×2 (14:15→17:21)
--- NOTE | 2016-11-06 16:45 | EKG ---
Date Performed: 11/06/2016 Time Performed: 06:02:16 PTAGE: 89 years EKG: SUPRAVENTRICULAR TACHYCARDIA MARKED LEFT AXIS DEVIATION Compared to prior tracing no signif icant change ABNORMAL ECG PREVIOUS TRACING 08/21/2016 @22.32.05 DOCTOR: Kim Jimenez Interpretating Date/Time 11/06/2016 16:44:55
[2016-11-06] MEDS ORDERED: SODIUM CHLOR 0.9% 1000 ML INJ 2,000 ML IV SCH (23:00)
[2016-11-07] VITALS (21 sets, daily range): BP systolic 100–142; BP diastolic 58–72; PULSE 57–81; RESP 10–18; TEMP 94.3–98.7; O2SAT 97–100
[2016-11-07] MEDS: RESP: ALBUTEROL 2.5 MG/IPRATROPIUM 0.5 MG NEB (SCH) INH ×4 (03:41→20:39)
[2016-11-07] MEDS: CHLORHEXIDINE GLUCONATE 2 % 1 PACK (2 CLOTHS) TOP SCH (04:00)
[2016-11-07] MEDS: SODIUM CHLOR 0.9% 1000 ML INJ 1,000 ML IV SCH ×5 (04:34→17:56)
[2016-11-07] MEDS: PROPOFOL 1000 MG/100 ML INJ 100 ML IV SCH ×2 (04:34→14:24)
[2016-11-07] MEDS: PIPERACIL-TAZO 4.5 GM PREMIX 100 ML IV SCH ×4 (04:34→22:45)
--- NOTE | 2016-11-07 05:36 | RADRPT ---
EXAM DATE/TIME: 11/07/2016 04:07 [facility] COMPARISON: CHEST SINGLE AP, November 06, 2016, 8:05. INDICATIONS : Shortness of breath. MEDICAL HISTORY : Hypertension. Chronic obstructive pulmonary disease. SURGICAL HISTORY : Appendectomy. Cholecystectomy. ENCOUNTER: Subsequent ACUITY: 2 days PAIN SCORE: Non-responsive. LOCATION: Bilateral chest FINDINGS: The support devices remain in place. No definite pneumothorax. There is increasing infiltrate in the left lung base compared to the prior study. There is a mild atelectasis in the right lung base. The h eart size is stable. The bony structures are stable. CONCLUSION: Increasing infiltrate in the left lung base. Thompson Fabian MD on November 07, 2016 at 5:33 Board Certified Radiologist. This report was verified electronically.
[2016-11-07 06:30] LABS: AUTOMATED NEUTROPHIL # 12.9 TH/MM3 (1.8-7.7); HEMATOCRIT 28.5 % (39.0-51.0); HEMO FLAGS DIFF FINAL; LYMPH % 3.3 % (9.0-44.0); LYMPHOCYTE # 0.5 TH/MM3 (1.0-4.8); MEAN CELL VOLUME 99.4 FL (80.0-100.0); MEAN CORPUSCULAR HEMOGLOBIN 32.7 PG (27.0-34.0); MEAN CORPUSCULAR HGB CONC 32.9 % (32.0-36.0); MONO % 4.8 % (0.0-8.0); NEUT % 91.9 % (16.0-70.0); PLATELET COUNT 244 TH/MM3 (150-450); RED BLOOD COUNT 2.87 MIL/MM3 (4.50-5.90); RED CELL DISTRIBUTION WIDTH 18.7 % (11.6-17.2)
[2016-11-07] MEDS: AZITHROMYCIN INJ 500 MG in SODIUM CHLOR 0.9% 250 ML INJ 250 ML IV SCH (06:43)
[2016-11-07] MEDS: HYDROCORTISONE SOD SUCCINATE 100 MG VIAL IV PUSH SCH ×3 (06:44→22:44)
[2016-11-07] MEDS: LEVOTHYROXINE SODIUM 75 MCG TAB PO SCH (06:44)
[2016-11-07] MEDS: DIVALPROEX SODIUM SPRINKLES 125 MG CAP PO SCH ×3 (06:44→22:44)
[2016-11-07 07:10] LABS: BICARBONATE 18.2 MEQ/L (21.0-32.0); CALCIUM-PROTEIN CORRECTED 8.5 MG/DL (8.5-10.1); TOTAL BILIRUBIN ADULT 0.3 MG/DL (0.2-1.0)
[2016-11-07 07:11] LABS: POTASSIUM 4.3 MEQ/L (3.5-5.1)
--- NOTE | 2016-11-07 07:29 | HHI.CCPN ---
Subjective Remarks/Hospital Course The patient is an 89 year old male who is a local [place] resident with past medical history significant for recent MRSA sepsis from pneumonia in Sep 2016, dementia , COPD, CVA, hypertension who presented to the emergency department with increasing shortness of breath overnight. Upon EMS arrival patient was tachypneic and febrile. The patient on arrival to [place] had a temperature of 102.9 and diffuse wheezing. Apparently he was alert and awake on arrival and had productive cough. The patient had IV access obtained and blood work sent for analysis. He was initially normotensive with sinus tachycardia heart rate of 136. A chest x-ray showed persistent left lower lobe infiltrate, ABG showed severe hypoxia. The patient was given DuoNeb 3, Solu-Medrol 125 mg IV, cefepime and Zithromax were started IV and also vancomycin 1 g IV. She was temporarily placed on BiPAP without improvement, and so was emergently intubated and placed on mechanical ventilation. Patient received a total of 4 L normal saline IV fluid. Critical care medicine was consulted for ICU admission. Pertinent labs include a lactate of 4.9 BUN was 26 with a creatinine of 1.4. UA showed evidence of UTI. His source of severe sepsis appears to be pneumonia and UTI. No further history is obtainable from the patient. I evaluated the patient in the ED. He is intubated sedated on 100% oxygen with oxygen saturation now 100%. Repeat ABG is pending. Due to profound hypoxia I'll get a CT angiogram of the chest and also CT abdomen pelvis. He'll be placed on IV Zosyn, azithromycin and IV vancomycin SUBJ 11/07: Overnight received additional 2 L fluid boluses for diminished urine output and borderline hypotension. 401 total urine output over the last 10 hours. Patient is hypothermic receiving warm IV fluids. Cultures are pending chest x-ray shows increasing left lower lobe infiltrate which is probably the source of infection, along with UTI Objective Vital Signs Date Time Temp Pulse Resp B/P Pulse Ox O2 Delivery O2 Flow Rate FiO2 11/07/16 06:00 78 11/07/16 04:20 100 40 11/07/16 00:00 94.3 18 100/58 11/06/16 11:13 Ventilator 11/06/16 07:40 15 Intake and Output 11/06/16 11/06/16 11/07/16 08:00 16:00 00:00 Intake Total 1904 ml Output Total 150 ml Balance 1754 ml Result Diagram: 11/07/16 0533 11/07/16 0533 Other Results Microbiology Date/Time Procedure Status Source Growth 11/06/16 06:30 Influenza Types A,B Antigen (NATALY) - Final Complete Nasal Aspirate NEGATIVE FOR FLU A AND B ANTIGEN.... Laboratory Tests Test 11/06/16 12:25 Blood Gas Puncture Site RT RADIAL Blood Gas Patient Temperature 98.6 Blood Gas HCO3 16 mmol/L (22-26) Blood Gas Base Excess -9.2 mmol/L (-2-2) Blood Gas Oxygen Saturation 98 % (90-100) Arterial Blood pH 7.29 (7.380-7.420) Arterial Blood Partial 35 mmHg (38-42) Pressure CO2 Arterial Blood Partial 257 mmHg Pressure O2 (61-120) Arterial Blood Oxygen Content 13.4 Vol % (12.0-20.0) Arterial Blood 1.2 % (0-4) Carboxyhemoglobin Arterial Blood Methemoglobin 1.1 % (0-2) Blood Gas Hemoglobin 9.3 G/DL (12.0-16.0) Oxygen Delivery Device VENTILATOR Blood Gas Ventilator Setting AC16/550/PEEP8 Blood Gas Inspired Oxygen 60 % Imaging Chest x-ray shows left lower lobe infiltrate Objective Remarks General: The patient is a well-developed well-nourished male, who is intubated critically ill, sedated with propofol Head and Neck exam: Head is normocephalic atraumatic. Eyes: Pupils are equal round and reactive to light. ENT: Mucous membranes are dry. Orotracheally intubated Neck: No palpable lymphadenopathy. No nuchal rigidity. Cardiovascular: Tachycardic without murmurs, gallops, or rubs. . Lungs: The patient has expiratory wheezes audible bilaterally and bibasilar crackles. Air entry is diminished bilaterally Abdomen: Soft, without tenderness to palpation. No guarding, rebound, or rigidity. Well healed RLQ scar. Chronic indwelling Stout catheter, urine is cloudy. Extremities: No clubbing, cyanosis, or edema. No calf tenderness on palpation. Right heel has stage II decubitus ulcer Neurologic Exam: Patient is intubated sedated, with residual neuromuscular blockade limits neuro exam Urinary Catheter: Yes Assessment to: Continue A/P Assessment and Plan Assessment and Plan Neuro/Psych: Acute metabolic encephalopathy History CVA with left-sided weakness Peripheral neuropathy Chronic low back pain -On propofol/fentanyl gtt while intubated. Goal RASS -2 -Daily sedation vacation -Continue Depakote and Risperdal CV: Hypotension Lactic acidosis History of hypertension -Status post 4 L normal saline in ED. Trend lactate per sepsis protocol -Additional 2 L normal saline given over night for Saturday urine output -Monitor HR and BP keep MAP>65mmHg -On ASA 81mg daily -Levophed if needed to keep map above 65 -Normal saline 200 mL per hour Resp: Acute hypoxemic respiratory failure COPD exacerbation Left lower lobe pneumonia History of MRSA pneumonia -Continue vent support keep sat >90%-ACV 14/550/10/titrate FiO2 -Ventilator bundle. Duonebs every 6 hours and as needed -Hydrocortisone 100mg IV q8hr -CT pulmonary angiogram to rule out PE -Broad spectrum antibiotics with Zosyn and azithromycin and vancomycin GI: History of Rectal ulcers History gastritis Malnutrition -Nothing by mouth, Protonix for GI prophylaxis. -Start tube feeding with Jevity, with beneprotein powder 2 scoops 3 times a day -Colace/as needed Senokot for bowel regimen : Chronic kidney disease disease History of ELMO -Monitor renal function, I/o's, electrolytes replacement as needed. -On NS@200ml/hr Endo: Hypothyroidism -Continue Levoxyl at 75 g by mouth daily. -Sliding-scale insulin with Accu-Cheks every 6 hours to maintain glycemia if needed -Electrolyte replacement per protocol Heme: Normocytic anemia History of skin cancer -Monitor CBC ID: Septic shock HCAP/left lower lobe UTI History of MRSA -Continue Zosyn, azithromycin and vancomycin. Infectious disease consulted due to hypotension and hypothermia -Discussed with Dr. Alfaro who will see the patient -Follow up on sputum blood and urine culture MSK: -Right heel stage II decubitus ulcer. Wound care consulted Access - Utilize peripheral IV. Central line if indicated Prophylaxis - GI - Protonix - DVT - SCD/Lovenox Critical Care: The total critical care time was 40 minutes. Time to perform other separately billable procedures was not included in the critical care time. Glenn Garcia MD Nov 07, 2016 07:29
[2016-11-07] MEDS: BENEPROTEIN POWDER 1 PACK G-TUBE SCH ×3 (09:00→17:04)
[2016-11-07] MEDS: ASPIRIN EC 81 MG TABEC PO SCH (09:04)
[2016-11-07] MEDS: SODIUM CHLORIDE 0.9% FLUSH 5 ML FLUSH IV FLUSH SCH (09:05)
[2016-11-07] MEDS: PANTOPRAZOLE SODIUM 40 MG VIAL IV SCH (09:05)
[2016-11-07] MEDS: risperiDONE 1 MG TAB PO SCH ×3 (09:18→17:04)
[2016-11-07] MEDS: ENOXAPARIN SODIUM 40 MG/0.4 ML SYRINGE SQ SCH (09:18)
--- NOTE | 2016-11-07 09:23 | PD.ID.CON ---
History of Present Illness Service ID Consult Requested By Dr.Sinoj Garcia Reason for Consult Evaluation and Mment of Severe Sepsis and Pneumonia. Primary Care Physician Lencho Salgado DO Diagnoses: History of Present Illness Mr. Mendosa is a an 89-year-old who is a local alf resident. His past medical history significant for recent history of MRSA sepsis including MRSA pneumonia and bacteremia in September 2016. His other medical problems include dementia, COPD due to [id number] history of smoking, CVA, hypertension, hypothyroidism. He presented to the emergency department with increasing shortness of breath with acute onset. Upon EMS arrival patient was tachypneic and febrile. Patient on arrival to the emergency department at [facility] had a temperature of 102.9 Fahrenheit and was having diffuse wheezing. Patient was initially normotensive with a heart rate of 136, temperature 102.9, heart rate. Patient met criteria for sepsis and workup was initiated. His lactic acid on admission was 4.9. Patient was treated with DuoNeb, Solu-Medrol him a cefepime and Zithromax, vancomycin 1 g IV. Patient was placed on BiPAP without any improvement so he was emergently intubated and placed on mechanical ventilation patient has received approximately 4 L of IV fluids. A chest x-ray on admission showed increasing infiltrate in the left lung base. A CT of the abdomen pelvis was done which showed decompressed urinary bladder with no obstructive uropathy. There was a nonobstructive left kidney posterior Stone and multiple right renal cysts. Also had uncomplicated diverticuli of the colon and extensive degenerative changes of the lumbar spine. CT angiogram was done to rule out PE and this was negative. Flu antigen test was negative. Blood cultures are negative so far sputum cultures are pending. At the time of my evaluation [facility] remains intubated AC 18, FIO2 40%, PEEP 8. His urine output as adequate at the present time. He has no diarrhea. He has no rash. He is currently sedated with propofol moving all 4 extremities and trying to lift his head. He is currently not on any pressors and maintaining his hemodynamics. Infectious disease is consulted for evaluation and management of severe sepsis as well as pneumonia in a patient with recent history of MRSA pneumonia and bacteremia, sepsis. Review of Systems ROS Limitations: Intubated Past Family Social History Allergies: Coded Allergies: Levofloxacin (Verified Allergy, Severe, 11/06/16) *MDRO Multi-Drug Resistant Organism (Verified Adverse Reaction, Unknown, MRSA, 11/06/16) MRSA (sputum & blood) - 07/21/16 & 08/22/16; MRSA (sputum & blood-10/08/16),MRSA screen POSITIVE - 10/08/16 Past Medical History Recent admission for sepsis at the end of September 2016 HCAP, MRSA pneumonia and bacteremia Dementia COPD Peripheral neuropathy Recurrent pneumonia History CVA with left weakness History of MRSA History of skin cancer Depression Hypertension Hypothyroidism Chronic kidney disease stage II to 3 History recurrent GI bleeding Gastritis Anemia Chronic benzodiazepine use Chronic narcotic use Past Surgical History Hernia repair Appendectomy Cholecystectomy TURP Laminectomy Reported Medications Flomax (Tamsulosin HCl) 0.4 Mg Cap 0.4 Mg PO DAILY Risperdal (Risperidone) 1 Mg Tab 2 Mg PO TID Prednisone 5 Mg Tab 10 Mg PO DAILY Mucinex ER 12 HR (Guaifenesin) 600 Mg Vanessa 600 Mg PO BID Depakote Sprinkles (Divalproex Sodium) 125 mg Cap 250 Mg PO Q8HR Xanax (Alprazolam) 0.25 Mg Tab 0.25 Mg PO Q8H PRN Vitamin D (Cholecalciferol) 2,000 Unit Tab PO DAILY Triamcinolone Acetonide (Triamcinolone Acetonide (Topic) 1 Pow Pow 0.1 % TOPICAL HS Multi Vitamin (Multiple Vitamin) 1 Tab Tab 1 Tab PO DAILY Milk of Magnesia Liq (Magnesium Hydroxide) 400 Mg/5 Ml Susp 30 Ml PO HS PRN Metoprolol Tartrate 25 Mg Tab 25 Mg PO BID Levothyroxine (Levothyroxine Sodium) 75 Mcg Tab 75 Mcg PO DAILY Dulcolax Supp (Bisacodyl) 10 Mg Supp 10 Mg RECTAL DAILY PRN Calcium Carbonate (Calcium Carbonate (Antacid)) 648 Mg Tab 648 Mg PO DAILY Aspirin 81 Mg Tabdr 81 Mg PO DAILY Sm Dry Eye Relief 0.2-0.2-1 % (Gxacrqzp-Ghmmjzfqqbnd-Djdtyziv) 1 Sweta Sweta 1 Drop EACH EYE TID Amlodipine (Amlodipine Besylate) 5 Mg Tab 5 Mg PO DAILY Albuterol Neb (Albuterol Sulfate) 2.5 Mg/3 Ml Neb 2.5 Mg NEB TID NEB PRN Active Ordered Medications Current Medications Medications (Trade) Dose Ordered Sig/Mercedes Route Start Time Stop Time Status Last Admin (NS 1000 ml Inj) 1,000 ml @ 200 mls/hr Q5H IV 11/06/16 08:04 11/07/16 09:06 (NS Flush) 2 ml UNSCH PRN IV FLUSH 11/06/16 08:15 (NS Flush) 2 ml BID IV FLUSH 11/06/16 09:00 11/07/16 09:05 (Protonix Inj) 40 mg DAILY IV 11/06/16 09:00 11/07/16 09:05 Enoxaparin Sodium 40 mg 40 mg Q24H SQ 11/06/16 10:00 11/07/16 09:18 (Zosyn 4.5 Gm Premix) 100 ml @ 200 mls/hr Q6H IV 11/06/16 10:00 11/07/16 09:18 Miscellaneous Information 1 Q361D XX 11/06/16 08:15 (Chlorhexidine 2% Cloth) 3 pack Taper DAILY@04 TOP 11/07/16 04:00 11/03/17 03:59 11/07/16 04:00 Chlorhexidine Gluconate 3 pack 3 pack UNSCH PRN TOP 11/06/16 08:15 Propofol 100 ml @ 0 mls/hr TITRATE IV 11/06/16 08:15 11/07/16 04:34 Potassium Chloride 100 ml @ 50 mls/hr Q2H PRN IV 11/06/16 08:15 (KCl 20 Meq Premix Inj) 100 ml @ 50 mls/hr Q2H PRN IV 11/06/16 08:15 Potassium Chloride 40 meq 40 meq UNSCH PRN PO/TUBE 11/06/16 08:15 Potassium Chloride 100 ml @ 25 mls/hr UNSCH PRN IV 11/06/16 08:15 Potassium Chloride 100 ml @ 50 mls/hr Q2H PRN IV 11/06/16 08:15 (Magnesium Sulfate Inj/NS Inj) 100 ml @ 50 mls/hr UNSCH PRN IV 11/06/16 08:15 Magnesium Oxide 800 mg 800 mg UNSCH PRN PO 11/06/16 08:15 (Magnesium Sulfate Inj/NS Inj) 100 ml @ 50 mls/hr UNSCH PRN IV 11/06/16 08:15 Potassium Phosphate 2000 mg 2,000 mg Q4H PRN PO 11/06/16 08:15 (Sodium Phosphate Inj/NS 250 ml Inj) 250 ml @ 42 mls/hr UNSCH PRN IV 11/06/16 08:15 11/07/16 09:06 (KCl 40 Meq/30 ml Liq) 40 meq UNSCH PRN PO/TUBE 11/06/16 08:15 Potassium Phosphate 2000 mg 2,000 mg UNSCH PRN PO/TUBE 11/06/16 08:15 Potassium Phosphate 30 mmol/ Sodium Chloride 260 ml @ 42 mls/hr UNSCH PRN IV 11/06/16 08:15 (Vancomycin Consult Pharmacy) 0 ml @ 0 mls/hr UNSCH OTHER 11/06/16 10:30 Hydrocortisone Sodium Succinate 100 mg 100 mg Q8HR IV PUSH 11/06/16 14:00 11/07/16 06:44 (Zithromax Inj/ NS 250 ml Inj) 250 ml @ 250 mls/hr Q24H IV 11/07/16 06:00 11/07/16 06:43 (Ecotrin Ec) 81 mg DAILY PO 11/07/16 09:00 11/07/16 09:04 (Synthroid) 75 mcg DAILY@0600 PO 11/07/16 06:00 11/07/16 06:44 (risperDAL) 2 mg TID PO 11/06/16 13:00 11/07/16 09:18 (Depakote Sprinkles) 250 mg Q8HR PO 11/06/16 14:00 11/07/16 06:44 (Beneprotein Powder) 2 pack TID G-TUBE 11/07/16 09:00 11/07/16 09:00 Family History could not be obtained. Social History Details Could not be obtained. Resident of a alf, he has a daughter and the son. Quit smoking approximately 30 years ago. Physical Exam Vital Signs Vital Signs Date Time Temp Pulse Resp B/P Pulse Ox O2 Delivery O2 Flow Rate FiO2 11/07/16 08:50 100 40 11/07/16 06:00 78 11/07/16 04:20 100 40 11/07/16 04:00 40 11/07/16 04:00 68 11/07/16 02:00 60 11/07/16 01:30 100 40 11/07/16 00:00 40 11/07/16 00:00 61 11/07/16 00:00 94.3 61 18 100/58 100 11/06/16 22:40 100 40 11/06/16 22:00 67 11/06/16 20:00 40 11/06/16 20:00 74 11/06/16 20:00 97.1 74 20 104/56 100 11/06/16 19:50 100 40 11/06/16 18:10 100 40 11/06/16 15:00 75 11/06/16 14:08 100 40 11/06/16 12:09 100 60 11/06/16 11:42 100 100 11/06/16 11:13 84 16 109/54 100 Ventilator Physical Exam GENERAL: Obese, CM patient, in no apparent distress. SKIN: No generalized rashes. Has skin breaks on RUE and few areas of ecchymosis. HEAD: Atraumatic. Normocephalic. No temporal or scalp tenderness. EYES: Pupils equal round and reactive. Extraocular motions intact. No scleral icterus. No injection or drainage. ENT: Intubated. NECK: Trachea midline. Supple, nontender, no meningeal signs. CARDIOVASCULAR: HS audible. RESPIRATORY: Breath sounds equal bilaterally but decreased in the bases. GASTROINTESTINAL: Abdomen soft, non-tender, nondistended. MUSCULOSKELETAL: Extremities without clubbing, cyanosis. NEUROLOGICAL: Sedated. Psych: could not be assessed. IV line sites with no e/o infection. Laboratory Laboratory Tests Test 11/06/16 11/06/16 11/06/16 11/07/16 09:30 12:00 12:25 05:33 Lactic Acid Level 4.6 Phosphorus Level 1.3 Nasal Screen MRSA (PCR) NEGATIVE Blood Gas Puncture Site RT RADIAL Blood Gas Patient Temperature 98.6 Blood Gas HCO3 16 Blood Gas Base Excess -9.2 Blood Gas Oxygen Saturation 98 Arterial Blood pH 7.29 Arterial Blood Partial 35 Pressure CO2 Arterial Blood Partial 257 Pressure O2 Arterial Blood Oxygen Content 13.4 Arterial Blood 1.2 Carboxyhemoglobin Arterial Blood Methemoglobin 1.1 Blood Gas Hemoglobin 9.3 Oxygen Delivery Device VENTILATOR Blood Gas Ventilator Setting AC16/550/PEEP8 Blood Gas Inspired Oxygen 60 White Blood Count 14.0 Red Blood Count 2.87 Hemoglobin 9.4 Hematocrit 28.5 Mean Corpuscular Volume 99.4 Mean Corpuscular Hemoglobin 32.7 Mean Corpuscular Hemoglobin 32.9 Concent Red Cell Distribution Width 18.7 Platelet Count 244 Mean Platelet Volume 8.4 Neutrophils (%) (Auto) 91.9 Lymphocytes (%) (Auto) 3.3 Monocytes (%) (Auto) 4.8 Eosinophils (%) (Auto) 0.0 Basophils (%) (Auto) 0.0 Neutrophils # (Auto) 12.9 Lymphocytes # (Auto) 0.5 Monocytes # (Auto) 0.7 Eosinophils # (Auto) 0.0 Basophils # (Auto) 0.0 CBC Comment DIFF FINAL Differential Comment Sodium Level 144 Potassium Level 4.3 Chloride Level 113 Carbon Dioxide Level 18.2 Anion Gap 13 Blood Urea Nitrogen 26 Creatinine 1.02 Estimat Glomerular Filtration 69 Rate Random Glucose 124 Calcium Level 7.3 Protein Corrected Calcium 8.5 Total Bilirubin 0.3 Aspartate Amino Transf 17 (AST/SGOT) Alanine Aminotransferase 12 (ALT/SGPT) Alkaline Phosphatase 49 Total Protein 5.0 Albumin 1.8 Random Vancomycin Level 3.5 Date/Time Procedure Status Source Growth 11/06/16 12:00 Gram Stain Received Sputum Endotracheal Pending 11/06/16 12:00 Sputum Culture Received Sputum Endotracheal Pending 11/06/16 06:30 Influenza Types A,B Antigen (NATALY) - Final Complete Nasal Aspirate NEGATIVE FOR FLU A AND B ANTIGEN.... 11/06/16 06:15 Urine Culture Received Urine Catheterized Urine Pending 11/06/16 06:10 Aerobic Blood Culture Received Blood Peripheral Pending 11/06/16 06:10 Anaerobic Blood Culture Received Blood Peripheral Pending Result Diagram: 11/07/16 0533 11/07/16 0533 Imaging Last Impressions Chest X-Ray 11/07/16 0000 Signed Impressions: Service Date/Time: Monday, November 07, 2016 04:07 - CONCLUSION: Increasing infiltrate in the left lung base. Thompson Fabian MD Abdomen/Pelvis CT 11/06/16 1028 Signed Impressions: Service Date/Time: Sunday, November 06, 2016 11:15 - CONCLUSION: Stout catheter in place in a decompressed urinary bladder. No obstructive uropathy. There is a nonobstructive left kidney midpole posterior stones sub-centimeters size. Multiple right renal cysts. Uncomplicated diverticuli of the colon and extensive degenerative changes of the lumbar spine. Abdirashid Cotton MD CT Angiography 11/06/16 0000 Signed Impressions: Service Date/Time: Sunday, November 06, 2016 11:15 - CONCLUSION: Minimally suboptimal examination with poor visualization of distal arterial structures. Centrally there is no evidence of pulmonary embolism. Stable bilateral posterior basilar minimal pleural effusions and dependent basilar atelectasis. Abdirashid Cotton MD Assessment and Plan Assessment and Plan Severe Sepsis present on admission(fever, tachypnea, tachycardia, elevated lactic acid, acute renal failure, sources pneumonia) Pneumonia (recent history of MRSA pneumonia, other possibilities are community- acquired pneumonia, atypical pneumonia) Acute renal failure on admission appears to be improving likely sepsis of prerenal Prior history of MRSA pneumonia as well as bacteremia in September 2016. Recurrent pneumonia. Acute COPD exacerbation with hypoxia. 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 Follow cultures. Follow clinically. France Alfaro MD Nov 07, 2016 09:23
[2016-11-07] MEDS: VANCOMYCIN 1,500 MG/NS 500 ML IV SCH ×2 (10:49)
--- NOTE | 2016-11-07 14:19 | HHI.HP ---
History of Present Illness Service Primary Care Primary Care Physician Lencho Salgado, DO Admission Diagnosis Urosepsis, hypoxic respiratory failure Diagnoses: (1) Acute respiratory failure Diagnosis: Principal (2) Delirium due to another medical condition Diagnosis: Secondary (3) Urinary retention Diagnosis: Secondary (4) Pneumonia Diagnosis: Principal (5) Urinary tract infection Diagnosis: Secondary (6) COPD (chronic obstructive pulmonary disease) Diagnosis: Secondary History of Present Illness Mr. Mendosa is a an 89-year-old who is a local group home resident. His past medical history significant for recent history of MRSA sepsis including MRSA pneumonia and bacteremia in September 2016. His other medical problems include dementia, COPD due to [id number] history of smoking, CVA, hypertension, hypothyroidism. He presented to the emergency department with increasing shortness of breath with acute onset. Upon EMS arrival patient was tachypneic and febrile. Patient on arrival to the emergency department at [facility] [place] had a temperature of 102.9 Fahrenheit and was having diffuse wheezing. Patient was initially normotensive with a heart rate of 136, temperature 102.9, heart rate. Patient met criteria for sepsis and workup was initiated. His lactic acid on admission was 4.9. Patient was treated with DuoNeb, Solu-Medrol him a cefepime and Zithromax, vancomycin 1 g IV. Patient was placed on BiPAP without any improvement so he was emergently intubated and placed on mechanical ventilation patient has received approximately 4 L of IV fluids. A chest x-ray on admission showed increasing infiltrate in the left lung base. A CT of the abdomen pelvis was done which showed decompressed urinary bladder with no obstructive uropathy. There was a nonobstructive left kidney posterior Stone and multiple right renal cysts. Also had uncomplicated diverticuli of the colon and extensive degenerative changes of the lumbar spine. CT angiogram was done to rule out PE and this was negative. Flu antigen test was negative. Blood cultures are negative so far sputum cultures are pending. At the time of my evaluation [facility] remains intubated AC 18, FIO2 40%, PEEP 8. His urine output as adequate at the present time. He has no diarrhea. He has no rash. He is currently sedated with propofol moving all 4 extremities and trying to lift his head. He is currently not on any pressors and maintaining his hemodynamics. Infectious disease is consulted for evaluation and management of severe sepsis as well as pneumonia in a patient with recent history of MRSA pneumonia and bacteremia, sepsis. Sepsis Criteria SIRS Criteria (2 or more): Temp > 100.9 or < 96.8, WBC > 85674, < 4000 or > 10 % bands Sepsis Criteria (SIRS+source): Infect source susp/known Severe Sepsis (+one): Lactate >2 Septic Shock Criteria: Lactic acid >=4 Criteria Outcome: Meets SIRS criteria Review of Systems ROS Limitations: Clinical Condition, Intubated Past Family Social History Allergies: Coded Allergies: Levofloxacin (Verified Allergy, Severe, 11/06/16) *MDRO Multi-Drug Resistant Organism (Verified Adverse Reaction, Unknown, MRSA, 11/06/16) MRSA (sputum & blood) - 07/21/16 & 08/22/16; MRSA (sputum & blood-10/08/16),MRSA screen POSITIVE - 10/08/16 Past Medical History Hypertension CVA Peripheral neuropathy COPD Depression Hypothyroidism CRI stage 2 Rectal Ulcer MRSA Aspiration PNA Recurrent VDRF BPH Urinary retention GIB Past Surgical History Appendectomy Cholecystectomy Laminectomy TURP Herniorrhapy Reported Medications Current Medications Medications (Trade) Dose Ordered Sig/Mercedes Route Start Time Stop Time Status Last Admin (NS 1000 ml Inj) 1,000 ml @ 200 mls/hr Q5H IV 11/06/16 08:04 11/07/16 09:06 (NS Flush) 2 ml UNSCH PRN IV FLUSH 11/06/16 08:15 (NS Flush) 2 ml BID IV FLUSH 11/06/16 09:00 11/07/16 09:05 (Protonix Inj) 40 mg DAILY IV 11/06/16 09:00 11/07/16 09:05 Enoxaparin Sodium 40 mg 40 mg Q24H SQ 11/06/16 10:00 11/07/16 09:18 (Zosyn 4.5 Gm Premix) 100 ml @ 200 mls/hr Q6H IV 11/06/16 10:00 11/07/16 09:18 Miscellaneous Information 1 Q361D XX 11/06/16 08:15 (Chlorhexidine 2% Cloth) 3 pack Taper DAILY@04 TOP 11/07/16 04:00 11/03/17 03:59 11/07/16 04:00 Chlorhexidine Gluconate 3 pack 3 pack UNSCH PRN TOP 11/06/16 08:15 Propofol 100 ml @ 0 mls/hr TITRATE IV 11/06/16 08:15 11/07/16 04:34 Potassium Chloride 100 ml @ 50 mls/hr Q2H PRN IV 11/06/16 08:15 (KCl 20 Meq Premix Inj) 100 ml @ 50 mls/hr Q2H PRN IV 11/06/16 08:15 Potassium Chloride 40 meq 40 meq UNSCH PRN PO/TUBE 11/06/16 08:15 Potassium Chloride 100 ml @ 25 mls/hr UNSCH PRN IV 11/06/16 08:15 Potassium Chloride 100 ml @ 50 mls/hr Q2H PRN IV 11/06/16 08:15 (Magnesium Sulfate Inj/NS Inj) 100 ml @ 50 mls/hr UNSCH PRN IV 11/06/16 08:15 Magnesium Oxide 800 mg 800 mg UNSCH PRN PO 11/06/16 08:15 (Magnesium Sulfate Inj/NS Inj) 100 ml @ 50 mls/hr UNSCH PRN IV 11/06/16 08:15 Potassium Phosphate 2000 mg 2,000 mg Q4H PRN PO 11/06/16 08:15 (Sodium Phosphate Inj/NS 250 ml Inj) 250 ml @ 42 mls/hr UNSCH PRN IV 11/06/16 08:15 11/07/16 09:06 (KCl 40 Meq/30 ml Liq) 40 meq UNSCH PRN PO/TUBE 11/06/16 08:15 Potassium Phosphate 2000 mg 2,000 mg UNSCH PRN PO/TUBE 11/06/16 08:15 Potassium Phosphate 30 mmol/ Sodium Chloride 260 ml @ 42 mls/hr UNSCH PRN IV 11/06/16 08:15 (Vancomycin Consult Pharmacy) 0 ml @ 0 mls/hr UNSCH OTHER 11/06/16 10:30 Hydrocortisone Sodium Succinate 100 mg 100 mg Q8HR IV PUSH 11/06/16 14:00 11/07/16 06:44 (Zithromax Inj/ NS 250 ml Inj) 250 ml @ 250 mls/hr Q24H IV 11/07/16 06:00 11/07/16 06:43 (Ecotrin Ec) 81 mg DAILY PO 11/07/16 09:00 11/07/16 09:04 (Synthroid) 75 mcg DAILY@0600 PO 11/07/16 06:00 11/07/16 06:44 (risperDAL) 2 mg TID PO 11/06/16 13:00 11/07/16 09:18 (Depakote Sprinkles) 250 mg Q8HR PO 11/06/16 14:00 11/07/16 06:44 Protein 2 pack 2 pack TID G-TUBE 11/07/16 09:00 11/07/16 09:00 (Vancomycin Inj/ NS 500 ml Inj) 515 ml @ 257.5 mls/ hr Q24H IV 11/07/16 11:00 11/07/16 10:49 Miscellaneous Information SPECIFIC LAB TO BE DRAWN:VANCO TROUGH DATE TO BE DRSpike.. ONCE ONCE XX 11/10/16 10:45 11/10/16 10:46 Family History Lives [facility] with his , has 3 living children Social History Smoked cigarettes and cigars for most of his life. Physical Exam Vital Signs Vital Signs Date Time Temp Pulse Resp B/P Pulse Ox O2 Delivery O2 Flow Rate FiO2 11/07/16 12:00 98.6 67 18 112/60 100 11/07/16 11:46 100 40 11/07/16 08:50 100 40 11/07/16 08:00 98.7 57 15 106/60 97 11/07/16 06:00 78 11/07/16 04:20 100 40 11/07/16 04:00 40 11/07/16 04:00 68 11/07/16 02:00 60 11/07/16 01:30 100 40 11/07/16 00:00 40 11/07/16 00:00 61 11/07/16 00:00 94.3 61 18 100/58 100 11/06/16 22:40 100 40 11/06/16 22:00 67 11/06/16 20:00 40 11/06/16 20:00 74 11/06/16 20:00 97.1 74 20 104/56 100 11/06/16 19:50 100 40 11/06/16 18:10 100 40 11/06/16 15:00 75 11/06/16 14:08 100 40 Physical Exam GENERAL: This is a well-nourished, well-developed patient,ventilated, sedated on propofol, still sitting up, moving all extremities, opening eyes.. SKIN: No rashes, ecchymoses or lesions. Cool and dry. HEAD: Atraumatic. Normocephalic. No temporal or scalp tenderness. EYES: Pupils equal round and reactive. Extraocular motions intact. No scleral icterus. No injection or drainage. ENT: Nose without bleeding, purulent drainage or septal hematoma. NECK: Trachea midline. No JVD or lymphadenopathy. Orally intubated CARDIOVASCULAR: Regular rate and rhythm without murmurs, gallops, or rubs. RESPIRATORY: Diminished,. equalbreath sounds to auscultation bilaterally. No wheezes, rales, or rhonchi. GASTROINTESTINAL: Abdomen soft, non-tender, nondistended. No hepato-splenomegaly , or palpable masses. No guarding. MUSCULOSKELETAL: Extremities without clubbing, cyanosis, or edema. No joint tenderness, effusion, or edema noted. No calf tenderness. Negative Homans sign bilaterally. NEUROLOGICAL: Intubated, sedated, moving Laboratory Laboratory Tests Test 11/07/16 11/07/16 05:33 10:35 White Blood Count 14.0 Red Blood Count 2.87 Hemoglobin 9.4 Hematocrit 28.5 Mean Corpuscular Volume 99.4 Mean Corpuscular Hemoglobin 32.7 Mean Corpuscular Hemoglobin 32.9 Concent Red Cell Distribution Width 18.7 Platelet Count 244 Mean Platelet Volume 8.4 Neutrophils (%) (Auto) 91.9 Lymphocytes (%) (Auto) 3.3 Monocytes (%) (Auto) 4.8 Eosinophils (%) (Auto) 0.0 Basophils (%) (Auto) 0.0 Neutrophils # (Auto) 12.9 Lymphocytes # (Auto) 0.5 Monocytes # (Auto) 0.7 Eosinophils # (Auto) 0.0 Basophils # (Auto) 0.0 CBC Comment DIFF FINAL Differential Comment Sodium Level 144 Potassium Level 4.3 Chloride Level 113 Carbon Dioxide Level 18.2 Anion Gap 13 Blood Urea Nitrogen 26 Creatinine 1.02 Estimat Glomerular Filtration 69 Rate Random Glucose 124 Calcium Level 7.3 Protein Corrected Calcium 8.5 Total Bilirubin 0.3 Aspartate Amino Transf 17 (AST/SGOT) Alanine Aminotransferase 12 (ALT/SGPT) Alkaline Phosphatase 49 Total Protein 5.0 Albumin 1.8 Random Vancomycin Level 3.5 Lactic Acid Level 4.5 Date/Time Procedure Status Source Growth 11/07/16 10:00 Legionella Antigen - Final Resulted Urine Catheterized Urine PRESUMPTIVE NEGATIVE FOR LEGIONELLA P... 11/07/16 10:00 Streptococcus pneumoniae Antigen (M Resulted Urine Catheterized Urine Pending 11/06/16 12:00 Gram Stain - Final Resulted Sputum Endotracheal 11/06/16 12:00 Sputum Culture Resulted Sputum Endotracheal Pending 11/06/16 06:30 Influenza Types A,B Antigen (NATALY) - Final Complete Nasal Aspirate NEGATIVE FOR FLU A AND B ANTIGEN.... 11/06/16 06:15 Urine Culture - Preliminary Resulted Urine Catheterized Urine Gram Negative Dalton 11/06/16 06:10 Aerobic Blood Culture - Preliminary Resulted Blood Peripheral NO GROWTH IN 1 DAY 11/06/16 06:10 Anaerobic Blood Culture - Preliminary Resulted Blood Peripheral NO GROWTH IN 1 DAY Result Diagram: 11/07/1653211/07/16532 Assessment and Plan Problem List: (1) Acute respiratory failure Status: Acute Plan: Management by [facility], on ventilator with light sedation. (2) Altered mental status Status: Chronic Plan: Chronic dementia with memory loss. (3) Pneumonia Status: Acute Plan: Ventilated on broad spectrum abx. CCM managing. (4) History of COPD Status: Chronic Plan: Long smoking history, none current. (5) Urinary tract infection Status: Acute Plan: Chronic with indwelling costa d/t retention, recurrent UTI's.Culture shows Gm neg rods. On broad specturm abx. (6) Sepsis Status: Acute Plan: BC so far negative. On broad spectrum abx. (7) Fever Status: Resolved Plan: Resolving. Last febrile 11/06, afebrile today. Assessment and Plan Will follow with [facility] until patient released to primary medical management. Thank you for the consult. D/W RN, Dr. Salgado. Problem Qualifiers (1) Acute respiratory failure: Qualified Code: J96.01 - Acute respiratory failure with hypoxia (2) Pneumonia: Qualified Code: J18.1 - Pneumonia of left lower lobe due to infectious organism (3) Urinary tract infection: Qualified Code: T83.511A - Urinary tract infection associated with indwelling urethral catheter, initial encounter (4) COPD (chronic obstructive pulmonary disease): Qualified Code: J44.1 - Chronic obstructive pulmonary disease with acute exacerbation (5) Altered mental status: Qualified Code: R41.0 - Disorientation (6) Sepsis: Qualified Code: A41.9 - Sepsis, due to unspecified organism (7) Fever: Qualified Code: R50.9 - Fever, unspecified fever cause Melissa Crandall Nov 07, 2016 14:19
[2016-11-08] VITALS (16 sets, daily range): BP systolic 128–154; BP diastolic 63–87; PULSE 47–89; RESP 10–22; TEMP 97–98.1; O2SAT 96–100
[2016-11-08] MEDS: RESP: ALBUTEROL 2.5 MG/IPRATROPIUM 0.5 MG NEB (SCH) INH ×4 (03:33→22:00)
[2016-11-08] MEDS: SODIUM CHLOR 0.9% 1000 ML INJ 1,000 ML IV SCH (05:24)
[2016-11-08] MEDS: SODIUM CHLORIDE 0.9% FLUSH 5 ML FLUSH IV FLUSH SCH ×3 (05:24→21:00)
[2016-11-08] MEDS: DIVALPROEX SODIUM SPRINKLES 125 MG CAP PO SCH ×3 (05:25→22:00)
[2016-11-08] MEDS: PIPERACIL-TAZO 4.5 GM PREMIX 100 ML IV SCH ×4 (05:25→22:00)
[2016-11-08] MEDS: LEVOTHYROXINE SODIUM 75 MCG TAB PO SCH (05:25)
[2016-11-08] MEDS: HYDROCORTISONE SOD SUCCINATE 100 MG VIAL IV PUSH SCH ×3 (05:26→22:00)
[2016-11-08] MEDS: AZITHROMYCIN INJ 500 MG in SODIUM CHLOR 0.9% 250 ML INJ 250 ML IV SCH (05:26)
[2016-11-08] MEDS ORDERED: FUROSEMIDE 20 MG/2 ML VIAL IV PUSH ONE (08:00)
--- NOTE | 2016-11-08 08:00 | HHI.CCPN ---
Subjective Remarks/Hospital Course The patient is an 89 year old male who is a local [place] resident with past medical history significant for recent MRSA sepsis from pneumonia in Sep 2016, dementia , COPD, CVA, hypertension who presented to the emergency department with increasing shortness of breath overnight. Upon EMS arrival patient was tachypneic and febrile. The patient on arrival to [facility] had a temperature of 102.9 and diffuse wheezing. Apparently he was alert and awake on arrival and had productive cough. The patient had IV access obtained and blood work sent for analysis. He was initially normotensive with sinus tachycardia heart rate of 136. A chest x-ray showed persistent left lower lobe infiltrate, ABG showed severe hypoxia. The patient was given DuoNeb 3, Solu-Medrol 125 mg IV, cefepime and Zithromax were started IV and also vancomycin 1 g IV. She was temporarily placed on BiPAP without improvement, and so was emergently intubated and placed on mechanical ventilation. Patient received a total of 4 L normal saline IV fluid. Critical care medicine was consulted for ICU admission. Pertinent labs include a lactate of 4.9 BUN was 26 with a creatinine of 1.4. UA showed evidence of UTI. His source of severe sepsis appears to be pneumonia and UTI. No further history is obtainable from the patient. I evaluated the patient in the ED. He is intubated sedated on 100% oxygen with oxygen saturation now 100%. Repeat ABG is pending. Due to profound hypoxia I'll get a CT angiogram of the chest and also CT abdomen pelvis. He'll be placed on IV Zosyn, azithromycin and IV vancomycin SUBJ 11/07: Overnight received additional 2 L fluid boluses for diminished urine output and borderline hypotension. 400 ml total urine output over the last 10 hours. Patient is hypothermic receiving warm IV fluids. Cultures are pending chest x-ray shows increasing left lower lobe infiltrate which is probably the source of infection, along with UTI 11/08: Remains intubated encephalopathic. Blood pressure improved urine output is improved. Continues to have thick ozuna secretions. Following commands in all 4 extremities on sedation hold Objective Vital Signs Date Time Temp Pulse Resp B/P Pulse Ox O2 Delivery O2 Flow Rate FiO2 11/08/16 06:00 89 11/08/16 04:15 100 40 11/08/16 04:00 97.0 18 129/65 11/06/16 11:13 Ventilator 11/06/16 07:40 15 Intake and Output 11/07/16 11/07/16 11/08/16 08:00 16:00 00:00 Intake Total 3801 ml 1965 ml 1464 ml Output Total 325 ml 175 ml 350 ml Balance 3476 ml 1790 ml 1114 ml Result Diagram: 11/07/16 0533 11/07/16 0533 Other Results Microbiology Date/Time Procedure Status Source Growth 11/06/16 06:30 Influenza Types A,B Antigen (NATALY) - Final Complete Nasal Aspirate NEGATIVE FOR FLU A AND B ANTIGEN.... Imaging Chest x-ray shows left lower lobe infiltrate Objective Remarks General: The patient is a well-developed well-nourished male, who is intubated critically ill, sedated with propofol Head and Neck exam: Head is normocephalic atraumatic. Eyes: Pupils are equal round and reactive to light. ENT: Mucous membranes are dry. Orotracheally intubated Neck: No palpable lymphadenopathy. Cardiovascular: S1-S2 normal no murmurs. Lungs: Mild expiratory wheezes audible bilaterally and few bibasilar crackles. Air entry is diminished bilaterally Abdomen: Soft, without tenderness to palpation. No guarding, rebound, or rigidity. Well healed RLQ scar. Chronic indwelling Stout catheter Extremities: No clubbing, cyanosis, or edema. No calf tenderness on palpation. Right heel has stage II decubitus ulcer Neurologic Exam: Patient is intubated sedated, moves all extremities. Following commands in all 4 extremities on sedation hold Urinary Catheter: Yes Assessment to: Continue A/P Assessment and Plan Assessment and Plan Neuro/Psych: Acute metabolic encephalopathy Dementia History CVA with left-sided weakness Peripheral neuropathy Chronic low back pain -On propofol/fentanyl gtt while intubated. Goal RASS -2 -Daily sedation vacation, for weaning trial -Continue Depakote and Risperdal CV: Hypotension -resolved Lactic acidosis History of hypertension -Status post aggressive fluid resuscitation. DC maintenance IV fluids, IV Lasix 40 mg 1 -Monitor HR and BP keep MAP>65mmHg -On ASA 81mg daily -Lactic acid trending down, repeat at 10 AM Resp: Acute hypoxemic respiratory failure COPD exacerbation Left lower lobe pneumonia History of MRSA pneumonia -Continue vent support keep sat >90%-ACV 14/550/10/titrate FiO2 -Ventilator bundle. Duonebs every 6 hours and as needed -Hydrocortisone 100mg IV [id number] to 50 every 8 -CT pulmonary angiogram negative for PE -Broad spectrum antibiotics with Zosyn and azithromycin and vancomycin -Start spontaneous breathing trial GI: History of Rectal ulcers History gastritis Malnutrition -Protonix for GI prophylaxis. -Tube feeding with Jevity, with beneprotein powder 2 scoops 3 times a day -Colace/as needed Senokot for bowel regimen : Chronic kidney disease disease History of ELMO -Monitor renal function, I/o's, electrolytes replacement as needed. -DC IVF, IV Lasix 40 x1 Endo: Hypothyroidism -Continue Levoxyl at 75 g by mouth daily. -Sliding-scale insulin with Accu-Cheks every 6 hours to maintain glycemia if needed -Electrolyte replacement per protocol Heme: Normocytic anemia History of skin cancer -Monitor CBC ID: Septic shock-resolved HCAP/left lower lobe UTI History of MRSA -Continue Zosyn, azithromycin and vancomycin. Infectious disease following, Dr. Alfaro -Follow up on sputum blood and urine culture. Urine cx growing GNR MSK: -Right heel stage II decubitus ulcer. Wound care consulted Access - Utilize peripheral IV. Central line if indicated Prophylaxis - GI - Protonix - DVT - SCD/Lovenox Critical Care: The total critical care time was 30 minutes. Time to perform other separately billable procedures was not included in the critical care time. Glenn Garcia MD Nov 08, 2016 08:00
[2016-11-08] MEDS: BENEPROTEIN POWDER 1 PACK G-TUBE SCH ×3 (08:33→16:43)
[2016-11-08] MEDS: ENOXAPARIN SODIUM 40 MG/0.4 ML SYRINGE SQ SCH (08:34)
[2016-11-08] MEDS: PANTOPRAZOLE SODIUM 40 MG VIAL IV SCH (08:34)
[2016-11-08] MEDS: risperiDONE 1 MG TAB PO SCH ×3 (08:34→18:14)
[2016-11-08] MEDS: ASPIRIN EC 81 MG TABEC PO SCH (08:34)
--- NOTE | 2016-11-08 13:18 | HHI.PR ---
Subjective Remarks Just extubated, c/o productive cough. Objective Vital Signs Date Time Temp Pulse Resp B/P Pulse Ox O2 Delivery O2 Flow Rate FiO2 11/08/16 10:42 97 Nasal Cannula 3.00 11/08/16 10:00 80 11/08/16 09:15 100 Nasal Cannula 3 11/08/16 09:15 100 Nasal Cannula 3.00 11/08/16 08:05 100 40 11/08/16 08:05 Nasal Cannula 40 11/08/16 08:00 97.5 58 19 154/74 100 11/08/16 08:00 47 11/08/16 08:00 40 11/08/16 06:00 89 11/08/16 04:15 100 40 11/08/16 04:00 97.0 67 18 129/65 96 11/08/16 04:00 89 11/08/16 04:00 40 11/08/16 02:00 48 11/08/16 01:16 100 40 11/08/16 00:00 97.9 67 12 128/63 96 11/08/16 00:00 40 11/08/16 00:00 48 11/07/16 23:18 100 40 11/07/16 22:04 100 40 11/07/16 22:00 64 11/07/16 20:33 100 40 11/07/16 20:00 64 11/07/16 20:00 40 11/07/16 20:00 97.5 63 10 142/72 98 11/07/16 18:00 77 11/07/16 17:50 100 40 11/07/16 16:00 40 11/07/16 16:00 97.3 79 15 126/66 100 11/07/16 16:00 77 11/07/16 15:17 40 11/07/16 15:17 100 40 11/07/16 14:00 67 I/O 11/07/16 11/07/16 11/07/16 11/08/16 11/08/16 11/08/16 07:00 15:00 23:00 07:00 15:00 23:00 Intake Total 3801 ml 1965 ml 1464 ml 1129 ml Output Total 325 ml 175 ml 350 ml 800 ml Balance 3476 ml 1790 ml 1114 ml 329 ml Intake IV Total 3681 ml 1628 ml 1224 ml 917 ml Tube Feeding 37 ml 240 ml 212 ml Tube Irrigant 120 ml 300 ml Output Urine Total 325 ml 175 ml 350 ml 800 ml Result Diagram: 11/07/16 0533 11/07/16 0533 Imaging Last 48 hours Impressions Chest X-Ray 11/07/16 0000 Signed Impressions: Service Date/Time: Monday, November 07, 2016 04:07 - CONCLUSION: Increasing infiltrate in the left lung base. Thompson Fabian MD Objective Remarks GENERAL: Thin, well-developed patient. SKIN: Warm and dry. HEAD: Normocephalic. EYES: No scleral icterus. No injection or drainage. NECK: Supple, trachea midline. No JVD or lymphadenopathy. CARDIOVASCULAR: Regular rate and rhythm without murmurs, gallops, or rubs. RESPIRATORY: Breath sounds with coarse rhonchi throughout, eupneic. GASTROINTESTINAL: Abdomen soft, non-tender, nondistended. EXTREMITIES: No cyanosis, or edema. NEUROLOGICAL: Awake, alert, and oriented x 1. Non-focal. Medications and IVs Current Medications Medications (Trade) Dose Ordered Sig/Mercedes Route Start Time Stop Time Status Last Admin (NS Flush) 2 ml UNSCH PRN IV FLUSH 11/06/16 08:15 (NS Flush) 2 ml BID IV FLUSH 11/06/16 09:00 11/08/16 08:35 (Protonix Inj) 40 mg DAILY IV 11/06/16 09:00 11/08/16 08:34 Enoxaparin Sodium 40 mg 40 mg Q24H SQ 11/06/16 10:00 11/08/16 08:34 (Zosyn 4.5 Gm Premix) 100 ml @ 200 mls/hr Q6H IV 11/06/16 10:00 11/08/16 08:34 Miscellaneous Information 1 Q361D XX 11/06/16 08:15 (Chlorhexidine 2% Cloth) 3 pack Taper DAILY@04 TOP 11/07/16 04:00 11/03/17 03:59 11/07/16 04:00 Chlorhexidine Gluconate 3 pack 3 pack UNSCH PRN TOP 11/06/16 08:15 Propofol 100 ml @ 0 mls/hr TITRATE IV 11/06/16 08:15 11/07/16 14:24 Potassium Chloride 100 ml @ 50 mls/hr Q2H PRN IV 11/06/16 08:15 (KCl 20 Meq Premix Inj) 100 ml @ 50 mls/hr Q2H PRN IV 11/06/16 08:15 Potassium Chloride 40 meq 40 meq UNSCH PRN PO/TUBE 11/06/16 08:15 Potassium Chloride 100 ml @ 25 mls/hr UNSCH PRN IV 11/06/16 08:15 Potassium Chloride 100 ml @ 50 mls/hr Q2H PRN IV 11/06/16 08:15 (Magnesium Sulfate Inj/NS Inj) 100 ml @ 50 mls/hr UNSCH PRN IV 11/06/16 08:15 Magnesium Oxide 800 mg 800 mg UNSCH PRN PO 11/06/16 08:15 (Magnesium Sulfate Inj/NS Inj) 100 ml @ 50 mls/hr UNSCH PRN IV 11/06/16 08:15 Potassium Phosphate 2000 mg 2,000 mg Q4H PRN PO 11/06/16 08:15 (Sodium Phosphate Inj/NS 250 ml Inj) 250 ml @ 42 mls/hr UNSCH PRN IV 11/06/16 08:15 11/07/16 09:06 (KCl 40 Meq/30 ml Liq) 40 meq UNSCH PRN PO/TUBE 11/06/16 08:15 Potassium Phosphate 2000 mg 2,000 mg UNSCH PRN PO/TUBE 11/06/16 08:15 Potassium Phosphate 30 mmol/ Sodium Chloride 260 ml @ 42 mls/hr UNSCH PRN IV 11/06/16 08:15 (Vancomycin Consult Pharmacy) 0 ml @ 0 mls/hr UNSCH OTHER 11/06/16 10:30 Hydrocortisone Sodium Succinate 100 mg 100 mg Q8HR IV PUSH 11/06/16 14:00 11/08/16 05:26 (Zithromax Inj/ NS 250 ml Inj) 250 ml @ 250 mls/hr Q24H IV 11/07/16 06:00 11/08/16 05:26 (Ecotrin Ec) 81 mg DAILY PO 11/07/16 09:00 11/08/16 08:34 (Synthroid) 75 mcg DAILY@0600 PO 11/07/16 06:00 11/08/16 05:25 (risperDAL) 2 mg TID PO 11/06/16 13:00 11/08/16 08:34 (Depakote Sprinkles) 250 mg Q8HR PO 11/06/16 14:00 11/08/16 05:25 Protein 2 pack 2 pack TID G-TUBE 11/07/16 09:00 11/08/16 08:33 (Vancomycin Inj/ NS 500 ml Inj) 515 ml @ 257.5 mls/ hr Q24H IV 11/07/16 11:00 11/07/16 10:49 Miscellaneous Information SPECIFIC LAB TO BE DRAWN:VANCO TROUGH DATE TO BE DR... ONCE ONCE XX 11/10/16 10:45 11/10/16 10:46 Assessment and Plan Problem List: (1) Acute respiratory failure Status: Acute Plan: Management by [facility], on ventilator with light sedation. (2) Altered mental status Status: Chronic Plan: Chronic dementia with memory loss. (3) Pneumonia Status: Acute Plan: Ventilated on broad spectrum abx. CCM managing. (4) History of COPD Status: Chronic Plan: Long smoking history, none current. (5) Urinary tract infection Status: Acute Plan: Chronic with indwelling costa d/t retention, recurrent UTI's.Culture shows Gm neg rods. On broad specturm abx. (6) Sepsis Status: Acute Plan: BC so far negative. On broad spectrum abx. (7) Fever Status: Resolved Plan: Resolving. Last febrile 11/06, afebrile today. Assessment and Plan Will follow with [facility] until patient released to primary medical management. Thank you for the consult. D/W RN, Dr. Salgado. Problem Qualifiers (1) Acute respiratory failure: Qualified Code: J96.01 - Acute respiratory failure with hypoxia (2) Altered mental status: Qualified Code: R41.0 - Disorientation (3) Pneumonia: Qualified Code: J18.1 - Pneumonia of left lower lobe due to infectious organism (4) Urinary tract infection: Qualified Code: T83.511A - Urinary tract infection associated with indwelling urethral catheter, initial encounter (5) Sepsis: Qualified Code: A41.9 - Sepsis, due to unspecified organism (6) Fever: Qualified Code: R50.9 - Fever, unspecified fever cause Melissa Crandall Nov 08, 2016 13:18
[2016-11-08] MEDS: VANCOMYCIN 1,500 MG/NS 500 ML IV SCH ×2 (13:38)
[2016-11-08] MEDS: LORazepam 0.5 MG TAB PO PRN (15:43)
[2016-11-08] MEDS: ACETAMINOPHEN 500 MG CPLT PO PRN (15:44)
--- NOTE | 2016-11-08 18:01 | HHI.IDPN ---
Subjective Subjective Remarks Delayed entry patient seen at 12 noon. is 89 y/o CM who is admitted with recurrent MRSA pneumonia and UTI. Overnight events reviewed Extubated. Doing well on NC 3 L No fever No rash No diarrhea Antibiotics Zosyn IV Vanco IV Lines Line sites with no e/o infection. Past Medical History reviewed Allergies: Coded Allergies: Levofloxacin (Verified Allergy, Severe, 11/06/16) *MDRO Multi-Drug Resistant Organism (Verified Adverse Reaction, Unknown, MRSA, 11/09/16) MRSA (sputum & blood) - 07/21/16 & 08/22/16; MRSA (sputum & blood) - 10/08/16; (sputum) - 11/06/16 MRSA PCR Screen POSITIVE - 10/08/16 Objective . Vital Signs Date Time Temp Pulse Resp B/P Pulse Ox O2 Delivery O2 Flow Rate FiO2 11/08/16 16:44 20 11/08/16 16:00 97.6 72 13 132/64 96 11/08/16 16:00 96 Room Air 11/08/16 16:00 72 11/08/16 14:00 72 11/08/16 12:00 68 11/08/16 12:00 97.6 68 10 129/69 100 11/08/16 10:42 97 Nasal Cannula 3.00 11/08/16 10:00 80 11/08/16 09:15 100 Nasal Cannula 3 11/08/16 09:15 100 Nasal Cannula 3.00 11/08/16 08:05 100 40 11/08/16 08:05 Nasal Cannula 40 11/08/16 08:00 97.5 58 19 154/74 100 11/08/16 08:00 47 11/08/16 08:00 40 11/08/16 06:00 89 11/08/16 04:15 100 40 11/08/16 04:00 97.0 67 18 129/65 96 11/08/16 04:00 89 11/08/16 04:00 40 11/08/16 02:00 48 11/08/16 01:16 100 40 11/08/16 00:00 97.9 67 12 128/63 96 11/08/16 00:00 40 11/08/16 00:00 48 11/07/16 23:18 100 40 11/07/16 22:04 100 40 11/07/16 22:00 64 11/07/16 20:33 100 40 11/07/16 20:00 64 11/07/16 20:00 40 11/07/16 20:00 97.5 63 10 142/72 98 11/07/16 11/07/16 11/08/16 15:00 23:00 07:00 Intake Total 1965 ml 1464 ml 1129 ml Output Total 175 ml 350 ml 800 ml Balance 1790 ml 1114 ml 329 ml Intake IV Total 1628 ml 1224 ml 917 ml Tube Feeding 37 ml 240 ml 212 ml Tube Irrigant 300 ml Output Urine Total 175 ml 350 ml 800 ml . Laboratory Tests Test 11/07/16 05:33 White Blood Count 14.0 TH/MM3 Red Blood Count 2.87 MIL/MM3 Hemoglobin 9.4 GM/DL Hematocrit 28.5 % Mean Corpuscular Volume 99.4 FL Mean Corpuscular Hemoglobin 32.7 PG Mean Corpuscular Hemoglobin 32.9 % Concent Red Cell Distribution Width 18.7 % Platelet Count 244 TH/MM3 Mean Platelet Volume 8.4 FL Neutrophils (%) (Auto) 91.9 % Lymphocytes (%) (Auto) 3.3 % Monocytes (%) (Auto) 4.8 % Eosinophils (%) (Auto) 0.0 % Basophils (%) (Auto) 0.0 % Neutrophils # (Auto) 12.9 TH/MM3 Lymphocytes # (Auto) 0.5 TH/MM3 Monocytes # (Auto) 0.7 TH/MM3 Eosinophils # (Auto) 0.0 TH/MM3 Basophils # (Auto) 0.0 TH/MM3 CBC Comment DIFF FINAL Differential Comment Laboratory Tests Test 11/07/16 11/07/16 11/07/16 11/07/16 05:33 10:35 17:30 20:50 Sodium Level 144 MEQ/L Potassium Level 4.3 MEQ/L Chloride Level 113 MEQ/L Carbon Dioxide Level 18.2 MEQ/L Anion Gap 13 MEQ/L Blood Urea Nitrogen 26 MG/DL Creatinine 1.02 MG/DL Estimat Glomerular Filtration 69 ML/MIN Rate Random Glucose 124 MG/DL Calcium Level 7.3 MG/DL Protein Corrected Calcium 8.5 MG/DL Total Bilirubin 0.3 MG/DL Aspartate Amino Transf 17 U/L (AST/SGOT) Alanine Aminotransferase 12 U/L (ALT/SGPT) Alkaline Phosphatase 49 U/L Total Protein 5.0 GM/DL Albumin 1.8 GM/DL Lactic Acid Level 4.5 mmol/L 3.4 mmol/L Phosphorus Level 3.8 MG/DL Test 11/08/16 10:00 Lactic Acid Level 1.8 mmol/L Microbiology Date/Time Procedure Status Source Growth 11/06/16 06:05 Aerobic Blood Culture - Preliminary Resulted Blood Peripheral NO GROWTH IN 2 DAYS 11/06/16 06:05 Anaerobic Blood Culture - Preliminary Resulted Blood Peripheral NO GROWTH IN 2 DAYS 11/06/16 06:10 Aerobic Blood Culture - Preliminary Resulted Blood Peripheral NO GROWTH IN 2 DAYS 11/06/16 06:10 Anaerobic Blood Culture - Preliminary Resulted Blood Peripheral NO GROWTH IN 2 DAYS 11/06/16 06:15 Urine Culture - Preliminary Resulted Urine Catheterized Urine Escherichia Coli Gram Negative [place] 11/06/16 06:30 Influenza Types A,B Antigen (NATALY) - Final Complete Nasal Aspirate NEGATIVE FOR FLU A AND B ANTIGEN.... 11/06/16 12:00 Gram Stain - Final Resulted Sputum Endotracheal 11/06/16 12:00 Sputum Culture - Preliminary Resulted S. Aureus Mrsa 11/07/16 10:00 Legionella Antigen - Final Complete Urine Catheterized Urine PRESUMPTIVE NEGATIVE FOR LEGIONELLA P... 11/07/16 10:00 Streptococcus pneumoniae Antigen (M - Final Complete Urine Catheterized Urine 11/07/16 10:00 - Final Complete Other Imaging Last Impressions Chest X-Ray 11/07/16 0000 Signed Impressions: Service Date/Time: Monday, November 07, 2016 04:07 - CONCLUSION: Increasing infiltrate in the left lung base. Thompson Fabian MD Abdomen/Pelvis CT 11/06/16 1028 Signed Impressions: Service Date/Time: Sunday, November 06, 2016 11:15 - CONCLUSION: Stout catheter in place in a decompressed urinary bladder. No obstructive uropathy. There is a nonobstructive left kidney midpole posterior stones sub-centimeters size. Multiple right renal cysts. Uncomplicated diverticuli of the colon and extensive degenerative changes of the lumbar spine. Abdirashid Cotton MD CT Angiography 11/06/16 0000 Signed Impressions: Service Date/Time: Sunday, November 06, 2016 11:15 - CONCLUSION: Minimally suboptimal examination with poor visualization of distal arterial structures. Centrally there is no evidence of pulmonary embolism. Stable bilateral posterior basilar minimal pleural effusions and dependent basilar atelectasis. Abdirashid Cotton MD Physical Exam GENERAL: Obese, CM patient, in no apparent distress. SKIN: No generalized rashes. Has skin breaks on RUE and few areas of ecchymosis. HEAD: Atraumatic. Normocephalic. No temporal or scalp tenderness. EYES: Pupils equal round and reactive. Extraocular motions intact. No scleral icterus. No injection or drainage. ENT:Grossly NAD NECK: Trachea midline. Supple, nontender, no meningeal signs. CARDIOVASCULAR: HS audible. RESPIRATORY: Breath sounds equal bilaterally but decreased in the bases. GASTROINTESTINAL: Abdomen soft, non-tender, nondistended. MUSCULOSKELETAL: Extremities without clubbing, cyanosis. NEUROLOGICAL: Awake, Alert, responds to questions. Moves all extremities. Psych:cooperative V line sites with no e/o infection. Assessment & Plan Remarks Severe Sepsis present on admission(fever, tachypnea, tachycardia, elevated lactic acid, acute renal failure, sources pneumonia) Pneumonia (recent history of MRSA pneumonia, other possibilities are community- acquired pneumonia, atypical pneumonia) Acute renal failure on admission appears to be improving likely sepsis of prerenal Prior history of MRSA pneumonia as well as bacteremia in September 2016. Recurrent pneumonia: MRSA UTI present on admission: E.coli and another GNR Acute COPD exacerbation with hypoxia. 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 Follow clinically. France Alfaro MD Nov 08, 2016 18:01
[2016-11-09] VITALS (12 sets, daily range): BP systolic 132–163; BP diastolic 75–92; PULSE 68–104; RESP 14–20; TEMP 97–98.9; O2SAT 93–99
[2016-11-09] MEDS: RESP: ALBUTEROL 2.5 MG/IPRATROPIUM 0.5 MG NEB (SCH) INH ×3 (04:00→16:00)
--- NOTE | 2016-11-09 05:05 | RADRPT ---
EXAM DATE/TIME: 11/09/2016 03:40 [facility] COMPARISON: CHEST SINGLE AP, November 07, 2016, 4:07. INDICATIONS : Shortness of breath. MEDICAL HISTORY : Hypertension. Chronic obstructive pulmonary disease. SURGICAL HISTORY : None. ENCOUNTER: Subsequent ACUITY: 4 - 6 days PAIN SCORE: Non-responsive. LOCATION: Bilateral chest FINDINGS: Cardiomegaly. Improved aeration of both lungs with mild residual left greater than right basilar airs pace disease. Aortic calcification. Degenerative changes of the spine. CONCLUSION: Slightly improved aeration. Richard Kingston MD on November 09, 2016 at 5:03 Board Certified Radiologist. This report was verified electronically.
[2016-11-09] MEDS: PIPERACIL-TAZO 4.5 GM PREMIX 100 ML IV SCH ×4 (06:26→23:05)
[2016-11-09] MEDS: DIVALPROEX SODIUM SPRINKLES 125 MG CAP PO SCH ×3 (06:27→23:15)
[2016-11-09] MEDS: LEVOTHYROXINE SODIUM 75 MCG TAB PO SCH (06:27)
[2016-11-09] MEDS: HYDROCORTISONE SOD SUCCINATE 100 MG VIAL IV PUSH SCH ×3 (06:27→23:01)
[2016-11-09 07:01] LABS: ALT (GPT) 15 U/L (12-78); ANION GAP 8 MEQ/L (5-15); AST (GOT) 17 U/L (15-37); BICARBONATE 24.4 MEQ/L (21.0-32.0); BLOOD UREA NITROGEN 26 MG/DL (7-18); CHLORIDE 114 MEQ/L (98-107); GLOMERULAR FILTRATION RATE 80 ML/MIN (>89); MAGNESIUM 2.1 MG/DL (1.5-2.5); POTASSIUM 3.7 MEQ/L (3.5-5.1); SODIUM (NA) 146 MEQ/L (136-145)
[2016-11-09 07:03] LABS: ALKALINE PHOSPHATASE 42 U/L (45-117); TOTAL BILIRUBIN ADULT 0.3 MG/DL (0.2-1.0)
[2016-11-09 07:34] LABS: BASOPHIL % 0.1 % (0.0-2.0); EOSINOPHIL % 0.1 % (0.0-4.0); HEMATOCRIT 32.5 % (39.0-51.0); HEMO FLAGS DIFF FINAL; LYMPH % 7.9 % (9.0-44.0); LYMPHOCYTE # 0.8 TH/MM3 (1.0-4.8); MEAN CELL VOLUME 99.8 FL (80.0-100.0); MEAN CORPUSCULAR HEMOGLOBIN 32.4 PG (27.0-34.0); MEAN CORPUSCULAR HGB CONC 32.5 % (32.0-36.0); MONO % 7.7 % (0.0-8.0); NEUT % 84.2 % (16.0-70.0); PLATELET COUNT 254 TH/MM3 (150-450); RED BLOOD COUNT 3.26 MIL/MM3 (4.50-5.90); RED CELL DISTRIBUTION WIDTH 18.4 % (11.6-17.2); WHITE BLOOD COUNT 10.7 TH/MM3 (4.0-11.0)
[2016-11-09] MEDS: ASPIRIN EC 81 MG TABEC PO SCH (07:38)
[2016-11-09] MEDS: PANTOPRAZOLE SODIUM 40 MG VIAL IV SCH (07:38)
--- NOTE | 2016-11-09 07:38 | HHI.CCPN ---
Subjective Remarks/Hospital Course The patient is an 89 year old male who is a local [place] resident with past medical history significant for recent MRSA sepsis from pneumonia in Sep 2016, dementia , COPD, CVA, hypertension who presented to the emergency department with increasing shortness of breath overnight. Upon EMS arrival patient was tachypneic and febrile. The patient on arrival to [facility] had a temperature of 102.9 and diffuse wheezing. Apparently he was alert and awake on arrival and had productive cough. The patient had IV access obtained and blood work sent for analysis. He was initially normotensive with sinus tachycardia heart rate of 136. A chest x-ray showed persistent left lower lobe infiltrate, ABG showed severe hypoxia. The patient was given DuoNeb 3, Solu-Medrol 125 mg IV, cefepime and Zithromax were started IV and also vancomycin 1 g IV. She was temporarily placed on BiPAP without improvement, and so was emergently intubated and placed on mechanical ventilation. Patient received a total of 4 L normal saline IV fluid. Critical care medicine was consulted for ICU admission. Pertinent labs include a lactate of 4.9 BUN was 26 with a creatinine of 1.4. UA showed evidence of UTI. His source of severe sepsis appears to be pneumonia and UTI. No further history is obtainable from the patient. I evaluated the patient in the ED. He is intubated sedated on 100% oxygen with oxygen saturation now 100%. Repeat ABG is pending. Due to profound hypoxia I'll get a CT angiogram of the chest and also CT abdomen pelvis. He'll be placed on IV Zosyn, azithromycin and IV vancomycin SUBJ 11/07: Overnight received additional 2 L fluid boluses for diminished urine output and borderline hypotension. 400 ml total urine output over the last 10 hours. Patient is hypothermic receiving warm IV fluids. Cultures are pending chest x-ray shows increasing left lower lobe infiltrate which is probably the source of infection, along with UTI 11/08: Remains intubated encephalopathic. Blood pressure improved urine output is improved. Continues to have thick ozuna secretions. Following commands in all 4 extremities on sedation hold 11/09 Patient was extubated yesterday. On 3L oxygen with good sats. Afebrile. Objective Vital Signs Date Time Temp Pulse Resp B/P Pulse Ox O2 Delivery O2 Flow Rate FiO2 11/09/16 02:00 74 11/09/16 00:00 98.9 16 132/83 98 11/08/16 22:00 21 11/08/16 20:00 Nasal Cannula 3.00 Intake and Output 11/08/16 11/08/16 11/09/16 08:00 16:00 00:00 Intake Total 1129 ml 763 ml 350 ml Output Total 800 ml 1500 ml 350 ml Balance 329 ml -737 ml 0 ml Result Diagram: 11/07/16 0533 11/09/16 0631 Other Results Laboratory Tests Test 11/08/16 11/09/16 10:00 06:31 Lactic Acid Level 1.8 mmol/L Sodium Level 146 MEQ/L Potassium Level 3.7 MEQ/L Chloride Level 114 MEQ/L Carbon Dioxide Level 24.4 MEQ/L Anion Gap 8 MEQ/L Blood Urea Nitrogen 26 MG/DL Creatinine 0.90 MG/DL Estimat Glomerular Filtration 80 ML/MIN Rate Random Glucose 90 MG/DL Calcium Level 7.9 MG/DL Magnesium Level 2.1 MG/DL Total Bilirubin 0.3 MG/DL Aspartate Amino Transf 17 U/L (AST/SGOT) Alanine Aminotransferase 15 U/L (ALT/SGPT) Alkaline Phosphatase 42 U/L Total Protein 5.3 GM/DL Albumin 2.1 GM/DL Imaging Last Impressions Chest X-Ray 11/09/16 0600 Signed Impressions: Service Date/Time: Wednesday, November 09, 2016 03:40 - CONCLUSION: Slightly improved aeration. Richard Kingston MD Abdomen/Pelvis CT 11/06/16 1028 Signed Impressions: Service Date/Time: Sunday, November 06, 2016 11:15 - CONCLUSION: Stout catheter in place in a decompressed urinary bladder. No obstructive uropathy. There is a nonobstructive left kidney midpole posterior stones sub-centimeters size. Multiple right renal cysts. Uncomplicated diverticuli of the colon and extensive degenerative changes of the lumbar spine. Abdirashid Cotton MD CT Angiography 11/06/16 0000 Signed Impressions: Service Date/Time: Sunday, November 06, 2016 11:15 - CONCLUSION: Minimally suboptimal examination with poor visualization of distal arterial structures. Centrally there is no evidence of pulmonary embolism. Stable bilateral posterior basilar minimal pleural effusions and dependent basilar atelectasis. Abdirashid Cotton MD Objective Remarks GENERAL: Patient is lying in bed in NAD SKIN: Warm and dry. HEAD: Normocephalic. EYES: No scleral icterus. No injection or drainage. NECK: Supple, trachea midline. No JVD or lymphadenopathy. CARDIOVASCULAR: Regular rate and rhythm without murmurs, gallops, or rubs. RESPIRATORY: Breath sounds equal bilaterally. No accessory muscle use. GASTROINTESTINAL: Abdomen soft, non-tender, nondistended. MUSCULOSKELETAL: No cyanosis, or edema. BACK: Nontender without obvious deformity. No CVA tenderness. Neuro: Awake and alert A/P Assessment and Plan Assessment and Plan Neuro/Psych: Acute metabolic encephalopathy Dementia History CVA with left-sided weakness Peripheral neuropathy Chronic low back pain -Awake and alert -Continue Depakote and Risperdal CV: Hypotension -resolved Lactic acidosis History of hypertension -Monitor HR and BP keep MAP>65mmHg -On ASA 81mg daily -Lactic acid resolved 1.8 yesterday Resp: Acute hypoxemic respiratory failure -Extubated 11/08 COPD exacerbation Left lower lobe pneumonia History of MRSA pneumonia -Continue with oxygen keep sat >92% - Duonebs every 6 hours and as needed -Hydrocortisone 100mg every 8 -CT pulmonary angiogram negative for PE -Broad spectrum antibiotics with Zosyn and vancomycin GI: History of Rectal ulcers History gastritis Malnutrition -Protonix for GI prophylaxis. -On PO diet -Colace/as needed Senokot for bowel regimen : Chronic kidney disease disease History of ELMO -Monitor renal function, I/o's, electrolytes replacement as needed. Endo: Hypothyroidism -Continue Levoxyl at 75 g by mouth daily. -Sliding-scale insulin with Accu-Cheks every 6 hours to maintain glycemia if needed -Electrolyte replacement per protocol Heme: Normocytic anemia History of skin cancer -Monitor CBC ID: Septic shock-resolved HCAP/left lower lobe UTI History of MRSA -Continue Zosyn and vancomycin. Infectious disease following, Dr. Alfaro -11/06 Sputum cx: MRSA -11/06 Urine cx: E.coli, GNR MSK: -Right heel stage II decubitus ulcer. Wound care consulted Access - Utilize peripheral IV. Prophylaxis - GI - Protonix - DVT - SCD/Lovenox PT/OT Will sign off and transfer care to [facility] Level 3 Ger Coles MD Nov 09, 2016 07:38
[2016-11-09] MEDS: BENEPROTEIN POWDER 1 PACK G-TUBE SCH ×3 (07:39→17:07)
[2016-11-09] MEDS: SODIUM CHLORIDE 0.9% FLUSH 5 ML FLUSH IV FLUSH SCH ×2 (07:39→23:02)
[2016-11-09] MEDS: risperiDONE 1 MG TAB PO SCH ×4 (07:39→23:03)
[2016-11-09] MEDS: LORazepam 0.5 MG TAB PO PRN ×2 (11:31→23:02)
[2016-11-09] MEDS: ACETAMINOPHEN 500 MG CPLT PO PRN (11:31)
[2016-11-09] MEDS: ENOXAPARIN SODIUM 40 MG/0.4 ML SYRINGE SQ SCH (11:32)
[2016-11-09] MEDS: VANCOMYCIN 1,500 MG/NS 500 ML IV SCH ×2 (11:32)
--- NOTE | 2016-11-09 14:55 | HHI.IDPN ---
Subjective Subjective Remarks Delayed entry patient seen at 10 am. is 89 y/o CM who is admitted with recurrent MRSA pneumonia and UTI. Overnight events reviewed Doing well on RA. No fever No rash No diarrhea Baseline dementia. Speech ok. Antibiotics Zosyn IV Vanco IV Lines Line sites with no e/o infection. Past Medical History reviewed Allergies: Coded Allergies: Levofloxacin (Verified Allergy, Severe, 11/06/16) *MDRO Multi-Drug Resistant Organism (Verified Adverse Reaction, Unknown, MRSA, 11/09/16) MRSA (sputum & blood) - 07/21/16 & 08/22/16; MRSA (sputum & blood) - 10/08/16; (sputum) - 11/06/16 MRSA PCR Screen POSITIVE - 10/08/16 Objective . Vital Signs Date Time Temp Pulse Resp B/P Pulse Ox O2 Delivery O2 Flow Rate FiO2 11/09/16 14:00 81 11/09/16 12:31 20 11/09/16 12:00 68 11/09/16 12:00 98.0 68 14 136/75 99 11/09/16 10:02 94 11/09/16 10:00 84 11/09/16 08:00 69 11/09/16 08:00 97.7 69 17 162/82 98 11/09/16 07:00 97 Room Air 11/09/16 06:00 77 11/09/16 04:00 98.1 77 20 163/92 94 11/09/16 04:00 77 11/09/16 02:00 74 11/09/16 00:00 72 11/09/16 00:00 98.9 84 16 132/83 98 11/08/16 22:00 82 11/08/16 22:00 100 21 11/08/16 20:00 82 11/08/16 20:00 98.1 87 22 137/87 96 11/08/16 20:00 95 Nasal Cannula 3.00 11/08/16 18:00 78 11/08/16 16:00 97.6 72 13 132/64 96 11/08/16 16:00 96 Room Air 11/08/16 16:00 72 11/08/16 11/08/16 11/09/16 15:00 23:00 07:00 Intake Total 763 ml 350 ml 80 ml Output Total 1500 ml 350 ml 400 ml Balance -737 ml 0 ml -320 ml Intake Oral 50 ml IV Total 583 ml 350 ml 30 ml Tube Irrigant 180 ml Output Urine Total 1500 ml 350 ml 400 ml # Bowel Movements 0 . Laboratory Tests Test 11/09/16 06:31 White Blood Count 10.7 TH/MM3 Red Blood Count 3.26 MIL/MM3 Hemoglobin 10.6 GM/DL Hematocrit 32.5 % Mean Corpuscular Volume 99.8 FL Mean Corpuscular Hemoglobin 32.4 PG Mean Corpuscular Hemoglobin 32.5 % Concent Red Cell Distribution Width 18.4 % Platelet Count 254 TH/MM3 Mean Platelet Volume 8.5 FL Neutrophils (%) (Auto) 84.2 % Lymphocytes (%) (Auto) 7.9 % Monocytes (%) (Auto) 7.7 % Eosinophils (%) (Auto) 0.1 % Basophils (%) (Auto) 0.1 % Neutrophils # (Auto) 9.0 TH/MM3 Lymphocytes # (Auto) 0.8 TH/MM3 Monocytes # (Auto) 0.8 TH/MM3 Eosinophils # (Auto) 0.0 TH/MM3 Basophils # (Auto) 0.0 TH/MM3 CBC Comment DIFF FINAL Differential Comment Laboratory Tests Test 11/07/16 11/07/16 11/08/16 11/09/16 17:30 20:50 10:00 06:31 Lactic Acid Level 3.4 mmol/L 1.8 mmol/L Phosphorus Level 3.8 MG/DL Sodium Level 146 MEQ/L Potassium Level 3.7 MEQ/L Chloride Level 114 MEQ/L Carbon Dioxide Level 24.4 MEQ/L Anion Gap 8 MEQ/L Blood Urea Nitrogen 26 MG/DL Creatinine 0.90 MG/DL Estimat Glomerular Filtration 80 ML/MIN Rate Random Glucose 90 MG/DL Calcium Level 7.9 MG/DL Magnesium Level 2.1 MG/DL Total Bilirubin 0.3 MG/DL Aspartate Amino Transf 17 U/L (AST/SGOT) Alanine Aminotransferase 15 U/L (ALT/SGPT) Alkaline Phosphatase 42 U/L Total Protein 5.3 GM/DL Albumin 2.1 GM/DL Microbiology Date/Time Procedure Status Source Growth 11/07/16 10:00 Legionella Antigen - Final Complete Urine Catheterized Urine PRESUMPTIVE NEGATIVE FOR LEGIONELLA P... 11/07/16 10:00 Streptococcus pneumoniae Antigen (M - Final Complete Urine Catheterized Urine 11/07/16 10:00 - Final Complete Other Imaging Last Impressions Chest X-Ray 11/07/16 0000 Signed Impressions: Service Date/Time: Monday, November 07, 2016 04:07 - CONCLUSION: Increasing infiltrate in the left lung base. Thompson Fabian MD Abdomen/Pelvis CT 11/06/16 1028 Signed Impressions: Service Date/Time: Sunday, November 06, 2016 11:15 - CONCLUSION: Stout catheter in place in a decompressed urinary bladder. No obstructive uropathy. There is a nonobstructive left kidney midpole posterior stones sub-centimeters size. Multiple right renal cysts. Uncomplicated diverticuli of the colon and extensive degenerative changes of the lumbar spine. Abdriashid Cotton MD CT Angiography 11/06/16 0000 Signed Impressions: Service Date/Time: Sunday, November 06, 2016 11:15 - CONCLUSION: Minimally suboptimal examination with poor visualization of distal arterial structures. Centrally there is no evidence of pulmonary embolism. Stable bilateral posterior basilar minimal pleural effusions and dependent basilar atelectasis. Abdirashid Cotton MD Physical Exam GENERAL: Obese, CM patient, in no apparent distress. SKIN: No generalized rashes. Has skin breaks on RUE and few areas of ecchymosis. HEAD: Atraumatic. Normocephalic. No temporal or scalp tenderness. EYES: Pupils equal round and reactive. Extraocular motions intact. No scleral icterus. No injection or drainage. ENT:Grossly NAD NECK: Trachea midline. Supple, nontender, no meningeal signs. CARDIOVASCULAR: HS audible. RESPIRATORY: Breath sounds equal bilaterally but decreased in the bases. GASTROINTESTINAL: Abdomen soft, non-tender, nondistended. MUSCULOSKELETAL: Extremities without clubbing, cyanosis. NEUROLOGICAL: Awake, Alert, responds to questions. Moves all extremities. Psych: could not be assessed. IV line sites with no e/o infection. Assessment & Plan Remarks Severe Sepsis present on admission(fever, tachypnea, tachycardia, elevated lactic acid, acute renal failure, sources pneumonia) Pneumonia (recent history of MRSA pneumonia, other possibilities are community- acquired pneumonia, atypical pneumonia) Acute renal failure on admission appears to be improving likely sepsis of prerenal Prior history of MRSA pneumonia as well as bacteremia in September 2016. Recurrent pneumonia: MRSA UTI present on admission: E.coli and another GNR Acute COPD exacerbation with hypoxia. 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 Follow clinically. [place] Alfaro MD Nov 09, 2016 14:55
--- NOTE | 2016-11-09 15:37 | HHI.PR ---
Subjective Remarks Confused, uncooperative with respiratory treatment. Objective Vital Signs Date Time Temp Pulse Resp B/P Pulse Ox O2 Delivery O2 Flow Rate FiO2 11/09/16 14:00 81 11/09/16 12:31 20 11/09/16 12:00 68 11/09/16 12:00 98.0 68 14 136/75 99 11/09/16 10:02 94 11/09/16 10:00 84 11/09/16 08:00 69 11/09/16 08:00 97.7 69 17 162/82 98 11/09/16 07:00 97 Room Air 11/09/16 06:00 77 11/09/16 04:00 98.1 77 20 163/92 94 11/09/16 04:00 77 11/09/16 02:00 74 11/09/16 00:00 72 11/09/16 00:00 98.9 84 16 132/83 98 11/08/16 22:00 82 11/08/16 22:00 100 21 11/08/16 20:00 82 11/08/16 20:00 98.1 87 22 137/87 96 11/08/16 20:00 95 Nasal Cannula 3.00 11/08/16 18:00 78 11/08/16 16:00 97.6 72 13 132/64 96 11/08/16 16:00 96 Room Air 11/08/16 16:00 72 I/O 11/08/16 11/08/16 11/08/16 11/09/16 11/09/16 11/09/16 07:00 15:00 23:00 07:00 15:00 23:00 Intake Total 1129 ml 763 ml 350 ml 80 ml 747 ml Output Total 800 ml 1500 ml 350 ml 400 ml 350 ml Balance 329 ml -737 ml 0 ml -320 ml 397 ml Intake Oral 50 ml 250 ml IV Total 917 ml 583 ml 350 ml 30 ml 497 ml Tube Feeding 212 ml Tube Irrigant 180 ml Output Urine Total 800 ml 1500 ml 350 ml 400 ml 350 ml # Bowel Movements 0 0 Result Diagram: 11/09/1663011/09/16630 Objective Remarks GENERAL: Thin, well-developed patient. SKIN: Warm and dry. HEAD: Normocephalic. EYES: No scleral icterus. No injection or drainage. NECK: Supple, trachea midline. No JVD or lymphadenopathy. CARDIOVASCULAR: Regular rate and rhythm without murmurs, gallops, or rubs. RESPIRATORY: Breath sounds with decreasing coarse rhonchi throughout, eupneic. GASTROINTESTINAL: Abdomen soft, non-tender, nondistended. EXTREMITIES: No cyanosis, or edema. NEUROLOGICAL: Awake, alert, and oriented x 1. Non-focal. Uncooperative Medications and IVs Current Medications Medications (Trade) Dose Ordered Sig/Mercedes Route Start Time Stop Time Status Last Admin (NS Flush) 2 ml UNSCH PRN IV FLUSH 11/06/16 08:15 (NS Flush) 2 ml BID IV FLUSH 11/06/16 09:00 11/09/16 07:39 (Protonix Inj) 40 mg DAILY IV 11/06/16 09:00 11/09/16 07:38 Enoxaparin Sodium 40 mg 40 mg Q24H SQ 11/06/16 10:00 11/09/16 11:32 (Zosyn 4.5 Gm Premix) 100 ml @ 200 mls/hr Q6H IV 11/06/16 10:00 11/09/16 11:33 Miscellaneous Information 1 Q361D XX 11/06/16 08:15 (Chlorhexidine 2% Cloth) 3 pack Taper DAILY@04 TOP 11/07/16 04:00 11/03/17 03:59 11/07/16 04:00 Chlorhexidine Gluconate 3 pack 3 pack UNSCH PRN TOP 11/06/16 08:15 Potassium Chloride 100 ml @ 50 mls/hr Q2H PRN IV 11/06/16 08:15 (KCl 20 Meq Premix Inj) 100 ml @ 50 mls/hr Q2H PRN IV 11/06/16 08:15 Potassium Chloride 40 meq 40 meq UNSCH PRN PO/TUBE 11/06/16 08:15 Potassium Chloride 100 ml @ 25 mls/hr UNSCH PRN IV 11/06/16 08:15 Potassium Chloride 100 ml @ 50 mls/hr Q2H PRN IV 11/06/16 08:15 (Magnesium Sulfate Inj/NS Inj) 100 ml @ 50 mls/hr UNSCH PRN IV 11/06/16 08:15 Magnesium Oxide 800 mg 800 mg UNSCH PRN PO 11/06/16 08:15 (Magnesium Sulfate Inj/NS Inj) 100 ml @ 50 mls/hr UNSCH PRN IV 11/06/16 08:15 Potassium Phosphate 2000 mg 2,000 mg Q4H PRN PO 11/06/16 08:15 (Sodium Phosphate Inj/NS 250 ml Inj) 250 ml @ 42 mls/hr UNSCH PRN IV 11/06/16 08:15 11/07/16 09:06 (KCl 40 Meq/30 ml Liq) 40 meq UNSCH PRN PO/TUBE 11/06/16 08:15 Potassium Phosphate 2000 mg 2,000 mg UNSCH PRN PO/TUBE 11/06/16 08:15 Potassium Phosphate 30 mmol/ Sodium Chloride 260 ml @ 42 mls/hr UNSCH PRN IV 11/06/16 08:15 (Vancomycin Consult Pharmacy) 0 ml @ 0 mls/hr UNSCH OTHER 11/06/16 10:30 (SoluCORTEF INJ) 100 mg Q8HR IV PUSH 11/06/16 14:00 11/09/16 13:56 (Ecotrin Ec) 81 mg DAILY PO 11/07/16 09:00 11/09/16 07:38 (Synthroid) 75 mcg DAILY@0600 PO 11/07/16 06:00 11/09/16 06:27 (risperDAL) 2 mg TID PO 11/06/16 13:00 11/09/16 11:31 (Depakote Sprinkles) 250 mg Q8HR PO 11/06/16 14:00 11/09/16 13:57 Protein 2 pack 2 pack TID G-TUBE 11/07/16 09:00 11/08/16 13:00 (Vancomycin Inj/ NS 500 ml Inj) 515 ml @ 257.5 mls/ hr Q24H IV 11/07/16 11:00 11/09/16 11:32 Miscellaneous Information SPECIFIC LAB TO BE DRAWN:VANCO TROUGH DATE TO BE . ONCE ONCE XX 11/10/16 10:45 11/10/16 10:46 (Ativan) 0.5 mg Q6H PRN PO 11/08/16 15:45 11/09/16 11:31 (Tylenol) 500 mg Q6H PRN PO 11/08/16 15:45 11/09/16 11:31 Assessment and Plan Problem List: (1) Acute respiratory failure Status: Acute Plan: Management by [facility] [place], on ventilator with light sedation. (2) Altered mental status Status: Chronic Plan: Chronic dementia with memory loss. (3) Pneumonia Status: Acute Plan: Ventilated on broad spectrum abx. CCM managing. (4) History of COPD Status: Chronic Plan: Long smoking history, none current. (5) Urinary tract infection Status: Acute Plan: Chronic with indwelling costa d/t retention, recurrent UTI's.Culture shows Gm neg rods. On broad specturm abx. (6) Sepsis Status: Acute Plan: BC so far negative. On broad spectrum abx. (7) Fever Status: Resolved Plan: Resolving. Last febrile 11/06, afebrile today. Assessment and Plan Will follow with [facility] [place] until patient released to primary medical management. Thank you for the consult. D/W RN, Dr. Salgado. Problem Qualifiers (1) Acute respiratory failure: Qualified Code: J96.01 - Acute respiratory failure with hypoxia (2) Altered mental status: Qualified Code: R41.0 - Disorientation (3) Pneumonia: Qualified Code: J18.1 - Pneumonia of left lower lobe due to infectious organism (4) Urinary tract infection: Qualified Code: T83.511A - Urinary tract infection associated with indwelling urethral catheter, initial encounter (5) Sepsis: Qualified Code: A41.9 - Sepsis, due to unspecified organism (6) Fever: Qualified Code: R50.9 - Fever, unspecified fever cause Melissa Crandall Nov 09, 2016 15:37
[2016-11-10] VITALS (8 sets, daily range): BP systolic 122–157; BP diastolic 66–89; PULSE 57–80; RESP 18–20; TEMP 97.3–98.5; O2SAT 96–97
[2016-11-10] MEDS: RESP: ALBUTEROL 2.5 MG/IPRATROPIUM 0.5 MG NEB (SCH) INH ×2 (03:54→09:27)
[2016-11-10] MEDS: PIPERACIL-TAZO 4.5 GM PREMIX 100 ML IV SCH ×4 (04:58→22:40)
[2016-11-10] MEDS: CHLORHEXIDINE GLUCONATE 2 % 1 PACK (2 CLOTHS) TOP SCH ×3 (04:59→06:53)
[2016-11-10] MEDS: DIVALPROEX SODIUM SPRINKLES 125 MG CAP PO SCH ×3 (06:46→22:39)
[2016-11-10] MEDS: LEVOTHYROXINE SODIUM 75 MCG TAB PO SCH (06:46)
[2016-11-10] MEDS: HYDROCORTISONE SOD SUCCINATE 100 MG VIAL IV PUSH SCH ×3 (06:47→22:40)
[2016-11-10] MEDS: BENEPROTEIN POWDER 1 PACK G-TUBE SCH ×3 (09:00→16:39)
[2016-11-10] MEDS: risperiDONE 1 MG TAB PO SCH ×4 (09:00→20:37)
[2016-11-10] MEDS: PANTOPRAZOLE SODIUM 40 MG VIAL IV SCH (09:07)
[2016-11-10] MEDS: ASPIRIN EC 81 MG TABEC PO SCH (09:08)
[2016-11-10] MEDS: SODIUM CHLORIDE 0.9% FLUSH 5 ML FLUSH IV FLUSH SCH ×2 (09:13→20:36)
[2016-11-10] MEDS ORDERED: PHARMACY ORDERED LAB XX ONE (10:45)
[2016-11-10 10:49] LABS: AUTOMATED NEUTROPHIL # 5.6 TH/MM3 (1.8-7.7); HEMATOCRIT 31.2 % (39.0-51.0); LYMPH % 9.2 % (9.0-44.0); LYMPHOCYTE # 0.6 TH/MM3 (1.0-4.8); MEAN CELL VOLUME 97.5 FL (80.0-100.0); MEAN CORPUSCULAR HEMOGLOBIN 33.4 PG (27.0-34.0); MEAN CORPUSCULAR HGB CONC 34.2 % (32.0-36.0); MONO % 6.7 % (0.0-8.0); NEUT % 84.1 % (16.0-70.0); PLATELET COUNT 220 TH/MM3 (150-450); RED CELL DISTRIBUTION WIDTH 17.6 % (11.6-17.2); WHITE BLOOD COUNT 6.7 TH/MM3 (4.0-11.0)
[2016-11-10 10:53] LABS: HEMO FLAGS AUTO DIFF
[2016-11-10] MEDS: ENOXAPARIN SODIUM 40 MG/0.4 ML SYRINGE SQ SCH (10:57)
[2016-11-10] MEDS: VANCOMYCIN 1,500 MG/NS 500 ML IV SCH ×2 (10:58)
--- NOTE | 2016-11-10 11:11 | HHI.PR ---
Subjective Remarks Confused,cooperative today, on RA Objective Vital Signs Date Time Temp Pulse Resp B/P Pulse Ox O2 Delivery O2 Flow Rate FiO2 11/10/16 08:40 97.4 70 20 154/73 97 11/10/16 08:33 97.4 70 20 154/73 97 11/10/16 04:00 98.5 60 20 138/75 96 11/10/16 00:00 97.9 80 20 150/89 96 11/09/16 22:30 Room Air 11/09/16 20:50 98 11/09/16 20:00 97.6 104 20 157/91 93 11/09/16 16:00 80 11/09/16 16:00 97.0 80 17 154/87 99 11/09/16 14:00 81 11/09/16 12:31 20 11/09/16 12:00 68 11/09/16 12:00 98.0 68 14 136/75 99 I/O 11/09/16 11/09/16 11/09/16 11/10/16 11/10/16 11/10/16 07:00 15:00 23:00 07:00 15:00 23:00 Intake Total 80 ml 747 ml 399 ml 100 ml Output Total 400 ml 350 ml 1000 ml Balance -320 ml 397 ml 399 ml -900 ml Intake Oral 50 ml 250 ml 100 ml IV Total 30 ml 497 ml 399 ml Output Urine Total 400 ml 350 ml 1000 ml # Bowel Movements 0 1 Result Diagram: 11/10/16 1028 11/09/16 0631 Objective Remarks GENERAL: Thin, well-developed patient. SKIN: Warm and dry. HEAD: Normocephalic. EYES: No scleral icterus. No injection or drainage. NECK: Supple, trachea midline. No JVD or lymphadenopathy. CARDIOVASCULAR: Regular rate and rhythm without murmurs, gallops, or rubs. RESPIRATORY: Breath sounds with decreasing coarse rhonchi throughout, eupneic. GASTROINTESTINAL: Abdomen soft, non-tender, nondistended. EXTREMITIES: No cyanosis, RUE with swelling, and PICC line. NEUROLOGICAL: Awake, alert, and oriented x 1. Non-focal. Uncooperative Medications and IVs Current Medications Medications (Trade) Dose Ordered Sig/Mercedes Route Start Time Stop Time Status Last Admin (NS Flush) 2 ml UNSCH PRN IV FLUSH 11/06/16 08:15 (NS Flush) 2 ml BID IV FLUSH 11/06/16 09:00 11/10/16 09:13 (Protonix Inj) 40 mg DAILY IV 11/06/16 09:00 11/10/16 09:07 Enoxaparin Sodium 40 mg 40 mg Q24H SQ 11/06/16 10:00 11/10/16 10:57 (Zosyn 4.5 Gm Premix) 100 ml @ 200 mls/hr Q6H IV 11/06/16 10:00 11/10/16 09:12 Miscellaneous Information 1 Q361D XX 11/06/16 08:15 (Chlorhexidine 2% Cloth) 3 pack Taper DAILY@04 TOP 11/07/16 04:00 11/03/17 03:59 11/10/16 06:53 Chlorhexidine Gluconate 3 pack 3 pack UNSCH PRN TOP 11/06/16 08:15 (Vancomycin Consult Pharmacy) 0 ml @ 0 mls/hr UNSCH OTHER 11/06/16 10:30 (SoluCORTEF INJ) 100 mg Q8HR IV PUSH 11/06/16 14:00 11/10/16 06:47 (Ecotrin Ec) 81 mg DAILY PO 11/07/16 09:00 11/10/16 09:08 (Synthroid) 75 mcg DAILY@0600 PO 11/07/16 06:00 11/10/16 06:46 (Depakote Sprinkles) 250 mg Q8HR PO 11/06/16 14:00 11/10/16 06:46 Protein 2 pack 2 pack TID G-TUBE 11/07/16 09:00 11/08/16 13:00 (Vancomycin Inj/ NS 500 ml Inj) 515 ml @ 257.5 mls/ hr Q24H IV 11/07/16 11:00 11/10/16 10:58 (Ativan) 0.5 mg Q6H PRN PO 11/08/16 15:45 11/09/16 23:02 (Tylenol) 500 mg Q6H PRN PO 11/08/16 15:45 11/09/16 11:31 (risperDAL) 2 mg QID PO 11/09/16 21:00 11/10/16 09:00 Assessment and Plan Problem List: (1) Acute respiratory failure Status: Acute Plan: Stable on RA, (2) Altered mental status Status: Chronic Plan: Chronic dementia with memory loss. (3) Pneumonia Status: Acute Plan: ID following, on Zyvox, Vanco for MRSA PNA. (4) History of COPD Status: Chronic Plan: Long smoking history, none current. (5) Urinary tract infection Status: Acute Plan: Chronic with indwelling costa d/t retention, recurrent UTI's.Culture shows E.Coli, Pseudomonas Aruginosa. On Zosyn per sensitivity, ID following. (6) Sepsis Status: Acute Plan: BC so far negative. On broad spectrum abx. (7) Fever Status: Resolved Plan: Resolving. Last febrile 11/06, afebrile today. (8) Swelling of right upper extremity Status: Acute Plan: PICC line present, suspicious for DVT. US ordered. Assessment and Plan D/W RN, Dr. Salgado. Discharge Planning Back to the [facility] when cleared by specialties. Problem Qualifiers (1) Acute respiratory failure: Qualified Code: J96.01 - Acute respiratory failure with hypoxia (2) Altered mental status: Qualified Code: R41.0 - Disorientation (3) Pneumonia: Qualified Code: J15.212 - Pneumonia of left lower lobe due to methicillin- resistant Staphylococcus aureus (MRSA) (4) Urinary tract infection: Qualified Code: T83.511A - Urinary tract infection associated with indwelling urethral catheter, initial encounter (5) Sepsis: Qualified Code: A41.02 - Sepsis due to methicillin resistant Staphylococcus aureus (MRSA) (6) Fever: Qualified Code: R50.9 - Fever, unspecified fever cause Melissa Crandall Nov 10, 2016 11:11
[2016-11-10 11:18] LABS: BICARBONATE 25.8 MEQ/L (21.0-32.0)
[2016-11-10 11:37] LABS: BANDS 2 % (0-6); MYELOCYTES 3 % (0-0); NEUTROPHIL # MANUAL DIFF 5.8 TH/MM3 (1.8-7.7); POLYS (SEG NEUTROPHILS) 80 % (16-70); POTASSIUM 2.8 MEQ/L (3.5-5.1); PROMYELOCYTES 1 % (0-0); WBC DIFF SAMPLE 100
[2016-11-10 11:38] LABS: PLATELET ESTIMATE SMEAR NORMAL (NORMAL); PLATELET MORPHOLOGY NORMAL (NORMAL); SCAN/DIFF FINAL DIFF MANUAL
[2016-11-10] MEDS ORDERED: POTASSIUM CHLORIDE 20 MEQ CONTROLLED RELEASE TAB PO ONE ×3 (12:00→20:00)
[2016-11-10] MEDS ORDERED: POTASSIUM CL 40 MEQ/30 ML LIQ UDC PO ONE ×2 (14:15→16:00)
--- NOTE | 2016-11-10 19:11 | RADRPT ---
EXAM DATE/TIME: 11/10/2016 17:21 [facility] COMPARISON: No previous studies available for comparison. INDICATIONS : Bilateral arm swelling. MEDICAL HISTORY : Hypertension. Chronic obstructive pulmonary disease. Gastroesophageal reflux disease. Neuropathy. Butch al disease. Skin cancer. SURGICAL HISTORY : Appendectomy.Cholecystectomy. Colonscopy. Back surgery. TURP. ENCOUNTER: Subsequent ACUITY: 1 day PAIN SCORE: Non-responsive LOCATION: Bilateral arms FINDINGS: RIGHT UPPER EXTREMITY: Absent flow the basilic and ulnar vein. There is flow documented in the axillary and brachial veins. . LEFT UPPER EXTREMITY: There is spontaneous flow documented in the brachial, basilic, cephalic, axillary, and subclavian vei ns. The vessels are compressible and augmentation response is documented. No filling defects are se en. The flow is phasic with respiration. Direction of flow in the jugular vein is caudal. CONCLUSION: 1. Occlusive thrombus in the right basilic and ulnar veins. 2. No evidence of venous thrombosis in the left upper extremity. Ed Cruz MD on November 10, 2016 at 19:08 Board Certified Radiologist. This report was verified electronically.
[2016-11-10] MEDS: ENOXAPARIN SODIUM 100 MG/ML SYRINGE SQ SCH (22:38)
[2016-11-10] MEDS: LORazepam 0.5 MG TAB PO PRN (23:41)
[2016-11-11] VITALS (8 sets, daily range): BP systolic 142–163; BP diastolic 67–96; PULSE 53–81; RESP 16–22; TEMP 97.3–98.6; O2SAT 96–98
[2016-11-11] MEDS: CHLORHEXIDINE GLUCONATE 2 % 1 PACK (2 CLOTHS) TOP SCH (04:00)
[2016-11-11] MEDS: PIPERACIL-TAZO 4.5 GM PREMIX 100 ML IV SCH ×5 (04:15→22:00)
[2016-11-11] MEDS: HYDROCORTISONE SOD SUCCINATE 100 MG VIAL IV PUSH SCH ×4 (05:54→22:00)
[2016-11-11] MEDS: DIVALPROEX SODIUM SPRINKLES 125 MG CAP PO SCH ×3 (05:55→21:58)
[2016-11-11] MEDS: LEVOTHYROXINE SODIUM 75 MCG TAB PO SCH (05:55)
[2016-11-11] MEDS: ASPIRIN EC 81 MG TABEC PO SCH (08:44)
[2016-11-11] MEDS: risperiDONE 1 MG TAB PO SCH ×4 (08:44→20:21)
[2016-11-11] MEDS: BENEPROTEIN POWDER 1 PACK G-TUBE SCH ×3 (08:46→18:00)
[2016-11-11] MEDS: ENOXAPARIN SODIUM 100 MG/ML SYRINGE SQ SCH ×2 (08:48→20:21)
[2016-11-11] MEDS: SODIUM CHLORIDE 0.9% FLUSH 5 ML FLUSH IV FLUSH SCH ×2 (09:00→20:21)
[2016-11-11] MEDS ORDERED: POTASSIUM CHLORIDE 10 MEQ CAP PO SCH (09:30)
[2016-11-11] MEDS: POTASSIUM CL 40 MEQ/30 ML LIQ UDC PO SCH ×2 (11:27→20:20)
--- NOTE | 2016-11-11 12:55 | HHI.PR ---
Subjective Remarks Confused,cooperative today, on RA Objective Vital Signs Date Time Temp Pulse Resp B/P Pulse Ox O2 Delivery O2 Flow Rate FiO2 11/11/16 08:00 97.3 77 20 163/96 98 11/11/16 04:00 97.6 76 18 142/85 96 11/11/16 00:00 97.5 69 16 149/71 96 11/10/16 20:00 98.1 64 18 135/69 97 11/10/16 20:00 Room Air 11/10/16 20:00 60 11/10/16 17:10 97.3 57 20 157/76 96 11/10/16 13:29 97.4 65 20 122/66 97 I/O 11/10/16 11/10/16 11/10/16 11/11/16 11/11/16 11/11/16 07:00 15:00 23:00 07:00 15:00 23:00 Intake Total 100 ml 360 ml 50 ml Output Total 1000 ml 200 ml 300 ml Balance -900 ml 160 ml -250 ml Intake Oral 100 ml 360 ml 50 ml Output Urine Total 1000 ml 200 ml 300 ml # Bowel Movements 1 0 1 Result Diagram: 11/10/16 1028 11/10/16 1810 Objective Remarks GENERAL: Thin, well-developed patient. SKIN: Warm and dry. HEAD: Normocephalic. EYES: No scleral icterus. No injection or drainage. NECK: Supple, trachea midline. No JVD or lymphadenopathy. CARDIOVASCULAR: Regular rate and rhythm without murmurs, gallops, or rubs. RESPIRATORY: Breath sounds with decreasing coarse rhonchi throughout, eupneic. GASTROINTESTINAL: Abdomen soft, non-tender, nondistended. EXTREMITIES: No cyanosis, RUE with swelling, and PICC line. NEUROLOGICAL: Awake, alert, and oriented x 1. Non-focal. Uncooperative Medications and IVs Current Medications Medications (Trade) Dose Ordered Sig/Mercedes Route Start Time Stop Time Status Last Admin (NS Flush) 2 ml UNSCH PRN IV FLUSH 11/06/16 08:15 (NS Flush) 2 ml BID IV FLUSH 11/06/16 09:00 11/10/16 20:36 Pantoprazole Sodium 40 mg 40 mg DAILY IV 11/06/16 09:00 11/10/16 09:07 (Zosyn 4.5 Gm Premix) 100 ml @ 200 mls/hr Q6H IV 11/06/16 10:00 11/11/16 04:15 Miscellaneous Information 1 Q361D XX 11/06/16 08:15 (Chlorhexidine 2% Cloth) 3 pack Taper DAILY@04 TOP 11/07/16 04:00 11/03/17 03:59 11/10/16 06:53 Chlorhexidine Gluconate 3 pack 3 pack UNSCH PRN TOP 11/06/16 08:15 (Vancomycin Consult Pharmacy) 0 ml @ 0 mls/hr UNSCH OTHER 11/06/16 10:30 (SoluCORTEF INJ) 100 mg Q8HR IV PUSH 11/06/16 14:00 11/11/16 05:54 (Ecotrin Ec) 81 mg DAILY PO 11/07/16 09:00 11/11/16 08:44 (Synthroid) 75 mcg DAILY@0600 PO 11/07/16 06:00 11/11/16 05:55 (Depakote Sprinkles) 250 mg Q8HR PO 11/06/16 14:00 11/11/16 05:55 (Beneprotein Powder) 2 pack TID G-TUBE 11/07/16 09:00 11/08/16 13:00 (Ativan) 0.5 mg Q6H PRN PO 11/08/16 15:45 11/10/16 23:41 (Tylenol) 500 mg Q6H PRN PO 11/08/16 15:45 11/09/16 11:31 Risperidone 2 mg 2 mg QID PO 11/09/16 21:00 11/11/16 11:27 (Vancomycin Inj/ NS 500 ml Inj) 517.5 ml @ 250 mls/hr Q24H IV 11/11/16 11:00 Miscellaneous Information SPECIFIC LAB TO BE [facility]ERY[facility]... ONCE ONCE XX 11/13/16 10:45 11/13/16 10:46 (Lovenox Inj) 100 mg Q12H SQ 11/10/16 21:00 11/11/16 08:48 (KCl 40 Meq/30 ml Liq) 10 meq BID PO 11/11/16 11:00 11/11/16 11:27 Assessment and Plan Problem List: (1) Acute respiratory failure Status: Resolved Plan: Stable on RA, (2) Altered mental status Status: Chronic Plan: Chronic dementia with memory loss. (3) Pneumonia Status: Acute Plan: ID following, on Zyvox, Vanco for MRSA PNA. (4) History of COPD Status: Chronic Plan: Long smoking history, none current. (5) Urinary tract infection Status: Acute Plan: Chronic with indwelling costa d/t retention, recurrent UTI's.Culture shows E.Coli, Pseudomonas Aruginosa. On Zosyn per sensitivity, ID following. (6) Sepsis Status: Acute Plan: BC so far negative. On broad spectrum abx. (7) Fever Status: Resolved Plan: Resolving. Last febrile 11/06, afebrile today. (8) Swelling of right upper extremity Status: Acute Plan: Positive for DVT. On lovenox BID. Has remote GIB history. Will consult cardio for opinion on anticoagulant. Assessment and Plan D/W RN, Dr. Salgado. Problem Qualifiers (1) Acute respiratory failure: Qualified Code: J96.01 - Acute respiratory failure with hypoxia (2) Altered mental status: Qualified Code: R41.0 - Disorientation (3) Pneumonia: Qualified Code: J15.212 - Pneumonia of left lower lobe due to methicillin- resistant Staphylococcus aureus (MRSA) (4) Urinary tract infection: Qualified Code: T83.511A - Urinary tract infection associated with indwelling urethral catheter, initial encounter (5) Sepsis: Qualified Code: A41.02 - Sepsis due to methicillin resistant Staphylococcus aureus (MRSA) (6) Fever: Qualified Code: R50.9 - Fever, unspecified fever cause Melissa Crandall Nov 11, 2016 12:54
[2016-11-11] MEDS: VANCOMYCIN INJ 1,750 MG in SODIUM CHLORID 0.9% 500 ML INJ 500 ML IV SCH (13:09)
[2016-11-11] MEDS: PANTOPRAZOLE SODIUM 40 MG VIAL IV SCH (13:10)
[2016-11-11] MEDS: LORazepam 0.5 MG TAB PO PRN (15:37)
--- NOTE | 2016-11-11 17:54 | EKG ---
Date Performed: 11/11/2016 Time Performed: 15:16:44 PTAGE: 89 years EKG: Sinus rhythm with occasional PAC Leftward axis Low QRS voltages in precordial leads Abnormal ECG PREVIOUS TRACING : 11/06/2016 06.02 Compared to previous tracing, heart rate has decreased. DOCTOR: Jai Nguyen Interpretating Date/Time 11/11/2016 17:52:58
[2016-11-11] MEDS ORDERED: IOHEXOL 350 MG/ML 10 ML VIAL (for RAD DIAG) IV ONE (18:16)
--- NOTE | 2016-11-11 18:19 | RADRPT ---
EXAM DATE/TIME: 11/11/2016 17:54 [facility] COMPARISON: CT PULMONARY ANGIOGRAM, November 06, 2016, 11:15. INDICATIONS : Short of breath. IV CONTRAST: 63. cc Omnipaque 350 (iohexol) IV RADIATION DOSE: 22.59 CTDIvol (mGy) MEDICAL HISTORY : Cardiovascular disease. Hypertension. blocked renal artery SURGICAL HISTORY : None. ENCOUNTER: Initial ACUITY: 1 day PAIN SCALE: 5/10 LOCATION: Bilateral chest TECHNIQUE: Volumetric scanning of the chest was performed using a pulmonary embolism protocol MIP images were re constructed. Using automated exposure control and adjustment of the mA and/or kV according to patien t size, radiation dose was kept as low as reasonably achievable to obtain optimal diagnostic quality images. FINDINGS: PULMONARY ARTERIES: No filling defects are seen in the pulmonary arteries through the 1st branching level. LUNGS: There is subsegmental consolidation with air bronchograms the left lower lung adjacent to the pleural effusion and some minimal compressive atelectasis adjacent to the right pleural effusion. PLEURAE: Large bilateral pleural effusions measure up to 5 cm in thickness. MEDIASTINUM: There is good visualization of the great vessels of the middle mediastinum. No evidence of mediastin al or hilar adenopathy/mass. Coronary artery calcifications. CONCLUSION: 1. The study is negative for pulmonary embolism. 2. Large bilateral pleural effusions and subsegmental consolidation in the left lower lobe. Ed Cruz MD on November 11, 2016 at 18:14 Board Certified Radiologist. This report was verified electronically.
[2016-11-11] MEDS: TAMSULOSIN HCL 0.4 MG CAP PO SCH (20:19)
[2016-11-11] MEDS: METOPROLOL TARTRATE 25 MG TAB PO SCH (20:21)
[2016-11-11] MEDS: ACETAMINOPHEN/CODEINE 300 MG/30 MG TAB PO PRN (21:58)
[2016-11-12] VITALS (8 sets, daily range): BP systolic 105–150; BP diastolic 56–79; PULSE 55–107; RESP 12–32; TEMP 97.4–99.2; O2SAT 94–98
[2016-11-12] MEDS: CHLORHEXIDINE GLUCONATE 2 % 1 PACK (2 CLOTHS) TOP SCH (04:00)
[2016-11-12] MEDS: PIPERACIL-TAZO 4.5 GM PREMIX 100 ML IV SCH ×4 (04:00→22:07)
[2016-11-12] MEDS: DIVALPROEX SODIUM SPRINKLES 125 MG CAP PO SCH ×3 (06:23→22:08)
[2016-11-12] MEDS: LEVOTHYROXINE SODIUM 75 MCG TAB PO SCH (06:24)
[2016-11-12] MEDS: HYDROCORTISONE SOD SUCCINATE 100 MG VIAL IV PUSH SCH ×3 (06:24→22:08)
[2016-11-12] MEDS: LORazepam 0.5 MG TAB PO PRN ×3 (06:33→22:09)
--- NOTE | 2016-11-12 08:04 | MB ---
cc: PATEL ANAND DATE OF CONSULTATION 11/11/2016 HISTORY OF PRESENT ILLNESS Mr. Mendosa is an 89-year-old white male who was transferred from a alf, diagnosed due to increased shortness of breath. He was diagnosed with pneumonia and severe sepsis. He was treated with antibiotics. He has not had any chest pain. His shortness of breath is improving. PAST MEDICAL HISTORY Positive for - 1. Dementia. 2. COPD. 3. Peripheral neuropathy. 4. Recurrent pneumonia. 5. CVA, left-sided weakness. 6. MRSA. 7. Skin cancer. 8. Depression. 9. Hypertension. 10. Hypothyroidism. 11. Chronic kidney disease. 12. Recurrent GI bleeding. 13. Gastritis. 14. Anemia. 15. Chronic benzodiazepine use. 16. Chronic narcotic use. PAST SURGICAL HISTORY 1. History of hernia repair. 2. Appendectomy. 3. Cholecystectomy. 4. TURP. 5. Laminectomy. MEDICATIONS 1. Flomax. 2. Risperdal. 3. Prednisone. 4. Mucinex. 5. Depakote. 6. Xanax. 7. Vitamin D. 8. Triamcinolone. 9. Multivitamin. 10. Milk of Magnesia. 12. Metoprolol. 13. Levothyroxine. 14. Dulcolax. 15. Calcium. 16. Aspirin. 17. Eye drops. 18. Amlodipine. 19. Albuterol. ALLERGIES LEVOFLOXACIN. SOCIAL HISTORY The patient is a smoker. He drinks alcohol socially. FAMILY HISTORY Positive for heart disease, cirrhosis and is otherwise negative. PHYSICAL EXAMINATION VITAL SIGNS: Blood pressure 160/89, pulse 81 and regular. HEENT: Negative. NECK: 2+ carotid upstrokes. LUNGS: With a few rhonchi, decreased breath sounds. HEART: Regular with no murmur or gallop. ABDOMEN: Soft with right upper discomfort, nontender. EXTREMITIES: With right upper extremity edema. NEUROLOGIC: Grossly nonfocal. EKG Reviewed and showed sinus tachycardia, left axis. Telemetry shows sinus rhythm. LABORATORY DATA Hemoglobin 10.7. Potassium 3.3, creatinine 0.8. AST and ALT normal. DIAGNOSES 1. Acute respiratory failure. 2. Altered mental status. 3. Pneumonia. 4. Sepsis. 5. COPD. 6. Right upper extremity DVT. DISPOSITION Mr. Mendosa will continue his current medical program. He will be treated for Lovenox for his right upper extremity DVT. He will continue antibiotics for his pneumonia. Once he is stable and ready for discharge, he can be started on Pradaxa 150 mg twice per day. He has history of GI bleeding and Pradaxa that can be promptly reversed in case he develops bleeding complications. I will be following him for Cardiology during his hospitalization. MD ABIDA Bennett/CARLOS /11:04 PM /7:50 AM SUSANNA
[2016-11-12] MEDS: ENOXAPARIN SODIUM 100 MG/ML SYRINGE SQ SCH ×2 (08:14→22:08)
[2016-11-12] MEDS: amLODIPine BESYLATE 5 MG TAB PO SCH (08:14)
[2016-11-12] MEDS: risperiDONE 1 MG TAB PO SCH ×4 (08:14→22:08)
[2016-11-12] MEDS: METOPROLOL TARTRATE 25 MG TAB PO SCH ×2 (08:14→22:08)
[2016-11-12] MEDS: POTASSIUM CL 40 MEQ/30 ML LIQ UDC PO SCH ×2 (08:15→22:07)
[2016-11-12] MEDS: ACETAMINOPHEN/CODEINE 300 MG/30 MG TAB PO PRN ×3 (08:15→18:58)
[2016-11-12] MEDS: PANTOPRAZOLE SODIUM 40 MG VIAL IV SCH (08:24)
[2016-11-12] MEDS: SODIUM CHLORIDE 0.9% FLUSH 5 ML FLUSH IV FLUSH SCH ×2 (08:25→21:00)
[2016-11-12] MEDS: ASPIRIN EC 81 MG TABEC PO SCH (08:34)
[2016-11-12] MEDS: VANCOMYCIN INJ 1,750 MG in SODIUM CHLORID 0.9% 500 ML INJ 500 ML IV SCH (11:03)
[2016-11-12] MEDS: BENEPROTEIN POWDER 1 PACK G-TUBE SCH ×2 (13:00→18:00)
--- NOTE | 2016-11-12 13:11 | HHI.IDPN ---
Subjective Subjective Remarks is 89 y/o CM who is admitted with recurrent MRSA pneumonia and UTI. Overnight events reviewed Doing well on RA. No fever No rash No diarrhea On 3L Oxygen Complains of shortness of breath off and on. Baseline dementia. Speech ok. Antibiotics Zosyn IV Vanco IV Lines Line sites with no e/o infection. Past Medical History reviewed Allergies: Coded Allergies: Levofloxacin (Verified Allergy, Severe, 11/06/16) *MDRO Multi-Drug Resistant Organism (Verified Adverse Reaction, Unknown, MRSA, 11/09/16) MRSA (sputum & blood) - 07/21/16 & 08/22/16; MRSA (sputum & blood) - 10/08/16; (sputum) - 11/06/16 MRSA PCR Screen POSITIVE - 10/08/16 Objective . Vital Signs Date Time Temp Pulse Resp B/P Pulse Ox O2 Delivery O2 Flow Rate FiO2 11/12/16 08:43 Room Air 3.00 11/12/16 08:00 98.1 60 12 137/75 95 11/12/16 07:53 61 11/12/16 04:00 Room Air 11/12/16 04:00 98.1 107 20 150/79 97 11/12/16 00:00 Room Air 11/12/16 00:00 99.2 55 20 138/65 97 11/11/16 20:02 79 11/11/16 20:00 Room Air 11/11/16 20:00 97.5 81 22 160/89 98 11/11/16 16:30 53 11/11/16 16:00 97.5 81 20 162/74 98 11/11/16 11/11/16 11/12/16 15:00 23:00 07:00 Intake Total 800 ml 480 ml Output Total 650 ml 250 ml 400 ml Balance 150 ml -250 ml 80 ml Intake Oral 800 ml 480 ml Output Urine Total 650 ml 250 ml 400 ml # Bowel Movements 0 . Laboratory Tests Test 11/10/16 18:10 Potassium Level 3.3 MEQ/L Imaging Last Impressions Chest X-Ray 11/07/16 0000 Signed Impressions: Service Date/Time: Monday, November 07, 2016 04:07 - CONCLUSION: Increasing infiltrate in the left lung base. Thompson Fabian MD Abdomen/Pelvis CT 11/06/16 1028 Signed Impressions: Service Date/Time: Sunday, November 06, 2016 11:15 - CONCLUSION: Stout catheter in place in a decompressed urinary bladder. No obstructive uropathy. There is a nonobstructive left kidney midpole posterior stones sub-centimeters size. Multiple right renal cysts. Uncomplicated diverticuli of the colon and extensive degenerative changes of the lumbar spine. Abdirashid Cotton MD CT Angiography 11/06/16 0000 Signed Impressions: Service Date/Time: Sunday, November 06, 2016 11:15 - CONCLUSION: Minimally suboptimal examination with poor visualization of distal arterial structures. Centrally there is no evidence of pulmonary embolism. Stable bilateral posterior basilar minimal pleural effusions and dependent basilar atelectasis. Abdirsahid Cotton MD Physical Exam GENERAL: Obese, CM patient, in no apparent distress. SKIN: No generalized rashes. Has skin breaks on RUE and few areas of ecchymosis. HEAD: Atraumatic. Normocephalic. No temporal or scalp tenderness. EYES: Pupils equal round and reactive. Extraocular motions intact. No scleral icterus. No injection or drainage. ENT:Grossly NAD NECK: Trachea midline. Supple, nontender, no meningeal signs. CARDIOVASCULAR: HS audible. RESPIRATORY: Breath sounds equal bilaterally but decreased in the bases. GASTROINTESTINAL: Abdomen soft, non-tender, nondistended. MUSCULOSKELETAL: Extremities without clubbing, cyanosis. NEUROLOGICAL: Awake, Alert, responds to questions. Moves all extremities. Psych:cooperative V line sites with no e/o infection. Assessment & Plan Remarks Severe Sepsis present on admission(fever, tachypnea, tachycardia, elevated lactic acid, acute renal failure, sources pneumonia) Pneumonia (recent history of MRSA pneumonia, other possibilities are community- acquired pneumonia, atypical pneumonia) Acute renal failure on admission appears to be improving likely sepsis of prerenal Prior history of MRSA pneumonia as well as bacteremia in September 2016. Recurrent pneumonia: MRSA UTI present on admission: E.coli and another GNR Acute COPD exacerbation with hypoxia. 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 Follow clinically. France Alfaro MD Nov 12, 2016 13:11
--- NOTE | 2016-11-12 13:14 | HHI.IDPN ---
Subjective Subjective Remarks is 89 y/o CM who is admitted with recurrent MRSA pneumonia and UTI. Overnight events reviewed No fever No rash No diarrhea On 3L Oxygen Complains of shortness of breath off and on. Baseline dementia. Speech ok. Antibiotics Zosyn IV Vanco IV Lines Line sites with no e/o infection. Past Medical History reviewed Allergies: Coded Allergies: Levofloxacin (Verified Allergy, Severe, 11/06/16) *MDRO Multi-Drug Resistant Organism (Verified Adverse Reaction, Unknown, MRSA, 11/09/16) MRSA (sputum & blood) - 07/21/16 & 08/22/16; MRSA (sputum & blood) - 10/08/16; (sputum) - 11/06/16 MRSA PCR Screen POSITIVE - 10/08/16 Objective . Vital Signs Date Time Temp Pulse Resp B/P Pulse Ox O2 Delivery O2 Flow Rate FiO2 11/12/16 08:43 Room Air 3.00 11/12/16 08:00 98.1 60 12 137/75 95 11/12/16 07:53 61 11/12/16 04:00 Room Air 11/12/16 04:00 98.1 107 20 150/79 97 11/12/16 00:00 Room Air 11/12/16 00:00 99.2 55 20 138/65 97 11/11/16 20:02 79 11/11/16 20:00 Room Air 11/11/16 20:00 97.5 81 22 160/89 98 11/11/16 16:30 53 11/11/16 16:00 97.5 81 20 162/74 98 11/11/16 11/11/16 11/12/16 15:00 23:00 07:00 Intake Total 800 ml 480 ml Output Total 650 ml 250 ml 400 ml Balance 150 ml -250 ml 80 ml Intake Oral 800 ml 480 ml Output Urine Total 650 ml 250 ml 400 ml # Bowel Movements 0 . Laboratory Tests Test 11/10/16 18:10 Potassium Level 3.3 MEQ/L Imaging Last Impressions Chest X-Ray 11/07/16 0000 Signed Impressions: Service Date/Time: Monday, November 07, 2016 04:07 - CONCLUSION: Increasing infiltrate in the left lung base. Thompson Fabian MD Abdomen/Pelvis CT 11/06/16 1028 Signed Impressions: Service Date/Time: Sunday, November 06, 2016 11:15 - CONCLUSION: Stout catheter in place in a decompressed urinary bladder. No obstructive uropathy. There is a nonobstructive left kidney midpole posterior stones sub-centimeters size. Multiple right renal cysts. Uncomplicated diverticuli of the colon and extensive degenerative changes of the lumbar spine. Abdirashid Cotton MD CT Angiography 11/06/16 0000 Signed Impressions: Service Date/Time: Sunday, November 06, 2016 11:15 - CONCLUSION: Minimally suboptimal examination with poor visualization of distal arterial structures. Centrally there is no evidence of pulmonary embolism. Stable bilateral posterior basilar minimal pleural effusions and dependent basilar atelectasis. Abdirashid Cotton MD Physical Exam GENERAL: Obese, CM patient, in no apparent distress. SKIN: No generalized rashes. Has skin breaks on RUE and few areas of ecchymosis. HEAD: Atraumatic. Normocephalic. No temporal or scalp tenderness. EYES: Pupils equal round and reactive. Extraocular motions intact. No scleral icterus. No injection or drainage. ENT:Grossly NAD NECK: Trachea midline. Supple, nontender, no meningeal signs. CARDIOVASCULAR: HS audible. RESPIRATORY: Breath sounds equal bilaterally but decreased in the bases. GASTROINTESTINAL: Abdomen soft, non-tender, nondistended. MUSCULOSKELETAL: Extremities without clubbing, cyanosis. NEUROLOGICAL: Awake, Alert, responds to questions. Moves all extremities. Psych:cooperative V line sites with no e/o infection. Assessment & Plan Remarks Severe Sepsis present on admission(fever, tachypnea, tachycardia, elevated lactic acid, acute renal failure, sources pneumonia) Pneumonia (recent history of MRSA pneumonia, other possibilities are community- acquired pneumonia, atypical pneumonia) Acute renal failure on admission appears to be improving likely sepsis of prerenal Prior history of MRSA pneumonia as well as bacteremia in September 2016. Recurrent pneumonia: MRSA UTI present on admission: E.coli and another GNR Acute COPD exacerbation with hypoxia. 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 Follow clinically. Stat CXR. Reviewed CT Angio large bilateral pleural effusions. d/w primary team to d.w pts son about thoracentesis or consider palliative care if patients family refuses procedures. France Alfaro MD Nov 12, 2016 13:14
--- NOTE | 2016-11-12 13:50 | RADRPT ---
EXAM DATE/TIME: 11/12/2016 13:25 [facility] COMPARISON: CHEST SINGLE AP, November 09, 2016, 3:40. INDICATIONS : Patient has been short of breath. MEDICAL HISTORY : Hypertension. Chronic obstructive pulmonary disease. SURGICAL HISTORY : None. ENCOUNTER: Subsequent ACUITY: 4 - 6 days PAIN SCORE: 0/10 LOCATION: Bilateral chest FINDINGS: Right lung is clear. Persistent consolidative changes are seen in the left base. The heart is enlar ged. Pulmonary vascularity is normal. CONCLUSION: Persistent consolidative changes left base. Ernesto Wild MD FACR on November 12, 2016 at 13:41 Board Certified Radiologist. This report was verified electronically.
[2016-11-12 17:23] LABS: BACTERIA, URINE OCC /hpf; BLOOD, URINE LARGE (NEG); GLUCOSE,URINE NEG (NEG); KETONE, URINE TRACE mg/dL (NEG); MUCUS URINE FEW /lpf (OCC); NITRITE,URINE NEG (NEG); SQUAMOUS EPITHELIAL CELL URINE <1 /hpf (0-5); URINE COLOR YELLOW (YELLW/STRAW)
[2016-11-12 17:25] LABS: COMMENT (UR) CATH-CULTURE IND; CULTURE IF INDICATED CATH CULTURE IND
[2016-11-12 19:18] LABS: BICARBONATE 25.5 MEQ/L (21.0-32.0); CALCIUM-PROTEIN CORRECTED 8.6 MG/DL (8.5-10.1); POTASSIUM 4.2 MEQ/L (3.5-5.1); TOTAL BILIRUBIN ADULT 0.3 MG/DL (0.2-1.0)
--- NOTE | 2016-11-12 21:57 | RADRPT ---
EXAM DATE/TIME: 11/12/2016 21:06 [facility] COMPARISON: CHEST PA & LAT, October 15, 2016, 20:11. INDICATIONS : Cough. MEDICAL HISTORY : Hypertension. Chronic obstructive pulmonary disease. SURGICAL HISTORY : None. ENCOUNTER: Subsequent ACUITY: 1 week PAIN SCORE: 0/10 LOCATION: Bilateral chest FINDINGS: PA and lateral views of the chest demonstrate mild basilar airspace disease. No pneumothorax. Small l eft effusion and small right effusion. No acute bony abnormalities. Advanced arthropathy in the shoul ders. CONCLUSION: 1. Basilar airspace disease and small pleural effusions. Zen Longoria MD on November 12, 2016 at 21:54 Board Certified Radiologist. This report was verified electronically.
[2016-11-12] MEDS: TAMSULOSIN HCL 0.4 MG CAP PO SCH (22:09)
[2016-11-13] VITALS (7 sets, daily range): BP systolic 85–139; BP diastolic 48–79; PULSE 73–103; RESP 12–22; TEMP 97.3–98.1; O2SAT 6–97
[2016-11-13] MEDS: PIPERACIL-TAZO 4.5 GM PREMIX 100 ML IV SCH ×3 (04:00→16:48)
[2016-11-13] MEDS: CHLORHEXIDINE GLUCONATE 2 % 1 PACK (2 CLOTHS) TOP SCH (04:00)
[2016-11-13] MEDS: DIVALPROEX SODIUM SPRINKLES 125 MG CAP PO SCH ×2 (06:00→13:49)
--- NOTE | 2016-11-13 06:18 | MB ---
cc: EVE MALAGON MD DATE OF CONSULTATION 11/12/[address] Salgado REASON FOR CONSULTATION Pneumonia and shortness of breath. HISTORY OF PRESENT ILLNESS Mr. Mendosa is a pleasant 89-year-old male who is known to me from the previous admission. He has a history of COPD, CVA and MRSA infection in the past. [facility] with worsening of his shortness of breath and hypoxia. He has some cough and sputum production, did not have any fever or chills. He was seen by the item processing clerk on admission to the intensive care unit. He had a workup done. He had a CTA of the chest and it does not show any pulmonary embolism. It shows bilateral pleural consolidation of the left lower lobe. Chest x-ray shows persistent consolidative changes at the left base. His sputum culture is growing Staph aureus. The patient was seen by infection disease specialist and he is currently on antibiotic. , weaned down to nasal cannula. PAST MEDICAL HISTORY 1. Hypertension. 2. Skin cancer. 3. Neuropathy. 4. COPD. CURRENT MEDICATIONS 1. Amlodipine 5 mg. 2. Lopressor 25 mg twice a day. 3. Flomax 0.4 mg a day. 4. Tylenol with Codeine. 5. Vancomycin IV. 6. Lovenox 100 mg q.12 hours. 7. Risperdal 2 mg four times per day. 8. Lorazepam 0.5 mg per day. 9. Aspirin 81 mg per day. 10. Levothyroxine 75 mcg per day. 11. Hydrocortisone 100 mg q.8 hours. 12. Zosyn IV. ALLERGIES HE IS ALLERGIC TO LEVAQUIN. SOCIAL HISTORY He was . 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 He has a history of smoking cigars and used to drink. FAMILY HISTORY He has three children. REVIEW OF SYSTEMS He has no fever or chills, feels weak. No difficulty swallowing. No seizure, stroke or epilepsy. PHYSICAL EXAMINATION GENERAL: A well-built, well-nourished male, mildly short of breath. VITAL SIGNS: Blood pressure 132/60, heart rate 60, respirations 16. Temperature 97.4. HEENT EXAMINATION: Pupils are equal and react to light. Oral mucosa, nasal mucosa normal. NECK: Supple. JVP not raised. CHEST: Equal bilateral air entry. Has basilar rales. CV: S1 and S2 normal. ABDOMEN: Benign. EXTREMITIES: Trace pedal edema seen. 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 IMPRESSION 1. MRSA pneumonia. 2. UTI. 3. COPD. 4. Dementia. 5. Hypertension. PLAN 1. We will continue antibiotic with Zosyn and vancomycin per ID recommendation. 2. Aerosol treatment, supplement his oxygen. 3. He is on Lovenox. 4. Monitor electrolytes. 5. Further treatment will depend on his course in the hospital. Thank you, Dr. Salgado, for this consult. Eve Malagon MD ADA/SSB /3:22 PM /6:01 AM MTDD
[2016-11-13] MEDS: LEVOTHYROXINE SODIUM 75 MCG TAB PO SCH (06:37)
[2016-11-13] MEDS: HYDROCORTISONE SOD SUCCINATE 100 MG VIAL IV PUSH SCH ×3 (06:37→22:56)
[2016-11-13] MEDS: risperiDONE 1 MG TAB PO SCH ×5 (08:26→22:39)
[2016-11-13] MEDS: ENOXAPARIN SODIUM 100 MG/ML SYRINGE SQ SCH ×2 (08:26→22:39)
[2016-11-13] MEDS: POTASSIUM CL 40 MEQ/30 ML LIQ UDC PO SCH (08:27)
[2016-11-13] MEDS: PANTOPRAZOLE SODIUM 40 MG VIAL IV SCH (08:27)
[2016-11-13] MEDS: ASPIRIN EC 81 MG TABEC PO SCH (08:27)
[2016-11-13] MEDS: SODIUM CHLORIDE 0.9% FLUSH 5 ML FLUSH IV FLUSH SCH (08:28)
[2016-11-13] MEDS: BENEPROTEIN POWDER 1 PACK G-TUBE SCH ×3 (09:00→17:52)
[2016-11-13] MEDS: METOPROLOL TARTRATE 25 MG TAB PO SCH ×2 (09:00→22:40)
[2016-11-13] MEDS: amLODIPine BESYLATE 5 MG TAB PO SCH (09:00)
[2016-11-13] MEDS ORDERED: PHARMACY ORDERED LAB XX ONE (10:45)
[2016-11-13 10:57] LABS: AUTOMATED NEUTROPHIL # 13.9 TH/MM3 (1.8-7.7); HEMATOCRIT 25.7 % (39.0-51.0); LYMPH % 4.3 % (9.0-44.0); LYMPHOCYTE # 0.7 TH/MM3 (1.0-4.8); MEAN CORPUSCULAR HEMOGLOBIN 32.1 PG (27.0-34.0); MEAN CORPUSCULAR HGB CONC 32.8 % (32.0-36.0); MONO % 4.7 % (0.0-8.0); PLATELET COUNT 234 TH/MM3 (150-450); RED BLOOD COUNT 2.62 MIL/MM3 (4.50-5.90); RED CELL DISTRIBUTION WIDTH 17.8 % (11.6-17.2); WHITE BLOOD COUNT 15.3 TH/MM3 (4.0-11.0)
[2016-11-13 10:59] LABS: HEMO FLAGS AUTO DIFF
[2016-11-13] MEDS: VANCOMYCIN INJ 1,750 MG in SODIUM CHLORID 0.9% 500 ML INJ 500 ML IV SCH (11:56)
[2016-11-13 12:12] LABS: BANDS 1 % (0-6); METAMYELOCYTES 1 % (0-1); NEUTROPHIL # MANUAL DIFF 14.1 TH/MM3 (1.8-7.7); PLATELET ESTIMATE SMEAR NORMAL (NORMAL); PLATELET MORPHOLOGY NORMAL (NORMAL); POLYS (SEG NEUTROPHILS) 90 % (16-70); SCAN/DIFF FINAL DIFF MANUAL; WBC DIFF SAMPLE 100
[2016-11-13] MEDS: DEXT 5%-NACL 0.45% 1000 ML INJ 1,000 ML IV SCH (13:50)
--- NOTE | 2016-11-13 13:51 | HHI.PR ---
Subjective Remarks More confused and lethargic today, on RA Objective Vital Signs Date Time Temp Pulse Resp B/P Pulse Ox O2 Delivery O2 Flow Rate FiO2 11/13/16 12:00 97.3 84 12 85/48 94 11/13/16 08:40 Room Air 11/13/16 08:00 97.6 103 16 99/56 94 11/13/16 04:00 98.0 73 20 96/68 97 11/13/16 00:00 98.1 75 18 109/57 97 11/12/16 22:08 Room Air 11/12/16 20:08 89 11/12/16 20:00 98.0 85 18 105/68 98 11/12/16 16:00 97.4 73 32 110/56 94 I/O 11/12/16 11/12/16 11/12/16 11/13/16 11/13/16 11/13/16 07:00 15:00 23:00 07:00 15:00 23:00 Intake Total 480 ml 236 ml 454 ml 456 ml Output Total 400 ml 200 ml 300 ml 100 ml Balance 80 ml 36 ml 154 ml 356 ml Intake Oral 480 ml 236 ml 240 ml 240 ml IV Total 214 ml 216 ml Output Urine Total 400 ml 200 ml 300 ml 100 ml # Bowel Movements 1 0 1 Result Diagram: 11/13/16 1032 11/13/16 0626 Imaging Last 72 hours Impressions Chest X-Ray 11/12/16 0000 Signed Impressions: Service Date/Time: Saturday, November 12, 2016 21:06 - CONCLUSION: 1. Basilar airspace disease and small pleural effusions. Zen Longoria MD Chest X-Ray 11/12/16 0000 Signed Impressions: Service Date/Time: Saturday, November 12, 2016 13:25 - CONCLUSION: Persistent consolidative changes left base. Ernesto Wild MD FACR CT Angiography 11/11/16 0000 Signed Impressions: Service Date/Time: Friday, November 11, 2016 17:54 - CONCLUSION: 1. The study is negative for pulmonary embolism. 2. Large bilateral pleural effusions and subsegmental consolidation in the left lower lobe. Ed Cruz MD Objective Remarks GENERAL: Thin, well-developed patient. SKIN: Warm and damp. HEAD: Normocephalic. EYES: No scleral icterus. No injection or drainage. NECK: Supple, trachea midline. No JVD or lymphadenopathy. CARDIOVASCULAR: Regular rate and rhythm without murmurs, gallops, or rubs. RESPIRATORY: Breath sounds with decreasing coarse rhonchi throughout, eupneic. GASTROINTESTINAL: Abdomen soft, non-tender, nondistended. EXTREMITIES: No cyanosis, RUE with swelling, and PICC line. NEUROLOGICAL: Awake, lethargic, and oriented x 1. Non-focal. Medications and IVs Current Medications Medications (Trade) Dose Ordered Sig/Mercedes Route Start Time Stop Time Status Last Admin (NS Flush) 2 ml UNSCH PRN IV FLUSH 11/06/16 08:15 (NS Flush) 2 ml BID IV FLUSH 11/06/16 09:00 11/13/16 08:28 Pantoprazole Sodium 40 mg 40 mg DAILY IV 11/06/16 09:00 11/13/16 08:27 (Zosyn 4.5 Gm Premix) 100 ml @ 200 mls/hr Q6H IV 11/06/16 10:00 11/13/16 11:02 Miscellaneous Information 1 Q361D XX 11/06/16 08:15 (Chlorhexidine 2% Cloth) Taper DAILY@04 TOP 11/07/16 04:00 11/03/17 03:59 11/10/16 06:53 Chlorhexidine Gluconate 3 pack 3 pack UNSCH PRN TOP 11/06/16 08:15 (Vancomycin Consult Pharmacy) 0 ml @ 0 mls/hr UNSCH OTHER 11/06/16 10:30 (SoluCORTEF INJ) 100 mg Q8HR IV PUSH 11/06/16 14:00 11/13/16 06:37 (Ecotrin Ec) 81 mg DAILY PO 11/07/16 09:00 11/13/16 08:27 (Synthroid) 75 mcg DAILY@0600 PO 11/07/16 06:00 11/13/16 06:37 (Depakote Sprinkles) 250 mg Q8HR PO 11/06/16 14:00 11/13/16 06:00 (Beneprotein Powder) 2 pack TID G-TUBE 11/07/16 09:00 11/08/16 13:00 (Ativan) 0.5 mg Q6H PRN PO 11/08/16 15:45 11/12/16 22:09 (Tylenol) 500 mg Q6H PRN PO 11/08/16 15:45 11/09/16 11:31 Risperidone 2 mg 2 mg QID PO 11/09/16 21:00 11/13/16 08:26 (Vancomycin Inj/ NS 500 ml Inj) 517.5 ml @ 250 mls/hr Q24H IV 11/11/16 11:00 11/13/16 11:56 (Lovenox Inj) 100 mg Q12H SQ 11/10/16 21:00 11/13/16 08:26 (KCl 40 Meq/30 ml Liq) 10 meq BID PO 11/11/16 11:00 11/13/16 08:27 (Norvasc) 5 mg DAILY PO 11/12/16 09:00 11/12/16 08:14 (Lopressor) 25 mg BID PO 11/11/16 21:00 11/12/16 22:08 (Flomax) 0.4 mg HS PO 11/11/16 21:00 11/12/16 22:09 (Tylenol-Codeine #3) 1 tab Q4H PRN PO 11/11/16 21:00 11/12/16 13:37 Acetaminophen/ Codeine Phosphate 2 tab 2 tab Q4H PRN PO 11/11/16 21:00 11/12/16 18:58 (D5W-1/2 NS 1000 ml Inj) 1,000 ml @ 100 mls/hr Q10H IV 11/13/16 14:00 Assessment and Plan Problem List: (1) Acute respiratory failure Status: Resolved Plan: Stable on RA, (2) Altered mental status Status: Chronic Plan: Chronic dementia with memory loss. (3) Pneumonia Status: Acute Plan: ID following, on Zyvox, Vanco for MRSA PNA. CXR stable on 11/12 (4) History of COPD Status: Chronic Plan: Long smoking history, none current. (5) Urinary tract infection Status: Acute Plan: Chronic with indwelling costa d/t retention, recurrent UTI's.Culture shows E.Coli, Pseudomonas Aruginosa. On Zosyn per sensitivity, ID following. Due to change in condition and possible recurrent sepsis, UA will be redrawn. (6) Sepsis Status: Acute Plan: BC negative. Will repeat as pt. is exhibiting signs of decompensation. Lactic acid, procalcitonin, blood cultures, UA, CXR ordered. (7) Fever Status: Resolved Plan: Afebrile, 97.3 (8) Swelling of right upper extremity Status: Acute Plan: Positive for DVT. On lovenox BID. Has remote GIB history. Dr. Morgan following. Assessment and Plan D/W RN, Dr. Salgado. Problem Qualifiers (1) Acute respiratory failure: Qualified Code: J96.01 - Acute respiratory failure with hypoxia (2) Altered mental status: Qualified Code: R41.0 - Disorientation (3) Pneumonia: Qualified Code: J15.212 - Pneumonia of left lower lobe due to methicillin- resistant Staphylococcus aureus (MRSA) (4) Urinary tract infection: Qualified Code: T83.511A - Urinary tract infection associated with indwelling urethral catheter, initial encounter (5) Sepsis: Qualified Code: A41.02 - Sepsis due to methicillin resistant Staphylococcus aureus (MRSA) (6) Fever: Qualified Code: R50.9 - Fever, unspecified fever cause Melissa Crandall Nov 13, 2016 13:51
--- NOTE | 2016-11-13 14:44 | RADRPT ---
EXAM DATE/TIME: 11/13/2016 14:01 [facility] COMPARISON: No previous studies available for comparison. INDICATIONS: Dyspnea. MEDICAL HISTORY: Cardiovascular disease. Hypertension. Blocked renal artery SURGICAL HISTORY: None. ENCOUNTER: Subsequent ACUITY: 4 - 6 days PAIN SCORE: 0/10 LOCATION: Bilateral chest FINDINGS: Prior study 11/12/16 use for comparison. Single view of the chest demonstrates there are bilateral lower areas of consolidation, left greater than right. Upper lungs are clear. Heart and mediastinum unremarkable. There is marked atheroscler otic disease of the aorta. CONCLUSION: Bilateral lower lobe consolidation, left greater than right unchanged. Mansoor Moran MD on November 13, 2016 at 14:34 Board Certified Radiologist. This report was verified electronically.
[2016-11-13 16:17] LABS: BACTERIA, URINE RARE /hpf; BLOOD, URINE MOD (NEG); COMMENT (UR) CATH-CULTURE IND; CULTURE IF INDICATED CATH CULTURE IND; GLUCOSE,URINE NEG (NEG); KETONE, URINE 10 mg/dL (NEG); NITRITE,URINE NEG (NEG); URINE COLOR YELLOW (YELLW/STRAW)
[2016-11-13 17:33] LABS: LACTIC ACID GHOST NOT REPORTABLE
[2016-11-13] MEDS ORDERED: ASP: Other exception documentation: ( ) XX PRN (17:45)
[2016-11-13] MEDS ORDERED: MISCELLANEOUS PHARMACY INFORMATION XX PRN (17:45)
--- NOTE | 2016-11-13 17:52 | HHI.PR ---
Addendum to Inpatient Note Addendum Reason: Additional Documentation Additional Information Recd call from RN Aury for patient at ~ 5:30 pm. She reports patient had low BP earlier today, lethargic not eating and drinking much. He also recd D5NS at 100 cc/hr and BP now improved. Reviewed chart: Pancultured No CLs per charting. UO ok. Vanco level ok. On Zosyn IV, Vanco IV. CXR reviewed: left side infiltrate plus effusion persists. d/w regarding US chest and thoracentesis. Recs: Renae cultured follow. Check Cdiff PCR if diarrhea Recheck lactic acid per sepsis protocol and hospitalist/Primary team to manage the fluids etc. I will address antibiotics and my workup. If change in clinical condition or persistently elevated lactic acid consider critical care consult. CT PE protocol was negative DC Zosyn IV Continue Vanco IV Start Meropenem IV (ASP: sepsis despite BSA concern for MDRO) Start Diflucan IV (was on BSA rule out fungemia. US chest for markings: to decide on thoracentesis. D/w D.w RN: to inform primary team to follow and address lactic acid, fluids etc. Consider palliative care to address goals of therapy. Patient has 2 recent intubations. If deteriorates would like code status and goals of care addressed. Will follow in am. If any change in clinical condition overnight please call me through the call center. France Alfaro MD Nov 13, 2016 17:52
[2016-11-13] MEDS: FLUCONAZOLE 200 MG PREMIX BAG 100 ML IV SCH (18:22)
--- NOTE | 2016-11-13 19:42 | HHI.PR ---
Subjective Remarks 89 YOWM with MRSA pn,COPD, UTI Has small pl effusion On RA, mild sob Weak, decreased appetite Objective Vital Signs Vital Signs Date Time Temp Pulse Resp B/P Pulse Ox O2 Delivery O2 Flow Rate FiO2 11/13/16 16:00 98.0 85 20 139/67 96 11/13/16 12:00 97.3 84 12 85/48 94 11/13/16 08:40 Room Air 11/13/16 08:00 97 11/13/16 08:00 97.6 103 16 99/56 94 11/13/16 04:00 98.0 73 20 96/68 97 11/13/16 00:00 98.1 75 18 109/57 97 11/12/16 22:08 Room Air 11/12/16 20:08 89 11/12/16 20:00 98.0 85 18 105/68 98 I/O 11/12/16 11/12/16 11/12/16 11/13/16 11/13/16 11/13/16 07:00 15:00 23:00 07:00 15:00 23:00 Intake Total 480 ml 236 ml 454 ml 456 ml 200 ml Output Total 400 ml 200 ml 300 ml 100 ml 150 ml Balance 80 ml 36 ml 154 ml 356 ml 50 ml Intake Oral 480 ml 236 ml 240 ml 240 ml 200 ml IV Total 214 ml 216 ml Output Urine Total 400 ml 200 ml 300 ml 100 ml 150 ml # Bowel Movements 1 0 1 0 Result Diagram: 11/13/16 1032 11/13/16 0626 Objective Remarks GENERAL: MBMN elderly male, weak, mild sob SKIN: Warm and dry. HEAD: Normocephalic. EYES: No scleral icterus. No injection or drainage. NECK: Supple, trachea midline. No JVD or lymphadenopathy. CARDIOVASCULAR: Regular rate and rhythm without murmurs, gallops, or rubs. RESPIRATORY: Breath sounds equal bilaterally. No accessory muscle use. GASTROINTESTINAL: Abdomen soft, non-tender, nondistended. MUSCULOSKELETAL: No cyanosis, or edema. BACK: Nontender without obvious deformity. No CVA tenderness. A/P Assessment and Plan Small pl effusion Pneumonia COPD HTN PLAN: US marking for TC Abx vanco, Meropemnem, Diflucan IVF DW Randy Monteiro MD Nov 13, 2016 19:42
--- NOTE | 2016-11-13 20:18 | RADRPT ---
EXAM DATE/TIME: 11/13/2016 19:24 [facility] COMPARISON: No previous studies available for comparison. EXTERNAL COMPARISON : [facility], XR CHEST PA & LAT, October 24, 2012[facility], XR CHEST PA & LAT, [facility]2011. INDICATIONS : Left chest pleural effusion. MEDICAL HISTORY : Hypertension. Chronic obstructive pulmonary disease. Gastroesophageal reflux disease. Neuropathy. Butch al disease. Skin cancer. SURGICAL HISTORY : Appendectomy. Cholecystectomy. Colonoscopy. Back surgery. TURP. ENCOUNTER: Initial ACUITY: 1 day PAIN SCORE: 0/10 LOCATION: Left chest MEASUREMENTS: SKIN TO PARIETAL PLEURA: 2.6 cm SKIN TO MAX SAFE DEPTH: 4.7 cm ESTIMATED FLUID VOLUME: 509 cc FLUID COMPOSITION: simple FINDINGS: Pleural effusion as above. A trevor was placed on the skin surface superficial to the pleural fluid col lection. CONCLUSION: Left pleural effusion. Jose Loja MD on November 13, 2016 at 20:16 Board Certified Radiologist. This report was verified electronically.
[2016-11-13] MEDS: TAMSULOSIN HCL 0.4 MG CAP PO SCH (22:40)
[2016-11-13] MEDS: ACETAMINOPHEN/CODEINE 300 MG/30 MG TAB PO PRN ×2 (22:40→22:57)
[2016-11-13] MEDS: MEROPENEM INJ 500 MG in SODIUM CHLORIDE 0.9% INJ 100 ML IV SCH (22:41)
[2016-11-13] MEDS: LORazepam 0.5 MG TAB PO PRN (22:57)
[2016-11-13] MEDS ORDERED: CHLORHEXIDINE GLUCONATE 2 % 1 PACK (2 CLOTHS)(extra cloths) TOP PRN (23:00)
[2016-11-13] MEDS ORDERED: FUROSEMIDE 20 MG/2 ML VIAL IV PUSH ONE (23:15)
[2016-11-14] VITALS (16 sets, daily range): BP systolic 11–133; BP diastolic 60–72; PULSE 78–102; RESP 14–24; TEMP 97.7–98.8; O2SAT 9–100
[2016-11-14] MEDS: CHLORHEXIDINE GLUCONATE 2 % 1 PACK (2 CLOTHS)(taper/protocol) TOP SCH (04:00)
[2016-11-14] MEDS: CHLORHEXIDINE GLUCONATE 2 % 1 PACK (2 CLOTHS) TOP SCH (04:00)
[2016-11-14] MEDS: LEVOTHYROXINE SODIUM 75 MCG TAB PO SCH (06:41)
[2016-11-14] MEDS: MEROPENEM INJ 500 MG in SODIUM CHLORIDE 0.9% INJ 100 ML IV SCH ×3 (06:41→22:10)
[2016-11-14] MEDS: DIVALPROEX SODIUM SPRINKLES 125 MG CAP PO SCH ×4 (06:41→22:12)
[2016-11-14] MEDS: HYDROCORTISONE SOD SUCCINATE 100 MG VIAL IV PUSH SCH ×3 (06:42→22:12)
[2016-11-14] MEDS: SODIUM CHLORIDE 0.9% FLUSH 5 ML FLUSH IV FLUSH SCH ×2 (09:00→22:12)
[2016-11-14] MEDS: BENEPROTEIN POWDER 1 PACK G-TUBE SCH ×3 (09:00→17:50)
[2016-11-14] MEDS: PANTOPRAZOLE SODIUM 40 MG VIAL IV SCH (09:48)
[2016-11-14] MEDS: POTASSIUM CL 40 MEQ/30 ML LIQ UDC PO SCH ×2 (09:49→20:46)
[2016-11-14] MEDS: ASPIRIN EC 81 MG TABEC PO SCH (09:49)
[2016-11-14] MEDS: ENOXAPARIN SODIUM 100 MG/ML SYRINGE SQ SCH ×2 (09:49→20:46)
[2016-11-14] MEDS: risperiDONE 1 MG TAB PO SCH ×4 (09:49→20:45)
[2016-11-14] MEDS: amLODIPine BESYLATE 5 MG TAB PO SCH (09:49)
[2016-11-14] MEDS: METOPROLOL TARTRATE 25 MG TAB PO SCH ×2 (09:49→20:46)
[2016-11-14 11:15] LABS: AUTOMATED NEUTROPHIL # 12.2 TH/MM3 (1.8-7.7); BASOPHIL % 0.1 % (0.0-2.0); EOSINOPHIL % 0.1 % (0.0-4.0); LYMPH % 5.4 % (9.0-44.0); LYMPHOCYTE # 0.7 TH/MM3 (1.0-4.8); MEAN CELL VOLUME 98.9 FL (80.0-100.0); MEAN CORPUSCULAR HEMOGLOBIN 32.3 PG (27.0-34.0); MEAN CORPUSCULAR HGB CONC 32.7 % (32.0-36.0); MONO % 6.5 % (0.0-8.0); NEUT % 87.9 % (16.0-70.0); PLATELET COUNT 183 TH/MM3 (150-450); RED BLOOD COUNT 2.07 MIL/MM3 (4.50-5.90); RED CELL DISTRIBUTION WIDTH 19.1 % (11.6-17.2); WHITE BLOOD COUNT 13.8 TH/MM3 (4.0-11.0)
[2016-11-14 11:18] LABS: HEMO FLAGS AUTO DIFF
[2016-11-14 11:23] LABS: HEMATOCRIT 20.5 % (39.0-51.0)
[2016-11-14] MEDS: VANCOMYCIN INJ 1,750 MG in SODIUM CHLORID 0.9% 500 ML INJ 500 ML IV SCH (11:30)
[2016-11-14 11:40] LABS: BICARBONATE 24.2 MEQ/L (21.0-32.0); POTASSIUM 4.4 MEQ/L (3.5-5.1)
[2016-11-14 12:12] LABS: BANDS 7 % (0-6); METAMYELOCYTES 1 % (0-1); NEUTROPHIL # MANUAL DIFF 12.8 TH/MM3 (1.8-7.7); PLATELET ESTIMATE SMEAR NORMAL (NORMAL); PLATELET MORPHOLOGY NORMAL (NORMAL); POLYS (SEG NEUTROPHILS) 85 % (16-70); SCAN/DIFF FINAL DIFF MANUAL; WBC DIFF SAMPLE 100
--- NOTE | 2016-11-14 12:42 | HHI.PR ---
Subjective Remarks More confused and lethargic today, on RA. Moved to [facility] d/t increasing sepsis, possible MDRO Objective Vital Signs Date Time Temp Pulse Resp B/P Pulse Ox O2 Delivery O2 Flow Rate FiO2 11/14/16 10:00 97 11/14/16 08:42 96 Nasal Cannula 2.00 11/14/16 08:00 78 11/14/16 08:00 97.7 78 17 105/63 98 11/14/16 06:00 92 11/14/16 04:00 92 11/14/16 04:00 98.4 100 24 120/67 94 11/14/16 02:00 92 11/14/16 00:41 22 11/14/16 00:00 98.8 92 18 133/62 92 11/14/16 00:00 79 11/14/16 00:00 98.0 92 18 133/62 9 11/14/16 00:00 92 11/13/16 22:00 127/ 11/13/16 22:00 78 11/13/16 20:30 97.5 95 22 106/79 6 11/13/16 20:30 80 11/13/16 16:00 98.0 85 20 139/67 96 I/O 11/13/16 11/13/16 11/13/16 11/14/16 11/14/16 11/14/16 07:00 15:00 23:00 07:00 15:00 23:00 Intake Total 456 ml 200 ml 619 ml Output Total 100 ml 150 ml 300 ml Balance 356 ml 50 ml 319 ml Intake Oral 240 ml 200 ml IV Total 216 ml 619 ml Output Urine Total 100 ml 150 ml 300 ml # Bowel Movements 1 0 Result Diagram: 11/14/16 1023 11/14/16 1023 Imaging Last 48 hours Impressions Chest X-Ray 11/13/16 0000 Signed Impressions: Service Date/Time: Sunday, November 13, 2016 14:01 - CONCLUSION: Bilateral lower lobe consolidation, left greater than right unchanged. Mansoor Moran MD Chest Ultrasound 11/13/16 0000 Signed Impressions: Service Date/Time: Sunday, November 13, 2016 19:24 - CONCLUSION: Left pleural effusion. Jose Loja MD Objective Remarks GENERAL: Well nourished, well-developed patient. SKIN: Warm and damp. HEAD: Normocephalic. EYES: No scleral icterus. No injection or drainage. NECK: Supple, trachea midline. No JVD or lymphadenopathy. CARDIOVASCULAR: Regular rate and rhythm without murmurs, gallops, or rubs. RESPIRATORY: Breath sounds with coarse rhonchi throughout lower lobes bilat. GASTROINTESTINAL: Abdomen soft, non-tender, nondistended. EXTREMITIES: No cyanosis, generalized edema, worse in BUE. Bruising to LUE d/t BP cuff NEUROLOGICAL: Awake, lethargic, and oriented x 1. Non-focal. Medications and IVs Current Medications Medications (Trade) Dose Ordered Sig/Mercedes Route Start Time Stop Time Status Last Admin (NS Flush) 2 ml UNSCH PRN IV FLUSH 11/06/16 08:15 (NS Flush) 2 ml BID IV FLUSH 11/06/16 09:00 11/13/16 08:28 (Protonix Inj) 40 mg DAILY IV 11/06/16 09:00 11/14/16 09:48 Miscellaneous Information 1 Q361D XX 11/06/16 08:15 (Chlorhexidine 2% Cloth) Taper DAILY@04 TOP 11/07/16 04:00 11/03/17 03:59 11/10/16 06:53 Chlorhexidine Gluconate 3 pack 3 pack UNSCH PRN TOP 11/06/16 08:15 (Vancomycin Consult Pharmacy) 0 ml @ 0 mls/hr UNSCH OTHER 11/06/16 10:30 (SoluCORTEF INJ) 100 mg Q8HR IV PUSH 11/06/16 14:00 11/14/16 06:42 (Ecotrin Ec) 81 mg DAILY PO 11/07/16 09:00 11/14/16 09:49 (Synthroid) 75 mcg DAILY@0600 PO 11/07/16 06:00 11/14/16 06:41 (Beneprotein Powder) 2 pack TID G-TUBE 11/07/16 09:00 11/08/16 13:00 (Ativan) 0.5 mg Q6H PRN PO 11/08/16 15:45 11/13/16 22:57 Risperidone 2 mg 2 mg QID PO 11/09/16 21:00 11/14/16 09:49 (Vancomycin Inj/ NS 500 ml Inj) 517.5 ml @ 250 mls/hr Q24H IV 11/11/16 11:00 11/14/16 11:30 (Lovenox Inj) 100 mg Q12H SQ 11/10/16 21:00 11/14/16 09:49 (KCl 40 Meq/30 ml Liq) 10 meq BID PO 11/11/16 11:00 11/14/16 09:49 (Norvasc) 5 mg DAILY PO 11/12/16 09:00 11/14/16 09:49 (Lopressor) 25 mg BID PO 11/11/16 21:00 11/14/16 09:49 (Flomax) 0.4 mg HS PO 11/11/16 21:00 11/13/16 22:40 (Tylenol-Codeine #3) 1 tab Q4H PRN PO 11/11/16 21:00 11/13/16 22:57 Acetaminophen/ Codeine Phosphate 2 tab 2 tab Q4H PRN PO 11/11/16 21:00 11/12/16 18:58 Dextrose/Sodium Chloride 1,000 ml @ 100 mls/hr Q10H IV 11/13/16 14:00 11/13/16 13:50 Meropenem 500 mg/ Sodium Chloride 100 ml @ 200 mls/hr Q8H IV 11/13/16 20:00 11/14/16 06:41 (Diflucan 200 Mg Premix Bag) 100 ml @ 100 mls/hr Q24H IV 11/13/16 18:00 11/13/16 18:22 (Depakote Sprinkles) 250 mg Q6H PO 11/13/16 22:00 11/14/16 09:51 Miscellaneous Information Patient in critical care unit? Ass... Q361D XX 11/13/16 23:00 (Chlorhexidine 2% Cloth) 3 pack DAILY@04 TOP 11/14/16 04:00 11/18/16 04:01 (Chlorhexidine 2% Cloth) 3 pack UNSCH PRN TOP 11/13/16 23:00 11/18/16 22:50 (Haldol Inj) 5 mg Q6H PRN IM 11/14/16 12:30 Assessment and Plan Problem List: (1) Acute respiratory failure Status: Chronic Plan: Stable on RA, (2) Altered mental status Status: Chronic Plan: Chronic dementia with memory loss. (3) Pneumonia Status: Acute Plan: ID following, on Vanco, meropenem, fluconazole. Meds changed d/t change in mentation, elevated lactate, sepsis. Urine and BC pending. Left pleural effusion, bilateral LL consolidation on CXR. Ultrasound done to eval effusion. Decision on thoracentesis by Dr. Mcintosh. (4) History of COPD Status: Chronic Plan: Long smoking history, none current. (5) Urinary tract infection Status: Acute Plan: Chronic with indwelling costa d/t retention, recurrent UTI's.Culture shows E.Coli, Pseudomonas Aruginosa. On Zosyn per sensitivity, ID following. Due to change in condition and possible recurrent sepsis, UA will be redrawn. (6) Sepsis Status: Acute Plan: Recurrent, possible MDRO, ID notified and following, cultures pending. (7) Fever Status: Resolved Plan: Afebrile, 97.7 (8) Swelling of right upper extremity Status: Acute Plan: Positive for DVT. On lovenox BID. Has remote GIB history. Dr. Morgan following. (9) Anemia Status: Acute Plan: No stool overnight, Left pleural effusion, pending evaluation. Will transfuse X 1 and hemoccult stools. Assessment and Plan D/W RN, Dr. Salgado, Dr. Alfaro. Problem Qualifiers (1) Acute respiratory failure: Qualified Code: J96.01 - Acute respiratory failure with hypoxia (2) Altered mental status: Qualified Code: R41.0 - Disorientation (3) Pneumonia: Qualified Code: J15.212 - Pneumonia of left lower lobe due to methicillin- resistant Staphylococcus aureus (MRSA) (4) Urinary tract infection: Qualified Code: T83.511A - Urinary tract infection associated with indwelling urethral catheter, initial encounter (5) Sepsis: Qualified Code: A41.02 - Sepsis due to methicillin resistant Staphylococcus aureus (MRSA) (6) Fever: Qualified Code: R50.9 - Fever, unspecified fever cause (7) Anemia: Qualified Code: D64.9 - Anemia, unspecified type Melissa Crandall Nov 14, 2016 12:42
--- NOTE | 2016-11-14 12:58 | HHI.IDPN ---
Subjective Subjective Remarks is 89 y/o CM who is admitted with recurrent MRSA pneumonia and UTI. Overnight events reviewed. Transferred to ICU due to worsening AMS and hypotension. Recd D5NS @ 100 cc/hr Low H/H this am (trend down going from 10 to 6 today) No gross evidence of bleeding: no upper or lower GI bleeding No fever No rash No diarrhea Still periods of hypotension. On 3L Oxygen Complains of shortness of breath off and on. Baseline dementia. Speech ok. s/p US chest: 500 cc fluid noted Antibiotics Meropenem IV Micafungin IV Vanco IV Lines Line sites with no e/o infection. Past Medical History reviewed Allergies: Coded Allergies: Levofloxacin (Verified Allergy, Severe, 11/06/16) *MDRO Multi-Drug Resistant Organism (Verified Adverse Reaction, Unknown, MRSA, 11/09/16) MRSA (sputum & blood) - 07/21/16 & 08/22/16; MRSA (sputum & blood) - 10/08/16; (sputum) - 11/06/16 MRSA PCR Screen POSITIVE - 10/08/16 Objective . Vital Signs Date Time Temp Pulse Resp B/P Pulse Ox O2 Delivery O2 Flow Rate FiO2 11/14/16 10:00 97 11/14/16 08:42 96 Nasal Cannula 2.00 11/14/16 08:00 78 11/14/16 08:00 97.7 78 17 105/63 98 11/14/16 06:00 92 11/14/16 04:00 92 11/14/16 04:00 98.4 100 24 120/67 94 11/14/16 02:00 92 11/14/16 00:41 22 11/14/16 00:00 98.8 92 18 133/62 92 11/14/16 00:00 79 11/14/16 00:00 98.0 92 18 133/62 9 11/14/16 00:00 92 11/13/16 22:00 127/ 11/13/16 22:00 78 11/13/16 20:30 97.5 95 22 106/79 6 11/13/16 20:30 80 11/13/16 16:00 98.0 85 20 139/67 96 11/13/16 11/13/16 11/14/16 15:00 23:00 07:00 Intake Total 200 ml 619 ml Output Total 150 ml 300 ml Balance 50 ml 319 ml Intake Oral 200 ml IV Total 619 ml Output Urine Total 150 ml 300 ml # Bowel Movements 0 . Laboratory Tests Test 11/13/16 11/14/16 10:32 10:23 White Blood Count 15.3 TH/MM3 13.8 TH/MM3 Red Blood Count 2.62 MIL/MM3 2.07 MIL/MM3 Hemoglobin 8.4 GM/DL 6.7 GM/DL Hematocrit 25.7 % 20.5 % Mean Corpuscular Volume 98.0 FL 98.9 FL Mean Corpuscular Hemoglobin 32.1 PG 32.3 PG Mean Corpuscular Hemoglobin 32.8 % 32.7 % Concent Red Cell Distribution Width 17.8 % 19.1 % Platelet Count 234 TH/MM3 183 TH/MM3 Mean Platelet Volume 8.9 FL 9.0 FL Neutrophils (%) (Auto) 91.0 % 87.9 % Lymphocytes (%) (Auto) 4.3 % 5.4 % Monocytes (%) (Auto) 4.7 % 6.5 % Eosinophils (%) (Auto) 0.0 % 0.1 % Basophils (%) (Auto) 0.0 % 0.1 % Neutrophils # (Auto) 13.9 TH/MM3 12.2 TH/MM3 Lymphocytes # (Auto) 0.7 TH/MM3 0.7 TH/MM3 Monocytes # (Auto) 0.7 TH/MM3 0.9 TH/MM3 Eosinophils # (Auto) 0.0 TH/MM3 0.0 TH/MM3 Basophils # (Auto) 0.0 TH/MM3 0.0 TH/MM3 CBC Comment AUTO DIFF AUTO DIFF Differential Total Cells 100 100 Counted Neutrophils % (Manual) 90 % 85 % Band Neutrophils % 1 % 7 % Lymphocytes % 5 % 1 % Monocytes % 3 % 6 % Neutrophils # (Manual) 14.1 TH/MM3 12.8 TH/MM3 Metamyelocytes 1 % 1 % Differential Comment FINAL DIFF FINAL DIFF MANUAL MANUAL Platelet Estimate NORMAL NORMAL Platelet Morphology Comment NORMAL NORMAL Laboratory Tests Test 11/12/16 11/13/16 11/13/16 11/13/16 18:24 06:26 15:25 15:45 Sodium Level 144 MEQ/L Potassium Level 4.2 MEQ/L Chloride Level 109 MEQ/L Carbon Dioxide Level 25.5 MEQ/L Anion Gap 10 MEQ/L Blood Urea Nitrogen 20 MG/DL Creatinine 0.99 MG/DL 0.86 MG/DL Estimat Glomerular Filtration 71 ML/MIN 84 ML/MIN Rate Random Glucose 110 MG/DL Calcium Level 7.4 MG/DL Protein Corrected Calcium 8.6 MG/DL Total Bilirubin 0.3 MG/DL Aspartate Amino Transf 16 U/L (AST/SGOT) Alanine Aminotransferase 15 U/L (ALT/SGPT) Alkaline Phosphatase 42 U/L Total Protein 4.9 GM/DL Albumin 1.9 GM/DL Lactic Acid Level 3.7 mmol/L Procalcitonin 0.25 Test 11/13/16 11/14/16 18:55 10:23 Lactic Acid Level 3.6 mmol/L Sodium Level 139 MEQ/L Potassium Level 4.4 MEQ/L Chloride Level 106 MEQ/L Carbon Dioxide Level 24.2 MEQ/L Anion Gap 9 MEQ/L Blood Urea Nitrogen 23 MG/DL Creatinine 1.08 MG/DL Estimat Glomerular Filtration 65 ML/MIN Rate Random Glucose 135 MG/DL Calcium Level 7.6 MG/DL Microbiology Date/Time Procedure Status Source Growth 11/12/16 16:35 Urine Culture - Final Complete Urine Catheterized Urine NO GROWTH IN 48 HOURS. 11/13/16 14:45 Urine Culture Received Urine Catheterized Urine Pending 11/13/16 15:45 Aerobic Blood Culture - Preliminary Resulted Blood Peripheral NO GROWTH IN 1 DAY 11/13/16 15:45 Anaerobic Blood Culture - Preliminary Resulted Blood Peripheral NO GROWTH IN 1 DAY 11/13/16 15:50 Aerobic Blood Culture - Preliminary Resulted Blood Peripheral NO GROWTH IN 1 DAY 11/13/16 15:50 Anaerobic Blood Culture - Preliminary Resulted Blood Peripheral NO GROWTH IN 1 DAY Imaging Last Impressions Chest X-Ray 11/07/16 0000 Signed Impressions: Service Date/Time: Monday, November 07, 2016 04:07 - CONCLUSION: Increasing infiltrate in the left lung base. Thompson Fabian MD Abdomen/Pelvis CT 11/06/16 1028 Signed Impressions: Service Date/Time: Sunday, November 06, 2016 11:15 - CONCLUSION: Stout catheter in place in a decompressed urinary bladder. No obstructive uropathy. There is a nonobstructive left kidney midpole posterior stones sub-centimeters size. Multiple right renal cysts. Uncomplicated diverticuli of the colon and extensive degenerative changes of the lumbar spine. Abdirashid Cotton MD CT Angiography 11/06/16 0000 Signed Impressions: Service Date/Time: Sunday, November 06, 2016 11:15 - CONCLUSION: Minimally suboptimal examination with poor visualization of distal arterial structures. Centrally there is no evidence of pulmonary embolism. Stable bilateral posterior basilar minimal pleural effusions and dependent basilar atelectasis. Abdirashid Cotton MD Physical Exam GENERAL: Obese, CM patient, in no apparent distress. SKIN: No generalized rashes. Has skin breaks on RUE and few areas of ecchymosis. HEAD: Atraumatic. Normocephalic. No temporal or scalp tenderness. EYES: Pupils equal round and reactive. Extraocular motions intact. No scleral icterus. No injection or drainage. ENT:Grossly NAD NECK: Trachea midline. Supple, nontender, no meningeal signs. CARDIOVASCULAR: HS audible. RESPIRATORY: Breath sounds equal bilaterally but decreased in the bases. GASTROINTESTINAL: Abdomen soft, non-tender, nondistended. MUSCULOSKELETAL: Extremities without clubbing, cyanosis. NEUROLOGICAL: Awake, Alert, responds to questions. Moves all extremities. Confused. Not oriented x 3. Psych:cooperative IV line sites with no e/o infection. Assessment & Plan Remarks Severe Sepsis present on admission(fever, tachypnea, tachycardia, elevated lactic acid, acute renal failure, sources pneumonia) Pneumonia (recent history of MRSA pneumonia, other possibilities are community- acquired pneumonia, atypical pneumonia) Acute renal failure on admission appears to be improving likely sepsis of prerenal Prior history of MRSA pneumonia as well as bacteremia in September 2016. Recurrent pneumonia: MRSA UTI present on admission: E.coli and another GNR Acute COPD exacerbation with hypoxia. 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 If continues to be hypotensive consider Brand Mgr consult. She informs me that the son was contacted by their team and son would like to continue aggressive care. Patients in assisted. Follow cultures Continue Meropenem IV Continue Vanco IV Continue Micafungin IV for now. Follow cultures. Follow clinically. In view of low H/H monitor closely and consider postponing Thoracentesis for a day unless resp distress. d.w [place] Haley MD Nov 14, 2016 12:58
[2016-11-14] MEDS ORDERED: FUROSEMIDE 20 MG/2 ML VIAL IV PUSH ONE (14:45)
[2016-11-14] MEDS: ACETAMINOPHEN/CODEINE 300 MG/30 MG TAB PO PRN ×2 (14:54→22:31)
--- NOTE | 2016-11-14 16:07 | PD.CONS ---
Consult Service Palliative Care Consult Requested By Dr. Alfaro. Primary Care Physician Lencho Salgado, DO Reason for Consultation a. To assist with evaluation and management of symptoms including: shortness of breath and debility. b. To assist medical decision maker(s) with: better understanding of current medical conditions; weighing benefits/burdens of medical treatment options; making medical treatment decisions. HPI History of Present Illness Mr. Montanez is an 89 y/o male with a medical history significant for COPD, CVA, HTN and recent hospitalizations secondary to sepsis and pneumonia. Patient is a long-term resident of [facility]. Patient presented to the ED on 11/06/16 via EMS secondary to to increase shortness of breath, tachypnea and fever. Upon ED arrival, temperature 102.9, tachycardic with heart rate in the 130s, and diffuse wheezing. Patient was placed on BiPAP without improvement and was emergently intubated and placed on mechanical ventilation. ED labs include a lactate of 4.9, BUN/creat 26/1.4. UA showed evidence of UTI. CXR showing persistent left lower lobe airspace consolidation. CT pulmonary angiogram on 11/06/16 with no evidence of PE and stable bilateral pleural effusions and atelectasis. CT of abdomen and pelvis 11/06/16 showing no obstructive uropathy, with nonobstructive left kidney stones and multiple right renal cysts. Patient admitted to intensive care unit for further management of septic shock. Additional workup includes upper extremity ultrasound on 11/10/16 showing occlusive thrombus in the right basilic and ulnar veins. Repeat CT angiography on 11/11/16 negative for PE but showed large bilateral pleural effusions and consolidation in the left lower lobe.Most recent chest x-ray on 11/13/16 showing persistent left lower lobe consolidation left greater than right which is unchanged. Chest ultrasound 11/13/16 showing left pleural effusion. Patient on 11/13/16 was transferred to the ICU secondary to worsening altered mental status and hypotension with SBP in the 80s to 90s. Palliative care has been consulted for clarifications of goals of care in the setting of patient's baseline debilitated state, prior recent hospitalizations and worsening clinical condition. Review of prior medical records show prior hospitalizations to include recent hospitalization from 10/08/16 to 10/26/16 secondary to pneumonia and respiratory failure as well as hospitalization from 08/21/16 2 09/03/16 secondary to sepsis and pneumonia. Patient seen in ICU. He was resting in bed in no acute distress. Son Javan at bedside. Son tells me that patient has been residing at [facility] long-term for the past year secondary to progressive debilitated state, requiring more assistance with ADLs. Patient's is also a resident of [facility] secondary to advanced dementia. As per son , patient has been progressively debilitated and unable to walk for the last few months. He has a bed to wheelchair existence but as per son maintains a good quality of life. 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 Has been to his current for 66 years and have 3 children; Ronaldo who lives in [place], Rosalind who lives in [place] and and Javan who lives in [place]. Javan reports that that his brother Ronaldo is the designated healthcare surrogate and the one who makes all his parents healthcare decisions. Spoke with son Ronaldo over the phone. He confirms being the designated healthcare surrogate and is willing to continue with this roll. Ronaldo tells me that he is aware that his father has continued to decline over the last year or so, with complications including frequent pneumonias, UTIs and hospitalizations. However, he feels that his father still has a good quality of life at the alf as he is able to share time with his who is also a resident. Family electing to continue aggressive care in order to allow time for clinical improvement. Encourage Ronaldo to discuss limitations of treatment with his family in the setting of patient's age, pre-existing functional status, recent frequent hospitalizations, and multiple chronic comorbidities. Son tells me that he is aware that eventually they will have to make that difficult decision but for now they will like to give his father a chance at living. . Function/Cognitive Trajectory Multiple hospitalizations within the past 3 months. Patient has been residing at [facility] long-term for the past year secondary to progressive debility requiring more assistance with ADLs. As per son, patient unable to walk for the last few months. He has a bed to wheelchair existence. . Review of Systems ROS Limitations: Clinical Condition, Altered Mental Status, Poor Historian Constitutional: DENIES: Fever, Change in appetite Endocrine: DENIES: Heat/cold intolerance Eyes: COMPLAINS OF: Blurred vision Ears, nose, mouth, throat: COMPLAINS OF: Hearing loss, DENIES: Oral lesions, Throat pain Respiratory: COMPLAINS OF: Shortness of breath Cardiovascular: COMPLAINS OF: Dyspnea on Exertion, Lower Extremity Edema, DENIES: Chest pain Gastrointestinal: DENIES: Abdominal pain, Constipation, Diarrhea, Nausea, Vomiting Genitourinary: COMPLAINS OF: Urinary incontinence Musculoskeletal: COMPLAINS OF: Back pain (chronic ) Hematologic/Lymphatics: COMPLAINS OF: Bruising Neurologic: COMPLAINS OF: Abnormal gait, Poor Balance Psychiatric: COMPLAINS OF: Confusion Past Family Social History Coded Allergies: Levofloxacin (Verified Allergy, Severe, 11/06/16) *MDRO Multi-Drug Resistant Organism (Verified Adverse Reaction, Unknown, MRSA, 11/09/16) MRSA (sputum & blood) - 07/21/16 & 08/22/16; MRSA (sputum & blood) - 10/08/16; (sputum) - 11/06/16 MRSA PCR Screen POSITIVE - 10/08/16 Past Medical History COPD Dementia Peripheral neuropathy Recurrent pneumonia History 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 Past Surgical History Hernia repair Appendectomy Cholecystectomy TURP Laminectomy . Reported Medications Flomax (Tamsulosin HCl) 0.4 Mg Cap 0.4 Mg PO DAILY Risperdal (Risperidone) 1 Mg Tab 2 Mg PO TID Prednisone 5 Mg Tab 10 Mg PO DAILY Mucinex ER 12 HR (Guaifenesin) 600 Mg Vanessa 600 Mg PO BID Depakote Sprinkles (Divalproex Sodium) 125 mg Cap 250 Mg PO Q8HR Xanax (Alprazolam) 0.25 Mg Tab 0.25 Mg PO Q8H PRN Vitamin D (Cholecalciferol) 2,000 Unit Tab PO DAILY Triamcinolone Acetonide (Triamcinolone Acetonide (Topic) 1 Pow Pow 0.1 % TOPICAL HS Multi Vitamin (Multiple Vitamin) 1 Tab Tab 1 Tab PO DAILY Milk of Magnesia Liq (Magnesium Hydroxide) 400 Mg/5 Ml Susp 30 Ml PO HS PRN Metoprolol Tartrate 25 Mg Tab 25 Mg PO BID Levothyroxine (Levothyroxine Sodium) 75 Mcg Tab 75 Mcg PO DAILY Dulcolax Supp (Bisacodyl) 10 Mg Supp 10 Mg RECTAL DAILY PRN Calcium Carbonate (Calcium Carbonate (Antacid)) 648 Mg Tab 648 Mg PO DAILY Aspirin 81 Mg Tabdr 81 Mg PO DAILY Sm Dry Eye Relief 0.2-0.2-1 % (Emzvlfdb-Xsancufzndmk-Gazistga) 1 Sweta Sweta 1 Drop EACH EYE TID Amlodipine (Amlodipine Besylate) 5 Mg Tab 5 Mg PO DAILY Albuterol Neb (Albuterol Sulfate) 2.5 Mg/3 Ml Neb 2.5 Mg NEB TID NEB PRN . Current Medications Medications (Trade) Dose Ordered Sig/Mercedes Route Start Time Stop Time Status Last Admin (NS Flush) 2 ml UNSCH PRN IV FLUSH 11/06/16 08:15 (NS Flush) 2 ml BID IV FLUSH 11/06/16 09:00 11/13/16 08:28 (Protonix Inj) 40 mg DAILY IV 11/06/16 09:00 11/14/16 09:48 Miscellaneous Information 1 Q361D XX 11/06/16 08:15 (Chlorhexidine 2% Cloth) Taper DAILY@04 TOP 11/07/16 04:00 11/03/17 03:59 11/10/16 06:53 Chlorhexidine Gluconate 3 pack 3 pack UNSCH PRN TOP 11/06/16 08:15 (Vancomycin Consult Pharmacy) 0 ml @ 0 mls/hr UNSCH OTHER 11/06/16 10:30 (SoluCORTEF INJ) 100 mg Q8HR IV PUSH 11/06/16 14:00 11/14/16 13:19 (Ecotrin Ec) 81 mg DAILY PO 11/07/16 09:00 11/14/16 09:49 (Synthroid) 75 mcg DAILY@0600 PO 11/07/16 06:00 11/14/16 06:41 (Beneprotein Powder) 2 pack TID G-TUBE 11/07/16 09:00 11/14/16 13:00 (Ativan) 0.5 mg Q6H PRN PO 11/08/16 15:45 11/13/16 22:57 Risperidone 2 mg 2 mg QID PO 11/09/16 21:00 11/14/16 13:19 (Vancomycin Inj/ NS 500 ml Inj) 517.5 ml @ 250 mls/hr Q24H IV 11/11/16 11:00 11/14/16 11:30 (Lovenox Inj) 100 mg Q12H SQ 11/10/16 21:00 11/14/16 09:49 (KCl 40 Meq/30 ml Liq) 10 meq BID PO 11/11/16 11:00 11/14/16 09:49 (Norvasc) 5 mg DAILY PO 11/12/16 09:00 11/14/16 09:49 (Lopressor) 25 mg BID PO 11/11/16 21:00 11/14/16 09:49 (Flomax) 0.4 mg HS PO 11/11/16 21:00 11/13/16 22:40 (Tylenol-Codeine #3) 1 tab Q4H PRN PO 11/11/16 21:00 11/13/16 22:57 Acetaminophen/ Codeine Phosphate 2 tab 2 tab Q4H PRN PO 11/11/16 21:00 11/14/16 14:54 Dextrose/Sodium Chloride 1,000 ml @ 100 mls/hr Q10H IV 11/13/16 14:00 11/13/16 13:50 Meropenem 500 mg/ Sodium Chloride 100 ml @ 200 mls/hr Q8H IV 11/13/16 20:00 11/14/16 06:41 (Diflucan 200 Mg Premix Bag) 100 ml @ 100 mls/hr Q24H IV 11/13/16 18:00 11/13/16 18:22 (Depakote Sprinkles) 250 mg Q6H PO 11/13/16 22:00 11/14/16 09:51 Miscellaneous Information Patient in critical care unit? Ass... Q361D XX 11/13/16 23:00 (Chlorhexidine 2% Cloth) 3 pack DAILY@04 TOP 11/14/16 04:00 11/18/16 04:01 (Chlorhexidine 2% Cloth) 3 pack UNSCH PRN TOP 11/13/16 23:00 11/18/16 22:50 (Haldol Inj) 5 mg Q6H PRN IM 11/14/16 12:30 Family History Unable to obtain. Patient is a poor historian, confused. Son Javan unable to provide. Patient has 3 children which are alive and well. . Substance Use Tobacco: Former tobacco use. Quit 30 years ago. Alcohol: None. Prescription med abuse: None. Illicits: None. . Psychosocial History Patient is . Long-term resident of [facility] where he resides with of 66 years. They have 3 children. 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 No service. . Spiritual/Cultural Factors Baptist shilo. . Living Will: Never completed Health Care Surrogate: Completed, but not made available Durable Power of Basic Acoustic Analyst: Completed, but not made available Date completed: Pending healthcare surrogate and DURABLE POWER OF SUPERVISOR SLASHING DEPARTMENT from kilo Higgins. . Health Care Surrogate(s): As per patient's family. Kilo montanez is the designated healthcare surrogate. Pending healthcare surrogate paperwork. . Documented care wishes: No living will completed. . Today's verbally stated goals: Patient unable to participate in goals of care conversation secondary to clinical status, confusion. . Family/friends goals: FULL CODE. Continue aggressive care to include intubation and mechanical ventilation if medically indicated. . Ethical and Legal Issues No living will completed. . Physical Exam Vital Signs Date Time Temp Pulse Resp B/P Pulse Ox O2 Delivery O2 Flow Rate FiO2 11/14/16 10:00 97 11/14/16 08:42 96 Nasal Cannula 2.00 11/14/16 08:00 78 11/14/16 08:00 97.7 78 17 105/63 98 11/14/16 06:00 92 11/14/16 04:00 92 11/14/16 04:00 98.4 100 24 120/67 94 11/14/16 02:00 92 11/14/16 00:41 22 11/14/16 00:00 98.8 92 18 133/62 92 11/14/16 00:00 79 11/14/16 00:00 98.0 92 18 133/62 9 11/14/16 00:00 92 11/13/16 22:00 127/ 11/13/16 22:00 78 11/13/16 20:30 97.5 95 22 106/79 6 11/13/16 20:30 80 11/13/16 16:00 98.0 85 20 139/67 96 11/13/16 11/14/16 19:00 07:00 Intake Total 200 ml 619 ml Output Total 150 ml 300 ml Balance 50 ml 319 ml Intake Oral 200 ml IV Total 619 ml Output Urine Total 150 ml 300 ml # Bowel Movements 0 Exam CONSTITUTIONAL/GENERAL: This is a frail elderly man in no apparent distress. confused. TUBES/LINES/DRAINS: PIV's, Stout cath, SCD's, NV. SKIN: No jaundice, rashes, or lesions. Scattered ecchymoses on upper extremities. No wounds seen anteriorly. Skin temperature appropriate. Not diaphoretic. HEAD: Atraumatic. Normocephalic. EYES: Pupils equal and round and reactive. No scleral icterus. No injection or drainage. ENT: Appears hard of hearing. Nose without bleeding or purulent drainage. Throat without visible erythema, exudates, masses, or lesions. Dry lips. Poor dentition. NECK: Trachea midline. Supple, nontender. CARDIOVASCULAR: Regular rate and rhythm without murmurs, gallops, or rubs. Week pedal pulses. Generalized edema. RESPIRATORY/CHEST: Symmetric, unlabored respirations. Coarse breath sounds. O2 via nasal cannula. GASTROINTESTINAL: Abdomen soft, non-tender, nondistended. No guarding. Bowel sounds present. GENITOURINARY: Without palpable bladder distension. Stout catheter in place. MUSCULOSKELETAL: No mottling or clubbing. Weak bilateral hand grasp. NEUROLOGICAL: Awake and alert to self. Confused. Following some commands with upper extremities. PSYCHIATRIC: Unable to assess secondary to clinical condition. Appears calm. . Diagnostic Tests Laboratory Laboratory Tests Test 11/12/16 11/12/16 11/13/16 11/13/16 16:35 18:24 06:26 10:32 Urine Color YELLOW (YELLW/STRAW) Urine Turbidity CLEAR (CLEAR) Urine pH 6.0 (5.0-8.5) Urine Specific [place] 1.050 (1.002-1.035) Urine Protein 30 mg/dL (NEG-TRACE) Urine Glucose (UA) NEG mg/dL (NEG) Urine Ketones TRACE mg/dL (NEG) Urine Occult Blood LARGE (NEG) Urine Nitrite NEG (NEG) Urine Bilirubin NEG (NEG) Urine Urobilinogen LESS THAN 2.0 MG/DL (LESS THAN 2.0) Urine Leukocyte Esterase MOD (NEG) Urine RBC /hpf (0-3) Urine WBC 12 /hpf (0-5) Urine Squamous Epithelial <1 /hpf (0-5) Cells Urine Bacteria OCC /hpf (NONE) Urine Mucus FEW /lpf (OCC) Microscopic Urinalysis Comment CATH-CULTURE IND Sodium Level 144 MEQ/L (136-145) Potassium Level 4.2 MEQ/L (3.5-5.1) Chloride Level 109 MEQ/L (98-107) Carbon Dioxide Level 25.5 MEQ/L (21.0-32.0) Anion Gap 10 MEQ/L (5-15) Blood Urea Nitrogen 20 MG/DL (7-18) Creatinine 0.99 MG/DL 0.86 MG/DL (0.60-1.30) (0.60-1.30) Estimat Glomerular Filtration 71 ML/MIN (>89) 84 ML/MIN (>89) Rate Random Glucose 110 MG/DL (74-106) Calcium Level 7.4 MG/DL (8.5-10.1) Protein Corrected Calcium 8.6 MG/DL (8.5-10.1) Total Bilirubin 0.3 MG/DL (0.2-1.0) Aspartate Amino Transf 16 U/L (15-37) (AST/SGOT) Alanine Aminotransferase 15 U/L (12-78) (ALT/SGPT) Alkaline Phosphatase 42 U/L (45-117) Total Protein 4.9 GM/DL (6.4-8.2) Albumin 1.9 GM/DL (3.4-5.0) White Blood Count 15.3 TH/MM3 (4.0-11.0) Red Blood Count 2.62 MIL/MM3 (4.50-5.90) Hemoglobin 8.4 GM/DL (13.0-17.0) Hematocrit 25.7 % (39.0-51.0) Mean Corpuscular Volume 98.0 FL (80.0-100.0) Mean Corpuscular Hemoglobin 32.1 PG (27.0-34.0) Mean Corpuscular Hemoglobin 32.8 % Concent (32.0-36.0) Red Cell Distribution Width 17.8 % (11.6-17.2) Platelet Count 234 TH/MM3 (150-450) Mean Platelet Volume 8.9 FL (7.0-11.0) Neutrophils (%) (Auto) 91.0 % (16.0-70.0) Lymphocytes (%) (Auto) 4.3 % (9.0-44.0) Monocytes (%) (Auto) 4.7 % (0.0-8.0) Eosinophils (%) (Auto) 0.0 % (0.0-4.0) Basophils (%) (Auto) 0.0 % (0.0-2.0) Neutrophils # (Auto) 13.9 TH/MM3 (1.8-7.7) Lymphocytes # (Auto) 0.7 TH/MM3 (1.0-4.8) Monocytes # (Auto) 0.7 TH/MM3 (0-0.9) Eosinophils # (Auto) 0.0 TH/MM3 (0-0.4) Basophils # (Auto) 0.0 TH/MM3 (0-0.2) CBC Comment AUTO DIFF Differential Total Cells 100 Counted Neutrophils % (Manual) 90 % (16-70) Band Neutrophils % 1 % (0-6) Lymphocytes % 5 % (9-44) Monocytes % 3 % (0-8) Neutrophils # (Manual) 14.1 TH/MM3 (1.8-7.7) Metamyelocytes 1 % (0-1) Differential Comment FINAL DIFF MANUAL Platelet Estimate NORMAL (NORMAL) Platelet Morphology Comment NORMAL (NORMAL) Test 11/13/16 11/13/16 11/13/16 11/13/16 10:43 14:45 15:25 15:45 Vancomycin Level Trough 17.6 MCG/ML (5.0-10.0) Urine Color YELLOW (YELLW/STRAW) Urine Turbidity CLEAR (CLEAR) Urine pH 6.0 (5.0-8.5) Urine Specific [place] GREATER THAN 1.050 (1.002-1.035) Urine Protein 30 mg/dL (NEG-TRACE) Urine Glucose (UA) NEG mg/dL (NEG) Urine Ketones 10 mg/dL (NEG) Urine Occult Blood MOD (NEG) Urine Nitrite NEG (NEG) Urine Bilirubin NEG (NEG) Urine Urobilinogen LESS THAN 2.0 MG/DL (LESS THAN 2.0) Urine Leukocyte Esterase SMALL (NEG) Urine RBC 117 /hpf (0-3) Urine WBC 8 /hpf (0-5) Urine Bacteria RARE /hpf (NONE) Urine Yeast (Budding) RARE (NONE) Microscopic Urinalysis Comment CATH-CULTURE IND Lactic Acid Level 3.7 mmol/L (0.4-2.0) Procalcitonin 0.25 Test 11/13/16 11/13/1611/14/17 18:55 20:15 10:23 Lactic Acid Level 3.6 mmol/L (0.4-2.0) Nasal Screen MRSA (PCR) NEGATIVE (NEGATIVE) White Blood Count 13.8 TH/MM3 (4.0-11.0) Red Blood Count 2.07 MIL/MM3 (4.50-5.90) Hemoglobin 6.7 GM/DL (13.0-17.0) Hematocrit 20.5 % (39.0-51.0) Mean Corpuscular Volume 98.9 FL (80.0-100.0) Mean Corpuscular Hemoglobin 32.3 PG (27.0-34.0) Mean Corpuscular Hemoglobin 32.7 % Concent (32.0-36.0) Red Cell Distribution Width 19.1 % (11.6-17.2) Platelet Count 183 TH/MM3 (150-450) Mean Platelet Volume 9.0 FL (7.0-11.0) Neutrophils (%) (Auto) 87.9 % (16.0-70.0) Lymphocytes (%) (Auto) 5.4 % (9.0-44.0) Monocytes (%) (Auto) 6.5 % (0.0-8.0) Eosinophils (%) (Auto) 0.1 % (0.0-4.0) Basophils (%) (Auto) 0.1 % (0.0-2.0) Neutrophils # (Auto) 12.2 TH/MM3 (1.8-7.7) Lymphocytes # (Auto) 0.7 TH/MM3 (1.0-4.8) Monocytes # (Auto) 0.9 TH/MM3 (0-0.9) Eosinophils # (Auto) 0.0 TH/MM3 (0-0.4) Basophils # (Auto) 0.0 TH/MM3 (0-0.2) CBC Comment AUTO DIFF Differential Total Cells 100 Counted Neutrophils % (Manual) 85 % (16-70) Band Neutrophils % 7 % (0-6) Lymphocytes % 1 % (9-44) Monocytes % 6 % (0-8) Neutrophils # (Manual) 12.8 TH/MM3 (1.8-7.7) Metamyelocytes 1 % (0-1) Differential Comment FINAL DIFF MANUAL Platelet Estimate NORMAL (NORMAL) Platelet Morphology Comment NORMAL (NORMAL) Sodium Level 139 MEQ/L (136-145) Potassium Level 4.4 MEQ/L (3.5-5.1) Chloride Level 106 MEQ/L (98-107) Carbon Dioxide Level 24.2 MEQ/L (21.0-32.0) Anion Gap 9 MEQ/L (5-15) Blood Urea Nitrogen 23 MG/DL (7-18) Creatinine 1.08 MG/DL (0.60-1.30) Estimat Glomerular Filtration 65 ML/MIN (>89) Rate Random Glucose 135 MG/DL (74-106) Calcium Level 7.6 MG/DL (8.5-10.1) Result Diagram: 11/14/16 1023 11/14/16 1023 Microbiology Microbiology Date/Time Procedure Status Source Growth 11/12/16 16:35 Urine Culture - Final Complete Urine Catheterized Urine NO GROWTH IN 48 HOURS. 11/13/16 14:45 Urine Culture - Preliminary Resulted Urine Catheterized Urine Yeast Species 11/13/16 15:45 Aerobic Blood Culture - Preliminary Resulted Blood Peripheral NO GROWTH IN 1 DAY 11/13/16 15:45 Anaerobic Blood Culture - Preliminary Resulted Blood Peripheral NO GROWTH IN 1 DAY 11/13/16 15:50 Aerobic Blood Culture - Preliminary Resulted Blood Peripheral NO GROWTH IN 1 DAY 11/13/16 15:50 Anaerobic Blood Culture - Preliminary Resulted Blood Peripheral NO GROWTH IN 1 DAY Imaging Last Impressions Chest X-Ray 11/13/16 0000 Signed Impressions: Service Date/Time: Sunday, November 13, 2016 14:01 - CONCLUSION: Bilateral lower lobe consolidation, left greater than right unchanged. Mansoor Moran MD Chest Ultrasound 11/13/16 0000 Signed Impressions: Service Date/Time: Sunday, November 13, 2016 19:24 - CONCLUSION: Left pleural effusion. Jose Loja MD CT Angiography 11/11/16 0000 Signed Impressions: Service Date/Time: Friday, November 11, 2016 17:54 - CONCLUSION: 1. The study is negative for pulmonary embolism. 2. Large bilateral pleural effusions and subsegmental consolidation in the left lower lobe. Ed Cruz MD Upper Extremity Ultrasound 11/10/16 0000 Signed Impressions: Service Date/Time: Thursday, November 10, 2016 17:21 - CONCLUSION: 1. Occlusive thrombus in the right basilic and ulnar veins. 2. No evidence of venous thrombosis in the left upper extremity. Ed Cruz MD Abdomen/Pelvis CT 11/06/16 1028 Signed Impressions: Service Date/Time: Sunday, November 06, 2016 11:15 - CONCLUSION: Stout catheter in place in a decompressed urinary bladder. No obstructive uropathy. There is a nonobstructive left kidney midpole posterior stones sub-centimeters size. Multiple right renal cysts. Uncomplicated diverticuli of the colon and extensive degenerative changes of the lumbar spine. Abdirashid Cotton MD Procedures * 11/08/16 -Extubation. * 11/06/16 -Intubated. . Patient/Family Conference Present at Family Conference: Son Javan at bedside. Kilo Higgins via telephone. Family Conference Time (mins): 50 Family Conference Location: Bedside, Telephone Issues Discussed: * Palliative care role, purpose, approach * Additional medical, psychosocial, and spiritual history * Patients general health, functional status, and cognitive changes in the months leading up to the current hospitalization * Family understanding of the current medical problems * Family understanding of prognosis * Patients goals of care as best understood from advance directives and/or conversations and/or values * Current medical treatment options and benefits/burdens of those options * Likely scenarios comparing ongoing aggressive care with a transition to comfort measures only * Questions answered to the best of my ability * Palliative care contact information provided . Assessment and Plan Disease Oriented Problem List: (1) Severe sepsis (2) Acute respiratory failure with hypoxia (3) UTI (urinary tract infection) Symptom Scale: (1) Debility (2) Shortness of breath Pertinent Non-Medical Issues Psychosocial: . Long-term [facility] facility resident. Has 3 children. Spiritual: [employer] shilo. Legal: No living will completed. Ethical issues impacting care: No living will completed. . Important Contacts Son Ronaldo montanez and Daughter Rosalind Galdamez . Prognosis Mr. Montanez is an 89 y/o male with a medical history significant for COPD, CVA, HTN and recent hospitalizations secondary to sepsis and pneumonia. Patient is a long-term resident of [facility] with a bed to chair existence. Patient admitted for the 3rd time in 3 months secondary to pneumonia and respiratory distress requiring intubation and mechanical ventilation. Patient's overall prognosis is poor given his age, preexisting functional status , recent prior hospitalizations, and multiple chronic comorbidities. He is at high risk for further complications, continued decline and . Poor prognosis for an improved quality of life or long-term survival. . Code Status: Full Code Plan * FULL CODE. Risks and limitations of CPR in patient's current condition discussed with family. * Patient not capacitated to make medical decision at this time secondary to clinical condition, confusion. Unclear if he will regain. Family reporting that kilo Montanez is the designated healthcare surrogate for medical decisions. Pending documentation. * GOALS OF CARE: FULL CODE. Continuation of aggressive care to include intubation and mechanical ventilation if medically indicated. Spoke with kilo Higgins who identified himself as HCS (pending documents), Ronaldo tells me that he is aware that his father has continued to decline over the last year or so, with complications including frequent pneumonias, UTIs and hospitalizations. However, he feels that his father still has a good quality of life at the alf as he is able to share time with his who is also a resident. Family electing to continue aggressive care in order to allow time for clinical improvement. Shared concern regarding patient's worsening condition and encouraged Ronaldo to discuss limitations of treatment with his family in the setting of patient's age, pre-existing functional status, recent frequent hospitalizations, and multiple chronic comorbidities. Son tells me that he is aware that eventually they will have to make that difficult decision but for now they will like to give his father a chance at living. * SYMPTOMS: ==Shortness of breath: Multifactorial, likely secondary to COPD, pneumonia and anemia. Currently tolerating oxygen via nasal cannula. Concerns about patient's respiratory status, high risk for intubation and mechanical ventilation. == Debility: Progressive over the last 2-3 years. Long-term resident of [facility] facility for the last year. Bed to wheelchair bound for the last year. Likely to continue to worsen. * Palliative care contact information has been provided to kilo Higgins and son Javan. * All questions have been answered in great detail. * Palliative care will continue to follow up with this patient and family for further clarification of goals of care. . Time Spent Total Floor Time (mins): 85 (Total time to include review and summarization of available medical records including prior hospitalizations, physical exam, bedside conversation with son Javan, telephone conversation with kilo Higgins, and case discussion with bedside RN.) Face to Face Time (mins): 50 >50% Counseling/Coord of Care: Yes Thank you for the opportunity to participate in the care of Mr. Montanez. Attestation To help prompt me to consider important information that might be impacting today's encounter and assessment, information from prior notes written by myself or my colleagues may have been "brought forward" into today's note. My signature on this note, however, is an attestation that I personally performed the exam, history, and/or decision-making noted today, and, unless otherwise indicated, the interactions with patient, family, and staff as well as the review of records all occurred today. I also attest that the listed assessment and stated plan reflect my best clinical judgment today based on the combination of historical information, prior notes, and today's exam/ interactions. When time spent is documented, it refers only to time spent today by the signer, or if indicated, combined time spent today by collaborating physician/nurse practitioner. Fransisca Reynaga Nov 14, 2016 16:06
[2016-11-14] MEDS: DEXT 5%-NACL 0.45% 1000 ML INJ 1,000 ML IV SCH ×2 (16:53→22:13)
[2016-11-14] MEDS: FLUCONAZOLE 200 MG PREMIX BAG 100 ML IV SCH (17:50)
--- NOTE | 2016-11-14 20:32 | HHI.PR ---
Subjective Remarks 89 YOWM with MRSA pn,COPD, UTI Has small pl effusion On RA, mild sob Tr to [facility] H/H decreased US chest small pl effusion Objective Vital Signs Vital Signs Date Time Temp Pulse Resp B/P Pulse Ox O2 Delivery O2 Flow Rate FiO2 11/14/16 19:10 98.6 87 15 109/61 100 11/14/16 18:47 98.1 91 14 127/72 100 11/14/16 18:00 91 11/14/16 16:00 96 11/14/16 16:00 98.1 96 19 115/65 98 11/14/16 14:00 83 11/14/16 12:00 98.1 88 16 111/60 98 11/14/16 12:00 88 11/14/16 10:00 97 11/14/16 08:42 96 Nasal Cannula 2.00 11/14/16 08:00 78 11/14/16 08:00 97.7 78 17 105/63 98 11/14/16 06:00 92 11/14/16 04:00 92 11/14/16 04:00 98.4 100 24 120/67 94 11/14/16 02:00 92 11/14/16 00:41 22 11/14/16 00:00 98.8 92 18 133/62 92 11/14/16 00:00 79 11/14/16 00:00 98.0 92 18 133/62 9 11/14/16 00:00 92 11/13/16 22:00 127/ 11/13/16 22:00 78 I/O 11/13/16 11/13/16 11/13/16 11/14/16 11/14/16 11/14/16 07:00 15:00 23:00 07:00 15:00 23:00 Intake Total 456 ml 200 ml 619 ml 1481 ml Output Total 100 ml 150 ml 300 ml 150 ml Balance 356 ml 50 ml 319 ml 1331 ml Intake Oral 240 ml 200 ml 120 ml IV Total 216 ml 619 ml 1361 ml Output Urine Total 100 ml 150 ml 300 ml 150 ml # Bowel Movements 1 0 Result Diagram: 11/14/16 1023 11/14/16 1023 Objective Remarks GENERAL: MBMN elderly male, weak, mild sob SKIN: Warm and dry. HEAD: Normocephalic. EYES: No scleral icterus. No injection or drainage. NECK: Supple, trachea midline. No JVD or lymphadenopathy. CARDIOVASCULAR: Regular rate and rhythm without murmurs, gallops, or rubs. RESPIRATORY: Breath sounds equal bilaterally. No accessory muscle use. GASTROINTESTINAL: Abdomen soft, non-tender, nondistended. MUSCULOSKELETAL: No cyanosis, or edema. BACK: Nontender without obvious deformity. No CVA tenderness. A/P Assessment and Plan Small pl effusion Pneumonia COPD HTN Anemea PLAN: US marking for TC Abx vanco, Meropemnem, Diflucan IVF PRBC Monitor H/H Pl effusion small, will monitor DW Dr.Tanuja Sylwia Mcintosh,Randy Gee MD Nov 14, 2016 20:32
[2016-11-14] MEDS: TAMSULOSIN HCL 0.4 MG CAP PO SCH (20:46)
[2016-11-14] MEDS: LORazepam 0.5 MG TAB PO PRN (22:59)
[2016-11-15] VITALS (20 sets, daily range): BP systolic 63–120; BP diastolic 45–78; PULSE 80–114; RESP 16–26; TEMP 97.3–98.5; O2SAT 92–100
[2016-11-15] MEDS: HALOPERIDOL LACTATE 5 MG/ML AMP IM PRN (01:29)
[2016-11-15] MEDS: MEROPENEM INJ 500 MG in SODIUM CHLORIDE 0.9% INJ 100 ML IV SCH ×3 (03:49→21:01)
[2016-11-15] MEDS: DIVALPROEX SODIUM SPRINKLES 125 MG CAP PO SCH ×4 (03:49→21:46)
[2016-11-15] MEDS: CHLORHEXIDINE GLUCONATE 2 % 1 PACK (2 CLOTHS)(taper/protocol) TOP SCH (04:00)
[2016-11-15] MEDS: CHLORHEXIDINE GLUCONATE 2 % 1 PACK (2 CLOTHS) TOP SCH (04:00)
[2016-11-15 05:00] LABS: BICARBONATE 24.1 MEQ/L (21.0-32.0); POTASSIUM 4.4 MEQ/L (3.5-5.1)
[2016-11-15 05:10] LABS: AUTOMATED NEUTROPHIL # 13.6 TH/MM3 (1.8-7.7); BASOPHIL % 0.1 % (0.0-2.0); EOSINOPHIL % 0.1 % (0.0-4.0); HEMATOCRIT 22.4 % (39.0-51.0); LYMPHOCYTE # 0.6 TH/MM3 (1.0-4.8); MEAN CELL VOLUME 95.8 FL (80.0-100.0); MEAN CORPUSCULAR HEMOGLOBIN 32.1 PG (27.0-34.0); MEAN CORPUSCULAR HGB CONC 33.5 % (32.0-36.0); MONO % 5.4 % (0.0-8.0); NEUT % 90.4 % (16.0-70.0); PLATELET COUNT 161 TH/MM3 (150-450); RED BLOOD COUNT 2.34 MIL/MM3 (4.50-5.90); RED CELL DISTRIBUTION WIDTH 20.1 % (11.6-17.2)
[2016-11-15 05:35] LABS: HEMO FLAGS AUTO DIFF
[2016-11-15] MEDS: HYDROCORTISONE SOD SUCCINATE 100 MG VIAL IV PUSH SCH ×3 (05:51→21:46)
[2016-11-15] MEDS: LEVOTHYROXINE SODIUM 75 MCG TAB PO SCH ×2 (05:51→05:55)
[2016-11-15 06:55] LABS: NEUTROPHIL # MANUAL DIFF 13.2 TH/MM3 (1.8-7.7); POLYS (SEG NEUTROPHILS) 88 % (16-70); WBC DIFF SAMPLE 100
[2016-11-15 06:56] LABS: PLATELET ESTIMATE SMEAR NORMAL (NORMAL); PLATELET MORPHOLOGY NORMAL (NORMAL); SCAN/DIFF FINAL DIFF MANUAL
--- NOTE | 2016-11-15 08:34 | HHI.IDPN ---
Subjective Subjective Remarks is 89 y/o CM who is admitted with recurrent MRSA pneumonia and UTI. Overnight events reviewed. Urine output only 100 cc /hr overnight. Labs not ordered. Fluids recd D5NS @ 100 cc/hr No fever No rash No diarrhea Baseline dementia. Speech ok. Lethargic remains confused. Antibiotics Meropenem IV Micafungin IV Vanco IV Lines Line sites with no e/o infection. Past Medical History reviewed Allergies: Coded Allergies: Levofloxacin (Verified Allergy, Severe, 11/06/16) *MDRO Multi-Drug Resistant Organism (Verified Adverse Reaction, Unknown, MRSA, 11/09/16) MRSA (sputum & blood) - 07/21/16 & 08/22/16; MRSA (sputum & blood) - 10/08/16; (sputum) - 11/06/16 MRSA PCR Screen POSITIVE - 10/08/16 Objective . Vital Signs Date Time Temp Pulse Resp B/P Pulse Ox O2 Delivery O2 Flow Rate FiO2 11/15/16 06:00 85 11/15/16 04:00 98.3 104 16 120/78 98 11/15/16 04:00 104 11/15/16 02:00 100 11/15/16 00:00 86 11/15/16 00:00 98.5 86 16 119/60 100 11/14/16 22:00 97 11/14/16 20:00 102 11/14/16 20:00 97.8 102 20 125/71 99 11/14/16 19:18 99 Nasal Cannula 2.00 11/14/16 19:10 98.6 87 15 109/61 100 11/14/16 18:47 98.1 91 14 127/72 100 11/14/16 18:00 91 11/14/16 16:00 96 11/14/16 16:00 98.1 96 19 115/65 98 11/14/16 14:00 83 11/14/16 12:00 98.1 88 16 111/60 98 11/14/16 12:00 88 11/14/16 10:00 97 11/14/16 08:42 96 Nasal Cannula 2.00 11/14/16 11/14/16 11/15/16 15:00 23:00 07:00 Intake Total 1481 ml 801 ml 681 ml Output Total 150 ml 150 ml 400 ml Balance 1331 ml 651 ml 281 ml Intake Oral 120 ml Oral Supplement 50 ml IV Total 1361 ml 501 ml 681 ml Packed Cells 250 ml Output Urine Total 150 ml 150 ml 400 ml # Bowel Movements 0 0 . Laboratory Tests Test 11/13/16 11/14/16 11/15/16 10:32 10:23 03:27 White Blood Count 15.3 TH/MM3 13.8 TH/MM3 15.0 TH/MM3 Red Blood Count 2.62 MIL/MM3 2.07 MIL/MM3 2.34 MIL/MM3 Hemoglobin 8.4 GM/DL 6.7 GM/DL 7.5 GM/DL Hematocrit 25.7 % 20.5 % 22.4 % Mean Corpuscular Volume 98.0 FL 98.9 FL 95.8 FL Mean Corpuscular Hemoglobin 32.1 PG 32.3 PG 32.1 PG Mean Corpuscular Hemoglobin 32.8 % 32.7 % 33.5 % Concent Red Cell Distribution Width 17.8 % 19.1 % 20.1 % Platelet Count 234 TH/MM3 183 TH/MM3 161 TH/MM3 Mean Platelet Volume 8.9 FL 9.0 FL 9.3 FL Neutrophils (%) (Auto) 91.0 % 87.9 % 90.4 % Lymphocytes (%) (Auto) 4.3 % 5.4 % 4.0 % Monocytes (%) (Auto) 4.7 % 6.5 % 5.4 % Eosinophils (%) (Auto) 0.0 % 0.1 % 0.1 % Basophils (%) (Auto) 0.0 % 0.1 % 0.1 % Neutrophils # (Auto) 13.9 TH/MM3 12.2 TH/MM3 13.6 TH/MM3 Lymphocytes # (Auto) 0.7 TH/MM3 0.7 TH/MM3 0.6 TH/MM3 Monocytes # (Auto) 0.7 TH/MM3 0.9 TH/MM3 0.8 TH/MM3 Eosinophils # (Auto) 0.0 TH/MM3 0.0 TH/MM3 0.0 TH/MM3 Basophils # (Auto) 0.0 TH/MM3 0.0 TH/MM3 0.0 TH/MM3 CBC Comment AUTO DIFF AUTO DIFF AUTO DIFF Differential Total Cells 100 100 100 Counted Neutrophils % (Manual) 90 % 85 % 88 % Band Neutrophils % 1 % 7 % Lymphocytes % 5 % 1 % 3 % Monocytes % 3 % 6 % 9 % Neutrophils # (Manual) 14.1 TH/MM3 12.8 TH/MM3 13.2 TH/MM3 Metamyelocytes 1 % 1 % Differential Comment FINAL DIFF FINAL DIFF FINAL DIFF MANUAL MANUAL MANUAL Platelet Estimate NORMAL NORMAL NORMAL Platelet Morphology Comment NORMAL NORMAL NORMAL Laboratory Tests Test 11/13/16 11/13/16 11/13/16 11/14/16 15:25 15:45 18:55 10:23 Lactic Acid Level 3.7 mmol/L 3.6 mmol/L Procalcitonin 0.25 Sodium Level 139 MEQ/L Potassium Level 4.4 MEQ/L Chloride Level 106 MEQ/L Carbon Dioxide Level 24.2 MEQ/L Anion Gap 9 MEQ/L Blood Urea Nitrogen 23 MG/DL Creatinine 1.08 MG/DL Estimat Glomerular Filtration 65 ML/MIN Rate Random Glucose 135 MG/DL Calcium Level 7.6 MG/DL Test 11/14/16 11/15/16 16:17 03:27 Lactic Acid Level 1.9 mmol/L Sodium Level 140 MEQ/L Potassium Level 4.4 MEQ/L Chloride Level 108 MEQ/L Carbon Dioxide Level 24.1 MEQ/L Anion Gap 8 MEQ/L Blood Urea Nitrogen 24 MG/DL Creatinine 1.15 MG/DL Estimat Glomerular Filtration 60 ML/MIN Rate Random Glucose 162 MG/DL Calcium Level 7.5 MG/DL Microbiology Date/Time Procedure Status Source Growth 11/12/16 16:35 Urine Culture - Final Complete Urine Catheterized Urine NO GROWTH IN 48 HOURS. 11/13/16 14:45 Urine Culture - Preliminary Resulted Urine Catheterized Urine Yeast Species 11/13/16 15:45 Aerobic Blood Culture - Preliminary Resulted Blood Peripheral NO GROWTH IN 1 DAY 11/13/16 15:45 Anaerobic Blood Culture - Preliminary Resulted Blood Peripheral NO GROWTH IN 1 DAY 11/13/16 15:50 Aerobic Blood Culture - Preliminary Resulted Blood Peripheral NO GROWTH IN 1 DAY 11/13/16 15:50 Anaerobic Blood Culture - Preliminary Resulted Blood Peripheral NO GROWTH IN 1 DAY Imaging Last Impressions Chest X-Ray 11/07/16 0000 Signed Impressions: Service Date/Time: Monday, November 07, 2016 04:07 - CONCLUSION: Increasing infiltrate in the left lung base. Thompson Fabian MD Abdomen/Pelvis CT 11/06/16 1028 Signed Impressions: Service Date/Time: Sunday, November 06, 2016 11:15 - CONCLUSION: Stout catheter in place in a decompressed urinary bladder. No obstructive uropathy. There is a nonobstructive left kidney midpole posterior stones sub-centimeters size. Multiple right renal cysts. Uncomplicated diverticuli of the colon and extensive degenerative changes of the lumbar spine. Abdirashid Cotton MD CT Angiography 11/06/16 0000 Signed Impressions: Service Date/Time: Sunday, November 06, 2016 11:15 - CONCLUSION: Minimally suboptimal examination with poor visualization of distal arterial structures. Centrally there is no evidence of pulmonary embolism. Stable bilateral posterior basilar minimal pleural effusions and dependent basilar atelectasis. Abdirashid Cotton MD Physical Exam GENERAL: Obese, CM patient, in no apparent distress. SKIN: No generalized rashes. Has skin breaks on RUE and few areas of ecchymosis. HEAD: Atraumatic. Normocephalic. No temporal or scalp tenderness. EYES: Pupils equal round and reactive. Extraocular motions intact. No scleral icterus. No injection or drainage. ENT:Grossly NAD NECK: Trachea midline. Supple, nontender, no meningeal signs. CARDIOVASCULAR: HS audible. RESPIRATORY: Breath sounds equal bilaterally but decreased in the bases. GASTROINTESTINAL: Abdomen soft, non-tender, nondistended. MUSCULOSKELETAL: Extremities without clubbing, cyanosis. NEUROLOGICAL: Confused. Not oriented x 3. Psych:cooperative IV line sites with no e/o infection. Assessment & Plan Remarks Severe Sepsis present on admission(fever, tachypnea, tachycardia, elevated lactic acid, acute renal failure, sources pneumonia) MRSA Pneumonia (recent history of MRSA pneumonia, other possibilities are community-acquired pneumonia, atypical pneumonia) Acute renal failure on admission appears to be improving likely sepsis of prerenal Prior history of MRSA pneumonia as well as bacteremia in September 2016. Recurrent pneumonia: MRSA UTI present on admission: E.coli and another GNR Acute COPD exacerbation with hypoxia. 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 DC Vanco IV. Patient oliguric and hypotensive. Consult Nephrology (Oliguria, hypotension help with fluid Mment) Continue Diflucan IV for now. Follow cultures. Follow clinically. d.w ANITA moss [employer] primary team. d/w : hold off on thoracentesis for now as pleural fluid low volume and low H/H. Nemani,France MD Nov 15, 2016 08:34 Follow cultures. Follow clinically. In view of low H/H monitor closely and consider postponing Thoracentesis for a day unless resp distress. France Putnam RN, MD Nov 15, 2016 08:34
[2016-11-15] MEDS: risperiDONE 1 MG TAB PO SCH ×2 (08:56→09:00)
[2016-11-15] MEDS: ENOXAPARIN SODIUM 100 MG/ML SYRINGE SQ SCH (08:56)
[2016-11-15] MEDS: POTASSIUM CL 40 MEQ/30 ML LIQ UDC PO SCH ×2 (08:56→21:00)
[2016-11-15] MEDS: ASPIRIN EC 81 MG TABEC PO SCH (08:56)
[2016-11-15] MEDS: LINEZOLID 600 MG PREMIX 300 ML IV SCH ×2 (08:56→21:33)
[2016-11-15] MEDS: amLODIPine BESYLATE 5 MG TAB PO SCH (08:57)
[2016-11-15] MEDS: METOPROLOL TARTRATE 25 MG TAB PO SCH (08:57)
[2016-11-15] MEDS: BENEPROTEIN POWDER 1 PACK G-TUBE SCH ×3 (08:58→17:59)
[2016-11-15] MEDS: PANTOPRAZOLE SODIUM 40 MG VIAL IV SCH (08:58)
[2016-11-15] MEDS: SODIUM CHLORIDE 0.9% FLUSH 5 ML FLUSH IV FLUSH SCH ×2 (08:58→21:01)
--- NOTE | 2016-11-15 09:27 | PD.CONS ---
HPI Service Nephrology Consult Requested By Dr. Alfaro Reason for Consult Acute renal failure Primary Care Physician Lencho Salgado, DO History of Present Illness 89 year old with Dementia, UTI, Pneumonia, MRSA on Zyvox eating poorly, albumin 1.9, he is awake, c/o back pain, he is a poor historian, he states he is 83 when I ask his age, he has UOP which is low, passed 700cc urine BUN higher at 24 creatinine about 1.15. Review of Systems ROS Limitations: Clinical Condition Cardiovascular: COMPLAINS OF: Lower Extremity Edema Musculoskeletal: COMPLAINS OF: Back pain Past Family Social History Allergies: Coded Allergies: Levofloxacin (Verified Allergy, Severe, 11/06/16) *MDRO Multi-Drug Resistant Organism (Verified Adverse Reaction, Unknown, MRSA, 11/09/16) MRSA (sputum & blood) - 07/21/16 & 08/22/16; MRSA (sputum & blood) - 10/08/16; (sputum) - 11/06/16 MRSA PCR Screen POSITIVE - 10/08/16 Past Medical History Dementia COPD Peripheral neuropathy Recurrent pneumonia History CVA with left weakness History of MRSA History of skin cancer Depression Hypertension Hypothyroidism Chronic kidney disease stage II to 3 History recurrent GI bleeding Gastritis Anemia MRSA in September Past Surgical History Hernia repair Appendectomy Cholecystectomy TURP Laminectomy Reported Medications Reported Meds & Active Scripts Active Flomax (Tamsulosin HCl) 0.4 Mg Cap 0.4 Mg PO DAILY Risperdal (Risperidone) 1 Mg Tab 2 Mg PO TID Prednisone 5 Mg Tab 10 Mg PO DAILY Mucinex ER 12 HR (Guaifenesin) 600 Mg Vanessa 600 Mg PO BID Depakote Sprinkles (Divalproex Sodium) 125 mg Cap 250 Mg PO Q8HR Reported Xanax (Alprazolam) 0.25 Mg Tab 0.25 Mg PO Q8H PRN Vitamin D (Cholecalciferol) 2,000 Unit Tab PO DAILY Triamcinolone Acetonide (Triamcinolone Acetonide (Topic) 1 Pow Pow 0.1 % TOPICAL HS Multi Vitamin (Multiple Vitamin) 1 Tab Tab 1 Tab PO DAILY Milk of Magnesia Liq (Magnesium Hydroxide) 400 Mg/5 Ml Susp 30 Ml PO HS PRN Metoprolol Tartrate 25 Mg Tab 25 Mg PO BID Levothyroxine (Levothyroxine Sodium) 75 Mcg Tab 75 Mcg PO DAILY Dulcolax Supp (Bisacodyl) 10 Mg Supp 10 Mg RECTAL DAILY PRN Calcium Carbonate (Calcium Carbonate (Antacid)) 648 Mg Tab 648 Mg PO DAILY Aspirin 81 Mg Tabdr 81 Mg PO DAILY Sm Dry Eye Relief 0.2-0.2-1 % (Ftbbryaf-Vvzrkguslvtn-Svimqjoc) 1 Sweta Sweta 1 Drop EACH EYE TID Amlodipine (Amlodipine Besylate) 5 Mg Tab 5 Mg PO DAILY Albuterol Neb (Albuterol Sulfate) 2.5 Mg/3 Ml Neb 2.5 Mg NEB TID NEB PRN Active Ordered Medications Current Medications Medications (Trade) Dose Ordered Sig/Mercedes Route Start Time Stop Time Status Last Admin (NS Flush) 2 ml UNSCH PRN IV FLUSH 11/06/16 08:15 (NS Flush) 2 ml BID IV FLUSH 11/06/16 09:00 11/15/16 08:58 (Protonix Inj) 40 mg DAILY IV 11/06/16 09:00 11/15/16 08:58 Miscellaneous Information 1 Q361D XX 11/06/16 08:15 (Chlorhexidine 2% Cloth) Taper DAILY@04 TOP 11/07/16 04:00 11/03/17 03:59 11/10/16 06:53 (Chlorhexidine 2% Cloth) 3 pack UNSCH PRN TOP 11/06/16 08:15 (SoluCORTEF INJ) 100 mg Q8HR IV PUSH 11/06/16 14:00 11/15/16 05:51 (Ecotrin Ec) 81 mg DAILY PO 11/07/16 09:00 11/15/16 08:56 (Synthroid) 75 mcg DAILY@0600 PO 11/07/16 06:00 11/14/16 06:41 (Beneprotein Powder) 2 pack TID G-TUBE 11/07/16 09:00 11/15/16 08:58 (Ativan) 0.5 mg Q6H PRN PO 11/08/16 15:45 11/14/16 22:59 (risperDAL) 2 mg QID PO 11/09/16 21:00 11/14/16 20:45 (Lovenox Inj) 100 mg Q12H SQ 11/10/16 21:00 11/15/16 08:56 (KCl 40 Meq/30 ml Liq) 10 meq BID PO 11/11/16 11:00 11/15/16 08:56 (Norvasc) 5 mg DAILY PO 11/12/16 09:00 11/14/16 09:49 (Lopressor) 25 mg BID PO 11/11/16 21:00 11/14/16 20:46 (Flomax) 0.4 mg HS PO 11/11/16 21:00 11/14/16 20:46 (Tylenol-Codeine #3) 1 tab Q4H PRN PO 11/11/16 21:00 11/13/16 22:57 Acetaminophen/ Codeine Phosphate 2 tab 2 tab Q4H PRN PO 11/11/16 21:00 11/14/16 22:31 Dextrose/Sodium Chloride 1,000 ml @ 50 mls/hr Q20H IV 11/13/16 14:00 11/14/16 22:13 Meropenem 500 mg/ Sodium Chloride 100 ml @ 200 mls/hr Q8H IV 11/13/16 20:00 11/15/16 03:49 (Diflucan 200 Mg Premix Bag) 100 ml @ 100 mls/hr Q24H IV 11/13/16 18:00 11/14/16 17:50 (Depakote Sprinkles) 250 mg Q6H PO 11/13/16 22:00 11/15/16 08:56 Miscellaneous Information Patient in critical care unit? Ass... Q361D XX 11/13/16 23:00 (Chlorhexidine 2% Cloth) 3 pack DAILY@04 TOP 11/14/16 04:00 11/18/16 04:01 (Chlorhexidine 2% Cloth) 3 pack UNSCH PRN TOP 11/13/16 23:00 11/18/16 22:50 Haloperidol Lactate 5 mg 5 mg Q6H PRN IM 11/14/16 12:30 11/15/16 01:29 (Zyvox 600 Mg Premix) 300 ml @ 300 mls/hr Q12H IV 11/15/16 09:00 11/15/16 08:56 (Albumin 25% Inj) 25 gm Q12H IV 11/15/16 09:15 UNV Family History noncontributory Social History denies smoking Physical Exam Vital Signs Vital Signs Date Time Temp Pulse Resp B/P Pulse Ox O2 Delivery O2 Flow Rate FiO2 11/15/16 06:00 85 11/15/16 04:00 98.3 104 16 120/78 98 11/15/16 04:00 104 11/15/16 02:00 100 11/15/16 00:00 86 11/15/16 00:00 98.5 86 16 119/60 100 11/14/16 22:00 97 11/14/16 20:00 102 11/14/16 20:00 97.8 102 20 125/71 99 11/14/16 19:18 99 Nasal Cannula 2.00 11/14/16 19:10 98.6 87 15 109/61 100 11/14/16 18:47 98.1 91 14 127/72 100 11/14/16 18:00 91 11/14/16 16:00 96 11/14/16 16:00 98.1 96 19 115/65 98 11/14/16 14:00 83 11/14/16 12:00 98.1 88 16 111/60 98 11/14/16 12:00 88 11/14/16 10:00 97 Physical Exam GENERAL: Well-nourished, well-developed patient. SKIN: Warm and dry. HEAD: Normocephalic. EYES: No scleral icterus. No injection or drainage. NECK: Supple, trachea midline. No JVD or lymphadenopathy. CARDIOVASCULAR: Regular rate and rhythm without murmurs, gallops, or rubs. RESPIRATORY: Breath sounds diminished at bases GASTROINTESTINAL: Abdomen soft, non-tender, nondistended. EXTREMITIES: No cyanosis, 2 plus edema. NEUROLOGICAL: Awake, alert, disoriented with dementia Laboratory Laboratory Tests Test 11/14/16 11/14/16 11/15/16 10:23 16:17 03:27 White Blood Count 13.8 15.0 Red Blood Count 2.07 2.34 Hemoglobin 6.7 7.5 Hematocrit 20.5 22.4 Mean Corpuscular Volume 98.9 95.8 Mean Corpuscular Hemoglobin 32.3 32.1 Mean Corpuscular Hemoglobin 32.7 33.5 Concent Red Cell Distribution Width 19.1 20.1 Platelet Count 183 161 Mean Platelet Volume 9.0 9.3 Neutrophils (%) (Auto) 87.9 90.4 Lymphocytes (%) (Auto) 5.4 4.0 Monocytes (%) (Auto) 6.5 5.4 Eosinophils (%) (Auto) 0.1 0.1 Basophils (%) (Auto) 0.1 0.1 Neutrophils # (Auto) 12.2 13.6 Lymphocytes # (Auto) 0.7 0.6 Monocytes # (Auto) 0.9 0.8 Eosinophils # (Auto) 0.0 0.0 Basophils # (Auto) 0.0 0.0 CBC Comment AUTO DIFF AUTO DIFF Differential Total Cells 100 100 Counted Neutrophils % (Manual) 85 88 Band Neutrophils % 7 Lymphocytes % 1 3 Monocytes % 6 9 Neutrophils # (Manual) 12.8 13.2 Metamyelocytes 1 Differential Comment FINAL DIFF FINAL DIFF MANUAL MANUAL Platelet Estimate NORMAL NORMAL Platelet Morphology Comment NORMAL NORMAL Sodium Level 139 140 Potassium Level 4.4 4.4 Chloride Level 106 108 Carbon Dioxide Level 24.2 24.1 Anion Gap 9 8 Blood Urea Nitrogen 23 24 Creatinine 1.08 1.15 Estimat Glomerular Filtration 65 60 Rate Random Glucose 135 162 Calcium Level 7.6 7.5 Lactic Acid Level 1.9 Blood Type O POSITIVE Antibody Screen NEGATIVE Crossmatch Leukocyte-Reduced Red Blood Cells Blood Bank Comment Date/Time Procedure Status Source Growth 11/13/16 15:50 Aerobic Blood Culture - Preliminary Resulted Blood Peripheral NO GROWTH IN 1 DAY 11/13/16 15:50 Anaerobic Blood Culture - Preliminary Resulted Blood Peripheral NO GROWTH IN 1 DAY 11/13/16 14:45 Urine Culture - Preliminary Resulted Urine Catheterized Urine Yeast Species 11/12/16 16:35 Urine Culture - Final Complete Urine Catheterized Urine NO GROWTH IN 48 HOURS. Result Diagram: 11/15/16 0327 11/15/16 0327 Imaging Last Impressions Chest X-Ray 11/13/16 0000 Signed Impressions: Service Date/Time: Sunday, November 13, 2016 14:01 - CONCLUSION: Bilateral lower lobe consolidation, left greater than right unchanged. Mansoor Moran MD Chest Ultrasound 11/13/16 0000 Signed Impressions: Service Date/Time: Sunday, November 13, 2016 19:24 - CONCLUSION: Left pleural effusion. Jose Loja MD CT Angiography 11/11/16 0000 Signed Impressions: Service Date/Time: Friday, November 11, 2016 17:54 - CONCLUSION: 1. The study is negative for pulmonary embolism. 2. Large bilateral pleural effusions and subsegmental consolidation in the left lower lobe. Ed Cruz MD Upper Extremity Ultrasound 11/10/16 0000 Signed Impressions: Service Date/Time: Thursday, November 10, 2016 17:21 - CONCLUSION: 1. Occlusive thrombus in the right basilic and ulnar veins. 2. No evidence of venous thrombosis in the left upper extremity. Ed Cruz MD Abdomen/Pelvis CT 11/06/16 1028 Signed Impressions: Service Date/Time: Sunday, November 06, 2016 11:15 - CONCLUSION: Stout catheter in place in a decompressed urinary bladder. No obstructive uropathy. There is a nonobstructive left kidney midpole posterior stones sub-centimeters size. Multiple right renal cysts. Uncomplicated diverticuli of the colon and extensive degenerative changes of the lumbar spine. Abdirashid Cotton MD Assessment and Plan Problem List: (1) Acute renal failure Plan: He has poor albumin contributing to renal failure and 3rd spacing, I will use albumin 25 gm q 12 check urine sodium and creatinine follow UOP BMP Avoid Nephrotoxins (2) History of MRSA infection Plan: on Zyvox (3) Pneumonia Plan: continue with current treatment (4) Urinary tract infection Plan: ID following on Meropenem, Pseudomonas/E.COLI (5) History of CVA with residual deficit Plan: hx of dementia Problem Qualifiers (1) Acute renal failure: Qualified Code: N17.9 - Acute renal failure, unspecified acute renal failure type (2) Pneumonia: Qualified Code: J15.212 - Pneumonia of left lower lobe due to methicillin- resistant Staphylococcus aureus (MRSA) (3) Urinary tract infection: Qualified Code: T83.511A - Urinary tract infection associated with indwelling urethral catheter, initial encounter Earline Khan MD Nov 15, 2016 09:27
[2016-11-15] MEDS: ALBUMIN HUMAN 25% 25 GM/100 ML BAGP IV SCH ×2 (10:27→21:46)
--- NOTE | 2016-11-15 11:48 | HHI.HCPN ---
Reason for visit a. To assist with evaluation and management of symptoms including: shortness of breath and debility. b. To assist medical decision maker(s) with: better understanding of current medical conditions; weighing benefits/burdens of medical treatment options; making medical treatment decisions. Subjective/Interval History Patient seen in ICU, no family at bedside. Episode of hypotension, currently receiving IV fluids bolus and albumin. Patient lethargic, remains confused. nephrology consulted secondary to acute renal failure. received 1 PRBC yesterday for hgb 6.7, today 7.5. No signs of acute bleeding. WBC trending up, today 15.0, Pl 161. Na 140, K 4.4, BUN/Creat 24/1.15. Albumin 1.9. TC to patient's son Ronaldo and left message in VM. Palliative care to f/u with pt and family. 13:45: Patient severely hypotensive. TC to kilo Higgins, left message in VM. Telephone conversation with Kilo Edouard and medical update provided. Family requesting FULL CODE and continuation of aggressive care to include vasopressors and intubation/mech ventilation if needed. Family authorizing to central line placement. Discussed concerns regarding patient's worsening clinical condition and poor prognosis for a meaningful recovery in the setting of patient's age, pre-existing functional status, recent frequent hospitalizations, and multiple chronic comorbidities. 14:20: Telephone conversation with kilo Higgins. Medical update provided. Son tells me that he is aware of patient's worsening clinical condition but family is electing to continue aggressive care to include full code, vasopressors and intubation/mech ventilation if needed. Son feels that patient's frequent pneumonias are secondary to aspiration/dysphagia. Reviewed progression dysphagia secondary to dementia. Discussed pleasure feedings/comfort-directed care vs PEG tube. Reviewed risks and limitations of PEG in the setting of Dementia. Son tells me that family has already made a decision and are in favor of PEG placement. . Family/friend interactions See interval note. . Advance Directives Living Will: Never completed Health Care Surrogate: Completed, but not made available Durable Power of Investment Counselor: Completed, but not made available Advance Directive Specifics Date completed: Pending healthcare surrogate and DURABLE POWER OF ELECTRONICS ENGINEERING PROFESSOR from kilo Higgins. . Health Care Surrogate(s): As per patient's family. Kilo montanez is the designated healthcare surrogate. Pending healthcare surrogate paperwork. . Documented care wishes: No living will completed. . Significant change in goals: FULL CODE. Continue aggressive care to include intubation and mechanical ventilation if medically indicated. . Objective Vital Signs Date Time Temp Pulse Resp B/P Pulse Ox O2 Delivery O2 Flow Rate FiO2 11/15/16 06:00 85 11/15/16 04:00 98.3 104 16 120/78 98 11/15/16 04:00 104 11/15/16 02:00 100 11/15/16 00:00 86 11/15/16 00:00 98.5 86 16 119/60 100 11/14/16 22:00 97 11/14/16 20:00 102 11/14/16 20:00 97.8 102 20 125/71 99 11/14/16 19:18 99 Nasal Cannula 2.00 11/14/16 19:10 98.6 87 15 109/61 100 11/14/16 18:47 98.1 91 14 127/72 100 11/14/16 18:00 91 11/14/16 16:00 96 11/14/16 16:00 98.1 96 19 115/65 98 11/14/16 14:00 83 11/14/16 12:00 98.1 88 16 111/60 98 11/14/16 12:00 88 Intake & Output 11/15/16 11/15/16 07:00 19:00 Intake Total 1482 ml Output Total 550 ml Balance 932 ml Oral Supplement 50 ml IV Total 1182 ml Packed Cells 250 ml Output Urine Total 550 ml # Bowel Movements 0 Physical Exam CONSTITUTIONAL/GENERAL: This is a frail elderly man in no apparent distress. confused. lethargic. Briefly opening eyes to voice. TUBES/LINES/DRAINS: PIV's, Stout cath, SCD's, NC. SKIN: No jaundice, rashes, or lesions. Scattered ecchymoses on upper extremities. No wounds seen anteriorly. Skin temperature appropriate. Not diaphoretic. HEAD: Atraumatic. Normocephalic. ENT: Appears hard of hearing. Nose without bleeding or purulent drainage. Dry lips. Poor dentition. NECK: Trachea midline. Supple, nontender. CARDIOVASCULAR: Regular rate and rhythm without murmurs, gallops, or rubs. Week pedal pulses. Generalized edema. RESPIRATORY/CHEST: Symmetric, unlabored but shallow respirations. Coarse breath sounds. O2 via nasal cannula. GASTROINTESTINAL: Abdomen soft, non-tender, nondistended. No guarding. Bowel sounds present. GENITOURINARY: Without palpable bladder distension. Stout catheter in place. MUSCULOSKELETAL: No mottling or clubbing. Weak bilateral hand grasp. NEUROLOGICAL: Awake and alert to self. Confused. Following some commands with upper extremities. PSYCHIATRIC: Unable to assess secondary to clinical condition. Appears calm. . Diagnostic Tests Laboratory Laboratory Tests Test 11/12/16 11/12/16 11/13/16 11/13/16 16:35 18:24 06:26 10:32 Urine Color YELLOW (YELLW/STRAW) Urine Turbidity CLEAR (CLEAR) Urine pH 6.0 (5.0-8.5) Urine Specific [place] 1.050 (1.002-1.035) Urine Protein 30 mg/dL (NEG-TRACE) Urine Glucose (UA) NEG mg/dL (NEG) Urine Ketones TRACE mg/dL (NEG) Urine Occult Blood LARGE (NEG) Urine Nitrite NEG (NEG) Urine Bilirubin NEG (NEG) Urine Urobilinogen LESS THAN 2.0 MG/DL (LESS THAN 2.0) Urine Leukocyte Esterase MOD (NEG) Urine RBC /hpf (0-3) Urine WBC 12 /hpf (0-5) Urine Squamous Epithelial <1 /hpf (0-5) Cells Urine Bacteria OCC /hpf (NONE) Urine Mucus FEW /lpf (OCC) Microscopic Urinalysis Comment CATH-CULTURE IND Sodium Level 144 MEQ/L (136-145) Potassium Level 4.2 MEQ/L (3.5-5.1) Chloride Level 109 MEQ/L (98-107) Carbon Dioxide Level 25.5 MEQ/L (21.0-32.0) Anion Gap 10 MEQ/L (5-15) Blood Urea Nitrogen 20 MG/DL (7-18) Creatinine 0.99 MG/DL 0.86 MG/DL (0.60-1.30) (0.60-1.30) Estimat Glomerular Filtration 71 ML/MIN (>89) 84 ML/MIN (>89) Rate Random Glucose 110 MG/DL (74-106) Calcium Level 7.4 MG/DL (8.5-10.1) Protein Corrected Calcium 8.6 MG/DL (8.5-10.1) Total Bilirubin 0.3 MG/DL (0.2-1.0) Aspartate Amino Transf 16 U/L (15-37) (AST/SGOT) Alanine Aminotransferase 15 U/L (12-78) (ALT/SGPT) Alkaline Phosphatase 42 U/L (45-117) Total Protein 4.9 GM/DL (6.4-8.2) Albumin 1.9 GM/DL (3.4-5.0) White Blood Count 15.3 TH/MM3 (4.0-11.0) Red Blood Count 2.62 MIL/MM3 (4.50-5.90) Hemoglobin 8.4 GM/DL (13.0-17.0) Hematocrit 25.7 % (39.0-51.0) Mean Corpuscular Volume 98.0 FL (80.0-100.0) Mean Corpuscular Hemoglobin 32.1 PG (27.0-34.0) Mean Corpuscular Hemoglobin 32.8 % Concent (32.0-36.0) Red Cell Distribution Width 17.8 % (11.6-17.2) Platelet Count 234 TH/MM3 (150-450) Mean Platelet Volume 8.9 FL (7.0-11.0) Neutrophils (%) (Auto) 91.0 % (16.0-70.0) Lymphocytes (%) (Auto) 4.3 % (9.0-44.0) Monocytes (%) (Auto) 4.7 % (0.0-8.0) Eosinophils (%) (Auto) 0.0 % (0.0-4.0) Basophils (%) (Auto) 0.0 % (0.0-2.0) Neutrophils # (Auto) 13.9 TH/MM3 (1.8-7.7) Lymphocytes # (Auto) 0.7 TH/MM3 (1.0-4.8) Monocytes # (Auto) 0.7 TH/MM3 (0-0.9) Eosinophils # (Auto) 0.0 TH/MM3 (0-0.4) Basophils # (Auto) 0.0 TH/MM3 (0-0.2) CBC Comment AUTO DIFF Differential Total Cells 100 Counted Neutrophils % (Manual) 90 % (16-70) Band Neutrophils % 1 % (0-6) Lymphocytes % 5 % (9-44) Monocytes % 3 % (0-8) Neutrophils # (Manual) 14.1 TH/MM3 (1.8-7.7) Metamyelocytes 1 % (0-1) Differential Comment FINAL DIFF MANUAL Platelet Estimate NORMAL (NORMAL) Platelet Morphology Comment NORMAL (NORMAL) Test 11/13/16 11/13/16 11/13/16 11/13/16 10:43 14:45 15:25 15:45 Vancomycin Level Trough 17.6 MCG/ML (5.0-10.0) Urine Color YELLOW (YELLW/STRAW) Urine Turbidity CLEAR (CLEAR) Urine pH 6.0 (5.0-8.5) Urine Specific [place] GREATER THAN 1.050 (1.002-1.035) Urine Protein 30 mg/dL (NEG-TRACE) Urine Glucose (UA) NEG mg/dL (NEG) Urine Ketones 10 mg/dL (NEG) Urine Occult Blood MOD (NEG) Urine Nitrite NEG (NEG) Urine Bilirubin NEG (NEG) Urine Urobilinogen LESS THAN 2.0 MG/DL (LESS THAN 2.0) Urine Leukocyte Esterase SMALL (NEG) Urine RBC 117 /hpf (0-3) Urine WBC 8 /hpf (0-5) Urine Bacteria RARE /hpf (NONE) Urine Yeast (Budding) RARE (NONE) Microscopic Urinalysis Comment CATH-CULTURE IND Lactic Acid Level 3.7 mmol/L (0.4-2.0) Procalcitonin 0.25 Test 11/13/16 11/13/16 11/14/16 11/14/16 18:55 20:15 10:23 16:17 Lactic Acid Level 3.6 mmol/L 1.9 mmol/L (0.4-2.0) (0.4-2.0) Nasal Screen MRSA (PCR) NEGATIVE (NEGATIVE) White Blood Count 13.8 TH/MM3 (4.0-11.0) Red Blood Count 2.07 MIL/MM3 (4.50-5.90) Hemoglobin 6.7 GM/DL (13.0-17.0) Hematocrit 20.5 % (39.0-51.0) Mean Corpuscular Volume 98.9 FL (80.0-100.0) Mean Corpuscular Hemoglobin 32.3 PG (27.0-34.0) Mean Corpuscular Hemoglobin 32.7 % Concent (32.0-36.0) Red Cell Distribution Width 19.1 % (11.6-17.2) Platelet Count 183 TH/MM3 (150-450) Mean Platelet Volume 9.0 FL (7.0-11.0) Neutrophils (%) (Auto) 87.9 % (16.0-70.0) Lymphocytes (%) (Auto) 5.4 % (9.0-44.0) Monocytes (%) (Auto) 6.5 % (0.0-8.0) Eosinophils (%) (Auto) 0.1 % (0.0-4.0) Basophils (%) (Auto) 0.1 % (0.0-2.0) Neutrophils # (Auto) 12.2 TH/MM3 (1.8-7.7) Lymphocytes # (Auto) 0.7 TH/MM3 (1.0-4.8) Monocytes # (Auto) 0.9 TH/MM3 (0-0.9) Eosinophils # (Auto) 0.0 TH/MM3 (0-0.4) Basophils # (Auto) 0.0 TH/MM3 (0-0.2) CBC Comment AUTO DIFF Differential Total Cells 100 Counted Neutrophils % (Manual) 85 % (16-70) Band Neutrophils % 7 % (0-6) Lymphocytes % 1 % (9-44) Monocytes % 6 % (0-8) Neutrophils # (Manual) 12.8 TH/MM3 (1.8-7.7) Metamyelocytes 1 % (0-1) Differential Comment FINAL DIFF MANUAL Platelet Estimate NORMAL (NORMAL) Platelet Morphology Comment NORMAL (NORMAL) Sodium Level 139 MEQ/L (136-145) Potassium Level 4.4 MEQ/L (3.5-5.1) Chloride Level 106 MEQ/L (98-107) Carbon Dioxide Level 24.2 MEQ/L (21.0-32.0) Anion Gap 9 MEQ/L (5-15) Blood Urea Nitrogen 23 MG/DL (7-18) Creatinine 1.08 MG/DL (0.60-1.30) Estimat Glomerular Filtration 65 ML/MIN (>89) Rate Random Glucose 135 MG/DL (74-106) Calcium Level 7.6 MG/DL (8.5-10.1) Blood Type O POSITIVE Antibody Screen NEGATIVE Crossmatch Leukocyte-Reduced Red Blood Cells Blood Bank Comment Test 11/15/16 03:27 White Blood Count 15.0 TH/MM3 (4.0-11.0) Red Blood Count 2.34 MIL/MM3 (4.50-5.90) Hemoglobin 7.5 GM/DL (13.0-17.0) Hematocrit 22.4 % (39.0-51.0) Mean Corpuscular Volume 95.8 FL (80.0-100.0) Mean Corpuscular Hemoglobin 32.1 PG (27.0-34.0) Mean Corpuscular Hemoglobin 33.5 % Concent (32.0-36.0) Red Cell Distribution Width 20.1 % (11.6-17.2) Platelet Count 161 TH/MM3 (150-450) Mean Platelet Volume 9.3 FL (7.0-11.0) Neutrophils (%) (Auto) 90.4 % (16.0-70.0) Lymphocytes (%) (Auto) 4.0 % (9.0-44.0) Monocytes (%) (Auto) 5.4 % (0.0-8.0) Eosinophils (%) (Auto) 0.1 % (0.0-4.0) Basophils (%) (Auto) 0.1 % (0.0-2.0) Neutrophils # (Auto) 13.6 TH/MM3 (1.8-7.7) Lymphocytes # (Auto) 0.6 TH/MM3 (1.0-4.8) Monocytes # (Auto) 0.8 TH/MM3 (0-0.9) Eosinophils # (Auto) 0.0 TH/MM3 (0-0.4) Basophils # (Auto) 0.0 TH/MM3 (0-0.2) CBC Comment AUTO DIFF Differential Total Cells 100 Counted Neutrophils % (Manual) 88 % (16-70) Lymphocytes % 3 % (9-44) Monocytes % 9 % (0-8) Neutrophils # (Manual) 13.2 TH/MM3 (1.8-7.7) Differential Comment FINAL DIFF MANUAL Platelet Estimate NORMAL (NORMAL) Platelet Morphology Comment NORMAL (NORMAL) Sodium Level 140 MEQ/L (136-145) Potassium Level 4.4 MEQ/L (3.5-5.1) Chloride Level 108 MEQ/L (98-107) Carbon Dioxide Level 24.1 MEQ/L (21.0-32.0) Anion Gap 8 MEQ/L (5-15) Blood Urea Nitrogen 24 MG/DL (7-18) Creatinine 1.15 MG/DL (0.60-1.30) Estimat Glomerular Filtration 60 ML/MIN (>89) Rate Random Glucose 162 MG/DL (74-106) Calcium Level 7.5 MG/DL (8.5-10.1) Result Diagram: 11/15/16 0327 11/15/16 0327 Microbiology Microbiology Date/Time Procedure Status Source Growth 11/12/16 16:35 Urine Culture - Final Complete Urine Catheterized Urine NO GROWTH IN 48 HOURS. 11/13/16 14:45 Urine Culture - Preliminary Resulted Urine Catheterized Urine Yeast Species 11/13/16 15:45 Aerobic Blood Culture - Preliminary Resulted Blood Peripheral NO GROWTH IN 2 DAYS 11/13/16 15:45 Anaerobic Blood Culture - Preliminary Resulted Blood Peripheral NO GROWTH IN 2 DAYS 11/13/16 15:50 Aerobic Blood Culture - Preliminary Resulted Blood Peripheral NO GROWTH IN 2 DAYS 11/13/16 15:50 Anaerobic Blood Culture - Preliminary Resulted Blood Peripheral NO GROWTH IN 2 DAYS Procedures * 11/08/16 -Extubation. * 11/06/16 -Intubated. . Assessment and Plan Disease Oriented Problem List: (1) Severe sepsis (2) Acute respiratory failure with hypoxia (3) UTI (urinary tract infection) Symptom Scale: (1) Shortness of breath 0-10 Scale: Unable to quantify Comment: Tolerating O2 via NC. (2) Debility 0-10 Scale: Unable to quantify Comment: progressive over the past year. Pertinent Non-Medical Issues Psychosocial: . Long-term [facility] facility resident. Has 3 children. Spiritual: Gnosticist shilo. Legal: No living will completed. Ethical issues impacting care: No living will completed. . Important Contacts Son Ronaldo montanez and Daughter Rosalind Galdamez . Prognosis Mr. Montanez is an 89 y/o male with a medical history significant for COPD, CVA, HTN and recent hospitalizations secondary to sepsis and pneumonia. Patient is a long-term resident of [facility] with a bed to chair existence. Patient admitted for the 3rd time in 3 months secondary to pneumonia and respiratory distress requiring intubation and mechanical ventilation. Patient's overall prognosis is poor given his age, preexisting functional status , recent prior hospitalizations, and multiple chronic comorbidities. He is at high risk for further complications, continued decline and . Poor prognosis for an improved quality of life or long-term survival. . Code Status: Full Code Plan * FULL CODE. Risks and limitations of CPR in patient's debilitated baseline condition has been discussed with family. * Patient not capacitated to make medical decision at this time secondary to clinical condition, confusion/lethargy. Unclear if he will regain, history of dementia. Family reporting that son Ronaldo Montanez is the designated healthcare surrogate for medical decisions. Pending documentation. Other 2 children Javan and Rosalind relying on Ronaldo to make medical decision. * GOALS OF CARE: FULL CODE. Continuation of aggressive care to include intubation and mechanical ventilation if medically indicated. Family electing to continue aggressive care in order to allow time for clinical improvement. Shared concern regarding patient's worsening condition. Encouraged family to discuss limitations of treatment in the setting of patient's age, pre-existing functional status, recent frequent hospitalizations, and multiple chronic comorbidities. Son tells me that he is aware that eventually they will have to make that difficult decision but for now they will like to give his father a chance at living. Family believes that patient still has a good quality of life at his group home. * SYMPTOMS: ==Shortness of breath: Multifactorial, likely secondary to COPD, pneumonia and anemia. Currently tolerating oxygen via nasal cannula. Concerns about patient's respiratory status, high risk for intubation and mechanical ventilation. == Debility: Progressive over the last 2-3 years. [facility] the [facility]. Bed to wheelchair bound for the last year. Likely to continue to worsen. * Case discussed with Dr. Garcia and bedside RN. * Palliative care contact information has been provided to family. * Palliative care will continue to follow up with this patient and family for further clarification of goals of care. . Time Spent Total Floor Time (mins): 38 (Total time to include review of medical records, physical exam, telephone conversation with son and case discussion with Dr. Garcia and bedside RN. ) Face to Face Time (mins): 25 >50% Counseling/Coord of Care: Yes Attestation To help prompt me to consider important information that might be impacting today's encounter and assessment, information from prior notes written by myself or my colleagues may have been "brought forward" into today's note. My signature on this note, however, is an attestation that I personally performed the exam, history, and/or decision-making noted today, and, unless otherwise indicated, the interactions with patient, family, and staff as well as the review of records all occurred today. I also attest that the listed assessment and stated plan reflect my best clinical judgment today based on the combination of historical information, prior notes, and today's exam/ interactions. When time spent is documented, it refers only to time spent today by the signer, or if indicated, combined time spent today by collaborating physician/nurse practitioner. Fransisca Reynaga Nov 15, 2016 11:48
[2016-11-15] MEDS ORDERED: SODIUM CHLORID 0.9% 500 ML INJ 500 ML IV ONE (12:15)
[2016-11-15] MEDS ORDERED: NOREPINEPHRINE-DEXTROSE DRIP 250 ML IV ONE (13:51)
[2016-11-15] MEDS ORDERED: MIDAZOLAM HCL 5 MG/ML VIAL (1 ML) ONE (13:51)
--- NOTE | 2016-11-15 14:43 | PD.PROCEDR ---
Central Line Procedure REASON FOR PROCEDURE Central venous access PROCEDURE PERFORMED Central line placement: L subclavian central ine CONSENT Informed consent for procedure was obtained ANESTHESIA Local injection of 1% Lidocaine DESCRIPTION OF THE PROCEDURE The patient was placed in supine, mild Trendelenburg position. The area was exposed and cleansed with ChloraPrep, times two. Large sterile drape was used to cover the patient, with the site exposed, under sterile conditions including cap, face mask, sterile gown, and sterile gloves. On single attempt, the introducer needle was inserted with negative pressure in syringe and venous flash was obtained. The guide wire was then advanced without any restriction and the needle was removed. The dilator was used without any complications. Using Seldinger technique the triple lumen 7F catheter was advanced over the guide wire to a depth of 18 centimeters. The guide wire was removed. All ports were aspirated with dark venous blood return and flushed easily with sterile saline. All ports were capped. Antibiotic disc was placed around central line at puncture site. The central line was secured to the skin with two interrupted 2.0 silk sutures. The area was bandaged with sterile see- through central line bandage. COMPLICATIONS: No apparent complications ESTIMATED BLOOD LOSS: Less than 1 cc. Glenn Garcia MD Nov 15, 2016 14:43
--- NOTE | 2016-11-15 15:04 | RADRPT ---
EXAM DATE/TIME: 11/15/2016 14:27 [facility] COMPARISON: CHEST SINGLE AP, December 13, 2012, 11:46. CHEST SINGLE AP, January 16, 2012, 13:33. CHEST PA & LAT, Dec, 11:39. CHEST PA & LAT, December 17, 2009, 10:58. CHEST PA & LAT, November 20, 2009, 20:05 . CHEST SINGLE AP, November 06, 2016, 8:05. CHEST SINGLE AP, November 13, 2016, 14:01. INDICATIONS : Central line placement. MEDICAL HISTORY : Cardiovascular disease. Hypertension. Blocked renal artery SURGICAL HISTORY : None. ENCOUNTER: Subsequent ACUITY: 4 - 6 days PAIN SCORE: 2/10 LOCATION: Bilateral chest FINDINGS: Single AP view of the chest. Left subclavian central venous catheter is in place with the tip in the region of the proximal SVC. Confluent opacity in the left lung base with obscuration of the left diap hragm indicating atelectasis versus consolidation. This finding is unchanged. Small left pleural effu zarina, less prominent than on the comparison study. No evidence of pneumothorax. 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 CONCLUSION: Persistent left lower lobe atelectasis versus consolidation. Decrease in size of left pleural effusio n. Left subclavian central venous catheter now in place. Ken Rodriguez MD on November 15, 2016 at 14:59 Board Certified Radiologist. This report was verified electronically.
[2016-11-15 15:25] LABS: BLOOD GAS CARBOXYHEMOGLOBIN 1.8 % (0-4); BLOOD GAS HCO3 16 mmol/L (22-26); BLOOD GAS METHEMOGLOBIN 1.3 % (0-2); BLOOD GAS O2 HGB SATURATION 97 % (90-100); BLOOD GAS OXYGEN CONTENT 8.2 Vol % (12.0-20.0); BLOOD GAS PCO2 19 mmHg (38-42); BLOOD GAS PO2 131 mmHg (61-120); BLOOD GAS TOTAL HGB 5.8 G/DL (12.0-16.0); CRITICAL VALUE YES; DRAW SITE LT BRACHIAL; LITER FLOW 4 L/M; NUMBER OF ARTERIAL PUNCTURES 1; OXYGEN DEVICE NASAL CANNULA; STAT YES; TEMP CORR TO 98.6
[2016-11-15] MEDS ORDERED: TERBUTALINE INJ 1 MG/ML AMP SQ PRN (15:30)
--- NOTE | 2016-11-15 15:35 | HHI.PR ---
Subjective Remarks More confused and lethargic today. Received blood yesterday with 20 mg lasix post infusion. Poor urine output overnight. Objective Vital Signs Date Time Temp Pulse Resp B/P Pulse Ox O2 Delivery O2 Flow Rate FiO2 11/15/16 13:24 98.1 89 24 83/47 92 11/15/16 08:36 97 21 11/15/16 06:00 85 11/15/16 04:00 98.3 104 16 120/78 98 11/15/16 04:00 104 11/15/16 02:00 100 11/15/16 00:00 86 11/15/16 00:00 98.5 86 16 119/60 100 11/14/16 22:00 97 11/14/16 20:00 102 11/14/16 20:00 97.8 102 20 125/71 99 11/14/16 19:18 99 Nasal Cannula 2.00 11/14/16 19:10 98.6 87 15 109/61 100 11/14/16 18:47 98.1 91 14 127/72 100 11/14/16 18:00 91 11/14/16 16:00 96 11/14/16 16:00 98.1 96 19 115/65 98 I/O 11/14/16 11/14/16 11/14/16 11/15/16 11/15/16 11/15/16 07:00 15:00 23:00 07:00 15:00 23:00 Intake Total 619 ml 1481 ml 801 ml 681 ml Output Total 300 ml 150 ml 150 ml 400 ml Balance 319 ml 1331 ml 651 ml 281 ml Intake Oral 120 ml Oral Supplement 50 ml IV Total 619 ml 1361 ml 501 ml 681 ml Packed Cells 250 ml Output Urine Total 300 ml 150 ml 150 ml 400 ml # Bowel Movements 0 0 Result Diagram: 11/15/16 0327 11/15/16 0327 Imaging Last 48 hours Impressions Chest X-Ray 11/15/16 0000 Signed Impressions: Service Date/Time: November 14:27 - CONCLUSION: Persistent left lower lobe atelectasis versus consolidation. Decrease in size of left pleural effusion. Left subclavian central venous catheter now in place. Ken Rodriguez MD Objective Remarks GENERAL: Well nourished, well-developed patient. SKIN: Warm and damp. HEAD: Normocephalic. EYES: No scleral icterus. No injection or drainage. NECK: Supple, trachea midline. No JVD or lymphadenopathy. CARDIOVASCULAR: Regular rate and rhythm without murmurs, gallops, or rubs. RESPIRATORY: Breath sounds with coarse rhonchi throughout lower lobes bilat. GASTROINTESTINAL: Abdomen soft, non-tender, nondistended. EXTREMITIES: No cyanosis, generalized edema, worse in BUE but improved from yesterday. Bruising to LUE d/t BP cuff NEUROLOGICAL: Lethargic, and oriented x 1. Non-focal. Medications and IVs Current Medications Medications (Trade) Dose Ordered Sig/Mercedes Route Start Time Stop Time Status Last Admin (NS Flush) 2 ml UNSCH PRN IV FLUSH 11/06/16 08:15 (NS Flush) 2 ml BID IV FLUSH 11/06/16 09:00 11/15/16 08:58 (Protonix Inj) 40 mg DAILY IV 11/06/16 09:00 11/15/16 08:58 Miscellaneous Information 1 Q361D XX 11/06/16 08:15 (Chlorhexidine 2% Cloth) Taper DAILY@04 TOP 11/07/16 04:00 11/03/17 03:59 11/10/16 06:53 (Chlorhexidine 2% Cloth) 3 pack UNSCH PRN TOP 11/06/16 08:15 (SoluCORTEF INJ) 100 mg Q8HR IV PUSH 11/06/16 14:00 11/15/16 05:51 (Ecotrin Ec) 81 mg DAILY PO 11/07/16 09:00 11/15/16 08:56 (Synthroid) 75 mcg DAILY@0600 PO 11/07/16 06:00 11/14/16 06:41 (Beneprotein Powder) 2 pack TID G-TUBE 11/07/16 09:00 11/15/16 08:58 (Ativan) 0.5 mg Q6H PRN PO 11/08/16 15:45 11/14/16 22:59 (risperDAL) 2 mg QID PO 11/09/16 21:00 11/14/16 20:45 (Lovenox Inj) 100 mg Q12H SQ 11/10/16 21:00 11/15/16 08:56 (KCl 40 Meq/30 ml Liq) 10 meq BID PO 11/11/16 11:00 11/15/16 08:56 (Norvasc) 5 mg DAILY PO 11/12/16 09:00 11/14/16 09:49 (Lopressor) 25 mg BID PO 11/11/16 21:00 11/14/16 20:46 (Flomax) 0.4 mg HS PO 11/11/16 21:00 11/14/16 20:46 (Tylenol-Codeine #3) 1 tab Q4H PRN PO 11/11/16 21:00 11/13/16 22:57 Acetaminophen/ Codeine Phosphate 2 tab 2 tab Q4H PRN PO 11/11/16 21:00 11/14/16 22:31 Dextrose/Sodium Chloride 1,000 ml @ 125 mls/hr Q8H IV 11/13/16 14:00 11/14/16 22:13 Meropenem 500 mg/ Sodium Chloride 100 ml @ 200 mls/hr Q8H IV 11/13/16 20:00 11/15/16 11:04 (Diflucan 200 Mg Premix Bag) 100 ml @ 100 mls/hr Q24H IV 11/13/16 18:00 11/14/16 17:50 (Depakote Sprinkles) 250 mg Q6H PO 11/13/16 22:00 11/15/16 08:56 Miscellaneous Information Patient in critical care unit? Ass... Q361D XX 11/13/16 23:00 (Chlorhexidine 2% Cloth) 3 pack DAILY@04 TOP 11/14/16 04:00 11/18/16 04:01 (Chlorhexidine 2% Cloth) 3 pack UNSCH PRN TOP 11/13/16 23:00 11/18/16 22:50 Haloperidol Lactate 5 mg 5 mg Q6H PRN IM 11/14/16 12:30 11/15/16 01:29 (Zyvox 600 Mg Premix) 300 ml @ 300 mls/hr Q12H IV 11/15/16 09:00 11/15/16 08:56 Albumin Human 25 gm 25 gm Q12H IV 11/15/16 10:00 11/15/16 10:27 (Pitressin Inj/ D5W 100 ml Inj) 100 ml @ 4.5 mls/hr [id number] IV 11/15/16 16:00 Assessment and Plan Problem List: (1) Acute respiratory failure Status: Chronic Plan: Stable on RA, (2) Altered mental status Status: Chronic Plan: Chronic dementia with memory loss. (3) Pneumonia Status: Acute Plan: ID following, on Vanco, meropenem, fluconazole. Meds changed d/t change in mentation, elevated lactate, sepsis. Urine and BC pending. Left pleural effusion, bilateral LL consolidation on CXR. Ultrasound done to eval effusion. Decision on thoracentesis by Dr. Mcintosh. (4) History of COPD Status: Chronic Plan: Long smoking history, none current. (5) Urinary tract infection Status: Acute Plan: Chronic with indwelling costa d/t retention, recurrent UTI's.Culture shows E.Coli, Pseudomonas Aruginosa. On Zosyn per sensitivity, ID following. Due to change in condition and possible recurrent sepsis, UA redrawn, pending. (6) Sepsis Status: Acute Plan: Recurrent, possible MDRO, ID notified and following, cultures pending. Became hypotensive today after receiving a.m. BP meds. Fluid bolus given without recovery. Consult to production control manager ordered. (7) Fever Status: Resolved Plan: Afebrile. (8) Swelling of right upper extremity Status: Acute Plan: Positive for DVT. On lovenox BID. Has remote GIB history. Dr. Morgan consulted. (9) Anemia Status: Acute Plan: No stool overnight, Left pleural effusion, pending evaluation. Will transfuse X 1 and hemoccult stools. (10) Anasarca Status: Acute Plan: Poor nutritional status, albumin low. Will obtain repeat albumin, prealbumin. Discussed PEG tube with son and he agrees to consent. Will consult GI to evaluate. Assessment and Plan D/W RN, Dr. Salgado, Dr. Alfaro. Problem Qualifiers (1) Acute respiratory failure: Qualified Code: J96.01 - Acute respiratory failure with hypoxia (2) Altered mental status: Qualified Code: R41.0 - Disorientation (3) Pneumonia: Qualified Code: J15.212 - Pneumonia of left lower lobe due to methicillin- resistant Staphylococcus aureus (MRSA) (4) Urinary tract infection: Qualified Code: T83.511A - Urinary tract infection associated with indwelling urethral catheter, initial encounter (5) Sepsis: Qualified Code: A41.02 - Sepsis due to methicillin resistant Staphylococcus aureus (MRSA) (6) Fever: Qualified Code: R50.9 - Fever, unspecified fever cause (7) Anemia: Qualified Code: D64.9 - Anemia, unspecified type Melissa Crandall Nov 15, 2016 15:34
--- NOTE | 2016-11-15 15:36 | HHI.CCPN ---
Subjective Remarks/Hospital Course The patient is an 89 year old male who is a local [place] resident with past medical history significant for recent MRSA sepsis from pneumonia in Sep 2016, dementia , COPD, CVA, hypertension who presented to the emergency department with increasing shortness of breath overnight. Upon EMS arrival patient was tachypneic and febrile. The patient on arrival to [place] had a temperature of 102.9 and diffuse wheezing. Apparently he was alert and awake on arrival and had productive cough. The patient had IV access obtained and blood work sent for analysis. He was initially normotensive with sinus tachycardia heart rate of 136. A chest x-ray showed persistent left lower lobe infiltrate, ABG showed severe hypoxia. The patient was given DuoNeb 3, Solu-Medrol 125 mg IV, cefepime and Zithromax were started IV and also vancomycin 1 g IV. She was temporarily placed on BiPAP without improvement, and so was emergently intubated and placed on mechanical ventilation. Patient received a total of 4 L normal saline IV fluid. Critical care medicine was consulted for ICU admission. Pertinent labs include a lactate of 4.9 BUN was 26 with a creatinine of 1.4. UA showed evidence of UTI. His source of severe sepsis appears to be pneumonia and UTI. No further history is obtainable from the patient. I evaluated the patient in the ED. He is intubated sedated on 100% oxygen with oxygen saturation now 100%. Repeat ABG is pending. Due to profound hypoxia I'll get a CT angiogram of the chest and also CT abdomen pelvis. He'll be placed on IV Zosyn, azithromycin and IV vancomycin SUBJ 11/07: Overnight received additional 2 L fluid boluses for diminished urine output and borderline hypotension. 400 ml total urine output over the last 10 hours. Patient is hypothermic receiving warm IV fluids. Cultures are pending chest x-ray shows increasing left lower lobe infiltrate which is probably the source of infection, along with UTI 11/08: Remains intubated encephalopathic. Blood pressure improved urine output is improved. Continues to have thick ozuna secretions. Following commands in all 4 extremities on sedation hold 11/09 Patient was extubated yesterday. On 3L oxygen with good sats. Afebrile. CCM reconsult: Patient increasingly hypotensive systolic blood pressure in 70s. Received 1.5 L of normal saline, receiving 1 unit of PRBC. Systolic blood pressure remains low despite boluses. Patient is also more lethargic. Had been having recurrent MRSA pneumonia and UTI, clinically appears dry. I have emergently placed left subclavian central line, will give additional 1.5 L fluid boluses, will add 1 unit of PRBC. CBC pending at this time Objective Vital Signs Date Time Temp Pulse Resp B/P Pulse Ox O2 Delivery O2 Flow Rate FiO2 11/15/16 13:24 98.1 89 24 83/47 92 11/15/16 08:36 21 11/14/16 19:18 Nasal Cannula 2.00 Intake and Output 11/14/16 11/14/16 11/15/16 08:00 16:00 00:00 Intake Total 619 ml 1481 ml 801 ml Output Total 300 ml 150 ml 150 ml Balance 319 ml 1331 ml 651 ml Result Diagram: 11/15/16 0327 11/15/16 0327 Other Results Microbiology Date/Time Procedure Status Source Growth 11/12/16 16:35 Urine Culture - Final Complete Urine Catheterized Urine NO GROWTH IN 48 HOURS. 11/13/16 14:45 Urine Culture - Final Complete Urine Catheterized Urine Donna Tropicalis Imaging Last Impressions Chest X-Ray 11/09/16 0600 Signed Impressions: Service Date/Time: Wednesday, November 09, 2016 03:40 - CONCLUSION: Slightly improved aeration. Richard Kingston MD Abdomen/Pelvis CT 11/06/16 1028 Signed Impressions: Service Date/Time: Sunday, November 06, 2016 11:15 - CONCLUSION: Stout catheter in place in a decompressed urinary bladder. No obstructive uropathy. There is a nonobstructive left kidney midpole posterior stones sub-centimeters size. Multiple right renal cysts. Uncomplicated diverticuli of the colon and extensive degenerative changes of the lumbar spine. Abdirashid Cotton MD CT Angiography 11/06/16 0000 Signed Impressions: Service Date/Time: Sunday, November 06, 2016 11:15 - CONCLUSION: Minimally suboptimal examination with poor visualization of distal arterial structures. Centrally there is no evidence of pulmonary embolism. Stable bilateral posterior basilar minimal pleural effusions and dependent basilar atelectasis. Abdirashid Cotton MD Objective Remarks GENERAL: Patient is lying in bed confused and lethargic, profoundly hypotensive. Protecting airway SKIN: Warm and dry. HEAD: Normocephalic. EYES: No scleral icterus. No injection or drainage. NECK: Supple, trachea midline. No JVD or lymphadenopathy. CARDIOVASCULAR: Regular rate and rhythm without murmurs, gallops, or rubs. RESPIRATORY: Breath sounds equal bilaterally, diminished at the bilateral bases. Mild accessory muscle use. GASTROINTESTINAL: Abdomen soft, non-tender, nondistended. MUSCULOSKELETAL: No cyanosis, or edema. BACK: Nontender without obvious deformity. No CVA tenderness. Neuro: Patient is lethargic but moves extremities. Did not follow commands Urinary Catheter: Yes Assessment to: Continue Vascular Central Line Catheter: Yes Assessment to: Continue Date of Insertion: Nov 15, 2016 Side: Left Location: Subclavian A/P Assessment and Plan Assessment and Plan Neuro/Psych: Acute metabolic encephalopathy Dementia History CVA with left-sided weakness Peripheral neuropathy Chronic low back pain -Very lethargic today due to dehydration and hypotension and sepsis -Continue Depakote and hold Risperdal -Minimize oversedation CV: Shock septic and hemorrhagic Lactic acidosis History of hypertension -Monitor HR and BP keep MAP>65mmHg, started on Levophed remains hypotensive on 12 mcg/m -Started on vasopressin and also at 0.04 IU MIN -On ASA 81mg daily -Lactic acid pending today -Will give total 3L boluses and 2 U PRBC Resp: Acute hypoxemic respiratory failure-Extubated 11/08 COPD exacerbation MRSA pneumonia History of recurrent MRSA pneumonia -Continue with oxygen keep sat >90% -DuoNeb every 6 hours and as needed -Hydrocortisone 100mg every 8 -CT pulmonary angiogram negative for PE -Broad spectrum antibiotics with Zosyn and vancomycin GI: History of Rectal ulcers History gastritis Malnutrition -Protonix for GI prophylaxis. -On PO diet -Colace/as needed Senokot for bowel regimen : Chronic kidney disease disease History of ELMO -Monitor renal function, I/o's, electrolytes replacement as needed. Endo: Hypothyroidism -Continue Levoxyl at 75 g by mouth daily. -Sliding-scale insulin with Accu-Cheks every 6 hours to maintain glycemia if needed -Electrolyte replacement per protocol Heme: Hemorrhagic shock Anemia requiring transfusion History of skin cancer -Hb after 1 U PRBC 5.7. Additonal 3U STAT, Holding Lovenox ASA. Stat Protamine [address] abd pelvis to rule out retroperitoneal bleed -Hold aspirin for therapeutic Lovenox -Transfuse 2 units PRBC ID: Septic shock HCAP/left lower lobe/MRSA UTI with Escherichia coli and Pseudomonas, new culture with Donna tropicalis Currently on Meropenem IV, Zyvox and micafungin ID Dr. Alfaro -11/13 urine Donna tropicalis -11/06 Sputum cx: MRSA -11/06 Urine cx: E.coli, pseudomonas MSK: -Right heel stage II decubitus ulcer. Wound care consulted Access - Utilize peripheral IV. Prophylaxis - GI - Protonix - DVT - SCD-hold Lovenox due to anemia requiring transfusion, IV Protonix CCT 55 min excluding procedures Glenn Garcia MD Nov 15, 2016 15:36
[2016-11-15] MEDS: VASOPRESSIN INJ 40 UNITS in DEXTROSE 5% IN WATER 100ML INJ 98 ML IV SCH ×2 (15:39)
[2016-11-15 16:16] LABS: AUTOMATED NEUTROPHIL # 21.2 TH/MM3 (1.8-7.7); LYMPH % 5.1 % (9.0-44.0); LYMPHOCYTE # 1.2 TH/MM3 (1.0-4.8); MEAN CELL VOLUME 93.7 FL (80.0-100.0); MEAN CORPUSCULAR HEMOGLOBIN 31.1 PG (27.0-34.0); MEAN CORPUSCULAR HGB CONC 33.2 % (32.0-36.0); MONO % 6.2 % (0.0-8.0); NEUT % 88.7 % (16.0-70.0); PLATELET COUNT 149 TH/MM3 (150-450); RED BLOOD COUNT 1.68 MIL/MM3 (4.50-5.90); RED CELL DISTRIBUTION WIDTH 18.6 % (11.6-17.2); WHITE BLOOD COUNT 23.9 TH/MM3 (4.0-11.0)
[2016-11-15 16:28] LABS: HEMATOCRIT 15.7 % (39.0-51.0); HEMO FLAGS AUTO DIFF
[2016-11-15 16:44] LABS: BICARBONATE 19.6 MEQ/L (21.0-32.0); CALCIUM-PROTEIN CORRECTED 9.4 MG/DL (8.5-10.1); MAGNESIUM 1.8 MG/DL (1.5-2.5); POTASSIUM 4.3 MEQ/L (3.5-5.1); TOTAL BILIRUBIN ADULT 0.4 MG/DL (0.2-1.0)
[2016-11-15 17:00] LABS: BANDS 4 % (0-6); BASOPHILS 1 % (0-2); CORRECTED NUCLEATED RBC 1 /100 WBC (0-0); METAMYELOCYTES 2 % (0-1); NEUTROPHIL # MANUAL DIFF 22.5 TH/MM3 (1.8-7.7); POLYS (SEG NEUTROPHILS) 87 % (16-70); PROMYELOCYTES 1 % (0-0); WBC DIFF SAMPLE 100
[2016-11-15 17:01] LABS: OVALOCYTES 1+ (NORMAL); PLATELET ESTIMATE SMEAR LOW (NORMAL)
[2016-11-15 17:02] LABS: PLATELET MORPHOLOGY NORMAL (NORMAL); SCAN/DIFF FINAL DIFF MANUAL
[2016-11-15] MEDS ORDERED: SODIUM CHLORIDE 0.9% IV ONE (17:15)
[2016-11-15] MEDS ORDERED: PROTAMINE SULFATE IV ONE (17:15)
--- NOTE | 2016-11-15 17:28 | HHI.PR ---
Subjective Remarks 89 YOWM with MRSA pn,COPD, UTI Has small pl effusion On RA, mild sob Tr to [facility] H/H decreased US chest small pl effusion Hypotensive Had 3L IVF On Levophed and Vasopressin Objective Vital Signs Vital Signs Date Time Temp Pulse Resp B/P Pulse Ox O2 Delivery O2 Flow Rate FiO2 11/15/16 13:24 98.1 89 24 83/47 92 11/15/16 08:36 97 21 11/15/16 06:00 85 11/15/16 04:00 98.3 104 16 120/78 98 11/15/16 04:00 104 11/15/16 02:00 100 11/15/16 00:00 86 11/15/16 00:00 98.5 86 16 119/60 100 11/14/16 22:00 97 11/14/16 20:00 102 11/14/16 20:00 97.8 102 20 125/71 99 11/14/16 19:18 99 Nasal Cannula 2.00 11/14/16 19:10 98.6 87 15 109/61 100 11/14/16 18:47 98.1 91 14 127/72 100 11/14/16 18:00 91 I/O 11/14/16 11/14/16 11/14/16 11/15/16 11/15/16 11/15/16 07:00 15:00 23:00 07:00 15:00 23:00 Intake Total 619 ml 1481 ml 801 ml 681 ml 3197 ml Output Total 300 ml 150 ml 150 ml 400 ml 100 ml Balance 319 ml 1331 ml 651 ml 281 ml 3097 ml Intake Oral 120 ml 0 ml Oral Supplement 50 ml IV Total 619 ml 1361 ml 501 ml 681 ml 3097 ml Albumin 100 ml Packed Cells 250 ml Output Urine Total 300 ml 150 ml 150 ml 400 ml 100 ml # Bowel Movements 0 0 0 Result Diagram: 11/15/16 1547 11/15/16 1547 Objective Remarks GENERAL: MBMN elderly male, weak, mild sob SKIN: Warm and dry. HEAD: Normocephalic. EYES: No scleral icterus. No injection or drainage. NECK: Supple, trachea midline. No JVD or lymphadenopathy. CARDIOVASCULAR: Regular rate and rhythm without murmurs, gallops, or rubs. RESPIRATORY: Breath sounds equal bilaterally. No accessory muscle use. GASTROINTESTINAL: Abdomen soft, non-tender, nondistended. MUSCULOSKELETAL: No cyanosis, or edema. BACK: Nontender without obvious deformity. No CVA tenderness. 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
--- NOTE | 2016-11-15 19:13 | RADRPT ---
EXAM DATE/TIME: 11/15/2016 18:38 [facility] COMPARISON: CHEST SINGLE AP, November 15, 2016, 14:27. CT ABDOMEN & PELVIS W CONTRAST, November 06, 2016, 11:15. INDICATIONS : Retroperitoneal bleed follow up. ORAL CONTRAST: No oral contrast ingested. RADIATION DOSE: 42.64 CTDIvol (mGy) MEDICAL HISTORY : Cardiovascular disease. Hypertension. Chronic obstructive pulmonary disease. SURGICAL HISTORY : Appendectomy. Cholecystectomy. ENCOUNTER: Initial ACUITY: 1 day PAIN SCALE: Non-responsive LOCATION: lower quadrant TECHNIQUE: Volumetric scanning of the abdomen and pelvis was performed. Using automated exposure control and ad justment of the mA and/or kV according to patient size, radiation dose was kept as low as reasonably achievable to obtain optimal diagnostic quality images. FINDINGS: Organized right retroperitoneal hematoma seen in the region of the right pericolic gutter and the hua ac is muscle. This appears to be extending from the right groin. The hematoma within the pelvic cavit y measures approximately 8.9 x 15.2 cm in greatest transaxial dimension and 25.3 cm in craniocaudal l ength. Most of the hematoma has low-attenuation but the more inferior portions, especially the part w ithin the inguinal canal and inguinal region, is considerably heterogeneous suggesting some fracture components. Very small, non-organized hematoma seen along the anterior margin of the psoas muscle and there is intermediate attenuation thickening of the muscle itself. No acute solid organ abnormality demonstrated. Bilateral renal cysts and a nonobstructing left stone again noted. Sigmoid colon diverticulosis again noted without acute inflammatory changes. There is a very large am ount of stool in the rectum. There are moderate bilateral pleural effusions with atelectasis seen at both bases. There is diffuse body wall edema/anasarca, worse. CONCLUSION: Mixed attenuation right lower retroperitoneal hematoma as described above. The largest component is l ow-attenuation and organized. Smaller components are of intermediate attenuation and less organized. Based on the noncontrast findings, persistent bleeding from the right groin would not be surprising. Jose Grajeda MD on November 15, 2016 at 19:05 Board Certified Radiologist. This report was verified electronically.
[2016-11-15] MEDS: PANTOPRAZOLE INJ 80 MG in SODIUM CHLORIDE 0.9% INJ 100 ML IV SCH (20:23)
[2016-11-15] MEDS: TAMSULOSIN HCL 0.4 MG CAP PO SCH (21:00)
[2016-11-15] MEDS: NOREPINEPHRINE-DEXTROSE DRIP 250 ML IV SCH (21:32)
[2016-11-15] MEDS: FLUCONAZOLE 200 MG PREMIX BAG 100 ML IV SCH (21:38)
[2016-11-15] MEDS: DEXT 5%-NACL 0.45% 1000 ML INJ 1,000 ML IV SCH (21:45)
[2016-11-16] VITALS (15 sets, daily range): BP systolic 75–139; BP diastolic 49–84; PULSE 103–130; RESP 19–32; TEMP 97.8–98.5; O2SAT 93–100
[2016-11-16 00:06] LABS: INTERNATIONAL NORMALIZED RATIO 1.2 RATIO; PROTHROMBIN TIME - PATIENT 12.8 SEC (9.8-11.6)
[2016-11-16] MEDS ORDERED: IOHEXOL 350 MG/ML 10 ML VIAL (for RAD DIAG) IV ONE (00:19)
--- NOTE | 2016-11-16 00:48 | RADRPT ---
EXAM DATE/TIME: 11/15/2016 23:54 [facility] COMPARISON: CT ABDOMEN & PELVIS W/O CONTRAST, November 15, 2016, 18:38. CT ABDOMEN & PELVIS W CONTRAST, November 06, 2016, 11:15. INDICATIONS : Retroperitoneal hematoma. IV CONTRAST: 100 cc Omnipaque 350 (iohexol) IV ORAL CONTRAST: No oral contrast ingested. RADIATION DOSE: 25.89 CTDIvol (mGy) MEDICAL HISTORY : Hypertension. Chronic obstructive pulmonary disease. Gastroesophageal reflux disease.renal disease, s kin cancer, MRSA SURGICAL HISTORY : Appendectomy. Cholecystectomy.TURP ENCOUNTER: Subsequent ACUITY: 1 day PAIN SCALE: 7/10 LOCATION: abdomen TECHNIQUE: Volumetric scanning of the abdomen and pelvis was performed. Using automated exposure control and ad justment of the mA and/or kV according to patient size, radiation dose was kept as low as reasonably achievable to obtain optimal diagnostic quality images. FINDINGS: There is artifact related to patient arm positioning. LOWER LUNGS: There are bilateral pleural effusions, right larger than left, with associated compressive atelectasi s. LIVER: No acute finding is identified. There is stable prominence of the intrahepatic bile ducts. No concern ing lesion is seen. SPLEEN: Normal size without lesion. PANCREAS: Within normal limits. KIDNEYS: There are 3 low-density lesions in the right kidney ranging in size from 2 cm up to 3.8 cm. All have density measurements consistent with cysts. There is a 4 mm nonobstructing left renal stone. ADRENAL GLANDS: Within normal limits. VASCULAR: There is severe atherosclerotic disease. No aneurysm is visualized. BOWEL/MESENTERY: Stomach and small bowel demonstrate no acute finding. There is sigmoid diverticulosis. No free air is present. There is trace free intraperitoneal fluid. ABDOMINAL WALL: There is subcutaneous edema bilaterally. RETROPERITONEUM: There is no lymphadenopathy. There is a retroperitoneal hematoma on the right involving the psoas mus vicky and the adjacent retroperitoneum. It has slightly increased in size inferiorly since the prior ex amination. There are signs of contrast blush in the right psoas muscle and in the more laterally loca amos hematoma in the region of the retroconal fascia. BLADDER: Decompressed with a Stout catheter present. REPRODUCTIVE: Within normal limits. INGUINAL: There is no lymphadenopathy or hernia. MUSCULOSKELETAL: No acute osseous abnormality is seen. 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 Adjace nt to the greater trochanter on the right is a presumed hematoma that is only partially visualized bu t measures approximately 8.1 x 4.1 cm. CONCLUSION: 1. Persistent retroperitoneal hematoma involving the right psoas muscle and adjacent retroperitoneal space. The hematoma appears slightly larger than on the prior examination performed earlier tonight. Additionally, there are areas of contrast blush within the psoas muscle and more lateral aspect of th e retroperitoneal hematoma suggesting recent or active bleeding. These retroperitoneal hematomas are almost always secondary to supratherapeutic anticoagulation. Due to the location of the bleeds and th e fact that these are usually venous, there is typically no interventional procedure that can be perf ormed for embolization. Suggest correlating with coagulation status and correcting any coagulopathy. 2. Anasarca with possible partially visualized hematoma adjacent to the right greater trochanter. 3. Small bilateral pleural effusions, right larger than left. 4. Severe atherosclerotic disease. Jose Jiménez MD on November 16, 2016 at 0:27 Board Certified Radiologist. This report was verified electronically.
[2016-11-16] MEDS: NOREPINEPHRINE-DEXTROSE DRIP 250 ML IV SCH ×5 (01:23→16:32)
[2016-11-16] MEDS: DIVALPROEX SODIUM SPRINKLES 125 MG CAP PO SCH ×3 (03:38→15:25)
[2016-11-16] MEDS: MEROPENEM INJ 500 MG in SODIUM CHLORIDE 0.9% INJ 100 ML IV SCH ×2 (03:38→12:35)
[2016-11-16] MEDS: CHLORHEXIDINE GLUCONATE 2 % 1 PACK (2 CLOTHS) TOP SCH (03:38)
[2016-11-16] MEDS: CHLORHEXIDINE GLUCONATE 2 % 1 PACK (2 CLOTHS)(taper/protocol) TOP SCH (03:39)
[2016-11-16] MEDS: LEVOTHYROXINE SODIUM 75 MCG TAB PO SCH (06:00)
[2016-11-16] MEDS: DEXT 5%-NACL 0.45% 1000 ML INJ 1,000 ML IV SCH ×2 (06:00→15:25)
[2016-11-16] MEDS: HYDROCORTISONE SOD SUCCINATE 100 MG VIAL IV PUSH SCH ×2 (06:06→15:25)
[2016-11-16] MEDS: PANTOPRAZOLE INJ 80 MG in SODIUM CHLORIDE 0.9% INJ 100 ML IV SCH ×2 (06:07→15:38)
[2016-11-16 06:08] LABS: BLOOD GAS BASE EXCESS -10.4 mmol/L (-2-2); BLOOD GAS CARBOXYHEMOGLOBIN 1.4 % (0-4); BLOOD GAS HCO3 13 mmol/L (22-26); BLOOD GAS METHEMOGLOBIN 1.1 % (0-2); BLOOD GAS O2 HGB SATURATION 96 % (90-100); BLOOD GAS OXYGEN CONTENT 13.2 Vol % (12.0-20.0); BLOOD GAS PCO2 20 mmHg (38-42); BLOOD GAS PO2 100 mmHg (61-120); BLOOD GAS TOTAL HGB 9.7 G/DL (12.0-16.0); TEMP CORR TO 98.6
[2016-11-16 06:11] LABS: DRAW SITE ART LINE; LITER FLOW 5 L/M; OXYGEN DEVICE NASAL CANNULA; STAT NO; ULNAR PULSE PRESENT
[2016-11-16] MEDS ORDERED: TERBUTALINE INJ 1 MG/ML AMP SQ PRN (07:30)
[2016-11-16] MEDS ORDERED: PHENYLEPHRINE INJ 160 MG in DEXTROSE 5% IN WATE 500 ML INJ 484 ML IV SCH ×2 (07:30)
--- NOTE | 2016-11-16 07:37 | HHI.PR ---
Subjective Remarks Patient seen at bedside confused and calling out. Objective Vital Signs Date Time Temp Pulse Resp B/P Pulse Ox O2 Delivery O2 Flow Rate FiO2 11/16/16 06:00 107 11/16/16 04:00 113 11/16/16 04:00 98.0 113 27 123/84 100 11/16/16 02:00 103 11/16/16 00:00 98.5 128 28 115/53 96 11/16/16 00:00 128 11/15/16 22:00 114 11/15/16 20:12 98 Nasal Cannula 4.00 11/15/16 20:00 106 11/15/16 20:00 97.3 106 26 113/58 93 11/15/16 19:00 97.3 109 20 115/69 11/15/16 18:10 97.4 109 21 98/73 11/15/16 18:00 110 11/15/16 17:45 97.4 114 22 89/54 11/15/16 17:23 97.3 92 24 99/55 11/15/16 16:00 105 11/15/16 16:00 97.4 105 23 102/58 11/15/16 14:00 95 11/15/16 13:40 97.3 80 19 63/45 11/15/16 13:24 98.1 89 24 83/47 92 11/15/16 12:00 97.4 94 20 92/50 97 11/15/16 12:00 94 11/15/16 10:00 105 11/15/16 08:36 97 21 11/15/16 08:00 97.7 90 24 113/64 97 11/15/16 08:00 90 I/O 11/15/16 11/15/16 11/15/16 11/16/16 11/16/16 11/16/16 07:00 15:00 23:00 07:00 15:00 23:00 Intake Total 681 ml 3197 ml 2629 ml 1826 ml Output Total 400 ml 100 ml 50 ml 50 ml Balance 281 ml 3097 ml 2579 ml 1776 ml Intake Oral 0 ml IV Total 681 ml 3097 ml 1053 ml 726 ml Albumin 100 ml 100 ml Packed Cells 750 ml 1100 ml FFP 726 ml Output Urine Total 400 ml 100 ml 50 ml 50 ml # Bowel Movements 0 0 0 1 Result Diagram: 11/16/16 0545 11/15/16 1547 Imaging Last 48 hours Impressions Chest X-Ray 11/16/16 0000 Signed Impressions: Service Date/Time: Wednesday, November 16, 2016 09:07 - CONCLUSION: 1. Endotracheal tube and nasogastric tube now in place. Endotracheal tube tip 1.6 cm above the magnolia. 2. Mild patchy bilateral pulmonary parenchymal opacity most prominent at the left lower lobe. Ken Rodriguez MD Chest X-Ray 11/15/16 0000 Signed Impressions: Service Date/Time: November 14:27 - CONCLUSION: Persistent left lower lobe atelectasis versus consolidation. Decrease in size of left pleural effusion. Left subclavian central venous catheter now in place. Ken Rodriguez MD Abdomen/Pelvis CT 11/15/16 0000 Signed Impressions: Service Date/Time: November 23:54 - CONCLUSION: 1. Persistent retroperitoneal hematoma involving the right psoas muscle and adjacent retroperitoneal space. The hematoma appears slightly larger than on the prior examination performed earlier tonight. Additionally, there are areas of contrast blush within the psoas muscle and more lateral aspect of the retroperitoneal hematoma suggesting recent or active bleeding. These retroperitoneal hematomas are almost always secondary to supratherapeutic anticoagulation. Due to the location of the bleeds and the fact that these are usually venous, there is typically no interventional procedure that can be performed for embolization. Suggest correlating with coagulation status and correcting any coagulopathy. 2. Anasarca with possible partially visualized hematoma adjacent to the right greater trochanter. 3. Small bilateral pleural effusions, right larger than left. 4. Severe atherosclerotic disease. Jose Jiménez MD Abdomen/Pelvis CT 11/15/16 0000 Signed Impressions: Service Date/Time: November 18:38 - CONCLUSION: Mixed attenuation right lower retroperitoneal hematoma as described above. The largest component is low-attenuation and organized. Smaller components are of intermediate attenuation and less organized. Based on the noncontrast findings , persistent bleeding from the right groin would not be surprising. Jose Grajeda MD Procedures Current Medications Medications (Trade) Dose Ordered Sig/Mercedes Route Start Time Stop Time Status Last Admin (NS Flush) 2 ml UNSCH PRN IV FLUSH 11/06/16 08:15 (NS Flush) 2 ml BID IV FLUSH 11/06/16 09:00 11/16/16 09:33 Miscellaneous Information 1 Q361D XX 11/06/16 08:15 (Chlorhexidine 2% Cloth) Taper DAILY@04 TOP 11/07/16 04:00 11/03/17 03:59 11/10/16 06:53 (Chlorhexidine 2% Cloth) 3 pack UNSCH PRN TOP 11/06/16 08:15 (SoluCORTEF INJ) 100 mg Q8HR IV PUSH 11/06/16 14:00 11/16/16 06:06 (Ecotrin Ec) 81 mg DAILY PO 11/07/16 09:00 Hold 11/15/16 08:56 (Synthroid) 75 mcg DAILY@0600 PO 11/07/16 06:00 11/14/16 06:41 (Beneprotein Powder) 2 pack TID G-TUBE 11/07/16 09:00 11/15/16 08:58 (Ativan) 0.5 mg Q6H PRN PO 11/08/16 15:45 Hold 11/14/16 22:59 (risperDAL) 2 mg QID PO 11/09/16 21:00 Hold 11/14/16 20:45 (Lovenox Inj) 100 mg Q12H SQ 11/10/16 21:00 Hold 11/15/16 08:56 (KCl 40 Meq/30 ml Liq) 10 meq BID PO 11/11/16 11:00 11/15/16 08:56 (Norvasc) 5 mg DAILY PO 11/12/16 09:00 Hold 11/14/16 09:49 (Lopressor) 25 mg BID PO 11/11/16 21:00 Hold 11/14/16 20:46 (Flomax) 0.4 mg HS PO 11/11/16 21:00 11/14/16 20:46 (Tylenol-Codeine #3) 1 tab Q4H PRN PO 11/11/16 21:00 11/13/16 22:57 Acetaminophen/ Codeine Phosphate 2 tab 2 tab Q4H PRN PO 11/11/16 21:00 11/14/16 22:31 Dextrose/Sodium Chloride 1,000 ml @ 125 mls/hr Q8H IV 11/13/16 14:00 11/15/16 21:45 Meropenem 500 mg/ Sodium Chloride 100 ml @ 200 mls/hr Q8H IV 11/13/16 20:00 11/16/16 12:35 (Diflucan 200 Mg Premix Bag) 100 ml @ 100 mls/hr Q24H IV 11/13/16 18:00 11/15/16 21:38 (Depakote Sprinkles) 250 mg Q6H PO 11/13/16 22:00 11/15/16 08:56 Miscellaneous Information Patient in critical care unit? Ass... Q361D XX 11/13/16 23:00 (Chlorhexidine 2% Cloth) 3 pack DAILY@04 TOP 11/14/16 04:00 11/18/16 04:01 (Chlorhexidine 2% Cloth) 3 pack UNSCH PRN TOP 11/13/16 23:00 11/18/16 22:50 Haloperidol Lactate 5 mg 5 mg Q6H PRN IM 11/14/16 12:30 11/16/16 07:39 (Zyvox 600 Mg Premix) 300 ml @ 300 mls/hr Q12H IV 11/15/16 09:00 11/16/16 09:32 Albumin Human 25 gm 25 gm Q12H IV 11/15/16 10:00 11/16/16 09:34 Vasopressin 40 units/Dextrose 100 ml @ 4.5 mls/hr [id number] IV 11/15/16 16:00 11/16/16 12:30 (Levophed-Dextrose Drip) 250 ml @ 0 mls/hr TITRATE IV 11/15/16 16:00 11/16/16 12:31 Terbutaline Sulfate 1 mg 1 mg UNSCH PRN SQ 11/15/16 15:30 (Protonix Inj/NS Inj) 100 ml @ 10 mls/hr Q10H IV 11/15/16 20:00 11/16/16 06:07 Terbutaline Sulfate 1 mg 1 mg UNSCH PRN SQ 11/16/16 07:30 Phenylephrine HCl 160 mg/Dextrose 500 ml @ 0 mls/hr TITRATE IV 11/16/16 07:30 11/16/16 07:42 Midazolam HCl 100 ml @ 0 mls/hr TITRATE IV 11/16/16 09:30 (fentaNYL DRIP) 250 ml @ 0 mls/hr TITRATE IV 11/16/16 09:30 11/16/16 12:20 Other Results CONSTITUTIONAL/GENERAL: This is a frail elderly man in moderate distress. TUBES/LINES/DRAINS: PIV's, Stout cath, SCD's, SKIN: No jaundice, rashes, or lesions. Scattered ecchymoses on upper extremities. No wounds seen anteriorly. Skin temperature appropriate. Not diaphoretic. HEAD: Atraumatic. Normocephalic. NECK: Trachea midline. Supple, nontender. CARDIOVASCULAR: Regular rate and rhythm without murmurs, gallops, or rubs. Week pedal pulses. Generalized edema. RESPIRATORY/CHEST: Symmetric. Coarse breath sounds. GASTROINTESTINAL: Bowel sounds present. GENITOURINARY: Without palpable bladder distension. Stout catheter in place. MUSCULOSKELETAL: No mottling or clubbing. NEUROLOGICAL: Agitated and calling out. Medications and IVs Current Medications Medications (Trade) Dose Ordered Sig/Mercedes Route Start Time Stop Time Status Last Admin (NS Flush) 2 ml UNSCH PRN IV FLUSH 11/06/16 08:15 (NS Flush) 2 ml BID IV FLUSH 11/06/16 09:00 11/16/16 09:33 Miscellaneous Information 1 Q361D XX 11/06/16 08:15 (Chlorhexidine 2% Cloth) Taper DAILY@04 TOP 11/07/16 04:00 11/03/17 03:59 11/10/16 06:53 (Chlorhexidine 2% Cloth) 3 pack UNSCH PRN TOP 11/06/16 08:15 (SoluCORTEF INJ) 100 mg Q8HR IV PUSH 11/06/16 14:00 11/16/16 06:06 (Ecotrin Ec) 81 mg DAILY PO 11/07/16 09:00 Hold 11/15/16 08:56 (Synthroid) 75 mcg DAILY@0600 PO 11/07/16 06:00 11/14/16 06:41 (Beneprotein Powder) 2 pack TID G-TUBE 11/07/16 09:00 11/15/16 08:58 (Ativan) 0.5 mg Q6H PRN PO 11/08/16 15:45 Hold 11/14/16 22:59 (risperDAL) 2 mg QID PO 11/09/16 21:00 Hold 11/14/16 20:45 (Lovenox Inj) 100 mg Q12H SQ 11/10/16 21:00 Hold 11/15/16 08:56 (KCl 40 Meq/30 ml Liq) 10 meq BID PO 11/11/16 11:00 11/15/16 08:56 (Norvasc) 5 mg DAILY PO 11/12/16 09:00 Hold 11/14/16 09:49 (Lopressor) 25 mg BID PO 11/11/16 21:00 Hold 11/14/16 20:46 (Flomax) 0.4 mg HS PO 11/11/16 21:00 11/14/16 20:46 (Tylenol-Codeine #3) 1 tab Q4H PRN PO 11/11/16 21:00 11/13/16 22:57 Acetaminophen/ Codeine Phosphate 2 tab 2 tab Q4H PRN PO 11/11/16 21:00 11/14/16 22:31 Dextrose/Sodium Chloride 1,000 ml @ 125 mls/hr Q8H IV 11/13/16 14:00 11/15/16 21:45 Meropenem 500 mg/ Sodium Chloride 100 ml @ 200 mls/hr Q8H IV 11/13/16 20:00 11/16/16 12:35 (Diflucan 200 Mg Premix Bag) 100 ml @ 100 mls/hr Q24H IV 11/13/16 18:00 11/15/16 21:38 (Depakote Sprinkles) 250 mg Q6H PO 11/13/16 22:00 11/15/16 08:56 Miscellaneous Information Patient in critical care unit? Ass... Q361D XX 11/13/16 23:00 (Chlorhexidine 2% Cloth) 3 pack DAILY@04 TOP 11/14/16 04:00 11/18/16 04:01 (Chlorhexidine 2% Cloth) 3 pack UNSCH PRN TOP 11/13/16 23:00 11/18/16 22:50 Haloperidol Lactate 5 mg 5 mg Q6H PRN IM 11/14/16 12:30 11/16/16 07:39 (Zyvox 600 Mg Premix) 300 ml @ 300 mls/hr Q12H IV 11/15/16 09:00 11/16/16 09:32 Albumin Human 25 gm 25 gm Q12H IV 11/15/16 10:00 11/16/16 09:34 Vasopressin 40 units/Dextrose 100 ml @ 4.5 mls/hr [id number] IV 11/15/16 16:00 11/16/16 12:30 (Levophed-Dextrose Drip) 250 ml @ 0 mls/hr TITRATE IV 11/15/16 16:00 11/16/16 12:31 Terbutaline Sulfate 1 mg 1 mg UNSCH PRN SQ 11/15/16 15:30 (Protonix Inj/NS Inj) 100 ml @ 10 mls/hr Q10H IV 11/15/16 20:00 11/16/16 06:07 Terbutaline Sulfate 1 mg 1 mg UNSCH PRN SQ 11/16/16 07:30 Phenylephrine HCl 160 mg/Dextrose 500 ml @ 0 mls/hr TITRATE IV 11/16/16 07:30 11/16/16 07:42 Midazolam HCl 100 ml @ 0 mls/hr TITRATE IV 11/16/16 09:30 (fentaNYL DRIP) 250 ml @ 0 mls/hr TITRATE IV 11/16/16 09:30 11/16/16 12:20 Assessment and Plan Problem List: (1) Pneumonia Status: Acute Plan: ID following. On antibiotics meropenem and Zyvox. Patient tachypneic and agitated. Transferred to the ICU yesterday. Photogrammetric Engineer consulted. (2) Acute renal failure Status: Acute Plan: Patient in shock with minimal urinary output. Nephrology following (3) Altered mental status Status: Chronic Plan: Patient with increased agitation. Most likely hypoxia (4) UTI (urinary tract infection) Status: Acute Plan: ID following. UA postive for hermilo tropicalis. On fluconazole (5) Retroperitoneal bleeding Status: Acute Plan: Bleeding increased on second CT scan. Photogrammetric Engineer managing. (6) Anasarca Status: Acute Plan: Patient on IV albumin. Poor nutritional status. (7) Shock Status: Acute Plan: Patient hypotension. A-line. On Levophed, neosynphrine, and vasopressin. Patient also transfused PRBC and FFP Assessment and Plan Dr. Salgado discussed patients condition with son who is POA. Patient is now a DNR Problem Qualifiers (1) Pneumonia: Qualified Code: J15.212 - Pneumonia of left lower lobe due to methicillin- resistant Staphylococcus aureus (MRSA) (2) Acute renal failure: Qualified Code: N17.9 - Acute renal failure, unspecified acute renal failure type (3) Altered mental status: Qualified Code: R41.0 - Disorientation Marimar Vazquez Nov 16, 2016 07:37
[2016-11-16] MEDS: HALOPERIDOL LACTATE 5 MG/ML AMP IM PRN (07:39)
[2016-11-16] MEDS ORDERED: PHYTONADIONE INJ 10 MG in DEXTROSE 5% IN WATER INJ 50 ML IV ONE ×4 (07:45→09:00)
--- NOTE | 2016-11-16 08:07 | HHI.IDPN ---
Subjective Subjective Remarks is 89 y/o CM who is admitted with recurrent MRSA pneumonia and UTI. Overnight events reviewed. Hypotension, acute renal failure, decreasing H/H with no GI bleed. Underwent 2 CT scans overnight with increasing size on 2nd one. Levophed 20 mics, Garrett 40 mics, Vasopressin 4.5 ml. Urine output only 100 cc /hr overnight. Nephrology on board. No fever No rash Pasty brown BM. Confused and lethargic. Antibiotics Meropenem IV Micafungin IV Zyvox IV Lines Line sites with no e/o infection. Past Medical History reviewed Allergies: Coded Allergies: Levofloxacin (Verified Allergy, Severe, 11/06/16) *MDRO Multi-Drug Resistant Organism (Verified Adverse Reaction, Unknown, MRSA, 11/09/16) MRSA (sputum & blood) - 07/21/16 & 08/22/16; MRSA (sputum & blood) - 10/08/16; (sputum) - 11/06/16 MRSA PCR Screen POSITIVE - 10/08/16 Objective . Vital Signs Date Time Temp Pulse Resp B/P Pulse Ox O2 Delivery O2 Flow Rate FiO2 11/16/16 06:00 107 11/16/16 04:00 113 11/16/16 04:00 98.0 113 27 123/84 100 11/16/16 02:00 103 11/16/16 00:00 98.5 128 28 115/53 96 11/16/16 00:00 128 11/15/16 22:00 114 11/15/16 20:12 98 Nasal Cannula 4.00 11/15/16 20:00 106 11/15/16 20:00 97.3 106 26 113/58 93 11/15/16 19:00 97.3 109 20 115/69 11/15/16 18:10 97.4 109 21 98/73 11/15/16 18:00 110 11/15/16 17:45 97.4 114 22 89/54 11/15/16 17:23 97.3 92 24 99/55 11/15/16 16:00 105 11/15/16 16:00 97.4 105 23 102/58 11/15/16 14:00 95 11/15/16 13:40 97.3 80 19 63/45 11/15/16 13:24 98.1 89 24 83/47 92 11/15/16 12:00 97.4 94 20 92/50 97 11/15/16 12:00 94 11/15/16 10:00 105 11/15/16 08:36 97 21 11/15/16 08:00 97.7 90 24 113/64 97 11/15/16 08:00 90 11/15/16 11/15/16 11/16/16 15:00 23:00 07:00 Intake Total 3197 ml 2629 ml 1826 ml Output Total 100 ml 50 ml 50 ml Balance 3097 ml 2579 ml 1776 ml Intake Oral 0 ml IV Total 3097 ml 1053 ml 726 ml Albumin 100 ml 100 ml Packed Cells 750 ml 1100 ml FFP 726 ml Output Urine Total 100 ml 50 ml 50 ml # Bowel Movements 0 0 1 . Laboratory Tests Test 11/14/16 11/15/16 11/15/16 11/15/16 10:23 03:27 15:47 22:30 White Blood Count 13.8 TH/MM3 15.0 TH/MM3 23.9 TH/MM3 Red Blood Count 2.07 MIL/MM3 2.34 MIL/MM3 1.68 MIL/MM3 Hemoglobin 6.7 GM/DL 7.5 GM/DL 5.2 GM/DL 7.7 GM/DL Hematocrit 20.5 % 22.4 % 15.7 % Mean Corpuscular Volume 98.9 FL 95.8 FL 93.7 FL Mean Corpuscular Hemoglobin 32.3 PG 32.1 PG 31.1 PG Mean Corpuscular Hemoglobin 32.7 % 33.5 % 33.2 % Concent Red Cell Distribution Width 19.1 % 20.1 % 18.6 % Platelet Count 183 TH/MM3 161 TH/MM3 149 TH/MM3 Mean Platelet Volume 9.0 FL 9.3 FL 9.4 FL Neutrophils (%) (Auto) 87.9 % 90.4 % 88.7 % Lymphocytes (%) (Auto) 5.4 % 4.0 % 5.1 % Monocytes (%) (Auto) 6.5 % 5.4 % 6.2 % Eosinophils (%) (Auto) 0.1 % 0.1 % 0.0 % Basophils (%) (Auto) 0.1 % 0.1 % 0.0 % Neutrophils # (Auto) 12.2 TH/MM3 13.6 TH/MM3 21.2 TH/MM3 Lymphocytes # (Auto) 0.7 TH/MM3 0.6 TH/MM3 1.2 TH/MM3 Monocytes # (Auto) 0.9 TH/MM3 0.8 TH/MM3 1.5 TH/MM3 Eosinophils # (Auto) 0.0 TH/MM3 0.0 TH/MM3 0.0 TH/MM3 Basophils # (Auto) 0.0 TH/MM3 0.0 TH/MM3 0.0 TH/MM3 CBC Comment AUTO DIFF AUTO DIFF AUTO DIFF Differential Total Cells 100 100 100 Counted Neutrophils % (Manual) 85 % 88 % 87 % Band Neutrophils % 7 % 4 % Lymphocytes % 1 % 3 % 5 % Monocytes % 6 % 9 % Neutrophils # (Manual) 12.8 TH/MM3 13.2 TH/MM3 22.5 TH/MM3 Metamyelocytes 1 % 2 % Differential Comment FINAL DIFF FINAL DIFF FINAL DIFF MANUAL MANUAL MANUAL Platelet Estimate NORMAL NORMAL LOW Platelet Morphology Comment NORMAL NORMAL NORMAL Basophils % 1 % Promyelocytes 1 % Nucleated Red Blood Cells 1 /100 WBC Ovalocytes 1+ Test 11/16/16 05:45 Hemoglobin 9.8 GM/DL Laboratory Tests Test 11/14/16 11/14/16 11/15/16 11/15/16 10:23 16:17 03:27 15:47 Sodium Level 139 MEQ/L 140 MEQ/L 141 MEQ/L Potassium Level 4.4 MEQ/L 4.4 MEQ/L 4.3 MEQ/L Chloride Level 106 MEQ/L 108 MEQ/L 108 MEQ/L Carbon Dioxide Level 24.2 MEQ/L 24.1 MEQ/L 19.6 MEQ/L Anion Gap 9 MEQ/L 8 MEQ/L 13 MEQ/L Blood Urea Nitrogen 23 MG/DL 24 MG/DL 26 MG/DL Creatinine 1.08 MG/DL 1.15 MG/DL 1.45 MG/DL Estimat Glomerular Filtration 65 ML/MIN 60 ML/MIN 46 ML/MIN Rate Random Glucose 135 MG/DL 162 MG/DL 208 MG/DL Calcium Level 7.6 MG/DL 7.5 MG/DL 7.0 MG/DL Lactic Acid Level 1.9 mmol/L Protein Corrected Calcium 9.4 MG/DL Magnesium Level 1.8 MG/DL Total Bilirubin 0.4 MG/DL Aspartate Amino Transf 18 U/L (AST/SGOT) Alanine Aminotransferase 11 U/L (ALT/SGPT) Alkaline Phosphatase 24 U/L Total Protein 3.1 GM/DL Albumin 1.7 GM/DL Prealbumin 15 MG/DL Microbiology Date/Time Procedure Status Source Growth 11/13/16 14:45 Urine Culture - Final Complete Urine Catheterized Urine Donna Tropicalis 11/13/16 15:45 Aerobic Blood Culture - Preliminary Resulted Blood Peripheral NO GROWTH IN 2 DAYS 11/13/16 15:45 Anaerobic Blood Culture - Preliminary Resulted Blood Peripheral NO GROWTH IN 2 DAYS 11/13/16 15:50 Aerobic Blood Culture - Preliminary Resulted Blood Peripheral NO GROWTH IN 2 DAYS 11/13/16 15:50 Anaerobic Blood Culture - Preliminary Resulted Blood Peripheral NO GROWTH IN 2 DAYS Imaging Last Impressions Chest X-Ray 11/07/16 0000 Signed Impressions: Service Date/Time: Monday, November 07, 2016 04:07 - CONCLUSION: Increasing infiltrate in the left lung base. Thompson Fabian MD Abdomen/Pelvis CT 11/06/16 1028 Signed Impressions: Service Date/Time: Sunday, November 06, 2016 11:15 - CONCLUSION: Stout catheter in place in a decompressed urinary bladder. No obstructive uropathy. There is a nonobstructive left kidney midpole posterior stones sub-centimeters size. Multiple right renal cysts. Uncomplicated diverticuli of the colon and extensive degenerative changes of the lumbar spine. Abdirashid Cotton MD CT Angiography 11/06/16 0000 Signed Impressions: Service Date/Time: Sunday, November 06, 2016 11:15 - CONCLUSION: Minimally suboptimal examination with poor visualization of distal arterial structures. Centrally there is no evidence of pulmonary embolism. Stable bilateral posterior basilar minimal pleural effusions and dependent basilar atelectasis. Abdirashid Cotton MD Physical Exam GENERAL: Obese, CM patient. SKIN: No generalized rashes. Has skin breaks on RUE and few areas of ecchymosis. Extremely pale ashen color. HEAD: Atraumatic. Normocephalic. No temporal or scalp tenderness. EYES: Pupils equal round and reactive. Extraocular motions intact. No scleral icterus. No injection or drainage. ENT:Grossly NAD NECK: Trachea midline. Supple, nontender, no meningeal signs. CARDIOVASCULAR: HS audible. RESPIRATORY: Breath sounds equal bilaterally but decreased in the bases. GASTROINTESTINAL: Abdomen soft, tenderness noted in bilateral LQs. Bilateral flank and thigh area ecchymosis noted. MUSCULOSKELETAL: Extremities without clubbing, cyanosis. NEUROLOGICAL: Confused. Not oriented x 3. Moaning and groaning. Psych:could not be assessed. IV line sites with no e/o infection. Assessment & Plan Remarks Shock: Hemorrhagic and septic. MRSA Pneumonia (recent history of MRSA pneumonia, other possibilities are community-acquired pneumonia, atypical pneumonia) Retroperitoneal hematoma enlarging per repeat CT A/P. Dropping H/H despite transfusions. Acute renal failure on admission appears to be improving likely sepsis of prerenal Prior history of MRSA pneumonia as well as bacteremia in September 2016. Recurrent pneumonia: MRSA C.tropicalis UTI Acute COPD exacerbation with hypoxia. 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 Tried to call Ronaldo mcgee son with no response. Continue Meropenem IV for now. Continue Diflucan IV for now. Continue Zyvox IV Follow cultures. Follow clinically. radhikaw RN to cover for me this weekend. France Alfaro MD Nov 16, 2016 08:07
[2016-11-16 08:27] LABS: APTT (PATIENT) 44.2 SEC (24.3-30.1); INTERNATIONAL NORMALIZED RATIO 1.2 RATIO; PROTHROMBIN TIME - PATIENT 13.3 SEC (9.8-11.6)
[2016-11-16] MEDS ORDERED: SUCCINYLCHOLINE CHLORIDE 200 MG/10 ML VIAL ONE (08:53)
[2016-11-16] MEDS ORDERED: ETOMIDATE 20 MG/10 ML VIAL ONE (08:53)
[2016-11-16] MEDS: POTASSIUM CL 40 MEQ/30 ML LIQ UDC PO SCH (09:00)
[2016-11-16] MEDS: BENEPROTEIN POWDER 1 PACK G-TUBE SCH ×3 (09:00→17:10)
[2016-11-16 09:25] LABS: CKMB 7.1 NG/ML (0.5-3.6)
[2016-11-16] MEDS ORDERED: MIDAZOLAM 100 MG/ML INJ 100 ML IV SCH (09:30)
[2016-11-16] MEDS ORDERED: fentaNYL DRIP 250 ML IV SCH ×2 (09:30→17:15)
[2016-11-16] MEDS ORDERED: MIDAZOLAM HCL 2 MG/2 ML VIAL IV ONE (09:30)
[2016-11-16] MEDS: LINEZOLID 600 MG PREMIX 300 ML IV SCH (09:32)
[2016-11-16] MEDS: SODIUM CHLORIDE 0.9% FLUSH 5 ML FLUSH IV FLUSH SCH (09:33)
[2016-11-16] MEDS: ALBUMIN HUMAN 25% 25 GM/100 ML BAGP IV SCH (09:34)
--- NOTE | 2016-11-16 09:40 | RADRPT ---
EXAM DATE/TIME: 11/16/2016 09:07 [facility] COMPARISON: CHEST SINGLE AP, November 15, 2016, 14:27. INDICATIONS : Post intubation. MEDICAL HISTORY : Hypertension. Chronic obstructive pulmonary disease. Gastroesophageal reflux disease. SURGICAL HISTORY : None. ENCOUNTER: Initial ACUITY: 1 day PAIN SCORE: Non-responsive. LOCATION: Bilateral chest FINDINGS: Single AP view of the chest. Endotracheal tube is in place with the tip 1.6 cm above the magnolia. Left subclavian central venous catheter remains in place. Nasogastric tube is in place with the tip in th e stomach. Low lung volumes. Mild patchy bilateral pulmonary opacity most prominent at the left lung base. No evidence of pleural effusion or pneumothorax. CONCLUSION: 1. Endotracheal tube and nasogastric tube now in place. Endotracheal tube tip 1.6 cm above the magnolia . 2. Mild patchy bilateral pulmonary parenchymal opacity most prominent at the left lower lobe. Ken Rordiguez MD on November 16, 2016 at 9:37 Board Certified Radiologist. This report was verified electronically.
--- NOTE | 2016-11-16 10:06 | HHI.CCPN ---
Subjective Remarks/Hospital Course The patient is an 89 year old male who is a local [place] resident with past medical history significant for recent MRSA sepsis from pneumonia in Sep 2016, dementia , COPD, CVA, hypertension who presented to the emergency department with increasing shortness of breath overnight. Upon EMS arrival patient was tachypneic and febrile. The patient on arrival to [place] had a temperature of 102.9 and diffuse wheezing. Apparently he was alert and awake on arrival and had productive cough. The patient had IV access obtained and blood work sent for analysis. He was initially normotensive with sinus tachycardia heart rate of 136. A chest x-ray showed persistent left lower lobe infiltrate, ABG showed severe hypoxia. The patient was given DuoNeb 3, Solu-Medrol 125 mg IV, cefepime and Zithromax were started IV and also vancomycin 1 g IV. She was temporarily placed on BiPAP without improvement, and so was emergently intubated and placed on mechanical ventilation. Patient received a total of 4 L normal saline IV fluid. Critical care medicine was consulted for ICU admission. Pertinent labs include a lactate of 4.9 BUN was 26 with a creatinine of 1.4. UA showed evidence of UTI. His source of severe sepsis appears to be pneumonia and UTI. No further history is obtainable from the patient. I evaluated the patient in the ED. He is intubated sedated on 100% oxygen with oxygen saturation now 100%. Repeat ABG is pending. Due to profound hypoxia I'll get a CT angiogram of the chest and also CT abdomen pelvis. He'll be placed on IV Zosyn, azithromycin and IV vancomycin SUBJ 11/07: Overnight received additional 2 L fluid boluses for diminished urine output and borderline hypotension. 400 ml total urine output over the last 10 hours. Patient is hypothermic receiving warm IV fluids. Cultures are pending chest x-ray shows increasing left lower lobe infiltrate which is probably the source of infection, along with UTI 11/08: Remains intubated encephalopathic. Blood pressure improved urine output is improved. Continues to have thick ozuna secretions. Following commands in all 4 extremities on sedation hold 11/09 Patient was extubated yesterday. On 3L oxygen with good sats. Afebrile. 11/15: CCM reconsult: Patient increasingly hypotensive systolic blood pressure in 70s. Received 1.5 L of normal saline, receiving 1 unit of PRBC. Systolic blood pressure remains low despite boluses. Patient is also more lethargic. Had been having recurrent MRSA pneumonia and UTI, clinically appears dry. I have emergently placed left subclavian central line, will give additional 1.5 L fluid boluses, will add 1 unit of PRBC. CBC pending at this time. 11/16: The patient was found to have a large retroperitoneal hematoma on CT abdomen and pelvis last evening. He was given protamine, FFP and 5 units PRBCs since yesterday. His hemoglobin dropped as low as 5.2 and was up to 9.8 this morning. He remains hypotensive and has been started on Levophed/Garrett- Synephrine and vasopressin drips. Patient and worsening respiratory distress with systolic blood pressure in the 70s despite pressors this morning. His pressors were increased by Dr. Clemens. Since Dr. Clemens was at [place] ICU, I was contacted by ICU nursing staff in view of deteriorating clinical status and arrived at the bedside immediately on being notified. Patient's systolic blood pressure was down to the 50s and he was getting a fluid bolus with normal saline. I ordered a second liter normal saline bolus and 2 units PRBCs stat and 50 cc 25% albumin stat. Patient was having agonal respirations and I proceeded with emergent intubation using Etomidate and succinylcholine and placed patient on mechanical ventilation. Dr. Garcia had d/w with IR on 11/15 - retroperitoneal hematoma appeared to be secondary to venous oozing for which no intervention possible by IR. Objective Vital Signs Date Time Temp Pulse Resp B/P Pulse Ox O2 Delivery O2 Flow Rate FiO2 11/16/16 06:00 107 11/16/16 04:00 98.0 27 123/84 100 11/15/16 20:12 Nasal Cannula 4.00 11/15/16 08:36 21 Intake and Output 11/15/16 11/15/16 11/16/16 08:00 16:00 00:00 Intake Total 681 ml 3197 ml 2629 ml Output Total 400 ml 100 ml 50 ml Balance 281 ml 3097 ml 2579 ml Result Diagram: 11/16/16 0545 11/15/16 1547 Other Results Laboratory Tests Test 11/15/16 11/15/16 11/15/16 11/15/16 13:00 15:15 15:47 16:34 Blood Type O POSITIVE O POSITIVE Crossmatch Leukocyte-Reduced Leukocyte-Reduced Red Blood Red Blood Cells Cells Blood Bank Comment Blood Gas Puncture Site LT BRACHIAL Blood Gas Patient Temperature 98.6 Blood Gas HCO3 16 mmol/L Blood Gas Base Excess -6.0 mmol/L Blood Gas Oxygen Saturation 97 % Arterial Blood pH 7.54 Arterial Blood Partial 19 mmHg Pressure CO2 Arterial Blood Partial 131 mmHg Pressure O2 Arterial Blood Oxygen Content 8.2 Vol % Arterial Blood 1.8 % Carboxyhemoglobin Arterial Blood Methemoglobin 1.3 % Blood Gas Hemoglobin 5.8 G/DL Oxygen Delivery Device NASAL CANNULA Blood Gas Liter Flow 4 L/M White Blood Count 23.9 TH/MM3 Red Blood Count 1.68 MIL/MM3 Hemoglobin 5.2 GM/DL Hematocrit 15.7 % Mean Corpuscular Volume 93.7 FL Mean Corpuscular Hemoglobin 31.1 PG Mean Corpuscular Hemoglobin 33.2 % Concent Red Cell Distribution Width 18.6 % Platelet Count 149 TH/MM3 Mean Platelet Volume 9.4 FL Neutrophils (%) (Auto) 88.7 % Lymphocytes (%) (Auto) 5.1 % Monocytes (%) (Auto) 6.2 % Eosinophils (%) (Auto) 0.0 % Basophils (%) (Auto) 0.0 % Neutrophils # (Auto) 21.2 TH/MM3 Lymphocytes # (Auto) 1.2 TH/MM3 Monocytes # (Auto) 1.5 TH/MM3 Eosinophils # (Auto) 0.0 TH/MM3 Basophils # (Auto) 0.0 TH/MM3 CBC Comment AUTO DIFF Differential Total Cells 100 Counted Neutrophils % (Manual) 87 % Band Neutrophils % 4 % Lymphocytes % 5 % Basophils % 1 % Neutrophils # (Manual) 22.5 TH/MM3 Metamyelocytes 2 % Promyelocytes 1 % Nucleated Red Blood Cells 1 /100 WBC Differential Comment FINAL DIFF MANUAL Platelet Estimate LOW Platelet Morphology Comment NORMAL Ovalocytes 1+ Sodium Level 141 MEQ/L Potassium Level 4.3 MEQ/L Chloride Level 108 MEQ/L Carbon Dioxide Level 19.6 MEQ/L Anion Gap 13 MEQ/L Blood Urea Nitrogen 26 MG/DL Creatinine 1.45 MG/DL Estimat Glomerular Filtration 46 ML/MIN Rate Random Glucose 208 MG/DL Calcium Level 7.0 MG/DL Protein Corrected Calcium 9.4 MG/DL Magnesium Level 1.8 MG/DL Total Bilirubin 0.4 MG/DL Aspartate Amino Transf 18 U/L (AST/SGOT) Alanine Aminotransferase 11 U/L (ALT/SGPT) Alkaline Phosphatase 24 U/L Total Protein 3.1 GM/DL Albumin 1.7 GM/DL Prealbumin 15 MG/DL Test 11/15/16 11/15/16 11/15/16 11/15/16 19:14 22:30 23:21 23:30 Blood Bank Comment Hemoglobin 7.7 GM/DL Blood Type O POSITIVE Crossmatch Leukocyte-Reduced Red Blood Cells Prothrombin Time 12.8 SEC Prothromb Time International 1.2 RATIO Ratio Test 11/16/16 11/16/16 11/16/16 11/16/16 05:45 05:49 07:50 08:59 Hemoglobin 9.8 GM/DL Blood Gas Puncture Site ART LINE Blood Gas Patient Temperature 98.6 Blood Gas HCO3 13 mmol/L Blood Gas Base Excess -10.4 mmol/L Blood Gas Oxygen Saturation 96 % Arterial Blood pH 7.44 Arterial Blood Partial 20 mmHg Pressure CO2 Arterial Blood Partial 100 mmHg Pressure O2 Arterial Blood Oxygen Content 13.2 Vol % Arterial Blood 1.4 % Carboxyhemoglobin Arterial Blood Methemoglobin 1.1 % Blood Gas Hemoglobin 9.7 G/DL Oxygen Delivery Device NASAL CANNULA Blood Gas Liter Flow 5 L/M Prothrombin Time 13.3 SEC Prothromb Time International 1.2 RATIO Ratio Activated Partial 44.2 SEC Thromboplast Time Fibrinogen 113 mg/dL Total Creatine Kinase 1271 U/L Creatine Kinase MB 7.1 NG/ML Creatine Kinase MB % 0.6 % Blood Type O POSITIVE Crossmatch Leukocyte-Reduced Red Blood Cells Blood Bank Comment Microbiology Date/Time Procedure Status Source Growth 11/13/16 14:45 Urine Culture - Final Complete Urine Catheterized Urine Donna Tropicalis Imaging Last Impressions Chest X-Ray 11/09/16 0600 Signed Impressions: Service Date/Time: Wednesday, November 09, 2016 03:40 - CONCLUSION: Slightly improved aeration. Richard Kingston MD Abdomen/Pelvis CT 11/06/16 1028 Signed Impressions: Service Date/Time: Sunday, November 06, 2016 11:15 - CONCLUSION: Stout catheter in place in a decompressed urinary bladder. No obstructive uropathy. There is a nonobstructive left kidney midpole posterior stones sub-centimeters size. Multiple right renal cysts. Uncomplicated diverticuli of the colon and extensive degenerative changes of the lumbar spine. Abdirashid Stone, MD CT Angiography 11/06/16 0000 Signed Impressions: Service Date/Time: Sunday, November 06, 2016 11:15 - CONCLUSION: Minimally suboptimal examination with poor visualization of distal arterial structures. Centrally there is no evidence of pulmonary embolism. Stable bilateral posterior basilar minimal pleural effusions and dependent basilar atelectasis. Abdirashid Cotton MD Objective Remarks HEENT/ Neuro: Sedated, orally intubated, Pallor present, no icterus, tongue/ mucosa dry. Neck: No JVD Chest/Pulm: on mech vent, good air entry bilaterally, no wheezing or crackles. Scattered rhonchi CVS: S1-S2 regular, no murmur GI/abdomen: soft, nontender, bowel sounds sluggish Extremities: warm bilaterally, bilateral edema Date of Insertion: Nov 15, 2016 Side: Left Location: Subclavian A/P Assessment and Plan Assessment and Plan Neuro/Psych: Acute metabolic encephalopathy Dementia Encephalopathy History CVA with left-sided weakness Peripheral neuropathy Chronic low back pain - Sedation Versed and fentanyl while intubated for vent synchrony. Daily sedation vacation -Continue Depakote and hold Risperdal CV: Shock septic and hemorrhagic Lactic acidosis History of hypertension -Monitor HR and BP keep MAP>65mmHg, on Levophed 20 mics per minute, Garrett- Synephrine 200 mics per minute, vasopressin 0.04 units per minute. Aggressive fluid resuscitation. -On ASA 81mg daily Given 3L boluses NS on 11/15, 5 U PRBCs since yesterday. 2 units PRBCs, 2 L normal saline bolus and 25% albumin 50 cc ordered stat prior to intubation. Resp: Acute hypoxemic respiratory failure-Extubated 11/08 COPD exacerbation MRSA pneumonia History of recurrent MRSA pneumonia -Continue with oxygen keep sat >90% -DuoNeb every 6 hours and as needed -Hydrocortisone 100mg every 8 -CT pulmonary angiogram negative for PE -Broad spectrum antibiotics with Zosyn and vancomycin GI: History of Rectal ulcers History gastritis Malnutrition -Protonix for GI prophylaxis. -OG tube placed. Nothing by mouth currently. Will consider trophic feeds if hemodynamics improve. -Colace/as needed Senokot for bowel regimen : Chronic kidney disease disease History of ELMO -Monitor renal function, I/o's, electrolytes replacement as needed. Endo: Hypothyroidism -Continue Levoxyl at 75 g by mouth daily. -Sliding-scale insulin with Accu-Cheks every 6 hours to maintain glycemia if needed -Electrolyte replacement per protocol Heme: Hemorrhagic shock Anemia requiring transfusion Large retroperitoneal hematoma History of skin cancer -Hb after 1 U PRBC 5.7 yesterday. Additonal 3U STAT, Holding Lovenox ASA. Stat Protamine [address] abd pelvis with retroperitoneal bleed -Holding aspirin and Lovenox -Transfused 5 units PRBC since 11/15. 2 additional units PRBCs transfused now. ID: Septic shock HCAP/left lower lobe/MRSA UTI with Escherichia coli and Pseudomonas, new culture with Donna tropicalis Currently on Meropenem IV, Zyvox and micafungin ID Dr. Alfaro -11/13 urine Donna tropicalis -11/06 Sputum cx: MRSA -11/06 Urine cx: E.coli, pseudomonas MSK: -Right heel stage II decubitus ulcer. Wound care consulted Access - Utilize peripheral IV. Prophylaxis - GI - Protonix - DVT - SCD-hold Lovenox due to anemia sec to retroperitoneal bleed requiring transfusion, IV Protonix D/W Palliative care team, D/w Dr. Salgado, D/W ID, D/W OFFICE CLINICIAN, D/W Resp therapists. CODE STATUS changed to DNR by family. Dr. Villatoro plans to discuss de- escalation of therapy and has requested holding off on drawing further labs at this time. CCT 45 min excluding procedures Bradley Alfaro MD Nov 16, 2016 10:06
--- NOTE | 2016-11-16 10:07 | PD.PROCEDR ---
Procedure Note Procedure Procedure: Endotracheal intubation Preop diagnosis: Hemorrhagic shock, retroperitoneal hematoma, acute respiratory failure, MRSA pneumonia, sepsis Postop diagnosis: Same Indication: Impending respiratory arrest Sedation used: Etomidate 20 mg, succinylcholine 100 mg IV Procedure: Patient was preoxygenated with 100% oxygen via Ambu bag with bag mask ventilation, following induction of sedation and neuromuscular blockade, direct laryngoscopy was performed using a Mac 4 blade with good visualization of vocal cords. An 8 Arabic ET tube was passed through the vocal cords under direct visualization up to the 25 centimeter trevor and after inflating cuff of ET tube, correct placement was confirmed using bagging with good color change on CO2 detector, 5 point auscultation and chest rise with ventilation. Patient was connected to mechanical ventilation. Patient tolerated the procedure well with no immediate complications noted. Postprocedure chest x-ray was ordered. Bradley Alfaro MD Nov 16, 2016 10:07
--- NOTE | 2016-11-16 10:32 | HHI.HCPN ---
Reason for visit a. To assist with evaluation and management of symptoms including: shortness of breath and debility. b. To assist medical decision maker(s) with: better understanding of current medical conditions; weighing benefits/burdens of medical treatment options; making medical treatment decisions. Subjective/Interval History Patient seen in ICU, no family at bedside.Worsening clinical condition, started on pressors yesterday. CT of abdomen/pelvis showing retroperitoneal hematoma, repeat CT showing progression of bleeding. Hematoma appears to be secondary to venous oozing with no intervention possible by IR. Patient has been transfused 5 units of PRBC since yesterday for hgb of 5.2, today 9.8. Worsening respiratory condition with hypotension this morning, SBP in the 70's. Patient was emergently intubated and placed on mechanical ventilation. 09:05. Telephone conversation with patient's son Jackson on two separate phone calls. Medical update provided. Discussed worsening clinical condition with poor prognosis for survival. Discussed limitations of CPR in patient's worsening condition. Family in agreement to DNR at this time given his worsening status. Family requesting to continue with current henriquez short of no code until family arrives to see patient. Family made aware that patient is not expected to survive this acute event. Family verbalized understanding. 16:50. Patient;s condition worsen. on 3 vasopressors with SBP in the 70's. Bitting EET. Telephone conversation with patient's son Ronaldo MCKNIGHT, medical update provided. Discussed continuation of current medical care versus transitioning patient to comfort-directed care in the setting of his imminent . Son electing for comfort-directed care/withdrawal of life support. Exhibit faxed to son, pending return. Discussed case with Dr. Alfaro, Dr Garcia and bedside RN. . Family/friend interactions See interval note. . Advance Directives Living Will: Never completed Health Care Surrogate: Completed, but not made available Durable Power of Student Counsellor: Completed, but not made available Advance Directive Specifics Date completed: Pending healthcare surrogate and DURABLE POWER OF JUICE TESTER from kilo Higgins. . Health Care Surrogate(s): As per patient's family. Kilo montanez is the designated healthcare surrogate. Pending healthcare surrogate paperwork. . Documented care wishes: No living will completed. . Significant change in goals: NO CODE.Transition to comfort-directed care/withdrawal of life support. . Objective Vital Signs Date Time Temp Pulse Resp B/P Pulse Ox O2 Delivery O2 Flow Rate FiO2 11/16/16 09:02 100 100 11/16/16 07:48 96 Nasal Cannula 5.00 11/16/16 06:00 107 11/16/16 04:00 113 11/16/16 04:00 98.0 113 27 123/84 100 11/16/16 02:00 103 11/16/16 00:00 98.5 128 28 115/53 96 11/16/16 00:00 128 11/15/16 22:00 114 11/15/16 20:12 98 Nasal Cannula 4.00 11/15/16 20:00 106 11/15/16 20:00 97.3 106 26 113/58 93 11/15/16 19:00 97.3 109 20 115/69 11/15/16 18:10 97.4 109 21 98/73 11/15/16 18:00 110 11/15/16 17:45 97.4 114 22 89/54 11/15/16 17:23 97.3 92 24 99/55 11/15/16 16:00 105 11/15/16 16:00 97.4 105 23 102/58 11/15/16 14:00 95 11/15/16 13:40 97.3 80 19 63/45 11/15/16 13:24 98.1 89 24 83/47 92 11/15/16 12:00 97.4 94 20 92/50 97 11/15/16 12:00 94 Intake & Output 11/16/16 11/16/16 07:00 19:00 Intake Total 4455 ml Output Total 100 ml Balance 4355 ml IV Total 1779 ml Albumin 100 ml Packed Cells 1850 ml FFP 726 ml Output Urine Total 100 ml # Bowel Movements 1 Physical Exam CONSTITUTIONAL/GENERAL: This is a frail elderly man in moderate distress. intubated, mech vent. TUBES/LINES/DRAINS: PIV's, Stout cath, SCD's, ETT. Central line. SKIN: No jaundice, rashes, or lesions. Scattered ecchymoses on upper extremities. No wounds seen anteriorly. Skin temperature appropriate. Not diaphoretic. HEAD: Atraumatic. Normocephalic. ENT: unable to assess hearing secondary to clinical status. moist oral mucosa. Poor dentition. ETT in place. NECK: Trachea midline. Supple, nontender. CARDIOVASCULAR: Regular rate and rhythm without murmurs, gallops, or rubs. Week pedal pulses. Generalized edema. RESPIRATORY/CHEST: Symmetric. Coarse breath sounds. Intubated on mech vent. GASTROINTESTINAL: Bowel sounds present. GENITOURINARY: Without palpable bladder distension. Stout catheter in place. MUSCULOSKELETAL: No mottling or clubbing. NEUROLOGICAL: sedated. Unresponsive to voice or tactile stimuli. . Diagnostic Tests Laboratory Laboratory Tests Test 11/13/16 11/13/16 11/13/16 11/13/16 10:32 10:43 14:45 15:25 White Blood Count 15.3 TH/MM3 (4.0-11.0) Red Blood Count 2.62 MIL/MM3 (4.50-5.90) Hemoglobin 8.4 GM/DL (13.0-17.0) Hematocrit 25.7 % (39.0-51.0) Mean Corpuscular Volume 98.0 FL (80.0-100.0) Mean Corpuscular Hemoglobin 32.1 PG (27.0-34.0) Mean Corpuscular Hemoglobin 32.8 % Concent (32.0-36.0) Red Cell Distribution Width 17.8 % (11.6-17.2) Platelet Count 234 TH/MM3 (150-450) Mean Platelet Volume 8.9 FL (7.0-11.0) Neutrophils (%) (Auto) 91.0 % (16.0-70.0) Lymphocytes (%) (Auto) 4.3 % (9.0-44.0) Monocytes (%) (Auto) 4.7 % (0.0-8.0) Eosinophils (%) (Auto) 0.0 % (0.0-4.0) Basophils (%) (Auto) 0.0 % (0.0-2.0) Neutrophils # (Auto) 13.9 TH/MM3 (1.8-7.7) Lymphocytes # (Auto) 0.7 TH/MM3 (1.0-4.8) Monocytes # (Auto) 0.7 TH/MM3 (0-0.9) Eosinophils # (Auto) 0.0 TH/MM3 (0-0.4) Basophils # (Auto) 0.0 TH/MM3 (0-0.2) CBC Comment AUTO DIFF Differential Total Cells 100 Counted Neutrophils % (Manual) 90 % (16-70) Band Neutrophils % 1 % (0-6) Lymphocytes % 5 % (9-44) Monocytes % 3 % (0-8) Neutrophils # (Manual) 14.1 TH/MM3 (1.8-7.7) Metamyelocytes 1 % (0-1) Differential Comment FINAL DIFF MANUAL Platelet Estimate NORMAL (NORMAL) Platelet Morphology Comment NORMAL (NORMAL) Vancomycin Level Trough 17.6 MCG/ML (5.0-10.0) Urine Color YELLOW (YELLW/STRAW) Urine Turbidity CLEAR (CLEAR) Urine pH 6.0 (5.0-8.5) Urine Specific Alvo GREATER THAN 1.050 (1.002-1.035) Urine Protein 30 mg/dL (NEG-TRACE) Urine Glucose (UA) NEG mg/dL (NEG) Urine Ketones 10 mg/dL (NEG) Urine Occult Blood MOD (NEG) Urine Nitrite NEG (NEG) Urine Bilirubin NEG (NEG) Urine Urobilinogen LESS THAN 2.0 MG/DL (LESS THAN 2.0) Urine Leukocyte Esterase SMALL (NEG) Urine RBC 117 /hpf (0-3) Urine WBC 8 /hpf (0-5) Urine Bacteria RARE /hpf (NONE) Urine Yeast (Budding) RARE (NONE) Microscopic Urinalysis Comment CATH-CULTURE IND Lactic Acid Level 3.7 mmol/L (0.4-2.0) Test 11/13/16 11/13/16 11/13/16 11/14/16 15:45 18:55 20:15 10:23 Procalcitonin 0.25 Lactic Acid Level 3.6 mmol/L (0.4-2.0) Nasal Screen MRSA (PCR) NEGATIVE (NEGATIVE) White Blood Count 13.8 TH/MM3 (4.0-11.0) Red Blood Count 2.07 MIL/MM3 (4.50-5.90) Hemoglobin 6.7 GM/DL (13.0-17.0) Hematocrit 20.5 % (39.0-51.0) Mean Corpuscular Volume 98.9 FL (80.0-100.0) Mean Corpuscular Hemoglobin 32.3 PG (27.0-34.0) Mean Corpuscular Hemoglobin 32.7 % Concent (32.0-36.0) Red Cell Distribution Width 19.1 % (11.6-17.2) Platelet Count 183 TH/MM3 (150-450) Mean Platelet Volume 9.0 FL (7.0-11.0) Neutrophils (%) (Auto) 87.9 % (16.0-70.0) Lymphocytes (%) (Auto) 5.4 % (9.0-44.0) Monocytes (%) (Auto) 6.5 % (0.0-8.0) Eosinophils (%) (Auto) 0.1 % (0.0-4.0) Basophils (%) (Auto) 0.1 % (0.0-2.0) Neutrophils # (Auto) 12.2 TH/MM3 (1.8-7.7) Lymphocytes # (Auto) 0.7 TH/MM3 (1.0-4.8) Monocytes # (Auto) 0.9 TH/MM3 (0-0.9) Eosinophils # (Auto) 0.0 TH/MM3 (0-0.4) Basophils # (Auto) 0.0 TH/MM3 (0-0.2) CBC Comment AUTO DIFF Differential Total Cells 100 Counted Neutrophils % (Manual) 85 % (16-70) Band Neutrophils % 7 % (0-6) Lymphocytes % 1 % (9-44) Monocytes % 6 % (0-8) Neutrophils # (Manual) 12.8 TH/MM3 (1.8-7.7) Metamyelocytes 1 % (0-1) Differential Comment FINAL DIFF MANUAL Platelet Estimate NORMAL (NORMAL) Platelet Morphology Comment NORMAL (NORMAL) Sodium Level 139 MEQ/L (136-145) Potassium Level 4.4 MEQ/L (3.5-5.1) Chloride Level 106 MEQ/L (98-107) Carbon Dioxide Level 24.2 MEQ/L (21.0-32.0) Anion Gap 9 MEQ/L (5-15) Blood Urea Nitrogen 23 MG/DL (7-18) Creatinine 1.08 MG/DL (0.60-1.30) Estimat Glomerular Filtration 65 ML/MIN (>89) Rate Random Glucose 135 MG/DL (74-106) Calcium Level 7.6 MG/DL (8.5-10.1) Test 11/14/16 11/15/16 11/15/16 11/15/16 16:17 03:27 13:00 15:15 Lactic Acid Level 1.9 mmol/L (0.4-2.0) Blood Type O POSITIVE O POSITIVE Antibody Screen NEGATIVE Crossmatch Leukocyte-Reduced Leukocyte-Reduced Red Blood Red Blood Cells Cells Blood Bank Comment White Blood Count 15.0 TH/MM3 (4.0-11.0) Red Blood Count 2.34 MIL/MM3 (4.50-5.90) Hemoglobin 7.5 GM/DL (13.0-17.0) Hematocrit 22.4 % (39.0-51.0) Mean Corpuscular Volume 95.8 FL (80.0-100.0) Mean Corpuscular Hemoglobin 32.1 PG (27.0-34.0) Mean Corpuscular Hemoglobin 33.5 % Concent (32.0-36.0) Red Cell Distribution Width 20.1 % (11.6-17.2) Platelet Count 161 TH/MM3 (150-450) Mean Platelet Volume 9.3 FL (7.0-11.0) Neutrophils (%) (Auto) 90.4 % (16.0-70.0) Lymphocytes (%) (Auto) 4.0 % (9.0-44.0) Monocytes (%) (Auto) 5.4 % (0.0-8.0) Eosinophils (%) (Auto) 0.1 % (0.0-4.0) Basophils (%) (Auto) 0.1 % (0.0-2.0) Neutrophils # (Auto) 13.6 TH/MM3 (1.8-7.7) Lymphocytes # (Auto) 0.6 TH/MM3 (1.0-4.8) Monocytes # (Auto) 0.8 TH/MM3 (0-0.9) Eosinophils # (Auto) 0.0 TH/MM3 (0-0.4) Basophils # (Auto) 0.0 TH/MM3 (0-0.2) CBC Comment AUTO DIFF Differential Total Cells 100 Counted Neutrophils % (Manual) 88 % (16-70) Lymphocytes % 3 % (9-44) Monocytes % 9 % (0-8) Neutrophils # (Manual) 13.2 TH/MM3 (1.8-7.7) Differential Comment FINAL DIFF MANUAL Platelet Estimate NORMAL (NORMAL) Platelet Morphology Comment NORMAL (NORMAL) Sodium Level 140 MEQ/L (136-145) Potassium Level 4.4 MEQ/L (3.5-5.1) Chloride Level 108 MEQ/L (98-107) Carbon Dioxide Level 24.1 MEQ/L (21.0-32.0) Anion Gap 8 MEQ/L (5-15) Blood Urea Nitrogen 24 MG/DL (7-18) Creatinine 1.15 MG/DL (0.60-1.30) Estimat Glomerular Filtration 60 ML/MIN (>89) Rate Random Glucose 162 MG/DL (74-106) Calcium Level 7.5 MG/DL (8.5-10.1) Blood Gas Puncture Site LT BRACHIAL Blood Gas Patient Temperature 98.6 Blood Gas HCO3 16 mmol/L (22-26) Blood Gas Base Excess -6.0 mmol/L (-2-2) Blood Gas Oxygen Saturation 97 % (90-100) Arterial Blood pH 7.54 (7.380-7.420) Arterial Blood Partial 19 mmHg (38-42) Pressure CO2 Arterial Blood Partial 131 mmHg Pressure O2 (61-120) Arterial Blood Oxygen Content 8.2 Vol % (12.0-20.0) Arterial Blood 1.8 % (0-4) Carboxyhemoglobin Arterial Blood Methemoglobin 1.3 % (0-2) Blood Gas Hemoglobin 5.8 G/DL (12.0-16.0) Oxygen Delivery Device NASAL CANNULA Blood Gas Liter Flow 4 L/M Test 11/15/16 11/15/16 11/15/16 11/15/16 15:47 16:34 19:14 22:30 White Blood Count 23.9 TH/MM3 (4.0-11.0) Red Blood Count 1.68 MIL/MM3 (4.50-5.90) Hemoglobin 5.2 GM/DL 7.7 GM/DL (13.0-17.0) (13.0-17.0) Hematocrit 15.7 % (39.0-51.0) Mean Corpuscular Volume 93.7 FL (80.0-100.0) Mean Corpuscular Hemoglobin 31.1 PG (27.0-34.0) Mean Corpuscular Hemoglobin 33.2 % Concent (32.0-36.0) Red Cell Distribution Width 18.6 % (11.6-17.2) Platelet Count 149 TH/MM3 (150-450) Mean Platelet Volume 9.4 FL (7.0-11.0) Neutrophils (%) (Auto) 88.7 % (16.0-70.0) Lymphocytes (%) (Auto) 5.1 % (9.0-44.0) Monocytes (%) (Auto) 6.2 % (0.0-8.0) Eosinophils (%) (Auto) 0.0 % (0.0-4.0) Basophils (%) (Auto) 0.0 % (0.0-2.0) Neutrophils # (Auto) 21.2 TH/MM3 (1.8-7.7) Lymphocytes # (Auto) 1.2 TH/MM3 (1.0-4.8) Monocytes # (Auto) 1.5 TH/MM3 (0-0.9) Eosinophils # (Auto) 0.0 TH/MM3 (0-0.4) Basophils # (Auto) 0.0 TH/MM3 (0-0.2) CBC Comment AUTO DIFF Differential Total Cells 100 Counted Neutrophils % (Manual) 87 % (16-70) Band Neutrophils % 4 % (0-6) Lymphocytes % 5 % (9-44) Basophils % 1 % (0-2) Neutrophils # (Manual) 22.5 TH/MM3 (1.8-7.7) Metamyelocytes 2 % (0-1) Promyelocytes 1 % (0-0) Nucleated Red Blood Cells 1 /100 WBC (0-0) Differential Comment FINAL DIFF MANUAL Platelet Estimate LOW (NORMAL) Platelet Morphology Comment NORMAL (NORMAL) Ovalocytes 1+ (NORMAL) Sodium Level 141 MEQ/L (136-145) Potassium Level 4.3 MEQ/L (3.5-5.1) Chloride Level 108 MEQ/L (98-107) Carbon Dioxide Level 19.6 MEQ/L (21.0-32.0) Anion Gap 13 MEQ/L (5-15) Blood Urea Nitrogen 26 MG/DL (7-18) Creatinine 1.45 MG/DL (0.60-1.30) Estimat Glomerular Filtration 46 ML/MIN (>89) Rate Random Glucose 208 MG/DL (74-106) Calcium Level 7.0 MG/DL (8.5-10.1) Protein Corrected Calcium 9.4 MG/DL (8.5-10.1) Magnesium Level 1.8 MG/DL (1.5-2.5) Total Bilirubin 0.4 MG/DL (0.2-1.0) Aspartate Amino Transf 18 U/L (15-37) (AST/SGOT) Alanine Aminotransferase 11 U/L (12-78) (ALT/SGPT) Alkaline Phosphatase 24 U/L (45-117) Total Protein 3.1 GM/DL (6.4-8.2) Albumin 1.7 GM/DL (3.4-5.0) Prealbumin 15 MG/DL (20-40) Blood Type O POSITIVE Crossmatch Leukocyte-Reduced Red Blood Cells Blood Bank Comment Test 11/15/16 11/15/16 11/16/16 11/16/16 23:21 23:30 05:45 05:49 Blood Type O POSITIVE Crossmatch Leukocyte-Reduced Red Blood Cells Blood Bank Comment Prothrombin Time 12.8 SEC (9.8-11.6) Prothromb Time International 1.2 RATIO Ratio Hemoglobin 9.8 GM/DL (13.0-17.0) Blood Gas Puncture Site ART LINE Blood Gas Patient Temperature 98.6 Blood Gas HCO3 13 mmol/L (22-26) Blood Gas Base Excess -10.4 mmol/L (-2-2) Blood Gas Oxygen Saturation 96 % (90-100) Arterial Blood pH 7.44 (7.380-7.420) Arterial Blood Partial 20 mmHg (38-42) Pressure CO2 Arterial Blood Partial 100 mmHg Pressure O2 (61-120) Arterial Blood Oxygen Content 13.2 Vol % (12.0-20.0) Arterial Blood 1.4 % (0-4) Carboxyhemoglobin Arterial Blood Methemoglobin 1.1 % (0-2) Blood Gas Hemoglobin 9.7 G/DL (12.0-16.0) Oxygen Delivery Device NASAL CANNULA Blood Gas Liter Flow 5 L/M Test 11/16/16 11/16/16 07:50 08:59 Prothrombin Time 13.3 SEC (9.8-11.6) Prothromb Time International 1.2 RATIO Ratio Activated Partial 44.2 SEC Thromboplast Time (24.3-30.1) Fibrinogen 113 mg/dL (227-377) Total Creatine Kinase 1271 U/L (39-308) Creatine Kinase MB 7.1 NG/ML (0.5-3.6) Creatine Kinase MB % 0.6 % (0.0-4.0) Blood Type O POSITIVE Crossmatch Leukocyte-Reduced Red Blood Cells Blood Bank Comment Result Diagram: 11/16/16 0545 11/15/16 1547 Microbiology Microbiology Date/Time Procedure Status Source Growth 11/13/16 14:45 Urine Culture - Final Complete Urine Catheterized Urine Donna Tropicalis 11/13/16 15:45 Aerobic Blood Culture - Preliminary Resulted Blood Peripheral NO GROWTH IN 2 DAYS 11/13/16 15:45 Anaerobic Blood Culture - Preliminary Resulted Blood Peripheral NO GROWTH IN 2 DAYS 11/13/16 15:50 Aerobic Blood Culture - Preliminary Resulted Blood Peripheral NO GROWTH IN 2 DAYS 11/13/16 15:50 Anaerobic Blood Culture - Preliminary Resulted Blood Peripheral NO GROWTH IN 2 DAYS Procedures * 11/16/16 -Intubated. * 11/08/16 -Extubation. * 11/06/16 -Intubated. . Assessment and Plan Disease Oriented Problem List: (1) Severe sepsis (2) Acute respiratory failure with hypoxia (3) UTI (urinary tract infection) Symptom Scale: (1) Shortness of breath 0-10 Scale: Unable to quantify Comment: Tolerating O2 via NC. (2) Debility 0-10 Scale: Unable to quantify Comment: progressive over the past year. Pertinent Non-Medical Issues Psychosocial: . Long-term detention facility resident. Has 3 children. Spiritual: [employer]. Legal: No living will completed. Ethical issues impacting care: No living will completed. . Important Contacts Son Ronaldo montanez and Daughter Rosalind Galdamez . Prognosis Mr. Montanez is an 89 y/o male with a medical history significant for COPD, CVA, HTN and recent hospitalizations secondary to sepsis and pneumonia. Patient is a long-term resident of [facility] and [facility] with a bed to chair existence. Patient admitted for the 3rd time in 3 months secondary to pneumonia and respiratory distress requiring intubation and mechanical ventilation. Patient's overall prognosis is poor given his age, preexisting functional status , recent prior hospitalizations, and multiple chronic comorbidities. He is at high risk for further complications, continued decline and . Poor prognosis for an improved quality of life or long-term survival. . Code Status: No Code Plan * NO CODE. * Patient not capacitated to make medical decision at this time secondary to clinical condition, confusion/lethargy. Unclear if he will regain, history of dementia. Family reporting that son Ronaldo Montanez is the designated healthcare surrogate for medical decisions. Pending documentation. Other 2 children Javan and Rosalind relying on Ronaldo to make medical decision. * GOALS OF CARE: NO CODE. Family electing to transition patient to comfort- directed care/withdrawal of life support in the setting of his imminent . . * SYMPTOMS: ==Shortness of breath: septic and hemorrhagic shock. Intubated on mech vent, on pressors. == Debility: Progressive over the last 2-3 years. Long -term resident of detention facility for the last year. Bed to wheelchair bound for the last year. * Case discussed with Dr. Alfaro, Dr. Garcia and bedside RN. * Palliative care contact information has been provided to family. * Palliative care will continue to follow up with this patient and family for further clarification of goals of care. . Time Spent Total Floor Time (mins): 45 (Total time to include review of med records, physical exam, conversations with sons and case discussion with Dr. wilson and Dr. Garcia. ) >50% Counseling/Coord of Care: Yes Attestation To help prompt me to consider important information that might be impacting today's encounter and assessment, information from prior notes written by myself or my colleagues may have been "brought forward" into today's note. My signature on this note, however, is an attestation that I personally performed the exam, history, and/or decision-making noted today, and, unless otherwise indicated, the interactions with patient, family, and staff as well as the review of records all occurred today. I also attest that the listed assessment and stated plan reflect my best clinical judgment today based on the combination of historical information, prior notes, and today's exam/ interactions. When time spent is documented, it refers only to time spent today by the signer, or if indicated, combined time spent today by collaborating physician/nurse practitioner. Fransisca Reynaga Nov 16, 2016 10:32
[2016-11-16 10:39] LABS: BLOOD GAS BASE EXCESS -13.5 mmol/L (-2-2); BLOOD GAS HCO3 11 mmol/L (22-26); BLOOD GAS METHEMOGLOBIN 1.1 % (0-2); BLOOD GAS O2 HGB SATURATION 98 % (90-100); BLOOD GAS OXYGEN CONTENT 14.2 Vol % (12.0-20.0); BLOOD GAS PCO2 22 mmHg (38-42); BLOOD GAS PO2 400 mmHg (61-120); BLOOD GAS TOTAL HGB 9.6 G/DL (12.0-16.0); TEMP CORR TO 98.6
[2016-11-16 10:40] LABS: CRITICAL VALUE YES; DRAW SITE ALINE; FIO2 100 %; OXYGEN DEVICE VENTILATOR; STAT YES; VENT SETTINGS A/C20/550/PEEP5
[2016-11-16] MEDS: VASOPRESSIN INJ 40 UNITS in DEXTROSE 5% IN WATER 100ML INJ 98 ML IV SCH ×2 (12:30)
--- NOTE | 2016-11-16 15:17 | HHI.PR ---
Subjective Remarks pt declining has sepsis and new retroperitoneal bleed Objective Vital Signs Date Time Temp Pulse Resp B/P Pulse Ox O2 Delivery O2 Flow Rate FiO2 11/16/16 12:16 97 50 11/16/16 12:00 98.1 116 19 116/49 96 11/16/16 12:00 116 11/16/16 10:42 97 50 11/16/16 10:00 124 11/16/16 09:02 100 100 11/16/16 08:00 98.1 126 32 139/53 97 11/16/16 08:00 130 11/16/16 07:48 96 Nasal Cannula 5.00 11/16/16 06:00 107 11/16/16 04:00 113 11/16/16 04:00 98.0 113 27 123/84 100 11/16/16 02:00 103 11/16/16 00:00 98.5 128 28 115/53 96 11/16/16 00:00 128 11/15/16 22:00 114 11/15/16 20:12 98 Nasal Cannula 4.00 11/15/16 20:00 106 11/15/16 20:00 97.3 106 26 113/58 93 11/15/16 19:00 97.3 109 20 115/69 11/15/16 18:10 97.4 109 21 98/73 11/15/16 18:00 110 11/15/16 17:45 97.4 114 22 89/54 11/15/16 17:23 97.3 92 24 99/55 11/15/16 16:00 105 11/15/16 16:00 97.4 105 23 102/58 I/O 11/15/16 11/15/16 11/15/16 11/16/16 11/16/16 11/16/16 07:00 15:00 23:00 07:00 15:00 23:00 Intake Total 681 ml 3197 ml 2629 ml 1826 ml Output Total 400 ml 100 ml 50 ml 50 ml Balance 281 ml 3097 ml 2579 ml 1776 ml Intake Oral 0 ml IV Total 681 ml 3097 ml 1053 ml 726 ml Albumin 100 ml 100 ml Packed Cells 750 ml 1100 ml FFP 726 ml Output Urine Total 400 ml 100 ml 50 ml 50 ml # Bowel Movements 0 0 0 1 Result Diagram: 11/16/16 0545 11/15/16 1547 Procedures Current Medications Medications (Trade) Dose Ordered Sig/Mercedes Route Start Time Stop Time Status Last Admin (NS Flush) 2 ml UNSCH PRN IV FLUSH 11/06/16 08:15 (NS Flush) 2 ml BID IV FLUSH 11/06/16 09:00 11/16/16 09:33 Miscellaneous Information 1 Q361D XX 11/06/16 08:15 (Chlorhexidine 2% Cloth) Taper DAILY@04 TOP 11/07/16 04:00 11/03/17 03:59 11/10/16 06:53 (Chlorhexidine 2% Cloth) 3 pack UNSCH PRN TOP 11/06/16 08:15 (SoluCORTEF INJ) 100 mg Q8HR IV PUSH 11/06/16 14:00 11/16/16 06:06 (Ecotrin Ec) 81 mg DAILY PO 11/07/16 09:00 Hold 11/15/16 08:56 (Synthroid) 75 mcg DAILY@0600 PO 11/07/16 06:00 11/14/16 06:41 (Beneprotein Powder) 2 pack TID G-TUBE 11/07/16 09:00 11/15/16 08:58 (Ativan) 0.5 mg Q6H PRN PO 11/08/16 15:45 Hold 11/14/16 22:59 (risperDAL) 2 mg QID PO 11/09/16 21:00 Hold 11/14/16 20:45 (Lovenox Inj) 100 mg Q12H SQ 11/10/16 21:00 Hold 11/15/16 08:56 (KCl 40 Meq/30 ml Liq) 10 meq BID PO 11/11/16 11:00 11/15/16 08:56 (Norvasc) 5 mg DAILY PO 11/12/16 09:00 Hold 11/14/16 09:49 (Lopressor) 25 mg BID PO 11/11/16 21:00 Hold 11/14/16 20:46 (Flomax) 0.4 mg HS PO 11/11/16 21:00 11/14/16 20:46 (Tylenol-Codeine #3) 1 tab Q4H PRN PO 11/11/16 21:00 11/13/16 22:57 Acetaminophen/ Codeine Phosphate 2 tab 2 tab Q4H PRN PO 11/11/16 21:00 11/14/16 22:31 Dextrose/Sodium Chloride 1,000 ml @ 125 mls/hr Q8H IV 11/13/16 14:00 11/15/16 21:45 Meropenem 500 mg/ Sodium Chloride 100 ml @ 200 mls/hr Q8H IV 11/13/16 20:00 11/16/16 12:35 (Diflucan 200 Mg Premix Bag) 100 ml @ 100 mls/hr Q24H IV 11/13/16 18:00 11/15/16 21:38 (Depakote Sprinkles) 250 mg Q6H PO 11/13/16 22:00 11/15/16 08:56 Miscellaneous Information Patient in critical care unit? Ass... Q361D XX 11/13/16 23:00 (Chlorhexidine 2% Cloth) 3 pack DAILY@04 TOP 11/14/16 04:00 11/18/16 04:01 (Chlorhexidine 2% Cloth) 3 pack UNSCH PRN TOP 11/13/16 23:00 11/18/16 22:50 Haloperidol Lactate 5 mg 5 mg Q6H PRN IM 11/14/16 12:30 11/16/16 07:39 (Zyvox 600 Mg Premix) 300 ml @ 300 mls/hr Q12H IV 11/15/16 09:00 11/16/16 09:32 Albumin Human 25 gm 25 gm Q12H IV 11/15/16 10:00 11/16/16 09:34 Vasopressin 40 units/Dextrose 100 ml @ 4.5 mls/hr [id number] IV 11/15/16 16:00 11/16/16 12:30 (Levophed-Dextrose Drip) 250 ml @ 0 mls/hr TITRATE IV 11/15/16 16:00 11/16/16 12:31 Terbutaline Sulfate 1 mg 1 mg UNSCH PRN SQ 11/15/16 15:30 (Protonix Inj/NS Inj) 100 ml @ 10 mls/hr Q10H IV 11/15/16 20:00 11/16/16 06:07 Terbutaline Sulfate 1 mg 1 mg UNSCH PRN SQ 11/16/16 07:30 Phenylephrine HCl 160 mg/Dextrose 500 ml @ 0 mls/hr TITRATE IV 11/16/16 07:30 11/16/16 07:42 Midazolam HCl 100 ml @ 0 mls/hr TITRATE IV 11/16/16 09:30 (fentaNYL DRIP) 250 ml @ 0 mls/hr TITRATE IV 11/16/16 09:30 11/16/16 12:20 Objective Remarks Current Medications Medications (Trade) Dose Ordered Sig/Mercedes Route PRN Reason Start Time Stop Time Status Last Admin Dose Admin IV Flush (NS Flush) 2 ml UNSCH PRN IV FLUSH FLUSH AFTER USING IV ACCESS 11/06/16 08:15 IV Flush (NS Flush) 2 ml BID IV FLUSH 11/06/16 09:00 11/16/16 09:33 Miscellaneous Information 1 Q361D XX 11/06/16 08:15 Chlorhexidine Gluconate (Chlorhexidine 2% Cloth) Taper DAILY@04 TOP 11/07/16 04:00 11/03/17 03:59 11/10/16 06:53 Chlorhexidine Gluconate (Chlorhexidine 2% Cloth) 3 pack UNSCH PRN TOP HYGIENIC CARE 11/06/16 08:15 Hydrocortisone Sodium Succinate (SoluCORTEF INJ) 100 mg Q8HR IV PUSH 11/06/16 14:00 11/16/16 06:06 Aspirin (Ecotrin Ec) 81 mg DAILY PO 11/07/16 09:00 Hold 11/15/16 08:56 Levothyroxine Sodium (Synthroid) 75 mcg DAILY@0600 PO 11/07/16 06:00 11/14/16 06:41 Protein (Beneprotein Powder) 2 pack TID G-TUBE 11/07/16 09:00 11/15/16 08:58 Lorazepam (Ativan) 0.5 mg Q6H PRN PO ANXIETY 11/08/16 15:45 Hold 11/14/16 22:59 Risperidone (risperDAL) 2 mg QID PO 11/09/16 21:00 Hold 11/14/16 20:45 Enoxaparin Sodium (Lovenox Inj) 100 mg Q12H SQ 11/10/16 21:00 Hold 11/15/16 08:56 Potassium Chloride (KCl 40 Meq/30 ml Liq) 10 meq BID PO 11/11/16 11:00 11/15/16 08:56 Amlodipine Besylate (Norvasc) 5 mg DAILY PO 11/12/16 09:00 Hold 11/14/16 09:49 Metoprolol Tartrate (Lopressor) 25 mg BID PO 11/11/16 21:00 Hold 11/14/16 20:46 Tamsulosin HCl (Flomax) 0.4 mg HS PO 11/11/16 21:00 11/14/16 20:46 Acetaminophen/ Codeine Phosphate (Tylenol-Codeine #3) 1 tab Q4H PRN PO PAIN SCALE 1 TO 5 11/11/16 21:00 11/13/16 22:57 Acetaminophen/ Codeine Phosphate 2 tab 2 tab Q4H PRN PO PAIN SCALE 6 TO 10 11/11/16 21:00 11/14/16 22:31 Dextrose/Sodium Chloride 1,000 ml @ 125 mls/hr Q8H IV 11/13/16 14:00 11/15/16 21:45 Meropenem 500 mg/ Sodium Chloride 100 ml @ 200 mls/hr Q8H IV 11/13/16 20:00 11/16/16 12:35 Fluconazole/ Sodium Chloride (Diflucan 200 Mg Premix Bag) 100 ml @ 100 mls/hr Q24H IV 11/13/16 18:00 11/15/16 21:38 Divalproex Sodium (Depakote Sprinkles) 250 mg Q6H PO 11/13/16 22:00 11/15/16 08:56 Miscellaneous Information Patient in critical care unit? Ass... Q361D XX 11/13/16 23:00 Chlorhexidine Gluconate (Chlorhexidine 2% Cloth) 3 pack DAILY@04 TOP 11/14/16 04:00 11/18/16 04:01 Chlorhexidine Gluconate (Chlorhexidine 2% Cloth) 3 pack UNSCH PRN TOP HYGIENIC CARE 11/13/16 23:00 11/18/16 22:50 Haloperidol Lactate 5 mg 5 mg Q6H PRN IM AGITATION AND/OR HALLUCINATION 11/14/16 12:30 11/16/16 07:39 Linezolid (Zyvox 600 Mg Premix) 300 ml @ 300 mls/hr Q12H IV 11/15/16 09:00 11/16/16 09:32 Albumin Human 25 gm 25 gm Q12H IV 11/15/16 10:00 11/16/16 09:34 Vasopressin 40 units/Dextrose 100 ml @ 4.5 mls/hr [id number] IV 11/15/16 16:00 11/16/16 12:30 Norepinephrine Bitartrate (Levophed-Dextrose Drip) 250 ml @ 0 mls/hr TITRATE IV 11/15/16 16:00 11/16/16 12:31 Terbutaline Sulfate 1 mg 1 mg UNSCH PRN SQ For Extravasation 11/15/16 15:30 Pantoprazole Sodium/Sodium Chloride (Protonix Inj/NS Inj) 100 ml @ 10 mls/hr Q10H IV 11/15/16 20:00 11/16/16 06:07 Terbutaline Sulfate 1 mg 1 mg UNSCH PRN SQ For Extravasation 11/16/16 07:30 Phenylephrine HCl 160 mg/Dextrose 500 ml @ 0 mls/hr TITRATE IV 11/16/16 07:30 11/16/16 07:42 Midazolam HCl 100 ml @ 0 mls/hr TITRATE IV 11/16/16 09:30 Fentanyl Citrate (fentaNYL DRIP) 250 ml @ 0 mls/hr TITRATE IV 11/16/16 09:30 11/16/16 12:20 Medications and IVs GENERAL: SKIN: Warm and dry. HEAD: Atraumatic. Normocephalic. EYES: Pupils equal and round. No scleral icterus. No injection or drainage. ENT: No nasal bleeding or discharge. Mucous membranes pink and moist. NECK: Trachea midline. No JVD. CARDIOVASCULAR: Regular rate and rhythm. RESPIRATORY: No accessory muscle use. Clear to auscultation. Breath sounds equal bilaterally. GASTROINTESTINAL: Abdomen soft, non-tender, nondistended. Hepatic and splenic margins not palpable. MUSCULOSKELETAL: Extremities without clubbing, cyanosis, or edema. No obvious deformities. 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
[2016-11-16] MEDS: FLUCONAZOLE 200 MG PREMIX BAG 100 ML IV SCH (17:10)
[2016-11-16] MEDS ORDERED: LORazepam 2 MG/ML VIAL IV ONE ×2 (17:15→17:30)
[2016-11-16] MEDS ORDERED: HYOSCYAMINE 0.5 MG/ML AMP IV ONE (17:15)
[2016-11-16] MEDS ORDERED: LORazepam 2 MG/ML VIAL IV PRN ×2 (17:45)
[2016-11-16] MEDS ORDERED: HYOSCYAMINE 0.5 MG/ML AMP IV PRN (17:45)
[2016-11-16] MEDS ORDERED: BISACODYL 10 MG SUPP PR PRN (17:45)
[2016-11-16] MEDS ORDERED: ACETAMINOPHEN 650 MG SUPP PR PRN (17:45)
[2016-11-16] MEDS ORDERED: FUROSEMIDE 20 MG/2 ML VIAL IV PRN (17:45)
[2016-11-16] MEDS ORDERED: LORazepam 2 MG/ML VIAL IVS PRN (17:45)
--- NOTE | 2016-11-16 18:33 | HHI.PR ---
Subjective Remarks 89 YOWM with MRSA pn,COPD, UTI Has small pl effusion Developed retroperitonial hematoma Received 7 units PRBC on Multiple pressors Intubated Objective Vital Signs Vital Signs Date Time Temp Pulse Resp B/P Pulse Ox O2 Delivery O2 Flow Rate FiO2 11/16/16 14:00 117 11/16/16 12:16 97 50 11/16/16 12:00 98.1 116 19 116/49 96 11/16/16 12:00 116 11/16/16 10:42 97 50 11/16/16 10:00 124 11/16/16 09:02 100 100 11/16/16 08:00 98.1 126 32 139/53 97 11/16/16 08:00 130 11/16/16 07:48 96 Nasal Cannula 5.00 11/16/16 06:00 107 11/16/16 04:00 113 11/16/16 04:00 98.0 113 27 123/84 100 11/16/16 02:00 103 11/16/16 00:00 98.5 128 28 115/53 96 11/16/16 00:00 128 11/15/16 22:00 114 11/15/16 20:12 98 Nasal Cannula 4.00 11/15/16 20:00 106 11/15/16 20:00 97.3 106 26 113/58 93 11/15/16 19:00 97.3 109 20 115/69 I/O 11/15/16 11/15/16 11/15/16 11/16/16 11/16/16 11/16/16 07:00 15:00 23:00 07:00 15:00 23:00 Intake Total 681 ml 3197 ml 2629 ml 1826 ml 3503 ml Output Total 400 ml 100 ml 50 ml 50 ml 25 ml Balance 281 ml 3097 ml 2579 ml 1776 ml 3478 ml Intake Oral 0 ml IV Total 681 ml 3097 ml 1053 ml 726 ml 2815 ml Albumin 100 ml 100 ml Packed Cells 750 ml 1100 ml 688 ml FFP 726 ml Output Urine Total 400 ml 100 ml 50 ml 50 ml 25 ml # Bowel Movements 0 0 0 1 Result Diagram: 11/16/16 0545 11/15/16 1547 Objective Remarks GENERAL: MBMN elderly male, weak, mild sob SKIN: Warm and dry. HEAD: Normocephalic. EYES: No scleral icterus. No injection or drainage. NECK: Supple, trachea midline. No JVD or lymphadenopathy. CARDIOVASCULAR: Regular rate and rhythm without murmurs, gallops, or rubs. RESPIRATORY: Breath sounds equal bilaterally. No accessory muscle use. GASTROINTESTINAL: Abdomen soft, non-tender, nondistended. MUSCULOSKELETAL: No cyanosis, or edema. BACK: Nontender without obvious deformity. No CVA tenderness. 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
[2016-11-16] MEDS ORDERED: LORazepam 2 MG/ML VIAL IV SCH (20:00)
[2016-11-21 01:25] LABS: CRITICAL VALUE YES
--- NOTE | 2017-01-11 13:03 | HHI.DS ---
Discharge Summary Admission Date Nov 06, 2016 at 08:10 Admitting Diagnosis Urosepsis, hypoxic respiratory failure (1) Acute respiratory failure with hypoxia Diagnosis: Principal (2) Severe sepsis Diagnosis: Principal (3) UTI (urinary tract infection) Diagnosis: Principal (4) HCAP (healthcare-associated pneumonia) Diagnosis: Principal (5) Lactic acidosis Diagnosis: Principal (6) COPD (chronic obstructive pulmonary disease) Diagnosis: Principal (7) Fever Diagnosis: Principal (8) Hypothyroidism Diagnosis: Secondary (9) Hypertension Diagnosis: Secondary (10) History of CVA with residual deficit Diagnosis: Secondary (11) History of MRSA infection Diagnosis: Secondary Procedures Current Medications Medications (Trade) Dose Ordered Sig/Mercedes Route Start Time Stop Time Status Last Admin (NS Flush) 2 ml UNSCH PRN IV FLUSH 11/06/16 08:15 (NS Flush) 2 ml BID IV FLUSH 11/06/16 09:00 11/16/16 09:33 Miscellaneous Information 1 Q361D XX 11/06/16 08:15 (Chlorhexidine 2% Cloth) Taper DAILY@04 TOP 11/07/16 04:00 11/03/17 03:59 11/10/16 06:53 (Chlorhexidine 2% Cloth) 3 pack UNSCH PRN TOP 11/06/16 08:15 (SoluCORTEF INJ) 100 mg Q8HR IV PUSH 11/06/16 14:00 11/16/16 06:06 (Ecotrin Ec) 81 mg DAILY PO 11/07/16 09:00 Hold 11/15/16 08:56 (Synthroid) 75 mcg DAILY@0600 PO 11/07/16 06:00 11/14/16 06:41 (Beneprotein Powder) 2 pack TID G-TUBE 11/07/16 09:00 11/15/16 08:58 (Ativan) 0.5 mg Q6H PRN PO 11/08/16 15:45 Hold 11/14/16 22:59 (risperDAL) 2 mg QID PO 11/09/16 21:00 Hold 11/14/16 20:45 (Lovenox Inj) 100 mg Q12H SQ 11/10/16 21:00 Hold 11/15/16 08:56 (KCl 40 Meq/30 ml Liq) 10 meq BID PO 11/11/16 11:00 11/15/16 08:56 (Norvasc) 5 mg DAILY PO 11/12/16 09:00 Hold 11/14/16 09:49 (Lopressor) 25 mg BID PO 11/11/16 21:00 Hold 11/14/16 20:46 (Flomax) 0.4 mg HS PO 11/11/16 21:00 11/14/16 20:46 (Tylenol-Codeine #3) 1 tab Q4H PRN PO 11/11/16 21:00 11/13/16 22:57 Acetaminophen/ Codeine Phosphate 2 tab 2 tab Q4H PRN PO 11/11/16 21:00 11/14/16 22:31 Dextrose/Sodium Chloride 1,000 ml @ 125 mls/hr Q8H IV 11/13/16 14:00 11/15/16 21:45 Meropenem 500 mg/ Sodium Chloride 100 ml @ 200 mls/hr Q8H IV 11/13/16 20:00 11/16/16 12:35 (Diflucan 200 Mg Premix Bag) 100 ml @ 100 mls/hr Q24H IV 11/13/16 18:00 11/15/16 21:38 (Depakote Sprinkles) 250 mg Q6H PO 11/13/16 22:00 11/15/16 08:56 Miscellaneous Information Patient in critical care unit? Ass... Q361D XX 11/13/16 23:00 (Chlorhexidine 2% Cloth) 3 pack DAILY@04 TOP 11/14/16 04:00 11/18/16 04:01 (Chlorhexidine 2% Cloth) 3 pack UNSCH PRN TOP 11/13/16 23:00 11/18/16 22:50 Haloperidol Lactate 5 mg 5 mg Q6H PRN IM 11/14/16 12:30 11/16/16 07:39 (Zyvox 600 Mg Premix) 300 ml @ 300 mls/hr Q12H IV 11/15/16 09:00 11/16/16 09:32 Albumin Human 25 gm 25 gm Q12H IV 11/15/16 10:00 11/16/16 09:34 Vasopressin 40 units/Dextrose 100 ml @ 4.5 mls/hr [id number] IV 11/15/16 16:00 11/16/16 12:30 (Levophed-Dextrose Drip) 250 ml @ 0 mls/hr TITRATE IV 11/15/16 16:00 11/16/16 12:31 Terbutaline Sulfate 1 mg 1 mg UNSCH PRN SQ 11/15/16 15:30 (Protonix Inj/NS Inj) 100 ml @ 10 mls/hr Q10H IV 11/15/16 20:00 11/16/16 06:07 Terbutaline Sulfate 1 mg 1 mg UNSCH PRN SQ 11/16/16 07:30 Phenylephrine HCl 160 mg/Dextrose 500 ml @ 0 mls/hr TITRATE IV 11/16/16 07:30 11/16/16 07:42 Midazolam HCl 100 ml @ 0 mls/hr TITRATE IV 11/16/16 09:30 (fentaNYL DRIP) 250 ml @ 0 mls/hr TITRATE IV 11/16/16 09:30 11/16/16 12:20 Brief History pt has had several admissions to [facility] with copd and aspiration sepsis 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 Significant Findings PE at Discharge Current Medications Medications (Trade) Dose Ordered Sig/Mercedes Route PRN Reason Start Time Stop Time Status Last Admin Dose Admin IV Flush (NS Flush) 2 ml UNSCH PRN IV FLUSH FLUSH AFTER USING IV ACCESS 11/06/16 08:15 IV Flush (NS Flush) 2 ml BID IV FLUSH 11/06/16 09:00 11/16/16 09:33 Miscellaneous Information 1 Q361D XX 11/06/16 08:15 Chlorhexidine Gluconate (Chlorhexidine 2% Cloth) Taper DAILY@04 TOP 11/07/16 04:00 11/03/17 03:59 11/10/16 06:53 Chlorhexidine Gluconate (Chlorhexidine 2% Cloth) 3 pack UNSCH PRN TOP HYGIENIC CARE 11/06/16 08:15 Hydrocortisone Sodium Succinate (SoluCORTEF INJ) 100 mg Q8HR IV PUSH 11/06/16 14:00 11/16/16 06:06 Aspirin (Ecotrin Ec) 81 mg DAILY PO 11/07/16 09:00 Hold 11/15/16 08:56 Levothyroxine Sodium (Synthroid) 75 mcg DAILY@0600 PO 11/07/16 06:00 11/14/16 06:41 Protein (Beneprotein Powder) 2 pack TID G-TUBE 11/07/16 09:00 11/15/16 08:58 Lorazepam (Ativan) 0.5 mg Q6H PRN PO ANXIETY 11/08/16 15:45 Hold 11/14/16 22:59 Risperidone (risperDAL) 2 mg QID PO 11/09/16 21:00 Hold 11/14/16 20:45 Enoxaparin Sodium (Lovenox Inj) 100 mg Q12H SQ 11/10/16 21:00 Hold 11/15/16 08:56 Potassium Chloride (KCl 40 Meq/30 ml Liq) 10 meq BID PO 11/11/16 11:00 11/15/16 08:56 Amlodipine Besylate (Norvasc) 5 mg DAILY PO 11/12/16 09:00 Hold 11/14/16 09:49 Metoprolol Tartrate (Lopressor) 25 mg BID PO 11/11/16 21:00 Hold 11/14/16 20:46 Tamsulosin HCl (Flomax) 0.4 mg HS PO 11/11/16 21:00 11/14/16 20:46 Acetaminophen/ Codeine Phosphate (Tylenol-Codeine #3) 1 tab Q4H PRN PO PAIN SCALE 1 TO 5 11/11/16 21:00 11/13/16 22:57 Acetaminophen/ Codeine Phosphate 2 tab 2 tab Q4H PRN PO PAIN SCALE 6 TO 10 11/11/16 21:00 11/14/16 22:31 Dextrose/Sodium Chloride 1,000 ml @ 125 mls/hr Q8H IV 11/13/16 14:00 11/15/16 21:45 Meropenem 500 mg/ Sodium Chloride 100 ml @ 200 mls/hr Q8H IV 11/13/16 20:00 11/16/16 12:35 Fluconazole/ Sodium Chloride (Diflucan 200 Mg Premix Bag) 100 ml @ 100 mls/hr Q24H IV 11/13/16 18:00 11/15/16 21:38 Divalproex Sodium (Depakote Sprinkles) 250 mg Q6H PO 11/13/16 22:00 11/15/16 08:56 Miscellaneous Information Patient in critical care unit? Ass... Q361D XX 11/13/16 23:00 Chlorhexidine Gluconate (Chlorhexidine 2% Cloth) 3 pack DAILY@04 TOP 11/14/16 04:00 11/18/16 04:01 Chlorhexidine Gluconate (Chlorhexidine 2% Cloth) 3 pack UNSCH PRN TOP HYGIENIC CARE 11/13/16 23:00 11/18/16 22:50 Haloperidol Lactate 5 mg 5 mg Q6H PRN IM AGITATION AND/OR HALLUCINATION 11/14/16 12:30 11/16/16 07:39 Linezolid (Zyvox 600 Mg Premix) 300 ml @ 300 mls/hr Q12H IV 11/15/16 09:00 11/16/16 09:32 Albumin Human 25 gm 25 gm Q12H IV 11/15/16 10:00 11/16/16 09:34 Vasopressin 40 units/Dextrose 100 ml @ 4.5 mls/hr [id number] IV 11/15/16 16:00 11/16/16 12:30 Norepinephrine Bitartrate (Levophed-Dextrose Drip) 250 ml @ 0 mls/hr TITRATE IV 11/15/16 16:00 11/16/16 12:31 Terbutaline Sulfate 1 mg 1 mg UNSCH PRN SQ For Extravasation 11/15/16 15:30 Pantoprazole Sodium/Sodium Chloride (Protonix Inj/NS Inj) 100 ml @ 10 mls/hr Q10H IV 11/15/16 20:00 11/16/16 06:07 Terbutaline Sulfate 1 mg 1 mg UNSCH PRN SQ For Extravasation 11/16/16 07:30 Phenylephrine HCl 160 mg/Dextrose 500 ml @ 0 mls/hr TITRATE IV 11/16/16 07:30 11/16/16 07:42 Midazolam HCl 100 ml @ 0 mls/hr TITRATE IV 11/16/16 09:30 Fentanyl Citrate (fentaNYL DRIP) 250 ml @ 0 mls/hr TITRATE IV 11/16/16 09:30 11/16/16 12:20 Hospital Course pt admitted with sepsis he did not respond well aand ultimately declined due to multi system disease advanced age and mental illness. a no code was obtained he comfortably Discharge Instructions Speech Therapy-Diet Recommenda: Pureed, [place] Thickened Liquids Additional Information pt body released to home Lencho Salgado DO Jan 11, 2017 13:03
== END 2016-11-16 19:52 | disposition expired | DRG 871 ==
LOC: NEPC 05:46 → NEDA 08:10 → HIME 11:30 → N04A 11-09 18:40 → HIMW 11-13 20:10
PROVIDERS: ADMIT Family Medicine; ATTEND Family Medicine
PROC: 5A1945Z Respiratory Ventilation, 24-96 Consecutive Hours (ICD-10-PCS; principal; 2016-11-06)
PROC: 0BH17EZ Insertion of Endotracheal Airway into Trachea, Via Natural or Artificial Opening (ICD-10-PCS; 2016-11-06)
PROC: 30233N1 Transfusion of Nonautologous Red Blood Cells into Peripheral Vein, Percutaneous Approach (ICD-10-PCS; 2016-11-14)
PROC: 05H633Z Insertion of Infusion Device into Left Subclavian Vein, Percutaneous Approach (ICD-10-PCS; 2016-11-15)
PROC: 5A1935Z Respiratory Ventilation, Less than 24 Consecutive Hours (ICD-10-PCS; 2016-11-16)
PROC: 0BH17EZ Insertion of Endotracheal Airway into Trachea, Via Natural or Artificial Opening (ICD-10-PCS; 2016-11-16)
PROC: 0CJS8ZZ Inspection of Larynx, Via Natural or Artificial Opening Endoscopic (ICD-10-PCS; 2016-11-16)
PROC: 30233K1 Transfusion of Nonautologous Frozen Plasma into Peripheral Vein, Percutaneous Approach (ICD-10-PCS; 2016-11-16)
PROC: 0BH17EZ Insertion of Endotracheal Airway into Trachea, Via Natural or Artificial Opening (ICD-10-PCS; 2016-11-16)
DX: A41.02 Sepsis due to Methicillin resistant Staphylococcus aureus (principal); J96.01 Acute respiratory failure with hypoxia; R65.21 Severe sepsis with septic shock; G93.41 Metabolic encephalopathy; Z51.5 Encounter for palliative care; Z66 Do not resuscitate; N17.9 Acute kidney failure, unspecified; K66.1 Hemoperitoneum; J15.212 Pneumonia due to Methicillin resistant Staphylococcus aureus; J90 Pleural effusion, not elsewhere classified; N18.3 Chronic kidney disease, stage 3 (moderate); J44.0 Chronic obstructive pulmonary disease with (acute) lower respiratory infection; E87.2 Acidosis; I69.354 Hemiplegia and hemiparesis following cerebral infarction affecting left non-dominant side; J44.1 Chronic obstructive pulmonary disease with (acute) exacerbation; T83.511A Infection and inflammatory reaction due to indwelling urethral catheter, initial encounter; I82.621 Acute embolism and thrombosis of deep veins of right upper extremity; E46 Unspecified protein-calorie malnutrition; B37.49 Other urogenital candidiasis; N39.0 Urinary tract infection, site not specified; E03.9 Hypothyroidism, unspecified; I12.9 Hypertensive chronic kidney disease with stage 1 through stage 4 chronic kidney disease, or unspecified chronic kidney disease; G62.9 Polyneuropathy, unspecified; G89.29 Other chronic pain; M54.5 Low back pain; D64.9 Anemia, unspecified; L89.612 Pressure ulcer of right heel, stage 2; N28.1 Cyst of kidney, acquired; E88.09 Other disorders of plasma-protein metabolism, not elsewhere classified; F32.9 Major depressive disorder, single episode, unspecified; F41.9 Anxiety disorder, unspecified; M19.90 Unspecified osteoarthritis, unspecified site; E86.0 Dehydration; N40.0 Benign prostatic hyperplasia without lower urinary tract symptoms; G31.89 Other specified degenerative diseases of nervous system; K21.9 Gastro-esophageal reflux disease without esophagitis; F03.90 Unspecified dementia, unspecified severity, without behavioral disturbance, psychotic disturbance, mood disturbance, and anxiety; Y95 Nosocomial condition; Z79.891 Long term (current) use of opiate analgesic; Z85.828 Personal history of other malignant neoplasm of skin; Z86.14 Personal history of Methicillin resistant Staphylococcus aureus infection; Z87.01 Personal history of pneumonia (recurrent); Z87.891 Personal history of nicotine dependence; Z88.1 Allergy status to other antibiotic agents; Z99.3 Dependence on wheelchair; Z68.31 Body mass index [BMI] 31.0-31.9, adult
CPT/HCPCS: 31500; 36430; 36556; 36600; 36620; 71010; 71020; 71275; 74176; 74177; 76604; 76937; 80048; 80053; 80202; 81001; 82550; 82552; 82565; 82805; 83605; 83690; 83735; 84100; 84132; 84134; 84145; 84484; 85007; 85018; 85025; 85027; 85384; 85610; 85730; 86403; 86850; 86900; 86901; 86920; 86927; 87040; 87070; 87077; 87086; 87106; 87147; 87186; 87205; 87449; 87641; 87804; 93005; 93970; 94002; 94003; 94150; 94640; 94664; 96365; 96367; 96375; C9113; J0330; J0456; J0692; J1450; J1630; J1650; J1720; J1940; J1980; J2020; J2060; J2185; J2250; J2370; J2543; J2720; J2930; J3010; J3370; J3430; J7030; J7040; J7050; J7060; P9016; P9017; P9047; Q9967